=== PATIENT | female | born 1940 | race Caucasian/White ===

== ENCOUNTER → 2016-12-01 | Outpatient (CLI) | payer MEDICARE, BC ==
[~2016-12-01] MED LIST: ALBU8.5H INH; ASCO500T9 PO; ATOR40TA64 PO; BIFI4CAP PO; BUME1TAB17 PO; DIGO-34 PO; ENOX100D SQ; FERR324T4 PO; INSU100V12 SQ; LORA10TA7 PO; MAGN400T6 PO; METF10002 PO; METO-482 PO; MINO100C2 PO; MOME0.244 INH; OMEP40CA52 PO; PROM5SYR PO; SPIR25TA4 PO; SUCR1TAB20 PO; TIOT18CA3 ORAL INH; WARF2.5T73 PO; WARF5TAB6 PO; [UNRECOGNIZED DRUG - CODE] PO
== END ==
LOC: WC.BC 12:43
DX: Z12.31 Encounter for screening mammogram for malignant neoplasm of breast (principal)
CPT/HCPCS: 77063; G0202

== ENCOUNTER 2017-06-18 14:55 | Inpatient (IN) ==
[2017-06-17 09:54] VITALS: BMI 30.3
--- NOTE | 2017-06-17 10:39 | XRay Report ---
Indication: chf PROCEDURE: XR chest 1V: Encounter: Initial Comparison: July 07, 2016 Findings: Slightly increased pulmonary vascular congestion compared to the prior study. No lobar consolidation. No pleural effusion or pneumothorax. Heart size and mediastinal contours are stable. Prior sternotomy and cardiac valve replacements with a left pacemaker defibrillator. In impression: Slight increase in mild congestive failure. .
[2017-06-17] MEDS: BUMETANIDE DRIP 25 MG in RTU-SALINE 100 ML IV SCH ×2 (11:08→19:32)
[2017-06-17] MEDS: INSULIN LISPRO PO SCH ×2 (18:48→20:17)
[2017-06-17] MEDS: INSULIN ASPART 100unit/ml INJECTION SQ SCH (20:21)
[2017-06-17] MEDS: APAP/DIPHENHYDRAMINE 500 MG/25 MG TABLET PO SCH (21:48)
[2017-06-17] MEDS: ATORVASTATIN 40 MG TABLET PO SCH (21:48)
[2017-06-17] MEDS: INSULIN DETEMIR 100unit/ml INJECTION SQ SCH (21:52)
[2017-06-17] MEDS: SUCRALFATE 1 GM TABLET PO SCH (21:55)
[2017-06-18] MEDS: FERROUS SULFATE 324 MG TABLET PO SCH (08:58)
[2017-06-18] MEDS: METFORMIN 1,000 MG TABLET PO SCH (08:59)
[2017-06-18] MEDS: ALLOPURINOL 100 MG TABLET PO SCH (08:59)
[2017-06-18] MEDS: ASPIRIN *EC* 81 MG TABLET PO SCH (09:00)
[2017-06-18] MEDS: CLOPIDOGREL 75 MG TABLET PO SCH (09:02)
[2017-06-18] MEDS: DIGOXIN 125 MCG TABLET PO SCH (09:05)
[2017-06-18] MEDS: FOLIC ACID 1 MG TABLET PO SCH (09:07)
[2017-06-18] MEDS: SUCRALFATE 1 GM TABLET PO SCH ×2 (09:09→22:41)
[2017-06-18] MEDS: INSULIN DETEMIR 100unit/ml INJECTION SQ SCH ×2 (09:12→22:42)
[2017-06-18] MEDS: INSULIN ASPART 100unit/ml INJECTION SQ SCH ×3 (09:37→18:57)
--- NOTE | 2017-06-18 11:59 | Cardiology Progress Note ---
Subjective Principal diagnosis: A/C Heart Failure <Manisha Farr - 06/18/17 11:59> Interval history: Patient was seen in Dr. Henriquez's [place] [facility] yesterday with complaints of increased SOA and swelling. She was placed in the hospital yesterday for aggressive diuretic therapy. Today, patient has been receiving IV Bumex at 1mg/hr since last night and she remains SOA but improved. LE edema also improving - she has tenderness to the LE when touching the skin and she has peripheral neuropathy mostly controlled. Patient has improved EF 55% by recent echo performed 03/17/17. Prior EF 2015 low at 27%. This patient also has co-morbid conditions to include PAD recent Left LE intervention - doing well. Patient denies CP <Manisha Farr - 06/18/17 13:01> Exam Vital signs: Temperature 97.8 F 06/20/17 12:00 Pulse Rate 66 06/20/17 12:00 Respiratory Rate 16 06/20/17 12:00 Blood Pressure 112/51 06/20/17 12:00 Pulse Oximetry 90 06/20/17 12:00 <Dion Henriquez - 06/20/17 12:45> Temperature 97.9 F 06/18/17 16:04 Pulse Rate 95 06/18/17 16:04 Respiratory Rate 18 06/18/17 16:04 Blood Pressure 121/63 06/18/17 16:04 Pulse Oximetry 98 06/18/17 16:04 <Maryam Ch - 06/18/17 17:34> Temperature 98.6 F 06/18/17 11:39 Pulse Rate 89 06/18/17 11:39 Respiratory Rate 16 06/18/17 11:39 Blood Pressure 116/72 06/18/17 11:39 Pulse Oximetry 98 06/18/17 11:39 <Manisha Farr - 06/18/17 13:01> - Constitutional no acute distress <Manisha Farr - 06/18/17 13:01> - Routine HEENT Exam Head: Present: normocephalic, atraumatic <Manisha Farr - 06/18/17 13:01> Eye: Present: EOMI. Absent: periorbital swelling <Manisha Farr - 06/18/17 13:01> ENT: Present: mucous membranes moist <Manisha Farr - 06/18/17 13:01> - Routine Respiratory Exam Present: dyspnea, CTA bilaterally. Absent: accessory muscle use <Manisha Farr - 06/18/17 13:01> - Routine Cardiovascular Exam Present: RRR. Absent: murmur <Manisha Farr - 06/18/17 13:01> - Routine Extremities Exam Present: edema, pulses intact <Manisha Farr - 06/18/17 13:01> - Routine Skin Exam Absent: cyanosis <Manisha Farr - 06/18/17 13:01> - Routine Neurological Exam Present: alert, oriented X3 <Manisha Farr - 06/18/17 13:01> - Routine Psychiatric Exam Present: normal affect, normal thought process, cooperative, good insight, good judgment <Manisha Farr - 06/18/17 13:01> Assessment and Plan - Assessment and Plan (1) Systolic and diastolic CHF, acute on chronic Current visit: Yes Status: Acute (2) Coronary artery disease Current visit: Yes Status: Chronic (3) PAF (paroxysmal atrial fibrillation) Current visit: Yes Status: Chronic (4) HTN (hypertension) Current visit: Yes Status: Chronic (5) DM2 (diabetes mellitus, type 2) Current visit: Yes Status: Chronic (6) HLD (hyperlipidemia) Current visit: Yes Status: Chronic (7) COPD (chronic obstructive pulmonary disease) Current visit: Yes Status: Chronic <Dion Henriquez - 06/20/17 12:45> (1) Systolic and diastolic CHF, acute on chronic Current visit: Yes Status: Acute Bumex Drip 1mg/hr - BNP in AM and CXR to monitor response Consider change to intermittent Bumex dosing if above show improvement Lab in AM to include CMP Liver enzymes elevated likely due to liver congestion as a result of CHF - monitor and caution with medications cleared through liver. Monitor Warfarin level as liver congestion can cause elevated liver enzymes ultimately increasing INR levels Atorvastatin will also increase liver enzymes - will continue to monitor as outpatient once she recovers from exacerbation of CHF (2) Coronary artery disease Current visit: Yes Status: Chronic Will perform 3 Troponin levels to rule out ACS as a cause for exacerbation of CHF Continue Asa and statin Continue Metoprolol Add BRITNI-I and monitor for cough - If patient develops cough on BRITNI-I then will consider ARB (3) PAF (paroxysmal atrial fibrillation) Current visit: Yes Status: Chronic Continue Warfarin and we will consult Pharmacy for dosing Keep INR between 2 and 3 (4) HTN (hypertension) Current visit: Yes Status: Chronic Stable Continue Metoprolol and add Britni-I and monitor vital signs (5) DM2 (diabetes mellitus, type 2) Current visit: Yes Status: Chronic Continue Metformin and monitor Accuchecks (6) HLD (hyperlipidemia) Current visit: Yes Status: Chronic Continue statin (7) COPD (chronic obstructive pulmonary disease) Current visit: Yes Status: Chronic Consult Dr. Mena for COPD management <Manisha Farr - 06/19/17 20:11> (1) Systolic and diastolic CHF, acute on chronic Current visit: Yes Status: Acute Change Bumex drip to Diamox 250mg IV Q8H Cr vera (2) Coronary artery disease Current visit: Yes Status: Chronic Entresto 24/26mg po BID (3) PAF (paroxysmal atrial fibrillation) Current visit: Yes Status: Chronic (4) HTN (hypertension) Current visit: Yes Status: Chronic (5) DM2 (diabetes mellitus, type 2) Current visit: Yes Status: Chronic (6) HLD (hyperlipidemia) Current visit: Yes Status: Chronic (7) COPD (chronic obstructive pulmonary disease) Current visit: Yes Status: Chronic <Maryam Ch - 06/18/17 17:34> - Attestation Attestation Narrative: 06/20/17 12:44 I have seen and evaluated patient and I agree with above. Patient has valvular heart disease 06/20/17 12:44 WE have made an adjustment to her INR level <Dion Henriquez - 06/20/17 12:44> Hospital Course Summary Disclaimer: The visit summary below is not to be considered part of the above Progress Note. <Dion Henriquez - 06/20/17 12:45> The visit summary below is not to be considered part of the above Progress Note. <Maryam Ch - 06/18/17 17:34> The visit summary below is not to be considered part of the above Progress Note. <Manisha Farr - 06/18/17 11:59>
--- NOTE | 2017-06-18 12:51 | XRay Report ---
INDICATION: CHF PROCEDURE: CHEST 2-VIEWS UPRIGHT (PA & LAT) Encounter: Initial COMPARISON: June 17, 2017 FINDINGS: Increased interstitial markings seen in the lower lung peterson bilaterally with Rukhsana B lines in the periphery. No consolidative pneumonia or pneumothorax. Trace pleural fluid. Heart size and mediastinal contours are stable. Prior cardiac valve replacement with left pacemaker defibrillator. Impression: Persistent mild to moderate pulmonary edema. .
--- NOTE | 2017-06-18 13:50 | Pharmacy Consult ---
Pharmacy Consult-Warfarin - Laboratory Information 06/17/17 06/18/17 10:07 04:13 INR 3.41 H 3.75 H - Consult Information We will give 2mg of vitamin k orally today. INR elevated from 06/17/17 (3.41 to 3.75 today). INR is ordered for a.m. and we will make adjustments if needed at that time. Thanks
[~2017-06-18 14:55] MED LIST changes: -ALBU8.5H INH; +ALBUTEROL INH PRN; -ASCO500T9 PO; +ASCORBIC ACID 1000 MG PO SCH; -ATOR40TA64 PO; -BIFI4CAP PO; -BUME1TAB17 PO; +BUMETANIDE 2.5mg/10ml INJECTION IVP ONE; +CYANOCOBALAMIN PO SCH; -DIGO-34 PO; -ENOX100D SQ; -FERR324T4 PO; +INFLUENZA VAC High Dose 2017-18 (Fluzone HD*) (>=65yo) 0.5ml IM ONE; +INFLUENZA VAC. INJ. ADMIN CHARGE INJ ONE; -INSU100V12 SQ; +INSULIN ASPART 100unit/ml INJECTION SQ SCH; -LORA10TA7 PO; -MAGN400T6 PO; -METF10002 PO; -METO-482 PO; -MINO100C2 PO; -MOME0.244 INH; +MOMETASONE FUROATE PO SCH; +NS FLUSH BAG 500ml IV PRN; -OMEP40CA52 PO; +PHYTONADIONE 1 MG/0.5 ML ORAL LIQUID PO ONE; +PNEUMOCOCCAL 23 VACCINE 0.5ml INJECTION IM ONE; +PNEUMOCOCCAL VAC ADMIN CHARGE INJ ONE; +POM TIOTROPIUM 18mcg/cap HANDIHALER ORAL INH SCH; +POM WARFARIN 5 MG TABLET PO SCH; -PROM5SYR PO; -SPIR25TA4 PO; -SUCR1TAB20 PO; -TIOT18CA3 ORAL INH; -WARF2.5T73 PO; -WARF5TAB6 PO; +WARFARIN - PHARMACY CONSULT MC ONE; -[UNRECOGNIZED DRUG - CODE] PO
--- NOTE | 2017-06-18 14:58 | Pulmonology Consult Note ---
History of Present Illness Consult date: 06/18/17 Reason for consult: dyspnea History of present illness: 77 year old lady who smoked until about 1 year ago, 1 ppd. She states she has COPD. She is on O2 at 2-3 lpm, Spiriva once daily, Asmanex daily and Proair when needed. For the past couple of weeks she has been SOB and having coughing with yellow sputum production. She states that Dr Waller ordered antibiotics for her and this cleared up her sputum for a while, but after she stopped those, the sputum darkened again and she developed increased shortness of breath. Dr Henriquez's notes indicate: Patient was seen in Dr. Henriquez's [place] [facility] yesterday with complaints of increased SOA and swelling. She was placed in the hospital yesterday for aggressive diuretic therapy. Today, patient has been receiving IV Bumex at 1mg/hr since last night and she remains SOA but improved. LE edema also improving - she has tenderness to the LE when touching the skin and she has peripheral neuropathy mostly controlled. Patient has improved EF 55% by recent echo performed 03/17/17. Prior EF 2015 low at 27%. This patient also has co-morbid conditions to include PAD recent Left LE intervention - doing well. Patient denies CP Review of Systems All systems: reviewed and no additional remarkable complaints except as stated PFSH Patient Stated Medical History Peripheral Neuropathy Yes: feet Cataracts Yes: both Dental Problems Yes: dentures/full upper/partial bottom Hearing Loss Yes Congestive Heart Failure Yes Coronary Artery Disease Yes Hypertension Yes Valvular Heart Disease Yes Chronic Obstructive Pulmonary Yes Disease (COPD) Pneumonia Yes Diabetes Mellitus Type 2 Yes Hx Incontinence Yes Other Musculoskeletal Yes: arthritis Shingles Yes Blood Transfusions Yes - Social History Smoking status: Former smoker Medications Home Medications Medication Instructions Recorded Confirmed Type Albuterol Sulfate [Proair Hfa] 2 puff INH Q4-6H PRN #0 06/15/14 06/17/17 History Atorvastatin Calcium 40 mg PO HS #0 06/15/14 06/17/17 History Metformin HCl 1,000 mg PO DAILY #180 06/15/14 06/17/17 History Tiotropium [place] [Spiriva] 1 cap ORAL INH DAILY #0 06/16/14 06/17/17 History Digoxin [Digitek] 125 mcg PO DAILY #0 01/09/15 06/17/17 History Warfarin Sodium 2.5 mg PO SUMOWEFRSA #0 tab 04/19/15 06/17/17 History Warfarin Sodium 5 mg PO TUTH #0 tab 04/19/15 06/17/17 History Insulin Detemir [Levemir] 38 units SQ BID #0 vial 12/06/15 06/17/17 History Allopurinol [Zyloprim] 100 mg PO DAILY 04/14/17 06/17/17 History Cholecalciferol (Vitamin D3) 5,000 unit PO DAILY 04/14/17 06/17/17 History [Vitamin D3] Cyanocobalamin (Vitamin B-12) 1,000 mcg PO DAILY 04/14/17 06/17/17 History [Vitamin B-12] Folic Acid [Folate] 1 mg PO DAILY 04/14/17 06/17/17 History Insulin Lispro [HumaLOG] 25 unit SQ TIDWM 04/14/17 06/17/17 History Sucralfate [Carafate] 1 g PO BID 04/14/17 06/17/17 History Bumetanide 2 mg PO TID 05/19/17 06/17/17 History Metoprolol Tartrate [Lopressor] 150 mg PO BID 05/19/17 06/17/17 History Acetaminophen/Diphenhydramine 1 tab PO HS 06/17/17 06/17/17 History [Acetaminophen Pm Caplet] Ascorbic Acid [Vitamin C] 1,000 mg PO WB 06/17/17 06/17/17 History Magnesium Oxide 500 mg PO DAILY 06/17/17 06/17/17 History Mometasone Furoate [Asmanex] 1 puff INH HS 06/17/17 06/17/17 History Omeprazole 40 mg PO ACB 06/17/17 06/17/17 History Allergies Allergy/AdvReac Type Severity Reaction Status Date / Time ciprofloxacin Allergy Unknown ABDOMINAL Verified 06/17/17 15:06 DISCOMFORT Exam Vital signs: Temperature 98.6 F 06/18/17 11:39 Pulse Rate 89 06/18/17 11:39 Respiratory Rate 16 06/18/17 11:39 Blood Pressure 116/72 06/18/17 11:39 Pulse Oximetry 98 06/18/17 11:39 - Constitutional no acute distress, well developed - Routine HEENT Exam Head: Present: normocephalic, atraumatic ENT: Present: mucous membranes moist Throat: normal inspection - Routine Neck Exam Present: supple. Absent: JVD - Routine Respiratory Exam Present: decreased breath sounds, prolonged expiratory phase. Absent: wheezes - Routine Cardiovascular Exam Present: RRR, S1, S2 - Routine Abdominal Exam Present: soft. Absent: guarding - Routine Extremities Exam Present: edema. Absent: cyanosis, clubbing - Routine Skin Exam Present: intact. Absent: cyanosis - Routine Neurological Exam Present: alert, oriented X3 - Routine Psychiatric Exam Present: normal affect Results - Laboratory Findings CBC and BMP: 06/18/17 04:13 06/18/17 04:13 PT/INR, D-dimer INR 3.75 (0.99-1.21) H 06/18/17 04:13 Abnormal lab findings: Abnormal Labs 06/17/17 06/17/17 06/17/17 10:07 10:07 10:07 RBC 3.24 L Hgb 9.6 L Hct 31.6 L MCHC 30.4 L RDW Std Deviation 59.6 H Immature Gran % (Auto) Neut % (Auto) Lymph % (Auto) Lymph # (Auto) Abs Immat Gran (auto) Neutrophils % (Manual) 89.0 H Lymphocytes % (Manual) 5.0 L Lymphocytes # (Manual) 0.4 L INR 3.41 H Sodium Potassium Chloride 95 L Carbon Dioxide 33 H BUN 43.0 H BUN/Creatinine Ratio 36 H Glucose 195 H Calculated Osmolality 285 H AST 43 H ALT 62 H B-Natriuretic Peptide 3130 H 06/18/17 06/18/17 06/18/17 04:13 04:13 04:13 RBC 3.27 L Hgb 9.5 L Hct 32.0 L MCHC 29.7 L RDW Std Deviation 58.7 H Immature Gran % (Auto) 0.8 H Neut % (Auto) 78.6 H Lymph % (Auto) 8.7 L Lymph # (Auto) 0.7 L Abs Immat Gran (auto) 0.07 H Neutrophils % (Manual) Lymphocytes % (Manual) Lymphocytes # (Manual) INR 3.75 H Sodium 145 H Potassium 3.5 L Chloride 94 L Carbon Dioxide 39 H BUN 42.0 H BUN/Creatinine Ratio 35 H Glucose Calculated Osmolality 289 H AST ALT B-Natriuretic Peptide - Diagnostic Findings Chest x-ray: report reviewed, image reviewed Assessment and Plan - Assessment and Plan (1) COPD (chronic obstructive pulmonary disease) Current visit: Yes Status: Chronic At least moderate COPD with hypoxemia and possible chronic hypercapnic respiratory failure. I recommend nebulized budesonide BID, albuterol/ ipratropium QID. Continue O2 to keep sat >90%. Check ABG and if she has significant hypercapnia we can consider NIPPV for home use. Avoid systemic corticosteroids at this time due to her DM. We will follow
[2017-06-18] MEDS: acetaZOLAMIDE 500 MG INJECTION IV SCH (19:02)
[2017-06-18] MEDS: ALBUTEROL/IPRATROPIUM 2.5mg-0.5mg/3ml NEB AEROSOL SCH (19:58)
[2017-06-18] MEDS: BUDESONIDE INH.SOLN 0.5mg/2ml NEB AEROSOL SCH (19:58)
[2017-06-18] MEDS: SACUBITRIL/VALSARTAN 24/26mg TABLET PO SCH (22:41)
[2017-06-18] MEDS: ATORVASTATIN 40 MG TABLET PO SCH (22:42)
[2017-06-18] MEDS: APAP/DIPHENHYDRAMINE 500 MG/25 MG TABLET PO SCH (22:43)
[2017-06-19] MEDS: acetaZOLAMIDE 500 MG INJECTION IV SCH ×3 (01:49→16:34)
[2017-06-19] MEDS: OMEPRAZOLE 20 MG CAPSULE PO SCH (06:42)
--- NOTE | 2017-06-19 08:29 | Pharmacy Consult ---
Pharmacy Consult-Warfarin - Laboratory Information 06/17/17 06/18/17 06/19/17 10:07 04:13 04:18 INR 3.41 H 3.75 H 2.45 H PB, a 77 yo female was seen in Dr[facility]quez[facility] with complaints of increased SOA and swelling. She was placed in the hospital yesterday for aggressive diuretic therapy with a Bumex drip. The patient has diagnosis of atrial fibrillation for which she is currently taking Warfarin 2.5 mg orally SuMoWeFrSA and 5 mg TuTh. Date INR Dose 06/17 3.41 ---- 06/18 3,[address] SCIENTIST (not pharmacy). The pharmacy gave Vit K 2 mg to insure patient did not become supra-therapeutic. 06/19 2.45 Plan 2.5 mg (Patient's home dose) I plan to give the patient's home dose of warfarin today. The Pharmacy will continue to monitor the INR's and adjust the warfarin therapy accordingly. Thanks for the Warfarin Dosing Protocol, Boris Madrigal, Pharmacist.
[2017-06-19] MEDS: BUDESONIDE INH.SOLN 0.5mg/2ml NEB AEROSOL SCH ×2 (08:35→19:09)
[2017-06-19] MEDS: ALBUTEROL/IPRATROPIUM 2.5mg-0.5mg/3ml NEB AEROSOL SCH ×4 (08:35→19:09)
[2017-06-19] MEDS: MAGNESIUM OXIDE 400 MG TABLET PO SCH (08:53)
[2017-06-19] MEDS: FERROUS SULFATE 324 MG TABLET PO SCH (08:53)
[2017-06-19] MEDS: ALLOPURINOL 100 MG TABLET PO SCH (08:54)
[2017-06-19] MEDS: CYANOCOBALAMIN (B-12) 500mcg TABLET PO SCH (08:54)
[2017-06-19] MEDS: METFORMIN 1,000 MG TABLET PO SCH (08:54)
[2017-06-19] MEDS: CLOPIDOGREL 75 MG TABLET PO SCH (08:54)
[2017-06-19] MEDS: ASPIRIN *EC* 81 MG TABLET PO SCH (08:55)
[2017-06-19] MEDS: SACUBITRIL/VALSARTAN 24/26mg TABLET PO SCH ×2 (08:55→22:28)
[2017-06-19] MEDS: SUCRALFATE 1 GM TABLET PO SCH ×2 (08:55→22:27)
[2017-06-19] MEDS: INSULIN ASPART 100unit/ml INJECTION SQ SCH ×3 (08:56→18:55)
[2017-06-19] MEDS: INSULIN DETEMIR 100unit/ml INJECTION SQ SCH ×2 (08:57→22:26)
[2017-06-19] MEDS: DIGOXIN 125 MCG TABLET PO SCH (09:03)
[2017-06-19] MEDS: ASCORBIC ACID 500 MG TABLET PO SCH (09:03)
[2017-06-19] MEDS: FOLIC ACID 1 MG TABLET PO SCH (09:03)
--- NOTE | 2017-06-19 10:24 | Pulmonology Progress Note ---
Subjective Principal diagnosis: A/C Heart Failure Interval history: Pt sitting up in bed, states her breathing is doing ok at rest, still with some SOB with ambulation. Currently on her home O2 at 2L per NC. Exam Vital signs: Temperature 96.8 F 06/19/17 07:57 Pulse Rate 67 06/19/17 09:03 Respiratory Rate 20 06/19/17 08:25 Blood Pressure 122/61 06/19/17 07:57 Pulse Oximetry 98 06/19/17 08:25 - Constitutional no acute distress, well developed - Routine HEENT Exam Head: Present: normocephalic, atraumatic Eye: Present: EOMI, PERRL - Routine Neck Exam Present: supple, full ROM - Routine Respiratory Exam Present: CTA bilaterally - Routine Cardiovascular Exam Present: RRR, no murmur - Routine Abdominal Exam Present: soft, normoactive bowel sounds - Routine Extremities Exam Present: no edema, non tender, full ROM - Routine Back/Spine/Pelvis Exam Back/Spine: Present: full ROM - Routine Skin Exam Present: intact, dry - Routine Neurological Exam Present: alert, oriented X3, CN II-XII intact - Routine Psychiatric Exam Present: normal affect, normal thought process Progress Note-A&P - Time Spent With Patient Total time spent is greater than 50% in coordination of care (as documented) at patient's floor/unit and/or counseling patient: less than 15 minutes (1) Systolic and diastolic CHF, acute on chronic Status: Acute Current Visit: Yes (2) COPD (chronic obstructive pulmonary disease) Status: Chronic Current Visit: Yes (3) DM2 (diabetes mellitus, type 2) Status: Chronic Current Visit: Yes - Assessment and Plan Pt currently on O2 at 2L per NC (home O2). Still with some SOB. Continue on pulmicort BID, spiriva daily and a/a QID. No wheezing noted this am. S/p bumex gtt with improved swelling, coumadin for parox afib. CXR yesterday shows cardiomegaly and vascular congestion. Would continue to follow CXR and I/O closely. Would recommend OP f/u with Dr. Siddiqui in 3-4 weeks in [place] with a PFT. ABG showed Pco2 53, may require home vent to mask in the future, has a Hx of EF 27% in 2014, most recent 55% 03/23.
[2017-06-19] MEDS: TIOTROPIUM 18mcg/cap HANDIHALER ORAL INH SCH (10:40)
[2017-06-19] MEDS ORDERED: WARFARIN 2.5 MG TABLET PO SCH (12:00)
[2017-06-19] MEDS ORDERED: POM WARFARIN 5 MG TABLET PO SCH (12:00)
--- NOTE | 2017-06-19 12:29 | Cardiology Progress Note ---
Subjective Principal diagnosis: A/C Heart Failure <RosalbayinkaManisha Niles - 06/19/17 12:29> Interval history: Pt sitting up in bed, states her breathing is doing ok at rest, still with some SOB with ambulation. Currently on her home O2 at 2L per NC. Patient states that she is breathing better today. Not urinating as much as yesterday since being of intermittent dosing of diuretic states legs are still swollen Had episode of low blood sugars Patient was given Vit K last night for high INR as initially INR range was set between 2 and 3 Patient has mechanical Mitral valve and will need to keep INR between 2.5 and 3.5 Pharmacy aware of the change in INR range We will keep patient on Lovenox therapeutic dosing until INR greater than 2.5 Patient had low blood pressure earlier today - Lisinopril was started yesterday - will DC until blood pressure improves Would like patient to be discharged on MARISOL-I or ARB but she may not be able to tolerate it. <YordanTyraManisha A - 06/19/17 20:10> Exam Vital signs: Temperature 97.8 F 06/20/17 12:00 Pulse Rate 66 06/20/17 12:00 Respiratory Rate 16 06/20/17 12:00 Blood Pressure 112/51 06/20/17 12:00 Pulse Oximetry 90 06/20/17 12:00 <Dion Henriquez - 06/20/17 12:43> Temperature 97.8 F 06/19/17 11:10 Pulse Rate 62 06/19/17 11:10 Respiratory Rate 16 06/19/17 11:48 Blood Pressure 88/61 06/19/17 11:10 Pulse Oximetry 97 06/19/17 11:48 <YordanManisha A - 06/19/17 12:29> - Constitutional no acute distress, well developed <Manisha Farr - 06/19/17 12:29> - Routine HEENT Exam Head: Present: normocephalic, atraumatic <Manisha Farr - 06/19/17 12:29> Eye: Present: EOMI, conjunctivae pink <Manisha Farr - 06/19/17 12:29> ENT: Present: mucous membranes moist <Manisha Farr - 06/19/17 12:29> - Routine Neck Exam Present: JVD. Absent: carotid bruit <Manisha Farr - 06/19/17 12:29> - Routine Respiratory Exam Present: CTA bilaterally. Absent: accessory muscle use <Manisha Farr - 12:29> - Routine Cardiovascular Exam Present: RRR, click <Manisha Farr - 06/19/17 12:29> Comments: mechanical S1 and S2 noted <Manisha Farr - 06/19/17 12:29> - Routine Abdominal Exam Present: soft, normoactive bowel sounds <Manisha Farr - 06/19/17 12:29> - Routine Extremities Exam Present: edema. Absent: cyanosis <Manisha Farr 06/19/17 12:29> - Routine Skin Exam Absent: cyanosis <Manisha Farr - 06/19/17 12:29> - Routine Neurological Exam Present: alert, oriented X3 <Manisha Farr 06/19/17 12:29> - Routine Psychiatric Exam Present: normal affect <Manisha Farr - 06/19/17 12:29> - Additional findings Additional findings: Laboratory Results - last 24 hr 06/18/17 06/19/17 06/19/17 20:04 04:18 04:18 INR 2.45 H Turbidity < 20 Sodium 141 Potassium 3.4 L Chloride 94 L Carbon Dioxide 37 H Anion Gap 10 BUN 39.0 H Creatinine 1.4 H D GFR Calculation 36 BUN/Creatinine Ratio 28 H Glucose 68 Glucometer 145 Calculated Osmolality 278 Calcium 10.0 Total Bilirubin 0.60 Icterus Index < 2 AST 30 ALT 50 Alkaline Phosphatase 75 Troponin I 0.023 B-Natriuretic Peptide 5150 H Total Protein 6.5 Albumin 3.6 Globulin 2.9 Albumin/Globulin Ratio 1.2 Specimen Hemolysis < 15 06/19/17 06/19/17 06/19/17 06:09 11:08 15:10 INR Turbidity Sodium Potassium Chloride Carbon Dioxide Anion Gap BUN Creatinine GFR Calculation BUN/Creatinine Ratio Glucose Glucometer 73 122 58 Calculated Osmolality Calcium Total Bilirubin Icterus Index AST ALT Alkaline Phosphatase Troponin I B-Natriuretic Peptide Total Protein Albumin Globulin Albumin/Globulin Ratio Specimen Hemolysis 06/19/17 06/19/17 16:09 16:40 INR Turbidity Sodium Potassium Chloride Carbon Dioxide Anion Gap BUN Creatinine GFR Calculation BUN/Creatinine Ratio Glucose Glucometer 51 67 Calculated Osmolality Calcium Total Bilirubin Icterus Index AST ALT Alkaline Phosphatase Troponin I B-Natriuretic Peptide Total Protein Albumin Globulin Albumin/Globulin Ratio Specimen Hemolysis Acetaminophen/Diphenhydramine HCl (Tylenol Pm) 1 tab PO HS [facility] Last Admin: 06/18/17 22:43 Dose: 1 tab Acetazolamide Sodium (Diamox Inj) 250 mg IV DAILY [facility] Stop: 06/21/17 09:01 Albuterol Sulfate (Ventolin Hfa) 2 puff INH Q4-6HR PRN PRN Reason: Shortness of air Albuterol/Ipratropium (Duoneb) 3 ml AEROSOL RTQID [facility] Last Admin: 06/19/17 19:09 Dose: 3 ml Allopurinol (Zyloprim) 100 mg PO DAILY [facility] Last Admin: 06/19/17 08:54 Dose: 100 mg Ascorbic Acid (Vitamin C) 1,000 mg PO [facility] Last Admin: 06/19/17 09:03 Dose: 1,000 mg Aspirin (Ecotrin) 81 mg PO DAILY [facility] Last Admin: 06/19/17 08:55 Dose: 81 mg Atorvastatin Calcium (Lipitor) 40 mg PO HS [facility] Last Admin: 06/18/17 22:42 Dose: 40 mg Budesonide (Pulmicort Inhalation) 0.5 mg AEROSOL RTBID [facility] Last Admin: 06/19/17 19:09 Dose: 0.5 mg Cholecalciferol (Vit. D-3) 5,000 unit PO DAILY [facility] Last Admin: 06/19/17 08:55 Dose: 5,000 unit Clopidogrel Bisulfate (Plavix) 75 mg PO DAILY [facility] Last Admin: 06/19/17 08:54 Dose: 75 mg Cyanocobalamin (Vit. B-12) 1,000 mcg PO DAILY [facility] Last Admin: 06/19/17 08:54 Dose: 1,000 mcg Digoxin (Lanoxin) 125 mcg PO DAILY [facility] Last Admin: 06/19/17 09:03 Dose: 125 mcg Enoxaparin Sodium (Lovenox) 64 mg SQ Q12H [facility] Last Admin: 06/19/17 13:12 Dose: 64 mg Ferrous Sulfate (Feosol) 324 mg PO WB [facility] Last Admin: 06/19/17 08:53 Dose: 324 mg Folic Acid (Folate) 1 mg PO DAILY [facility] Last Admin: 06/19/17 09:03 Dose: 1 mg Insulin Aspart (Novolog) 22 unit SQ TIDWM [facility] Insulin Detemir (Levemir) 33 unit SQ BID [facility] Magnesium Oxide (Magox) 400 mg PO DAILY [facility] Last Admin: 06/19/17 08:53 Dose: 400 mg Metformin HCl (Glucophage) 1,000 mg PO WB [facility] Last Admin: 06/19/17 08:54 Dose: 1,000 mg Metoprolol Tartrate (Lopressor) 150 mg PO BID [facility] Last Admin: 06/19/17 09:05 Dose: 150 mg Mometasone Furoate (Asmanex Twisthaler) 1 puff ORAL INH HS [facility] Last Admin: 06/18/17 22:54 Dose: 1 puff Pom - Insulin Lispro ((Humalog) Pen) 25 unit PO TIDWM [facility] Last Admin: 06/17/17 20:17 Dose: Not Given Omeprazole (Prilosec) 40 mg PO ACB [facility] Last Admin: 06/19/17 06:42 Dose: 40 mg Sacubitril/Valsartan (Entresto 24/26mg) 1 tab PO BID [facility] Last Admin: 06/19/17 08:55 Dose: 1 tab Sodium Chloride (Iv Flush) 10 - 80 ml IV PRN PRN PRN Reason: Flushing Sodium Chloride (Normal Saline) 500 ml IV PRN PRN Last Admin: 06/18/17 02:00 Dose: 500 ml Sucralfate (Carafate) 1 gm PO BID [facility] Last Admin: 06/19/17 08:55 Dose: 1 gm Tiotropium [place] (Spiriva) 1 cap ORAL INH DAILY [facility] Last Admin: 06/19/17 10:40 Dose: 1 cap Warfarin Sodium (Coumadin Protocol) 0 MC NOTE [facility] Warfarin Sodium (Coumadin) 2.5 mg PO NOON [facility] Stop: 06/19/17 23:59 Last Admin: 06/19/17 13:07 Dose: 2.5 mg <Manisha Farr - 06/19/17 20:10> Assessment and Plan - Assessment and Plan (1) Systolic and diastolic CHF, acute on chronic Current visit: Yes Status: Acute (2) Coronary artery disease Current visit: Yes Status: Chronic (3) PAF (paroxysmal atrial fibrillation) Current visit: Yes Status: Chronic (4) HTN (hypertension) Current visit: Yes Status: Chronic (5) DM2 (diabetes mellitus, type 2) Current visit: Yes Status: Chronic (6) HLD (hyperlipidemia) Current visit: Yes Status: Chronic (7) COPD (chronic obstructive pulmonary disease) Current visit: Yes Status: Chronic <Dion Henriquez - 06/20/17 12:43> (1) Systolic and diastolic CHF, acute on chronic Current visit: Yes Status: Acute Decrease Diamox to daily for 2 more days then likely can DC Monitor lab and vitals (2) Coronary artery disease Current visit: Yes Status: Chronic Troponin levels negative NO sign of ischemia as a cause for exacerbation of CHF (3) PAF (paroxysmal atrial fibrillation) Current visit: Yes Status: Chronic Continue Warfarin Pharmacy dosing for INR between 2.5 and 3.5 for Mechanical Mitral Valve (4) HTN (hypertension) Current visit: Yes Status: Chronic Had episode of low blood pressure ealier We will decrease diuretic therapy We have started patient on Lisinopril as a new medication for CHF We will hold Lisinopril while having low blood pressure IF blood pressure improves then consider Lisinopril as a discharge medication (5) DM2 (diabetes mellitus, type 2) Current visit: Yes Status: Chronic Blood sugars low/Hypoglycemia - will consult Hospitalist Appreciate Hospitalist christian (6) HLD (hyperlipidemia) Current visit: Yes Status: Chronic (7) COPD (chronic obstructive pulmonary disease) Current visit: Yes Status: Chronic Per Dr. Siddiqui - appreciate recs Patient feeling better with breathing treatments (8) Hx of mitral valve replacement with mechanical valve Current visit: Yes Status: Chronic Patient was given Vit K yesterday for high INR I have discussed with Pharmacy that we need to change her INR target range from between 2 and 3 to between 2.5 and 3.5 due to her mechanical mitral valve. Meanwhile, she is subtherapeutic and therefore, I will give her Lovenox 1mg/kg Sq q 12 hours until she is therapeutic. (9) Status post mechanical aortic valve replacement Current visit: Yes Status: Chronic Continue as above. Lovenox therapeutic dosing until INR between 2.5 and 3.5 Otherwise, by physical exam both aortic and mechanical valves are functioning well. <Manisha Farr - 06/19/17 20:11> - Attestation Attestation Narrative: 06/20/17 12:42 I have evaluated patient on the date of this note and I agree with above. I have determined this plan of care. <Dion Henriquez - 06/20/17 12:43> Hospital Course Summary Disclaimer: The visit summary below is not to be considered part of the above Progress Note. <Dion Henriquez - 06/20/17 12:43> The visit summary below is not to be considered part of the above Progress Note. <Manisha Farr - 06/19/17 12:29>
[2017-06-19] MEDS ORDERED: WARFARIN 5 MG TABLET PO ONE (12:46)
--- NOTE | 2017-06-19 12:52 | Pharmacy Consult ---
Pharmacy Consult-Warfarin - Laboratory Information 06/17/17 06/18/17 06/19/17 10:07 04:13 04:18 INR 3.41 H 3.75 H 2.45 H I was informed that the patient has mechanical mitral and mechanical aortic valves. Need to get the INR between 2.5-3.5. I am ordering an additional warfarin 5 mg now. Thanks, Boris Madrigal, Pharmacist.
[2017-06-19] MEDS: ENOXAPARIN 80 MG/0.8 ML INJECTION SQ SCH (13:12)
--- NOTE | 2017-06-19 16:34 | Consult Note ---
<Marsha Navarrete - Last Filed: 06/19/17 16:25> Consult Information - Data of Consult Consult date: 06/19/17 Requesting Physician: Dion Henriquez MD Primary Care Provider: Vasile Waller MD Family Provider: Vasile Waller MD - Consult Narrative Reason for consult: manage diabetes and other non-cardiac medical issues History of present illness: Susanne is a 77 year old patient of Dr. Henriquez. She was seen in his clinic for increased shortness of breath and swelling. She was hospitalized for aggressive diuretic therapy. She's been receiving IV Bumex and reports the swelling and shortness of breath have both improved. She denies any chest pain at this time. She does continue to feel somewhat short of breath. She is currently feeling quite lethargic due to low blood sugar. She currently takes Glucophage 1000 milligrams with breakfast, Levemir 30 units twice a day and NovoLog 25 units with each meal. She most recently dropped to 51 this afternoon. She is currently eating fabiano crackers with pain better and drinking grape juice. Dr. Henriquez has consulted hospitalist team to manage her blood sugars. PFSH Medical History Diabetes mellitus type 2, requiring insulin Peripheral neuropathy Paroxysmal atrial fibrillation Peripheral arterial disease Systolic and diastolic Congestive heart failure-acute on chronic Coronary artery disease Hyperlipidemia Hypertension Valvular heart disease COPD Osteoarthritis Surgical History: Tonsillectomy, aortic and mitral mechanical heart valve replacement, back surgery, cardiac stent - Social History Smoking status: Former smoker (quit smoking 2 years ago. 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 Waller-PCP Addiction Counselor-Dr. Henriquez Review of Systems All systems PM: 10-point ROS was reviewed, no additional remarkable complaints except - Constitutional Constitutional: Present: lethargy - Respiratory Respiratory: Present: dyspnea - Musculoskeletal Musculoskeletal Comments: Upper Left leg pain earlier, states is now resolved. Medications Home Medications Medication Instructions Recorded Confirmed Type Albuterol Sulfate [Proair Hfa] 2 puff INH Q4-6H PRN #0 06/15/14 06/17/17 History Atorvastatin Calcium 40 mg PO HS #0 06/15/14 06/17/17 History Metformin HCl 1,000 mg PO DAILY #180 06/15/14 06/17/17 History Tiotropium Anthony [Spiriva] 1 cap ORAL INH DAILY #0 06/16/14 06/17/17 History Digoxin [Digitek] 125 mcg PO DAILY #0 01/09/15 06/17/17 History Warfarin Sodium 2.5 mg PO SUMOWEFRSA #0 tab 04/19/15 06/17/17 History Warfarin Sodium 5 mg PO TUTH #0 tab 04/19/15 06/17/17 History Insulin Detemir [Levemir] 38 units SQ BID #0 vial 12/06/15 06/17/17 History Allopurinol [Zyloprim] 100 mg PO DAILY 04/14/17 06/17/17 History Cholecalciferol (Vitamin D3) 5,000 unit PO DAILY 04/14/17 06/17/17 History [Vitamin D3] Cyanocobalamin (Vitamin B-12) 1,000 mcg PO DAILY 04/14/17 06/17/17 History [Vitamin B-12] Folic Acid [Folate] 1 mg PO DAILY 04/14/17 06/17/17 History Insulin Lispro [HumaLOG] 25 unit SQ TIDWM 04/14/17 06/17/17 History Sucralfate [Carafate] 1 g PO BID 04/14/17 06/17/17 History Bumetanide 2 mg PO TID 05/19/17 06/17/17 History Metoprolol Tartrate [Lopressor] 150 mg PO BID 05/19/17 06/17/17 History Acetaminophen/Diphenhydramine 1 tab PO HS 06/17/17 06/17/17 History [Acetaminophen Pm Caplet] Ascorbic Acid [Vitamin C] 1,000 mg PO WB 06/17/17 06/17/17 History Magnesium Oxide 500 mg PO DAILY 06/17/17 06/17/17 History Mometasone Furoate [Asmanex] 1 puff INH HS 06/17/17 06/17/17 History Omeprazole 40 mg PO ACB 06/17/17 06/17/17 History Allergies Allergy/AdvReac Type Severity Reaction Status Date / Time ciprofloxacin Allergy Unknown ABDOMINAL Verified 06/17/17 15:06 DISCOMFORT Exam Vital Signs: Temperature 98.6 F 06/19/17 15:16 Pulse Rate 67 06/19/17 15:16 Respiratory Rate 16 06/19/17 15:16 Blood Pressure 111/51 06/19/17 15:16 Pulse Oximetry 98 06/19/17 15:16 Height/Weight/BMI: Height 1.5 m Weight 63.5 kg Body Mass Index 30.3 - Constitutional Present: no acute distress, well nourished, well developed - Routine HEENT Exam Eye: Present: EOMI ENT: Present: mucous membranes moist - Routine Neck Exam Present: supple. Absent: lymphadenopathy - Routine Respiratory Exam Present: CTA bilaterally, distant breath sounds. Absent: wheezes, crackles - Routine Cardiovascular Exam Present: RRR, murmur (grade 1), click - Routine Abdominal Exam Present: soft, normoactive bowel sounds, non distended. Absent: tenderness - Routine Extremities Exam Present: no edema (1+ pitting pretibial), normal capillary refill - Routine Skin Exam Present: dry, warm - Routine Neurological Exam Present: alert, oriented X3 - Routine Psychiatric Exam Present: normal affect, normal thought process, cooperative Results - Labs CBC & Chem 7: 06/18/17 04:13 06/19/17 04:18 - ABG Interpretation ABG results: 06/18/17 16:48 ABG pH 7.480 H ABG pCO2 53 H ABG pO2 109 H ABG HCO3 40 H ABG Total CO2 41.1 H ABG O2 Saturation 99.0 H ABG Base Excess 13.8 H - Imaging and Cardiology Chest x-ray Additional comments: 06/18/17 Impression: Persistent mild to moderate pulmonary edema. Assessment and Plan (1) DM2 (diabetes mellitus, type 2) Current visit: Yes Status: Chronic (2) Systolic and diastolic CHF, acute on chronic Current visit: Yes Status: Acute (3) COPD (chronic obstructive pulmonary disease) Current visit: Yes Status: Chronic Assessment and Plan: Assessment Diabetes mellitus type 2, requiring insulin Peripheral neuropathy Hypokalemia Paroxysmal atrial fibrillation Peripheral arterial disease Systolic and diastolic congestive heart failure-acute on chronic Coronary artery disease Hyperlipidemia Hypertension Valvular heart disease COPD Osteoarthritis Plan Appreciate the consult from Dr. Henriquez Given her sugars are overall running low, will decrease her Levemir to 33 units twice a day. Continue to check sugars routinely. She will continue to adjust insulin as needed. Potassium slightly low today. Will leave this to cardiology to manage along with diuretic use, etc. Appreciate the consult. Will continue to follow patient along with you throughout her stay. Hospital Course Summary Disclaimer: The visit summary below is not to be considered part of the above Progress Note. Hospital Course: 06/19/17 17:07 Assessment Diabetes mellitus type 2, requiring insulin Peripheral neuropathy Hypokalemia Paroxysmal atrial fibrillation Peripheral arterial disease Systolic and diastolic congestive heart failure-acute on chronic Coronary artery disease Hyperlipidemia Hypertension Valvular heart disease COPD Osteoarthritis Plan Appreciate the consult from Dr. Henriquez Given her sugars are overall running low, will decrease her Levemir to 33 units twice a day. Continue to check sugars routinely. She will continue to adjust insulin as needed. Potassium slightly low today. Will leave this to cardiology to manage along with diuretic use, etc. Appreciate the consult. Will continue to follow patient along with you throughout her stay. <Ann Marie Najera - Last Filed: 06/19/17 21:34> Consult Information - Data of Consult Requesting Physician: Dion Henriquez MD Primary Care Provider: Vasile Waller MD Family Provider: Vasile Waller MD Exam Vital Signs: Temperature 98.6 F 06/19/17 15:16 Pulse Rate 87 06/19/17 20:00 Respiratory Rate 18 06/19/17 20:00 Blood Pressure 123/62 06/19/17 20:00 Pulse Oximetry 96 06/19/17 20:00 Height/Weight/BMI: Height 1.5 m Weight 63.5 kg Body Mass Index 30.3 Results - Labs CBC & Chem 7: 06/18/17 04:13 06/19/17 04:18 - ABG Interpretation ABG results: 06/18/17 16:48 ABG pH 7.480 H ABG pCO2 53 H ABG pO2 109 H ABG HCO3 40 H ABG Total CO2 41.1 H ABG O2 Saturation 99.0 H ABG Base Excess 13.8 H Assessment and Plan (1) Systolic and diastolic CHF, acute on chronic Current visit: Yes Status: Acute (2) DM2 (diabetes mellitus, type 2) Current visit: Yes Status: Chronic (3) COPD (chronic obstructive pulmonary disease) Current visit: Yes Status: Chronic Resuscitation Status: Full Code Assessment and Plan: I have independently evaluated and examined this patient. I reviewed the chart, the patient's history, and the [employer]CH[employer]IC/PA's documented findings as above. We discussed and formulated the assessment and plan as above with additions as below: Mrs. Belle denies current chest pain and reports her breathing is improved significantly. She's had recurrent hypoglycemia over the past 48 hours on home regimen. Note her usual dose of Levemir is 38 units 3 times a day with NovoLog and metformin as previously described. She reports history of diabetic neuropathy but denies known nephropathy or retinopathy but has required laser therapy after developing a film lens implant following cataract surgery. She in fact has diabetic nephropathy with stage III chronic renal disease. NAD, alert Respirations nonlabored, breath sounds clear, no wheezing present S1, S2 click, regular rhythm Abdomen benign Fasting hypoglycemia and postprandial hyperglycemia present by review of Accu- Cheks over the past 48 hours. In addition to reduction in Levemir described above am going to decrease NovoLog from 25 units with each meal to 20 units 3 times a day. Will attempt to clarify if A1c done recently at [facility]. I am concerned that creatinine is up somewhat with current GFR 36. Metformin use can continue at present but will need to be reconsidered if creatinine climbs much further. Continue diabetic diet. Chest x-ray reviewed by myself-cardiomegaly, pacemaker/defibrillator, AVR/MVR, increased vascular markings. Discussed with Dr. Henriquez. Hospital Course Summary Disclaimer: The visit summary below is not to be considered part of the above Progress Note.
[2017-06-19] MEDS ORDERED: INSULIN ASPART 100unit/ml INJECTION SQ SCH (19:41)
[2017-06-19] MEDS: SALINE FLUSH 10ml SYRINGE IV PRN (22:26)
[2017-06-19] MEDS: APAP/DIPHENHYDRAMINE 500 MG/25 MG TABLET PO SCH (22:27)
[2017-06-19] MEDS: ATORVASTATIN 40 MG TABLET PO SCH (22:28)
[2017-06-20] MEDS: ENOXAPARIN 80 MG/0.8 ML INJECTION SQ SCH ×2 (05:00→18:17)
[2017-06-20] MEDS: SALINE FLUSH 10ml SYRINGE IV PRN (05:01)
[2017-06-20] MEDS: OMEPRAZOLE 20 MG CAPSULE PO SCH (06:46)
--- NOTE | 2017-06-20 07:23 | Pharmacy Consult ---
Pharmacy Consult-Warfarin - Laboratory Information 06/17/17 06/18/17 06/19/17 10:07 04:13 04:18 INR 3.41 H 3.75 H 2.45 H 06/20/17 04:29 INR 1.64 H - Consult Information We will give 10mg of warfarin today at noon. INR goal 2.5 - 3.5 because of mechanical mitral valve. Continue to bridge with Lovenox. Thanks
[2017-06-20] MEDS: ALBUTEROL/IPRATROPIUM 2.5mg-0.5mg/3ml NEB AEROSOL SCH ×4 (08:20→19:03)
[2017-06-20] MEDS: BUDESONIDE INH.SOLN 0.5mg/2ml NEB AEROSOL SCH ×2 (08:20→19:04)
[2017-06-20] MEDS: INSULIN DETEMIR 100unit/ml INJECTION SQ SCH ×2 (08:47→21:32)
[2017-06-20] MEDS: INSULIN ASPART 100unit/ml INJECTION SQ SCH ×3 (08:47→18:17)
[2017-06-20] MEDS: CYANOCOBALAMIN (B-12) 500mcg TABLET PO SCH (08:49)
[2017-06-20] MEDS: SACUBITRIL/VALSARTAN 24/26mg TABLET PO SCH ×2 (08:49→21:33)
[2017-06-20] MEDS: ASCORBIC ACID 500 MG TABLET PO SCH (08:49)
[2017-06-20] MEDS: METFORMIN 1,000 MG TABLET PO SCH (08:49)
[2017-06-20] MEDS: FOLIC ACID 1 MG TABLET PO SCH (08:49)
[2017-06-20] MEDS: SUCRALFATE 1 GM TABLET PO SCH ×2 (08:49→21:34)
[2017-06-20] MEDS: MAGNESIUM OXIDE 400 MG TABLET PO SCH (08:49)
[2017-06-20] MEDS: ASPIRIN *EC* 81 MG TABLET PO SCH (08:49)
[2017-06-20] MEDS: CLOPIDOGREL 75 MG TABLET PO SCH (08:49)
[2017-06-20] MEDS: DIGOXIN 125 MCG TABLET PO SCH (08:50)
[2017-06-20] MEDS: FERROUS SULFATE 324 MG TABLET PO SCH (08:50)
[2017-06-20] MEDS: ALLOPURINOL 100 MG TABLET PO SCH (08:50)
[2017-06-20] MEDS: acetaZOLAMIDE 500 MG INJECTION IV SCH (08:50)
[2017-06-20] MEDS: TIOTROPIUM 18mcg/cap HANDIHALER ORAL INH SCH (10:41)
[2017-06-20] MEDS ORDERED: WARFARIN 5 MG TABLET PO SCH (12:00)
--- NOTE | 2017-06-20 15:42 | Progress Note ---
Subjective: Susanne was seated the edge of the bed having lunch when seen. She denied dyspnea , chest pain, nausea, or fever. Her appetite is good. She reports that IV diuretics have been discontinued. Blood sugars were not low this morning or after breakfast. Objective Vital signs: Temperature 97.8 F 06/20/17 12:00 Pulse Rate 66 06/20/17 12:00 Respiratory Rate 16 06/20/17 12:00 Blood Pressure 112/51 06/20/17 12:00 Pulse Oximetry 90 06/20/17 12:00 NAD, alert Respirations nonlabored, good airflow, breath sounds clear except minor crackles at the bases posteriorly Regular cardiac rhythm, S1-S2 Abdomen soft, nontender Extremities without edema MAEW Height/Weight/BMI: Height 1.5 m Weight 63.2 kg Body Mass Index 30.3 Results - Labs CBC & Chem 7: 06/18/17 04:13 06/20/17 04:29 Labs: Accu-Cheks [phone] - ABG Interpretation ABG results: Assessment and Plan (1) Systolic and diastolic CHF, acute on chronic Current visit: Yes Status: Acute (2) DM2 (diabetes mellitus, type 2) Current visit: Yes Status: Chronic (3) COPD (chronic obstructive pulmonary disease) Current visit: Yes Status: Chronic DVT Prophylaxis: Lovenox, Coumadin Resuscitation Status: Full Code Assessment and Plan: Assessment Diabetes mellitus type 2, requiring insulin. A1c 9.0-03/27/17 Peripheral neuropathy Hypokalemia CKD, stage 3 Paroxysmal atrial fibrillation Peripheral arterial disease Systolic and diastolic congestive heart failure-acute on chronic Coronary artery disease Hyperlipidemia Hypertension Valvular heart disease COPD Osteoarthritis Plan No hypoglycemia overnight, no corrective insulin with blood sugars are dropping after lunch although patient appeared to eat well and did have carbohydrates with meal. Continue to monitor with reduced doses. Creatinine has climbed further-today's GFR 29. Use of metformin contraindicated if GFR consistently less then 30. Recheck in a.m. IV diuretics discontinued yesterday, mild residual hypokalemia-20 mEq oral potassium given earlier today. Recheck digoxin level in a.m., slightly elevated yesterday. INR subtherapeutic-remains on therapeutic Lovenox. Hospital Course Summary Disclaimer: The visit summary below is not to be considered part of the above Progress Note. Hospital Course: 06/19/17 17:07 Assessment Diabetes mellitus type 2, requiring insulin Peripheral neuropathy Hypokalemia Paroxysmal atrial fibrillation Peripheral arterial disease Systolic and diastolic congestive heart failure-acute on chronic Coronary artery disease Hyperlipidemia Hypertension Valvular heart disease COPD Osteoarthritis Plan Appreciate the consult from Dr. Henriquez Given her sugars are overall running low, will decrease her Levemir to 33 units twice a day. NovoLog resumed with reduced dose 20 units 3 times a day. Continue to check sugars routinely. We will continue to adjust insulin as needed. Potassium slightly low today. Will leave this to cardiology to manage along with diuretic use, etc. Appreciate the consult. Will continue to follow patient along with you throughout her stay. 06/20/17 No hypoglycemia overnight, no corrective insulin with blood sugars are dropping after lunch although patient appeared to eat well and did have carbohydrates with meal. Continue to monitor with reduced doses. Creatinine has climbed further-today's GFR 29. Use of metformin contraindicated if GFR consistently less then 30. Recheck in a.m. IV diuretics discontinued yesterday, mild residual hypokalemia-20 mEq oral potassium given earlier today. Recheck digoxin level in a.m., slightly elevated yesterday. INR subtherapeutic-remains on therapeutic Lovenox.
--- NOTE | 2017-06-20 16:56 | Cardiology Progress Note ---
Subjective Principal diagnosis: A/C Heart Failure <Veronica Enciso - 06/20/17 16:55> Interval history: Patient was seen in [facility] yesterday with complaints of increased SOA and swelling. She was placed in the hospital yesterday for aggressive diuretic therapy. Today, patient has been receiving IV Bumex at 1mg/hr since last night and she remains SOA but improved. LE edema also improving - she has tenderness to the LE when touching the skin and she has peripheral neuropathy mostly controlled. Patient has improved EF 55% by recent echo performed 03/17/17. Prior EF 2015 low at 27%. This patient also has co-morbid conditions to include PAD recent Left LE intervention - doing well. Patient denies CP <Veronica Enciso - 06/20/17 16:55> Exam Vital signs: Temperature 96.2 F L 06/22/17 15:40 Pulse Rate 63 06/22/17 16:03 Respiratory Rate 18 06/22/17 15:40 Blood Pressure 130/58 06/22/17 15:40 Pulse Oximetry 100 06/22/17 15:40 <Dion Henriquez - 06/23/17 12:47> Temperature 96.7 F L 06/20/17 16:00 Pulse Rate 68 06/20/17 16:00 Respiratory Rate 22 06/20/17 16:10 Blood Pressure 105/53 06/20/17 16:00 Pulse Oximetry 96 06/20/17 16:10 <Veronica Enciso - 06/20/17 16:55> - Constitutional no acute distress <Veronica Enciso - 06/20/17 16:55> - Routine HEENT Exam Eye: Present: EOMI <Veronica Enciso - 06/20/17 16:55> ENT: Present: mucous membranes moist <Veronica Enciso - 06/20/17 16:55> - Routine Neck Exam Absent: JVD <Veronica Enciso - 06/20/17 16:55> - Routine Respiratory Exam Present: diminished air movement <Veronica Enciso - 06/20/17 16:55> - Routine Cardiovascular Exam Present: RRR, murmur <Veronica Enciso - 06/20/17 16:55> - Routine Abdominal Exam Present: soft, non tender <Veronica Enciso - 06/20/17 16:55> - Routine Extremities Exam Absent: edema <Veronica Enciso - 06/20/17 16:55> - Routine Skin Exam Present: intact, dry <Veronica Enciso - 06/20/17 16:55> - Routine Neurological Exam Present: alert, oriented X3 <Veronica Enciso - 06/20/17 16:55> - Routine Psychiatric Exam Present: normal affect <Veronica Enciso 06/20/17 16:55> Assessment and Plan - Assessment and Plan (1) Systolic and diastolic CHF, acute on chronic Status: Acute (2) Coronary artery disease Status: Chronic (3) PAF (paroxysmal atrial fibrillation) Status: Chronic (4) HTN (hypertension) Status: Chronic (5) DM2 (diabetes mellitus, type 2) Status: Chronic (6) HLD (hyperlipidemia) Status: Chronic (7) COPD (chronic obstructive pulmonary disease) Status: Chronic <MartinezDion - 06/23/17 12:47> (1) Systolic and diastolic CHF, acute on chronic Status: Acute (2) Coronary artery disease Status: Chronic (3) PAF (paroxysmal atrial fibrillation) Status: Chronic (4) HTN (hypertension) Status: Chronic (5) DM2 (diabetes mellitus, type 2) Status: Chronic (6) HLD (hyperlipidemia) Status: Chronic (7) COPD (chronic obstructive pulmonary disease) Status: Chronic <Veronica Enciso - 06/20/17 16:53> - Attestation Attestation Narrative: 06/23/17 12:46 Recommendation After examining the patient I agree with the above assessment. I am involved in the formulation of the patient's plan of care. <Dion Henriquez - 06/23/17 12:46> Hospital Course Summary Disclaimer: The visit summary below is not to be considered part of the above Progress Note. <Dion Henriquez - 06/23/17 12:47> The visit summary below is not to be considered part of the above Progress Note. <Veronica Enciso - 06/20/17 16:55> Hospital Course: 06/19/17 17:07 Assessment Diabetes mellitus type 2, requiring insulin Peripheral neuropathy Hypokalemia Paroxysmal atrial fibrillation Peripheral arterial disease Systolic and diastolic congestive heart failure-acute on chronic Coronary artery disease Hyperlipidemia Hypertension Valvular heart disease COPD Osteoarthritis Plan Appreciate the consult from Dr. Henriquez Given her sugars are overall running low, will decrease her Levemir to 33 units twice a day. NovoLog resumed with reduced dose 20 units 3 times a day. Continue to check sugars routinely. We will continue to adjust insulin as needed. Potassium slightly low today. Will leave this to cardiology to manage along with diuretic use, etc. Appreciate the consult. Will continue to follow patient along with you throughout her stay. 06/20/17 No hypoglycemia overnight, no corrective insulin with blood sugars are dropping after lunch although patient appeared to eat well and did have carbohydrates with meal. Continue to monitor with reduced doses. Creatinine has climbed further-today's GFR 29. Use of metformin contraindicated if GFR consistently less then 30. Recheck in a.m. IV diuretics discontinued yesterday, mild residual hypokalemia-20 mEq oral potassium given earlier today. Recheck digoxin level in a.m., slightly elevated yesterday. INR subtherapeutic-remains on therapeutic Lovenox. <Veronica Enciso - 06/20/17 16:55>
[2017-06-20] MEDS: APAP/DIPHENHYDRAMINE 500 MG/25 MG TABLET PO SCH (21:32)
[2017-06-20] MEDS: ATORVASTATIN 40 MG TABLET PO SCH (21:34)
[2017-06-21] MEDS: ENOXAPARIN 80 MG/0.8 ML INJECTION SQ SCH (05:31)
[2017-06-21] MEDS: OMEPRAZOLE 20 MG CAPSULE PO SCH (05:32)
[2017-06-21] MEDS: BUDESONIDE INH.SOLN 0.5mg/2ml NEB AEROSOL SCH ×2 (08:03→19:15)
[2017-06-21] MEDS: ALBUTEROL/IPRATROPIUM 2.5mg-0.5mg/3ml NEB AEROSOL SCH ×4 (08:03→19:15)
[2017-06-21] MEDS: TIOTROPIUM 18mcg/cap HANDIHALER ORAL INH SCH (08:12)
--- NOTE | 2017-06-21 08:14 | Pharmacy Consult ---
Pharmacy Consult-Warfarin - Laboratory Information 06/17/17 06/18/17 06/19/17 10:07 04:13 04:18 INR 3.41 H 3.75 H 2.45 H 06/20/17 06/21/17 04:29 03:51 INR 1.64 H 3.06 H - Consult Information 77 y.o. F with history of mechanical mitral valve and mechanical aortic valve replacement and chronic anticoagulation with Warfarin. Goal INR= 2.5 to 3.5. Home Warfarin dose is 2.5 mg po every day except Thursday and she takes 5 mg. INR= 3.06 and is currently in therapeutic range, however based on the considerable jump from yesterday's level of 1.64. Will order no warfarin dose today. Patient is also on Lovenox 60 mg sq BID bridge dose due to recent subtherapeutic INR level. Pharmacy will monitor and adjust dose as needed. Thank you, Shania Castaneda [facility] date INR dose 06/18 3.75 5 mg (per home dose) and 2 mg of Vitamin K po 06/19 2.45 7.5 mg 06/20 1.64 10 mg 06/21 3.06 plan: no warfarin dose today
[2017-06-21] MEDS: CYANOCOBALAMIN (B-12) 500mcg TABLET PO SCH (08:19)
[2017-06-21] MEDS: METFORMIN 1,000 MG TABLET PO SCH (08:20)
[2017-06-21] MEDS: CLOPIDOGREL 75 MG TABLET PO SCH (08:20)
[2017-06-21] MEDS: FERROUS SULFATE 324 MG TABLET PO SCH (08:20)
[2017-06-21] MEDS: SUCRALFATE 1 GM TABLET PO SCH ×2 (08:20→22:00)
[2017-06-21] MEDS: MAGNESIUM OXIDE 400 MG TABLET PO SCH (08:20)
[2017-06-21] MEDS: ALLOPURINOL 100 MG TABLET PO SCH (08:20)
[2017-06-21] MEDS: DIGOXIN 125 MCG TABLET PO SCH (08:20)
[2017-06-21] MEDS: ASPIRIN *EC* 81 MG TABLET PO SCH (08:21)
[2017-06-21] MEDS: ASCORBIC ACID 500 MG TABLET PO SCH (08:21)
[2017-06-21] MEDS: acetaZOLAMIDE 500 MG INJECTION IV SCH (08:21)
[2017-06-21] MEDS: FOLIC ACID 1 MG TABLET PO SCH (08:21)
[2017-06-21] MEDS: INSULIN ASPART 100unit/ml INJECTION SQ SCH ×3 (08:22→17:56)
[2017-06-21] MEDS: INSULIN DETEMIR 100unit/ml INJECTION SQ SCH ×2 (08:22→22:00)
[2017-06-21] MEDS: SALINE FLUSH 10ml SYRINGE IV PRN (08:31)
[2017-06-21] MEDS: SACUBITRIL/VALSARTAN 24/26mg TABLET PO SCH ×2 (08:33→21:59)
--- NOTE | 2017-06-21 14:05 | Progress Note ---
<Nina Schulz - Last Filed: 06/21/17 14:02> Subjective: Susanne is seen today in follow up. She is up in chair, visiting with family. Reports that she is feeling better. SOA is better. No pain. LE edema is improving. Chart is reviewed. Objective Vital signs: Temperature 96.4 F L 06/21/17 11:46 Pulse Rate 65 06/21/17 11:46 Respiratory Rate 16 06/21/17 11:50 Blood Pressure 153/66 H 06/21/17 11:46 Pulse Oximetry 99 06/21/17 11:50 Height/Weight/BMI: Height 1.5 m Weight 63.4 kg Body Mass Index 30.3 - Constitutional Present: no acute distress, well nourished, well developed, cooperative - Routine HEENT Exam Head: Present: normocephalic, atraumatic Eye: Present: EOMI, PERRL, normal accommodation - Routine Respiratory Exam Present: decreased breath sounds, crackles (Faint in bases. Diminished breath sounds bilaterally. ). Absent: accessory muscle use - Routine Cardiovascular Exam Present: RRR, S1, S2, no murmur - Routine Abdominal Exam Present: soft, normoactive bowel sounds, non distended, non tender - Routine Extremities Exam Present: edema (1-2+ bilaterally), non tender - Routine Musculoskeletal Exam Musculoskeletal: Present: no clubbing or cyanosis, normal strength, moving extremities well - Routine Skin Exam Present: intact, dry, warm - Routine Neurological Exam Present: alert - Routine Psychiatric Exam Present: normal affect, cooperative Results - Labs CBC & Chem 7: 06/18/17 04:13 06/21/17 03:51 Labs: Laboratory Results - last 24 hr 06/21/17 06/21/17 06/21/17 05:25 08:18 10:12 INR Turbidity Sodium Potassium Chloride Carbon Dioxide Anion Gap BUN Creatinine GFR Calculation BUN/Creatinine Ratio Glucose Glucometer 84 128 191 Calculated Osmolality Calcium Phosphorus Magnesium Icterus Index Albumin Specimen Hemolysis Digoxin - ABG Interpretation ABG results: 06/18/17 16:48 ABG pH 7.480 H ABG pCO2 53 H ABG pO2 109 H ABG HCO3 40 H ABG Total CO2 41.1 H ABG O2 Saturation 99.0 H ABG Base Excess 13.8 H Assessment and Plan (1) Systolic and diastolic CHF, acute on chronic Current visit: Yes Status: Acute (2) DM2 (diabetes mellitus, type 2) Current visit: Yes Status: Chronic (3) COPD (chronic obstructive pulmonary disease) Current visit: Yes Status: Chronic DVT Prophylaxis: Coumadin Resuscitation Status: Full Code Assessment and Plan: Assessment Diabetes mellitus type 2, requiring insulin. A1c 9.0-03/27/17 Peripheral neuropathy Hypokalemia CKD, stage 3 Paroxysmal atrial fibrillation Peripheral arterial disease Systolic and diastolic congestive heart failure-acute on chronic Coronary artery disease Hyperlipidemia Hypertension Valvular heart disease COPD Osteoarthritis Plan 06/21/17 One episode of hypoglycemia this AM. Otherwise, Accuchecks are well controlled. She is eating well- suspect lower carb diet here than at home. Continue current and monitor. Potassium is 3.5- will give an extra 20mEQ this afternoon. Repeat labs in AM. Dig level now normalized. INR therapeutic- 3.0 Urine noted to be cloudy and strong per nurses notes- assess UA. weight is fairly stable. Diuresis per CV. Hospital Course Summary Disclaimer: The visit summary below is not to be considered part of the above Progress Note. Hospital Course: 06/19/17 17:07 Assessment Diabetes mellitus type 2, requiring insulin Peripheral neuropathy Hypokalemia Paroxysmal atrial fibrillation Peripheral arterial disease Systolic and diastolic congestive heart failure-acute on chronic Coronary artery disease Hyperlipidemia Hypertension Valvular heart disease COPD Osteoarthritis Plan Appreciate the consult from Dr. Henriquez Given her sugars are overall running low, will decrease her Levemir to 33 units twice a day. NovoLog resumed with reduced dose 20 units 3 times a day. Continue to check sugars routinely. We will continue to adjust insulin as needed. Potassium slightly low today. Will leave this to cardiology to manage along with diuretic use, etc. Appreciate the consult. Will continue to follow patient along with you throughout her stay. 06/20/17 No hypoglycemia overnight, no corrective insulin with blood sugars are dropping after lunch although patient appeared to eat well and did have carbohydrates with meal. Continue to monitor with reduced doses. Creatinine has climbed further-today's GFR 29. Use of metformin contraindicated if GFR consistently less then 30. Recheck in a.m. IV diuretics discontinued yesterday, mild residual hypokalemia-20 mEq oral potassium given earlier today. Recheck digoxin level in a.m., slightly elevated yesterday. INR subtherapeutic-remains on therapeutic Lovenox. 06/21/17 14:10 06/21/17 One episode of hypoglycemia this AM. Otherwise, Accuchecks are well controlled. She is eating well- suspect lower carb diet here than at home. Continue current and monitor. Potassium is 3.5- will give an extra 20mEQ this afternoon. Repeat labs in AM. Dig level now normalized. INR therapeutic- 3.0 Urine noted to be cloudy and strong per nurses notes- assess UA. weight is fairly stable. Diuresis per CV. <Ann Marie Najera - Last Filed: 06/21/17 22:23> Objective Vital signs: Temperature 97.5 F 06/21/17 19:57 Pulse Rate 65 06/21/17 20:43 Respiratory Rate 16 06/21/17 20:51 Blood Pressure 129/54 06/21/17 20:43 Pulse Oximetry 100 06/21/17 19:57 Height/Weight/BMI: Height 1.5 m Weight 63.4 kg Body Mass Index 30.3 Results - Labs CBC & Chem 7: 06/18/17 04:13 06/21/17 03:51 - ABG Interpretation ABG results: 06/18/17 16:48 ABG pH 7.480 H ABG pCO2 53 H ABG pO2 109 H ABG HCO3 40 H ABG Total CO2 41.1 H ABG O2 Saturation 99.0 H ABG Base Excess 13.8 H Assessment and Plan (1) Systolic and diastolic CHF, acute on chronic Current visit: Yes Status: Acute (2) DM2 (diabetes mellitus, type 2) Current visit: Yes Status: Chronic (3) COPD (chronic obstructive pulmonary disease) Current visit: Yes Status: Chronic Assessment and Plan: I have independently evaluated and examined this patient. I reviewed the chart, the patient's history, and the MEDICAL RECEPTIONIST MEDICAL ASSISTANT/PA's documented findings as above. We discussed and formulated the assessment and plan as above with additions as below: Mrs. Belle reports that she didn't eat very well yesterday evening and felt very fatigued this morning. She denies a.m. headaches. NAD, alert Respirations nonlabored Regular rhythm, mechanical S1 and S2 UA unremarkable, creatinine slightly improved today Blood sugars [phone] today Decrease Levemir with lunch and supper to 18 units, continue 20 units with breakfast. Patient advised to add snack at bedtime. Dietary consult Hospital Course Summary Disclaimer: The visit summary below is not to be considered part of the above Progress Note.
--- NOTE | 2017-06-21 16:57 | Cardiology Progress Note ---
Subjective Principal diagnosis: A/C Heart Failure <Veronica Enciso - 06/21/17 16:58> Interval history: Patient was seen in Dr[facility] yesterday with complaints of increased SOA and swelling. She was placed in the hospital yesterday for aggressive diuretic therapy. Today, patient has been receiving IV Bumex at 1mg/hr since last night and she remains SOA but improved. LE edema also improving - she has tenderness to the LE when touching the skin and she has peripheral neuropathy mostly controlled. Patient has improved EF 55% by recent echo performed 03/17/17. Prior EF 2015 low at 27%. This patient also has co-morbid conditions to include PAD recent Left LE intervention - doing well. Patient denies CP <Veronica Enciso - 06/21/17 16:58> Exam Vital signs: Temperature 96.2 F L 06/22/17 15:40 Pulse Rate 63 06/22/17 16:03 Respiratory Rate 18 06/22/17 15:40 Blood Pressure 130/58 06/22/17 15:40 Pulse Oximetry 100 06/22/17 15:40 <Dion Henriquez - 06/23/17 12:51> Temperature 96.6 F L 06/21/17 16:00 Pulse Rate 65 06/21/17 16:00 Respiratory Rate 20 06/21/17 16:00 Blood Pressure 133/60 06/21/17 16:00 Pulse Oximetry 99 06/21/17 16:00 <Veronica Enciso - 06/21/17 16:58> - Constitutional no acute distress <Veronica Enciso - 06/21/17 16:58> - Routine HEENT Exam Eye: Present: EOMI <Veronica Enciso - 06/21/17 16:58> ENT: Present: mucous membranes moist <Veronica Enciso - 06/21/17 16:58> - Routine Neck Exam Absent: JVD <Veronica Enciso - 06/21/17 16:58> - Routine Respiratory Exam Present: CTA bilaterally <Veronica Enciso - 06/21/17 16:58> - Routine Cardiovascular Exam Present: RRR <Veronica Enciso - 06/21/17 16:58> - Routine Abdominal Exam Present: soft <Veronica Enciso 06/21/17 16:58> - Routine Extremities Exam Absent: edema <Veronica Enciso - 06/21/17 16:58> - Routine Skin Exam Present: intact, dry <Veronica Enciso 06/21/17 16:58> - Routine Neurological Exam Present: alert, oriented X3 <Veronica Enciso 06/21/17 16:58> - Routine Psychiatric Exam Present: normal affect, normal thought process <Veronica Enciso 16:58> Assessment and Plan - Assessment and Plan (1) Systolic and diastolic CHF, acute on chronic Status: Acute (2) Coronary artery disease Status: Chronic (3) PAF (paroxysmal atrial fibrillation) Status: Chronic (4) HTN (hypertension) Status: Chronic (5) DM2 (diabetes mellitus, type 2) Status: Chronic (6) HLD (hyperlipidemia) Status: Chronic (7) COPD (chronic obstructive pulmonary disease) Status: Chronic <MartinezDion - 06/23/17 12:51> (1) Systolic and diastolic CHF, acute on chronic Status: Acute (2) Coronary artery disease Status: Chronic (3) PAF (paroxysmal atrial fibrillation) Status: Chronic (4) HTN (hypertension) Status: Chronic (5) DM2 (diabetes mellitus, type 2) Status: Chronic (6) HLD (hyperlipidemia) Status: Chronic (7) COPD (chronic obstructive pulmonary disease) Status: Chronic <Veronica Enciso - 06/21/17 16:54> - Attestation Attestation Narrative: 06/23/17 12:50 Recommendation After examining the patient I agree with the above assessment. I am involved in the formulation of the patient's plan of care. <Dion Henriquez - 06/23/17 12:51> Hospital Course Summary Disclaimer: The visit summary below is not to be considered part of the above Progress Note. <Dion Henriquez - 06/23/17 12:51> The visit summary below is not to be considered part of the above Progress Note. <Veronica Enciso - 06/21/17 16:58> Hospital Course: 06/19/17 17:07 Assessment Diabetes mellitus type 2, requiring insulin Peripheral neuropathy Hypokalemia Paroxysmal atrial fibrillation Peripheral arterial disease Systolic and diastolic congestive heart failure-acute on chronic Coronary artery disease Hyperlipidemia Hypertension Valvular heart disease COPD Osteoarthritis Plan Appreciate the consult from Dr. Henriquez Given her sugars are overall running low, will decrease her Levemir to 33 units twice a day. NovoLog resumed with reduced dose 20 units 3 times a day. Continue to check sugars routinely. We will continue to adjust insulin as needed. Potassium slightly low today. Will leave this to cardiology to manage along with diuretic use, etc. Appreciate the consult. Will continue to follow patient along with you throughout her stay. 06/20/17 No hypoglycemia overnight, no corrective insulin with blood sugars are dropping after lunch although patient appeared to eat well and did have carbohydrates with meal. Continue to monitor with reduced doses. Creatinine has climbed further-today's GFR 29. Use of metformin contraindicated if GFR consistently less then 30. Recheck in a.m. IV diuretics discontinued yesterday, mild residual hypokalemia-20 mEq oral potassium given earlier today. Recheck digoxin level in a.m., slightly elevated yesterday. INR subtherapeutic-remains on therapeutic Lovenox. 06/21/17 14:10 06/21/17 One episode of hypoglycemia this AM. Otherwise, Accuchecks are well controlled. She is eating well- suspect lower carb diet here than at home. Continue current and monitor. Potassium is 3.5- will give an extra 20mEQ this afternoon. Repeat labs in AM. Dig level now normalized. INR therapeutic- 3.0 Urine noted to be cloudy and strong per nurses notes- assess UA. weight is fairly stable. Diuresis per CV. 06/21/17 16:55 Electrolytes holding; Last dose of diuretic today. Down 5kg from admission. Ready to go home. Low sugar in the 40's over night. Meeting with nut roaster tomorrow per attending order Consider discharge tomorrow. INR supra therapeutic today 3.08. Hold Coumadin dose today <Veronica Enciso - 06/21/17 16:58>
[2017-06-21] MEDS ORDERED: INSULIN ASPART 100unit/ml INJECTION SQ SCH (20:40)
[2017-06-21] MEDS: ATORVASTATIN 40 MG TABLET PO SCH (21:59)
[2017-06-21] MEDS: APAP/DIPHENHYDRAMINE 500 MG/25 MG TABLET PO SCH (21:59)
[2017-06-22] MEDS: OMEPRAZOLE 20 MG CAPSULE PO SCH (06:48)
[2017-06-22] MEDS ORDERED: PHYTONADIONE 1 MG/0.5 ML ORAL LIQUID PO ONE (07:33)
[2017-06-22] MEDS: BUDESONIDE INH.SOLN 0.5mg/2ml NEB AEROSOL SCH (07:36)
[2017-06-22] MEDS: ALBUTEROL/IPRATROPIUM 2.5mg-0.5mg/3ml NEB AEROSOL SCH ×3 (07:36→15:02)
[2017-06-22] MEDS: INSULIN DETEMIR 100unit/ml INJECTION SQ SCH (08:11)
[2017-06-22] MEDS: ASPIRIN *EC* 81 MG TABLET PO SCH (08:12)
[2017-06-22] MEDS: ASCORBIC ACID 500 MG TABLET PO SCH (08:12)
[2017-06-22] MEDS: SACUBITRIL/VALSARTAN 24/26mg TABLET PO SCH (08:12)
[2017-06-22] MEDS: DIGOXIN 125 MCG TABLET PO SCH (08:12)
[2017-06-22] MEDS: MAGNESIUM OXIDE 400 MG TABLET PO SCH (08:13)
[2017-06-22] MEDS: METFORMIN 1,000 MG TABLET PO SCH (08:14)
[2017-06-22] MEDS: CYANOCOBALAMIN (B-12) 500mcg TABLET PO SCH (08:14)
[2017-06-22] MEDS: SUCRALFATE 1 GM TABLET PO SCH (08:14)
[2017-06-22] MEDS: FOLIC ACID 1 MG TABLET PO SCH (08:15)
[2017-06-22] MEDS: CLOPIDOGREL 75 MG TABLET PO SCH (08:16)
[2017-06-22] MEDS: FERROUS SULFATE 324 MG TABLET PO SCH (08:16)
[2017-06-22] MEDS: ALLOPURINOL 100 MG TABLET PO SCH (08:17)
[2017-06-22] MEDS: TIOTROPIUM 18mcg/cap HANDIHALER ORAL INH SCH (08:41)
--- NOTE | 2017-06-22 11:22 | Pulmonology Progress Note ---
Subjective Principal diagnosis: A/C Heart Failure Interval history: Pt sitting up in the chair, states her breathing is stable today. Did feel like she had some difficulty last noc but her O2 sats were stable on her 2L. No cough or sputum noted at this time. Exam Vital signs: Temperature 96.0 F L 06/22/17 08:04 Pulse Rate 63 06/22/17 08:12 Respiratory Rate 18 06/22/17 10:23 Blood Pressure 111/63 06/22/17 08:04 Pulse Oximetry 100 06/22/17 10:23 - Constitutional no acute distress, well developed - Routine HEENT Exam Head: Present: normocephalic, atraumatic Eye: Present: EOMI, PERRL - Routine Neck Exam Present: supple, full ROM - Routine Respiratory Exam Present: decreased breath sounds - Routine Cardiovascular Exam Present: RRR, no murmur, click - Routine Abdominal Exam Present: soft, normoactive bowel sounds - Routine Extremities Exam Present: edema, non tender, full ROM - Routine Back/Spine/Pelvis Exam Back/Spine: Present: full ROM - Routine Skin Exam Present: intact, dry - Routine Neurological Exam Present: alert, oriented X3, CN II-XII intact - Routine Psychiatric Exam Present: normal affect, normal thought process Progress Note-A&P - Time Spent With Patient Total time spent is greater than 50% in coordination of care (as documented) at patient's floor/unit and/or counseling patient: less than 15 minutes (1) COPD (chronic obstructive pulmonary disease) Status: Chronic Current Visit: Yes (2) Systolic and diastolic CHF, acute on chronic Status: Acute Current Visit: Yes (3) DM2 (diabetes mellitus, type 2) Status: Chronic Current Visit: Yes - Assessment and Plan Pt on her home O2, keep sats 90-95%. Continue her BT's pulmicort BID and a/a QID , no wheezing noted at this time. S/p diuresis per CV, INR elevated at 4, keeping at 2.5-3.5, holding coumadin. Once dismissed will need to f/u in 2-3 weeks.
[2017-06-22] MEDS: INSULIN ASPART 100unit/ml INJECTION SQ SCH ×2 (12:42→17:52)
--- NOTE | 2017-06-22 12:46 | Progress Note ---
<TatumHerminia negron Michelle - Last Filed: 06/22/17 12:41> Subjective: Susanne is doing well, and is ready for discharge. She denies feeling short of breath. We reviewed hypoglycemic events - she is concerned about having one in the middle of the night at home. During the day she has symptoms of hypoglycemia including "inside jerking" then muscle weakness/shaking and sweating. She does think her nutritional status here is different versus at home. She typically monitors sugars QID, 3 days/week. Objective Vital signs: Temperature 96.8 F 06/22/17 11:50 Pulse Rate 61 06/22/17 11:50 Respiratory Rate 16 06/22/17 11:50 Blood Pressure 118/52 06/22/17 11:50 Pulse Oximetry 97 06/22/17 11:50 Height/Weight/BMI: Height 1.5 m Weight 68 kg Body Mass Index 30.3 - Constitutional Present: no acute distress, well nourished, well developed - Routine HEENT Exam Eye: Absent: conjunctival icterus ENT: Present: oropharynx clear - Routine Respiratory Exam Present: decreased breath sounds - Routine Cardiovascular Exam Present: RRR, S1, S2, click - Routine Abdominal Exam Present: soft, normoactive bowel sounds - Routine Extremities Exam Present: edema (1), calf tenderness (ble) Comments: kristi odom b/l - Routine Skin Exam Present: intact, dry, warm - Routine Neurological Exam Present: alert, oriented X3 - Routine Psychiatric Exam Present: normal affect, normal thought process, cooperative Results - Labs CBC & Chem 7: 06/22/17 04:22 06/22/17 04:22 - ABG Interpretation ABG results: 06/18/17 16:48 ABG pH 7.480 H ABG pCO2 53 H ABG pO2 109 H ABG HCO3 40 H ABG Total CO2 41.1 H ABG O2 Saturation 99.0 H ABG Base Excess 13.8 H Assessment and Plan (1) Systolic and diastolic CHF, acute on chronic Current visit: Yes Status: Acute (2) DM2 (diabetes mellitus, type 2) Current visit: Yes Status: Chronic (3) COPD (chronic obstructive pulmonary disease) Current visit: Yes Status: Chronic Assessment and Plan: Impression Diabetes mellitus type 2, requiring insulin Peripheral neuropathy Hypokalemia Paroxysmal atrial fibrillation Peripheral arterial disease Systolic and diastolic congestive heart failure-acute on chronic Coronary artery disease Hyperlipidemia Hypertension Valvular heart disease COPD Osteoarthritis Plan Recommend to check BGM 4 times/day for the next 4-5 days. Will reduce insulin doses at home to prevent hypoglycemia - pt in agreement. Recommend to f/u with Dr. Waller for ongoing insulin dosing following transition home. Patient advised to add snack at bedtime. INR >4 - received a low dose of vit K this am. Discussed with Maryam Ch APRN & Dr. Najera. Hospital Course Summary Disclaimer: The visit summary below is not to be considered part of the above Progress Note. Hospital Course: 06/19/17 17:07 Assessment Diabetes mellitus type 2, requiring insulin Peripheral neuropathy Hypokalemia Paroxysmal atrial fibrillation Peripheral arterial disease Systolic and diastolic congestive heart failure-acute on chronic Coronary artery disease Hyperlipidemia Hypertension Valvular heart disease COPD Osteoarthritis Plan Appreciate the consult from Dr. Henriquez Given her sugars are overall running low, will decrease her Levemir to 33 units twice a day. NovoLog resumed with reduced dose 20 units 3 times a day. Continue to check sugars routinely. We will continue to adjust insulin as needed. Potassium slightly low today. Will leave this to cardiology to manage along with diuretic use, etc. Appreciate the consult. Will continue to follow patient along with you throughout her stay. 06/20/17 No hypoglycemia overnight, no corrective insulin with blood sugars are dropping after lunch although patient appeared to eat well and did have carbohydrates with meal. Continue to monitor with reduced doses. Creatinine has climbed further-today's GFR 29. Use of metformin contraindicated if GFR consistently less then 30. Recheck in a.m. IV diuretics discontinued yesterday, mild residual hypokalemia-20 mEq oral potassium given earlier today. Recheck digoxin level in a.m., slightly elevated yesterday. INR subtherapeutic-remains on therapeutic Lovenox. 06/21/17 14:10 06/21/17 One episode of hypoglycemia this AM. Otherwise, Accuchecks are well controlled. She is eating well- suspect lower carb diet here than at home. Continue current and monitor. Potassium is 3.5- will give an extra 20mEQ this afternoon. Repeat labs in AM. Dig level now normalized. INR therapeutic- 3.0 Urine noted to be cloudy and strong per nurses notes- assess UA. weight is fairly stable. Diuresis per CV. 06/21/17 16:55 Electrolytes holding; Last dose of diuretic today. Down 5kg from admission. Ready to go home. Low sugar in the 40's over night. Meeting with turbo generator oiler tomorrow per attending order Consider discharge tomorrow. INR supra therapeutic today 3.08. Hold Coumadin dose today <DaniaAnn Marie L - Last Filed: 06/22/17 17:16> Objective Vital signs: Temperature 96.2 F L 06/22/17 15:40 Pulse Rate 63 06/22/17 16:03 Respiratory Rate 18 06/22/17 15:40 Blood Pressure 130/58 06/22/17 15:40 Pulse Oximetry 100 06/22/17 15:40 Height/Weight/BMI: Height 1.5 m Weight 68 kg Body Mass Index 30.3 Results - Labs CBC & Chem 7: 06/22/17 04:22 06/22/17 04:22 - ABG Interpretation ABG results: 06/18/17 16:48 ABG pH 7.480 H ABG pCO2 53 H ABG pO2 109 H ABG HCO3 40 H ABG Total CO2 41.1 H ABG O2 Saturation 99.0 H ABG Base Excess 13.8 H Assessment and Plan (1) Systolic and diastolic CHF, acute on chronic Current visit: Yes Status: Acute (2) DM2 (diabetes mellitus, type 2) Current visit: Yes Status: Chronic (3) COPD (chronic obstructive pulmonary disease) Current visit: Yes Status: Chronic Assessment and Plan: I have independently evaluated and examined this patient. I reviewed the chart, the patient's history, and the AGED OR DISABLED CARER/PA's documented findings as above. We discussed and formulated the assessment and plan as above with additions as below: Susanne reports fatigue today; she is not yet met with the dietitian but hopes to do so before discharge. She denied dyspnea. Blood sugars were higher today after further reduction in NovoLog yesterday. She denied chest pain or palpitations. Respirations are nonlabored with decreased breath sounds throughout, no wheezing present Regular rhythm, trace lower extremity edema Blood sugars reviewed. Need to continue monitoring regularly as she transitions home with dietary changes anticipated discussed with patient; nighttime snack again discussed. Dr. Waller notified of insulin changes. GFR again slightly lower today-borderline for continuation of metformin. Discussed with Susanne. Hospital Course Summary Disclaimer: The visit summary below is not to be considered part of the above Progress Note.
--- NOTE | 2017-06-22 12:56 | Discharge Instructions ---
Discharge Plan - Med Rec/Dispo Referrals/Follow Up: Vasile Waller MD [Family Provider] - 1 Week (F/U on hypoglycemia and insulin dosing; and anemia) Yobany Instructions: [facility] [place] Congestive Heart Failure Additional Instructions: Monitor your sugars 4 times per day for the next 4-5 days. Keep a log of your sugars. We reduced your insulin doses to help prevent hypoglycemia at home. Start eating a healthy snack before bedtime to prevent low blood sugars in the parent trainer hours. Please discuss dosing and monitoring with Dr. Waller later this week. Prescriptions: New Insulin Detemir [Levemir] 33 unit SQ BID vial Continue Metformin HCl 1,000 mg PO DAILY #180 Changed Insulin Lispro [HumaLOG] 15 unit SQ TIDWM #0 Discontinued Insulin Detemir [Levemir] 38 units SQ BID #0 vial No Action Albuterol Sulfate [Proair Hfa] 2 puff INH Q4-6H PRN #0 PRN Reason: SHORTNESS OF AIR Tiotropium [place] [Spiriva] 1 cap ORAL INH DAILY #0 Warfarin Sodium 2.5 mg PO SUMOWEFRSA #0 tab Warfarin Sodium 5 mg PO TUTH #0 tab Ferrous Sulfate 324 mg PO WB #30 tab Cyanocobalamin (Vitamin B-12) [Vitamin B-12] 1,000 mcg PO DAILY Folic Acid [Folate] 1 mg PO DAILY Allopurinol [Zyloprim] 100 mg PO DAILY Metoprolol Tartrate [Lopressor] 150 mg PO BID Clopidogrel [Plavix] 75 mg PO DAILY #30 tab Ascorbic Acid [Vitamin C] 1,000 mg PO WB Magnesium Oxide 500 mg PO DAILY Mometasone Furoate [Asmanex] 1 puff INH HS Acetaminophen/Diphenhydramine [Acetaminophen Pm Caplet] 1 tab PO HS Atorvastatin Calcium 40 mg PO HS #0 Digoxin [Digitek] 125 mcg PO DAILY #0 Cholecalciferol (Vitamin D3) [Vitamin D3] 5,000 unit PO DAILY Sucralfate [Carafate] 1 g PO BID Bumetanide 2 mg PO TID Aspirin *EC* [Ecotrin] 81 mg PO DAILY #30 tab Omeprazole 40 mg PO ACB
[2017-06-22 15:42] VITALS: BP 130/58; PULSE 63; RESP 18; TEMP 96.2; O2SAT 100
--- NOTE | 2017-06-22 18:19 | Discharge Summary ---
<Maryam Ch - Last Filed: 06/22/17 18:14> Discharge Information Date of admission: 06/18/17 14:55 Anticipated date of discharge: 06/22/17 Attending Physician: Dion Henriquez MD Primary care physician: Vasile Waller MD Consults: 06/18/17 13:00 Physician Consult [CONS] Routine Consulting Provider: Reg Siddiqui Reason For Exam: COPD Ordering Provider has Notified Cream Beater: No 06/19/17 17:55 Physician Consult [CONS] Routine Consulting Provider: Ann Marie Najera Reason For Exam: DM2 uncontrolled Ordering Provider has Notified Cream Beater: Yes 06/21/17 22:23 Dietary Consult [CONS] Routine Comment: Reason For Exam: diabetes/hypoglycemia - Discharge Diagnosis (1) Systolic and diastolic CHF, acute on chronic Status: Acute (2) Coronary artery disease Status: Chronic (3) PAF (paroxysmal atrial fibrillation) Status: Chronic (4) HTN (hypertension) Status: Chronic (5) DM2 (diabetes mellitus, type 2) Status: Chronic (6) HLD (hyperlipidemia) Status: Chronic (7) COPD (chronic obstructive pulmonary disease) Status: Chronic - Laboratory Labs: 06/22/17 04:22 06/22/17 04:22 Laboratory Tests 06/17/17 06/17/17 06/17/17 10:07 10:07 10:07 WBC 8.2 RBC 3.24 L Hgb 9.6 L Hct 31.6 L MCV 97.5 MCH 29.6 MCHC 30.4 L RDW Std Deviation 59.6 H Plt Count 197 MPV 9.9 Immature Gran % (Auto) Not performed Neut % (Auto) Not performed Lymph % (Auto) Not performed [place] % (Auto) Not performed Eos % (Auto) Not performed Baso % (Auto) Not performed Neut # (Auto) Not performed Lymph # (Auto) Not performed [place] # (Auto) Not performed Eos # (Auto) Not performed Baso # (Auto) Not performed Abs Immat Gran (auto) Not performed Neutrophils % (Manual) 89.0 H Band Neutrophils % 1.0 Lymphocytes % (Manual) 5.0 L Monocytes % (Manual) 2.0 Eosinophils % (Manual) 1.0 Basophils % (Manual) 2.0 Neutrophils # (Manual) 7.3 Band Neutrophils # 0.1 Lymphocytes # (Manual) 0.4 L Monocytes # (Manual) 0.2 Eosinophils # (Manual) 0.1 Basophils # (Manual) 0.2 Poikilocytosis 1+ Anisocytosis 1+ RBC Morph Comment Abnormal INR 3.41 H ABG pH ABG pCO2 ABG pO2 ABG HCO3 ABG Total CO2 ABG O2 Saturation ABG Base Excess O2 Delivery Method FiO2 (liters per min) Turbidity < 20 Sodium 140 Potassium 4.0 Chloride 95 L Carbon Dioxide 33 H Anion Gap 12 BUN 43.0 H Creatinine 1.2 GFR Calculation 43 BUN/Creatinine Ratio 36 H Glucose 195 H Glucometer Calculated Osmolality 285 H Calcium 9.9 Phosphorus Magnesium 1.7 Total Bilirubin 0.90 Icterus Index < 2 AST 43 H ALT 62 H Alkaline Phosphatase 88 Troponin I 0.023 B-Natriuretic Peptide 3130 H Total Protein 7.3 Albumin 4.1 Globulin 3.2 Albumin/Globulin Ratio 1.3 Specimen Hemolysis 21 Ur Collection Type Urine Color Urine Clarity Urine pH Ur Specific [place] Urine Protein Urine Glucose (UA) Urine Ketones Urine Occult Blood Urine Nitrate Urine Bilirubin Urine Urobilinogen Ur Leukocyte Esterase Urinalysis Comment Digoxin 06/17/17 06/18/17 06/18/17 21:45 04:13 04:13 WBC 8.5 RBC 3.27 L Hgb 9.5 L Hct 32.0 L MCV 97.9 MCH 29.1 MCHC 29.7 L RDW Std Deviation 58.7 H Plt Count 212 MPV 10.5 Immature Gran % (Auto) 0.8 H Neut % (Auto) 78.6 H Lymph % (Auto) 8.7 L [place] % (Auto) 8.2 Eos % (Auto) 3.2 Baso % (Auto) 0.5 Neut # (Auto) 6.7 Lymph # (Auto) 0.7 L [place] # (Auto) 0.7 Eos # (Auto) 0.3 Baso # (Auto) 0.0 Abs Immat Gran (auto) 0.07 H Neutrophils % (Manual) Band Neutrophils % Lymphocytes % (Manual) Monocytes % (Manual) Eosinophils % (Manual) Basophils % (Manual) Neutrophils # (Manual) Band Neutrophils # Lymphocytes # (Manual) Monocytes # (Manual) Eosinophils # (Manual) Basophils # (Manual) Poikilocytosis Anisocytosis RBC Morph Comment INR ABG pH ABG pCO2 ABG pO2 ABG HCO3 ABG Total CO2 ABG O2 Saturation ABG Base Excess O2 Delivery Method FiO2 (liters per min) Turbidity < 20 Sodium 145 H Potassium 3.5 L Chloride 94 L Carbon Dioxide 39 H Anion Gap 12 BUN 42.0 H Creatinine 1.2 GFR Calculation 43 BUN/Creatinine Ratio 35 H Glucose 76 Glucometer 166 Calculated Osmolality 289 H Calcium 10.1 Phosphorus Magnesium 1.8 Total Bilirubin Icterus Index < 2 AST ALT Alkaline Phosphatase Troponin I B-Natriuretic Peptide Total Protein Albumin Globulin Albumin/Globulin Ratio Specimen Hemolysis < 15 Ur Collection Type Urine Color Urine Clarity Urine pH Ur Specific [place] Urine Protein Urine Glucose (UA) Urine Ketones Urine Occult Blood Urine Nitrate Urine Bilirubin Urine Urobilinogen Ur Leukocyte Esterase Urinalysis Comment Digoxin 06/18/17 06/18/17 06/18/17 04:13 04:13 06:26 WBC RBC Hgb Hct MCV MCH MCHC RDW Std Deviation Plt Count MPV Immature Gran % (Auto) Neut % (Auto) Lymph % (Auto) [place] % (Auto) Eos % (Auto) Baso % (Auto) Neut # (Auto) Lymph # (Auto) [place] # (Auto) Eos # (Auto) Baso # (Auto) Abs Immat Gran (auto) Neutrophils % (Manual) Band Neutrophils % Lymphocytes % (Manual) Monocytes % (Manual) Eosinophils % (Manual) Basophils % (Manual) Neutrophils # (Manual) Band Neutrophils # Lymphocytes # (Manual) Monocytes # (Manual) Eosinophils # (Manual) Basophils # (Manual) Poikilocytosis Anisocytosis RBC Morph Comment INR 3.75 H ABG pH ABG pCO2 ABG pO2 ABG HCO3 ABG Total CO2 ABG O2 Saturation ABG Base Excess O2 Delivery Method FiO2 (liters per min) Turbidity Sodium Potassium Chloride Carbon Dioxide Anion Gap BUN Creatinine GFR Calculation BUN/Creatinine Ratio Glucose Glucometer 85 Calculated Osmolality Calcium Phosphorus Magnesium Total Bilirubin Icterus Index AST ALT Alkaline Phosphatase Troponin I 0.016 B-Natriuretic Peptide Total Protein Albumin Globulin Albumin/Globulin Ratio Specimen Hemolysis < 15 Ur Collection Type Urine Color Urine Clarity Urine pH Ur Specific [place] Urine Protein Urine Glucose (UA) Urine Ketones Urine Occult Blood Urine Nitrate Urine Bilirubin Urine Urobilinogen Ur Leukocyte Esterase Urinalysis Comment Digoxin 06/18/17 06/18/17 06/18/17 12:51 15:41 16:48 WBC RBC Hgb Hct MCV MCH MCHC RDW Std Deviation Plt Count MPV Immature Gran % (Auto) Neut % (Auto) Lymph % (Auto) [place] % (Auto) Eos % (Auto) Baso % (Auto) Neut # (Auto) Lymph # (Auto) [place] # (Auto) Eos # (Auto) Baso # (Auto) Abs Immat Gran (auto) Neutrophils % (Manual) Band Neutrophils % Lymphocytes % (Manual) Monocytes % (Manual) Eosinophils % (Manual) Basophils % (Manual) Neutrophils # (Manual) Band Neutrophils # Lymphocytes # (Manual) Monocytes # (Manual) Eosinophils # (Manual) Basophils # (Manual) Poikilocytosis Anisocytosis RBC Morph Comment INR ABG pH 7.480 H ABG pCO2 53 H ABG pO2 109 H ABG HCO3 40 H ABG Total CO2 41.1 H ABG O2 Saturation 99.0 H ABG Base Excess 13.8 H O2 Delivery Method Nasal cannula, liter FiO2 (liters per min) 3 Turbidity Sodium Potassium Chloride Carbon Dioxide Anion Gap BUN Creatinine GFR Calculation BUN/Creatinine Ratio Glucose Glucometer 60 77 Calculated Osmolality Calcium Phosphorus Magnesium Total Bilirubin Icterus Index AST ALT Alkaline Phosphatase Troponin I B-Natriuretic Peptide Total Protein Albumin Globulin Albumin/Globulin Ratio Specimen Hemolysis Ur Collection Type Urine Color Urine Clarity Urine pH Ur Specific [place] Urine Protein Urine Glucose (UA) Urine Ketones Urine Occult Blood Urine Nitrate Urine Bilirubin Urine Urobilinogen Ur Leukocyte Esterase Urinalysis Comment Digoxin 06/18/17 06/19/17 06/19/17 20:04 04:18 04:18 WBC RBC Hgb Hct MCV MCH MCHC RDW Std Deviation Plt Count MPV Immature Gran % (Auto) Neut % (Auto) Lymph % (Auto) [place] % (Auto) Eos % (Auto) Baso % (Auto) Neut # (Auto) Lymph # (Auto) [place] # (Auto) Eos # (Auto) Baso # (Auto) Abs Immat Gran (auto) Neutrophils % (Manual) Band Neutrophils % Lymphocytes % (Manual) Monocytes % (Manual) Eosinophils % (Manual) Basophils % (Manual) Neutrophils # (Manual) Band Neutrophils # Lymphocytes # (Manual) Monocytes # (Manual) Eosinophils # (Manual) Basophils # (Manual) Poikilocytosis Anisocytosis RBC Morph Comment INR 2.45 H ABG pH ABG pCO2 ABG pO2 ABG HCO3 ABG Total CO2 ABG O2 Saturation ABG Base Excess O2 Delivery Method FiO2 (liters per min) Turbidity < 20 Sodium 141 Potassium 3.4 L Chloride 94 L Carbon Dioxide 37 H Anion Gap 10 BUN 39.0 H Creatinine 1.4 H D GFR Calculation 36 BUN/Creatinine Ratio 28 H Glucose 68 Glucometer 145 Calculated Osmolality 278 Calcium 10.0 Phosphorus Magnesium Total Bilirubin 0.60 Icterus Index < 2 AST 30 ALT 50 Alkaline Phosphatase 75 Troponin I 0.023 B-Natriuretic Peptide 5150 H Total Protein 6.5 Albumin 3.6 Globulin 2.9 Albumin/Globulin Ratio 1.2 Specimen Hemolysis < 15 Ur Collection Type Urine Color Urine Clarity Urine pH Ur Specific [place] Urine Protein Urine Glucose (UA) Urine Ketones Urine Occult Blood Urine Nitrate Urine Bilirubin Urine Urobilinogen Ur Leukocyte Esterase Urinalysis Comment Digoxin 06/19/17 06/19/17 06/19/17 06:09 10:05 11:08 WBC RBC Hgb Hct MCV MCH MCHC RDW Std Deviation Plt Count MPV Immature Gran % (Auto) Neut % (Auto) Lymph % (Auto) [place] % (Auto) Eos % (Auto) Baso % (Auto) Neut # (Auto) Lymph # (Auto) [place] # (Auto) Eos # (Auto) Baso # (Auto) Abs Immat Gran (auto) Neutrophils % (Manual) Band Neutrophils % Lymphocytes % (Manual) Monocytes % (Manual) Eosinophils % (Manual) Basophils % (Manual) Neutrophils # (Manual) Band Neutrophils # Lymphocytes # (Manual) Monocytes # (Manual) Eosinophils # (Manual) Basophils # (Manual) Poikilocytosis Anisocytosis RBC Morph Comment INR ABG pH ABG pCO2 ABG pO2 ABG HCO3 ABG Total CO2 ABG O2 Saturation ABG Base Excess O2 Delivery Method FiO2 (liters per min) Turbidity Sodium Potassium Chloride Carbon Dioxide Anion Gap BUN Creatinine GFR Calculation BUN/Creatinine Ratio Glucose Glucometer 73 122 Calculated Osmolality Calcium Phosphorus Magnesium Total Bilirubin Icterus Index AST ALT Alkaline Phosphatase Troponin I B-Natriuretic Peptide Total Protein Albumin Globulin Albumin/Globulin Ratio Specimen Hemolysis Ur Collection Type Urine Color Urine Clarity Urine pH Ur Specific [place] Urine Protein Urine Glucose (UA) Urine Ketones Urine Occult Blood Urine Nitrate Urine Bilirubin Urine Urobilinogen Ur Leukocyte Esterase Urinalysis Comment Digoxin 2.3 H 06/19/17 06/19/17 06/19/17 15:10 16:09 16:40 WBC RBC Hgb Hct MCV MCH MCHC RDW Std Deviation Plt Count MPV Immature Gran % (Auto) Neut % (Auto) Lymph % (Auto) [place] % (Auto) Eos % (Auto) Baso % (Auto) Neut # (Auto) Lymph # (Auto) [place] # (Auto) Eos # (Auto) Baso # (Auto) Abs Immat Gran (auto) Neutrophils % (Manual) Band Neutrophils % Lymphocytes % (Manual) Monocytes % (Manual) Eosinophils % (Manual) Basophils % (Manual) Neutrophils # (Manual) Band Neutrophils # Lymphocytes # (Manual) Monocytes # (Manual) Eosinophils # (Manual) Basophils # (Manual) Poikilocytosis Anisocytosis RBC Morph Comment INR ABG pH ABG pCO2 ABG pO2 ABG HCO3 ABG Total CO2 ABG O2 Saturation ABG Base Excess O2 Delivery Method FiO2 (liters per min) Turbidity Sodium Potassium Chloride Carbon Dioxide Anion Gap BUN Creatinine GFR Calculation BUN/Creatinine Ratio Glucose Glucometer 58 51 67 Calculated Osmolality Calcium Phosphorus Magnesium Total Bilirubin Icterus Index AST ALT Alkaline Phosphatase Troponin I B-Natriuretic Peptide Total Protein Albumin Globulin Albumin/Globulin Ratio Specimen Hemolysis Ur Collection Type Urine Color Urine Clarity Urine pH Ur Specific [place] Urine Protein Urine Glucose (UA) Urine Ketones Urine Occult Blood Urine Nitrate Urine Bilirubin Urine Urobilinogen Ur Leukocyte Esterase Urinalysis Comment Digoxin 06/19/17 06/20/17 06/20/17 20:23 04:29 04:29 WBC RBC Hgb Hct MCV MCH MCHC RDW Std Deviation Plt Count MPV Immature Gran % (Auto) Neut % (Auto) Lymph % (Auto) [place] % (Auto) Eos % (Auto) Baso % (Auto) Neut # (Auto) Lymph # (Auto) [place] # (Auto) Eos # (Auto) Baso # (Auto) Abs Immat Gran (auto) Neutrophils % (Manual) Band Neutrophils % Lymphocytes % (Manual) Monocytes % (Manual) Eosinophils % (Manual) Basophils % (Manual) Neutrophils # (Manual) Band Neutrophils # Lymphocytes # (Manual) Monocytes # (Manual) Eosinophils # (Manual) Basophils # (Manual) Poikilocytosis Anisocytosis RBC Morph Comment INR 1.64 H ABG pH ABG pCO2 ABG pO2 ABG HCO3 ABG Total CO2 ABG O2 Saturation ABG Base Excess O2 Delivery Method FiO2 (liters per min) Turbidity < 20 Sodium 138 Potassium 3.4 L Chloride 94 L Carbon Dioxide 33 H Anion Gap 11 BUN 48.0 H Creatinine 1.7 H D GFR Calculation 29 BUN/Creatinine Ratio 28 H Glucose 161 H Glucometer 221 Calculated Osmolality 282 H Calcium 9.8 Phosphorus Magnesium Total Bilirubin Icterus Index < 2 AST ALT Alkaline Phosphatase Troponin I B-Natriuretic Peptide Total Protein Albumin Globulin Albumin/Globulin Ratio Specimen Hemolysis < 15 Ur Collection Type Urine Color Urine Clarity Urine pH Ur Specific [place] Urine Protein Urine Glucose (UA) Urine Ketones Urine Occult Blood Urine Nitrate Urine Bilirubin Urine Urobilinogen Ur Leukocyte Esterase Urinalysis Comment Digoxin 06/20/17 06/20/17 06/20/17 05:45 10:19 13:42 WBC RBC Hgb Hct MCV MCH MCHC RDW Std Deviation Plt Count MPV Immature Gran % (Auto) Neut % (Auto) Lymph % (Auto) [place] % (Auto) Eos % (Auto) Baso % (Auto) Neut # (Auto) Lymph # (Auto) [place] # (Auto) Eos # (Auto) Baso # (Auto) Abs Immat Gran (auto) Neutrophils % (Manual) Band Neutrophils % Lymphocytes % (Manual) Monocytes % (Manual) Eosinophils % (Manual) Basophils % (Manual) Neutrophils # (Manual) Band Neutrophils # Lymphocytes # (Manual) Monocytes # (Manual) Eosinophils # (Manual) Basophils # (Manual) Poikilocytosis Anisocytosis RBC Morph Comment INR ABG pH ABG pCO2 ABG pO2 ABG HCO3 ABG Total CO2 ABG O2 Saturation ABG Base Excess O2 Delivery Method FiO2 (liters per min) Turbidity Sodium Potassium Chloride Carbon Dioxide Anion Gap BUN Creatinine GFR Calculation BUN/Creatinine Ratio Glucose Glucometer 156 230 103 Calculated Osmolality Calcium Phosphorus Magnesium Total Bilirubin Icterus Index AST ALT Alkaline Phosphatase Troponin I B-Natriuretic Peptide Total Protein Albumin Globulin Albumin/Globulin Ratio Specimen Hemolysis Ur Collection Type Urine Color Urine Clarity Urine pH Ur Specific [place] Urine Protein Urine Glucose (UA) Urine Ketones Urine Occult Blood Urine Nitrate Urine Bilirubin Urine Urobilinogen Ur Leukocyte Esterase Urinalysis Comment Digoxin 06/20/17 06/21/17 06/21/17 21:06 03:51 03:51 WBC RBC Hgb Hct MCV MCH MCHC RDW Std Deviation Plt Count MPV Immature Gran % (Auto) Neut % (Auto) Lymph % (Auto) [place] % (Auto) Eos % (Auto) Baso % (Auto) Neut # (Auto) Lymph # (Auto) [place] # (Auto) Eos # (Auto) Baso # (Auto) Abs Immat Gran (auto) Neutrophils % (Manual) Band Neutrophils % Lymphocytes % (Manual) Monocytes % (Manual) Eosinophils % (Manual) Basophils % (Manual) Neutrophils # (Manual) Band Neutrophils # Lymphocytes # (Manual) Monocytes # (Manual) Eosinophils # (Manual) Basophils # (Manual) Poikilocytosis Anisocytosis RBC Morph Comment INR 3.06 H ABG pH ABG pCO2 ABG pO2 ABG HCO3 ABG Total CO2 ABG O2 Saturation ABG Base Excess O2 Delivery Method FiO2 (liters per min) Turbidity < 20 Sodium 137 Potassium 3.5 L Chloride 97 L Carbon Dioxide 30 Anion Gap 10 BUN 46.0 H Creatinine 1.5 H D GFR Calculation 34 BUN/Creatinine Ratio 31 H Glucose 48 L* Glucometer 97 Calculated Osmolality 273 Calcium 9.9 Phosphorus 4.6 H Magnesium 2.1 Total Bilirubin Icterus Index < 2 AST ALT Alkaline Phosphatase Troponin I B-Natriuretic Peptide Total Protein Albumin 3.5 Globulin Albumin/Globulin Ratio Specimen Hemolysis < 15 Ur Collection Type Urine Color Urine Clarity Urine pH Ur Specific [place] Urine Protein Urine Glucose (UA) Urine Ketones Urine Occult Blood Urine Nitrate Urine Bilirubin Urine Urobilinogen Ur Leukocyte Esterase Urinalysis Comment Digoxin 1.6 06/21/17 06/21/17 06/21/17 05:25 08:18 10:12 WBC RBC Hgb Hct MCV MCH MCHC RDW Std Deviation Plt Count MPV Immature Gran % (Auto) Neut % (Auto) Lymph % (Auto) [place] % (Auto) Eos % (Auto) Baso % (Auto) Neut # (Auto) Lymph # (Auto) [place] # (Auto) Eos # (Auto) Baso # (Auto) Abs Immat Gran (auto) Neutrophils % (Manual) Band Neutrophils % Lymphocytes % (Manual) Monocytes % (Manual) Eosinophils % (Manual) Basophils % (Manual) Neutrophils # (Manual) Band Neutrophils # Lymphocytes # (Manual) Monocytes # (Manual) Eosinophils # (Manual) Basophils # (Manual) Poikilocytosis Anisocytosis RBC Morph Comment INR ABG pH ABG pCO2 ABG pO2 ABG HCO3 ABG Total CO2 ABG O2 Saturation ABG Base Excess O2 Delivery Method FiO2 (liters per min) Turbidity Sodium Potassium Chloride Carbon Dioxide Anion Gap BUN Creatinine GFR Calculation BUN/Creatinine Ratio Glucose Glucometer 84 128 191 Calculated Osmolality Calcium Phosphorus Magnesium Total Bilirubin Icterus Index AST ALT Alkaline Phosphatase Troponin I B-Natriuretic Peptide Total Protein Albumin Globulin Albumin/Globulin Ratio Specimen Hemolysis Ur Collection Type Urine Color Urine Clarity Urine pH Ur Specific [place] Urine Protein Urine Glucose (UA) Urine Ketones Urine Occult Blood Urine Nitrate Urine Bilirubin Urine Urobilinogen Ur Leukocyte Esterase Urinalysis Comment Digoxin 06/21/17 06/21/17 06/21/17 14:08 15:56 19:55 WBC RBC Hgb Hct MCV MCH MCHC RDW Std Deviation Plt Count MPV Immature Gran % (Auto) Neut % (Auto) Lymph % (Auto) [place] % (Auto) Eos % (Auto) Baso % (Auto) Neut # (Auto) Lymph # (Auto) [place] # (Auto) Eos # (Auto) Baso # (Auto) Abs Immat Gran (auto) Neutrophils % (Manual) Band Neutrophils % Lymphocytes % (Manual) Monocytes % (Manual) Eosinophils % (Manual) Basophils % (Manual) Neutrophils # (Manual) Band Neutrophils # Lymphocytes # (Manual) Monocytes # (Manual) Eosinophils # (Manual) Basophils # (Manual) Poikilocytosis Anisocytosis RBC Morph Comment INR ABG pH ABG pCO2 ABG pO2 ABG HCO3 ABG Total CO2 ABG O2 Saturation ABG Base Excess O2 Delivery Method FiO2 (liters per min) Turbidity Sodium Potassium Chloride Carbon Dioxide Anion Gap BUN Creatinine GFR Calculation BUN/Creatinine Ratio Glucose Glucometer 80 74 Calculated Osmolality Calcium Phosphorus Magnesium Total Bilirubin Icterus Index AST ALT Alkaline Phosphatase Troponin I B-Natriuretic Peptide Total Protein Albumin Globulin Albumin/Globulin Ratio Specimen Hemolysis Ur Collection Type Urine, clean catch Urine Color Yellow Urine Clarity Clear Urine pH 7.0 Ur Specific [place] 1.010 L Urine Protein Negative Urine Glucose (UA) Negative Urine Ketones Negative Urine Occult Blood Negative Urine Nitrate Negative Urine Bilirubin Negative Urine Urobilinogen 0.2 Ur Leukocyte Esterase Trace A Urinalysis Comment Microscopic not ind. Digoxin 06/21/17 06/21/17 06/22/17 20:37 21:38 04:22 WBC RBC Hgb Hct MCV MCH MCHC RDW Std Deviation Plt Count MPV Immature Gran % (Auto) Neut % (Auto) Lymph % (Auto) [place] % (Auto) Eos % (Auto) Baso % (Auto) Neut # (Auto) Lymph # (Auto) [place] # (Auto) Eos # (Auto) Baso # (Auto) Abs Immat Gran (auto) Neutrophils % (Manual) Band Neutrophils % Lymphocytes % (Manual) Monocytes % (Manual) Eosinophils % (Manual) Basophils % (Manual) Neutrophils # (Manual) Band Neutrophils # Lymphocytes # (Manual) Monocytes # (Manual) Eosinophils # (Manual) Basophils # (Manual) Poikilocytosis Anisocytosis RBC Morph Comment INR 4.26 H ABG pH ABG pCO2 ABG pO2 ABG HCO3 ABG Total CO2 ABG O2 Saturation ABG Base Excess O2 Delivery Method FiO2 (liters per min) Turbidity Sodium Potassium Chloride Carbon Dioxide Anion Gap BUN Creatinine GFR Calculation BUN/Creatinine Ratio Glucose Glucometer 63 104 Calculated Osmolality Calcium Phosphorus Magnesium Total Bilirubin Icterus Index AST ALT Alkaline Phosphatase Troponin I B-Natriuretic Peptide Total Protein Albumin Globulin Albumin/Globulin Ratio Specimen Hemolysis Ur Collection Type Urine Color Urine Clarity Urine pH Ur Specific [place] Urine Protein Urine Glucose (UA) Urine Ketones Urine Occult Blood Urine Nitrate Urine Bilirubin Urine Urobilinogen Ur Leukocyte Esterase Urinalysis Comment Digoxin 06/22/17 06/22/17 06/22/17 04:22 04:22 06:18 WBC 5.9 RBC 2.99 L Hgb 8.7 L Hct 29.1 L MCV 97.3 MCH 29.1 MCHC 29.9 L RDW Std Deviation 57.6 H Plt Count 172 MPV 10.8 Immature Gran % (Auto) 0.5 Neut % (Auto) 77.7 H Lymph % (Auto) 9.4 L [place] % (Auto) 8.7 Eos % (Auto) 3.2 Baso % (Auto) 0.5 Neut # (Auto) 4.6 Lymph # (Auto) 0.6 L [place] # (Auto) 0.5 Eos # (Auto) 0.2 Baso # (Auto) 0.0 Abs Immat Gran (auto) 0.03 Neutrophils % (Manual) Band Neutrophils % Lymphocytes % (Manual) Monocytes % (Manual) Eosinophils % (Manual) Basophils % (Manual) Neutrophils # (Manual) Band Neutrophils # Lymphocytes # (Manual) Monocytes # (Manual) Eosinophils # (Manual) Basophils # (Manual) Poikilocytosis Anisocytosis RBC Morph Comment INR ABG pH ABG pCO2 ABG pO2 ABG HCO3 ABG Total CO2 ABG O2 Saturation ABG Base Excess O2 Delivery Method FiO2 (liters per min) Turbidity < 20 Sodium 137 Potassium 4.6 D Chloride 100 Carbon Dioxide 30 Anion Gap 7 BUN 46.0 H Creatinine 1.6 H D GFR Calculation 31 BUN/Creatinine Ratio 29 H Glucose 176 H Glucometer 182 Calculated Osmolality 280 Calcium 10.2 Phosphorus Magnesium 2.1 Total Bilirubin Icterus Index < 2 AST ALT Alkaline Phosphatase Troponin I B-Natriuretic Peptide Total Protein Albumin Globulin Albumin/Globulin Ratio Specimen Hemolysis < 15 Ur Collection Type Urine Color Urine Clarity Urine pH Ur Specific [place] Urine Protein Urine Glucose (UA) Urine Ketones Urine Occult Blood Urine Nitrate Urine Bilirubin Urine Urobilinogen Ur Leukocyte Esterase Urinalysis Comment Digoxin 06/22/17 06/22/17 10:20 14:04 WBC RBC Hgb Hct MCV MCH MCHC RDW Std Deviation Plt Count MPV Immature Gran % (Auto) Neut % (Auto) Lymph % (Auto) [place] % (Auto) Eos % (Auto) Baso % (Auto) Neut # (Auto) Lymph # (Auto) [place] # (Auto) Eos # (Auto) Baso # (Auto) Abs Immat Gran (auto) Neutrophils % (Manual) Band Neutrophils % Lymphocytes % (Manual) Monocytes % (Manual) Eosinophils % (Manual) Basophils % (Manual) Neutrophils # (Manual) Band Neutrophils # Lymphocytes # (Manual) Monocytes # (Manual) Eosinophils # (Manual) Basophils # (Manual) Poikilocytosis Anisocytosis RBC Morph Comment INR ABG pH ABG pCO2 ABG pO2 ABG HCO3 ABG Total CO2 ABG O2 Saturation ABG Base Excess O2 Delivery Method FiO2 (liters per min) Turbidity Sodium Potassium Chloride Carbon Dioxide Anion Gap BUN Creatinine GFR Calculation BUN/Creatinine Ratio Glucose Glucometer 259 240 Calculated Osmolality Calcium Phosphorus Magnesium Total Bilirubin Icterus Index AST ALT Alkaline Phosphatase Troponin I B-Natriuretic Peptide Total Protein Albumin Globulin Albumin/Globulin Ratio Specimen Hemolysis Ur Collection Type Urine Color Urine Clarity Urine pH Ur Specific [place] Urine Protein Urine Glucose (UA) Urine Ketones Urine Occult Blood Urine Nitrate Urine Bilirubin Urine Urobilinogen Ur Leukocyte Esterase Urinalysis Comment Digoxin Acetaminophen/Diphenhydramine HCl (Tylenol Pm) 1 tab PO HS [facility] Last Admin: 06/21/17 21:59 Dose: 1 tab Albuterol Sulfate (Ventolin Hfa) 2 puff INH Q4-6HR PRN PRN Reason: Shortness of air Albuterol/Ipratropium (Duoneb) 3 ml AEROSOL RTQID [facility] Last Admin: 06/22/17 15:02 Dose: 3 ml Allopurinol (Zyloprim) 100 mg PO DAILY [facility] Last Admin: 06/22/17 08:17 Dose: 100 mg Ascorbic Acid (Vitamin C) 1,000 mg PO WB [facility] Last Admin: 10/16/17 08:12 Dose: 1,000 mg Aspirin (Ecotrin) 81 mg PO DAILY [facility] Last Admin: 06/22/17 08:12 Dose: 81 mg Atorvastatin Calcium (Lipitor) 40 mg PO HS [facility] Last Admin: 06/21/17 21:59 Dose: 40 mg Budesonide (Pulmicort Inhalation) 0.5 mg AEROSOL RTBID [facility] Last Admin: 06/22/17 07:36 Dose: 0.5 mg Cholecalciferol (Vit. D-3) 5,000 unit PO DAILY [facility] Last Admin: 06/22/17 08:13 Dose: 5,000 unit Clopidogrel Bisulfate (Plavix) 75 mg PO DAILY [facility] Last Admin: 06/22/17 08:16 Dose: 75 mg Cyanocobalamin (Vit. B-12) 1,000 mcg PO DAILY [facility] Last Admin: 06/22/17 08:14 Dose: 1,000 mcg Digoxin (Lanoxin) 125 mcg PO DAILY [facility] Last Admin: 06/22/17 08:12 Dose: 125 mcg Ferrous Sulfate (Feosol) 324 mg PO WB [facility] Last Admin: 06/22/17 08:16 Dose: 324 mg Folic Acid (Folate) 1 mg PO DAILY [facility] Last Admin: 06/22/17 08:15 Dose: 1 mg Insulin Aspart (Novolog) 18 unit SQ BIDLS [facility] Last Admin: 06/22/17 17:52 Dose: 18 unit Insulin Detemir (Levemir) 33 unit SQ BID [facility] Last Admin: 06/22/17 08:11 Dose: 33 unit Magnesium Oxide (Magox) 400 mg PO DAILY [facility] Last Admin: 06/22/17 08:13 Dose: 400 mg Metformin HCl (Glucophage) 1,000 mg PO WB [facility] Last Admin: 06/22/17 08:14 Dose: 1,000 mg Metoprolol Tartrate (Lopressor) 150 mg PO BID [facility] Last Admin: 06/22/17 08:14 Dose: 150 mg Mometasone Furoate (Asmanex Twisthaler) 1 puff ORAL INH HS [facility] Last Admin: 06/21/17 20:50 Dose: 1 puff Omeprazole (Prilosec) 40 mg PO ACB [facility] Last Admin: 06/22/17 06:48 Dose: 40 mg Potassium Chloride (K-Dur) 40 meq PO WB [facility] Last Admin: 06/22/17 08:12 Dose: 40 meq Sacubitril/Valsartan (Entresto 24/26mg) 1 tab PO BID [facility] Last Admin: 06/22/17 08:12 Dose: 1 tab Sodium Chloride (Iv Flush) 10 - 80 ml IV PRN PRN PRN Reason: Flushing Last Admin: 06/21/17 08:31 Dose: 10 ml Sodium Chloride (Normal Saline) 500 ml IV PRN PRN Last Admin: 06/18/17 02:00 Dose: 500 ml Sucralfate (Carafate) 1 gm PO BID [facility] Last Admin: 06/22/17 08:14 Dose: 1 gm Tiotropium Jackson (Spiriva) 1 cap ORAL INH DAILY [facility] Last Admin: 06/22/17 08:41 Dose: 1 cap Warfarin Sodium (Coumadin Protocol) 0 MC NOTE [facility] History of Present Illness HPI: Patient was seen in Dr. Henriquez[facility] yesterday 06/17/17 with complaints of increased SOA and swelling. She was placed in the hospital yesterday for aggressive diuretic therapy. Today, patient has been receiving IV Bumex at 1mg/hr since last night and she remains SOA but improved. LE edema also improving - she has tenderness to the LE when touching the skin and she has peripheral neuropathy mostly controlled. Patient has improved EF 55% by recent echo performed 03/17/17. Prior EF 2015 low at 27%. This patient also has co-morbid conditions to include PAD recent Left LE intervention - doing well. Patient denies CP Hospital Course This is a general summary of the patient's hospital course. For more details refer to the complete medical record. 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 Henriquez Given her sugars are overall running low, will decrease her Levemir to 33 units twice a day. NovoLog resumed with reduced dose 20 units 3 times a day. Continue to check sugars routinely. We will continue to adjust insulin as needed. Potassium slightly low today. Will leave this to cardiology to manage along with diuretic use, etc. Appreciate the consult. Will continue to follow patient along with you throughout her stay. 06/20/17 No hypoglycemia overnight, no corrective insulin with blood sugars are dropping after lunch although patient appeared to eat well and did have carbohydrates with meal. Continue to monitor with reduced doses. Creatinine has climbed further-today's GFR 29. Use of metformin contraindicated if GFR consistently less then 30. Recheck in a.m. IV diuretics discontinued yesterday, mild residual hypokalemia-20 mEq oral potassium given earlier today. Recheck digoxin level in a.m., slightly elevated yesterday. INR subtherapeutic-remains on therapeutic Lovenox. 06/21/17 14:10 06/21/17 One episode of hypoglycemia this AM. Otherwise, Accuchecks are well controlled. She is eating well- suspect lower carb diet here than at home. Continue current and monitor. Potassium is 3.5- will give an extra 20mEQ this afternoon. Repeat labs in AM. Dig level now normalized. INR therapeutic- 3.0 Urine noted to be cloudy and strong per nurses notes- assess UA. weight is fairly stable. Diuresis per CV. 06/21/17 16:55 Electrolytes holding; Last dose of diuretic today. Down 5kg from admission. Ready to go home. Low sugar in the 40's over night. Meeting with lighter captain tomorrow per attending order Consider discharge tomorrow. INR supra therapeutic today 3.08. Hold Coumadin dose today 06/22/17 DC to home today, resume Bumex 2mg po BID starting tomorrow. -Weight self daily and call if weight increasing. -Have repeat lab drawn on to check kidney function. - Follow up with Dr. Henriquez in 2 weeks Time spent with patient: 25 - 35 minutes Exam Vital signs: Temperature 96.2 F L 06/22/17 15:40 Pulse Rate 63 06/22/17 16:03 Respiratory Rate 18 06/22/17 15:40 Blood Pressure 130/58 06/22/17 15:40 Pulse Oximetry 100 06/22/17 15:40 - Constitutional no acute distress, well nourished, cooperative - Routine HEENT Exam Head: Present: normocephalic ENT: Present: mucous membranes moist - Routine Neck Exam Absent: JVD, carotid bruit - Routine Chest/Breast/Axilla Exam Chest wall: Absent: tenderness - Routine Respiratory Exam Present: CTA bilaterally. Absent: rales, wheezes - Routine Cardiovascular Exam Present: irregular rhythm. Absent: JVD - Routine Abdominal Exam Present: soft, normoactive bowel sounds - Routine Extremities Exam Present: edema - Routine Skin Exam Present: intact, dry, warm - Routine Neurological Exam Present: alert, oriented X3 - Routine Psychiatric Exam Present: normal affect, normal thought process Results 06/22/17 04:22 06/22/17 04:22 CBC 06/22/17 Range/Units 04:22 WBC 5.9 (4.5-11.0) T/MM3 RBC 2.99 L (4.00-5.20) M/MM3 Hgb 8.7 L (12-16) GM/DL Hct 29.1 L (36-46) % Plt Count 172 (130-400) T/MM3 Neut # (Auto) 4.6 (1.8-7.7) T/MM3 Lymph # (Auto) 0.6 L (1-4.8) T/MM3 [place] # (Auto) 0.5 (0-0.8) T/MM3 Eos # (Auto) 0.2 (0-0.5) T/MM3 Baso # (Auto) 0.0 (0-0.2) T/MM3 Comprehensive Metabolic Panel 06/22/17 Range/Units 04:22 Sodium 137 (134-144) MEQ/L Potassium 4.6 D (3.6-5) MEQ/L Chloride 100 (98-107) MEQ/L Carbon Dioxide 30 (22-30) MEQ/L BUN 46.0 H (7-17) MG/DL Creatinine 1.6 H D (0.7-1.2) MG/DL Glucose 176 H (65-110) MG/DL Calcium 10.2 (8.4-10.2) MG/DL Intake and Output 06/22/17 06/22/17 06/22/17 06:59 14:59 22:59 Intake Total 250 / 250 800 / 800 Output Total 550 / 550 450 / 450 Balance -300 / -300 350 / 350 Intake: Oral 250 / 250 800 / 800 Output: Urine 550 / 550 450 / 450 Other: Urine Appearance Clear Clear Urine Color Yellow Yellow Urine Odor Normal Weight 149 lb 14.629 oz Patient Weight 06/23/17 06:59 Weight 149 lb 14.629 oz - Imaging and Cardiology Echo: report reviewed EKG results: image reviewed Imaging & Cardiology Narrative: Date of Exam: 06/18/17 Ordering Provider: Manisha Farr Type of Exam(s): XR chest 2V Reason for Exam(s): CHF INDICATION: CHF PROCEDURE: CHEST 2-VIEWS UPRIGHT (PA & LAT) Encounter: Initial COMPARISON: June 17, 2017 FINDINGS: Increased interstitial markings seen in the lower lung peterson bilaterally with Rukhsana B lines in the periphery. No consolidative pneumonia or pneumothorax. Trace pleural fluid. Heart size and mediastinal contours are stable. Prior cardiac valve replacement with left pacemaker defibrillator. Impression: Persistent mild to moderate pulmonary edema. 06/22/17 18:19 Discharge Plan - Med Rec/Dispo Referrals/Follow Up: Vasile Waller MD [Family Provider] - 1 Week (F/U on hypoglycemia and insulin dosing; and anemia) [place] Instructions: [facility] [place] Congestive Heart Failure Additional Instructions: Monitor your sugars 4 times per day for the next 4-5 days. Keep a log of your sugars. We reduced your insulin doses to help prevent hypoglycemia at home. Start eating a healthy snack before bedtime to prevent low blood sugars in the lpn rn hospice hours. Please discuss dosing and monitoring with Dr. Waller later this week. DC to home today, resume Bumex 2mg po BID starting tomorrow. -Weight self daily and call if weight increasing. -Have repeat lab drawn on to check kidney function. - Follow up with Dr. Henriquez in 2 weeks Prescriptions: New Insulin Detemir [Levemir] 33 unit SQ BID vial Bumetanide Tab [Bumex Tab] 2 mg PO BID #60 tab Continue Albuterol Sulfate [Proair Hfa] 2 puff INH Q4-6H PRN #0 PRN Reason: SHORTNESS OF AIR Tiotropium Jackson [Spiriva] 1 cap ORAL INH DAILY #0 Warfarin Sodium 2.5 mg PO SUMOWEFRSA #0 tab Warfarin Sodium 5 mg PO TUTH #0 tab Ferrous Sulfate 324 mg PO WB #30 tab Cyanocobalamin (Vitamin B-12) [Vitamin B-12] 1,000 mcg PO DAILY Folic Acid [Folate] 1 mg PO DAILY Allopurinol [Zyloprim] 100 mg PO DAILY Metoprolol Tartrate [Lopressor] 150 mg PO BID Clopidogrel [Plavix] 75 mg PO DAILY #30 tab Ascorbic Acid [Vitamin C] 1,000 mg PO WB Magnesium Oxide 500 mg PO DAILY Mometasone Furoate [Asmanex] 1 puff INH HS Acetaminophen/Diphenhydramine [Acetaminophen Pm Caplet] 1 tab PO HS Atorvastatin Calcium 40 mg PO HS #0 Metformin HCl 1,000 mg PO DAILY #180 Digoxin [Digitek] 125 mcg PO DAILY #0 Cholecalciferol (Vitamin D3) [Vitamin D3] 5,000 unit PO DAILY Sucralfate [Carafate] 1 g PO BID Aspirin *EC* [Ecotrin] 81 mg PO DAILY #30 tab Omeprazole 40 mg PO ACB Changed Insulin Lispro [HumaLOG] 15 unit SQ TIDWM #0 Discontinued Insulin Detemir [Levemir] 38 units SQ BID #0 vial Bumetanide 2 mg PO TID - Disposition 01 Discharged Home, Self-Care <Dion Henriquez - Last Filed: 06/23/17 12:56> Discharge Information Date of admission: 06/18/17 14:55 Attending Physician: Dion Henriquez MD Primary care physician: Vasile Waller MD Consults: 06/18/17 13:00 Physician Consult [CONS] Routine Consulting Provider: Reg Siddiqui Reason For Exam: COPD Ordering Provider has Notified Cream Beater: No 06/19/17 17:55 Physician Consult [CONS] Routine Consulting Provider: Ann Marie Najera Reason For Exam: DM2 uncontrolled Ordering Provider has Notified Cream Beater: Yes 06/21/17 22:23 Dietary Consult [CONS] Routine Comment: Reason For Exam: diabetes/hypoglycemia - Discharge Diagnosis (1) Systolic and diastolic CHF, acute on chronic Status: Acute (2) Coronary artery disease Status: Chronic (3) PAF (paroxysmal atrial fibrillation) Status: Chronic (4) HTN (hypertension) Status: Chronic (5) DM2 (diabetes mellitus, type 2) Status: Chronic (6) HLD (hyperlipidemia) Status: Chronic (7) COPD (chronic obstructive pulmonary disease) Status: Chronic - Laboratory Labs: 06/22/17 04:22 06/22/17 04:22 Hospital Course This is a general summary of the patient's hospital course. For more details refer to the complete medical record. Exam Vital signs: Temperature 96.2 F L 06/22/17 15:40 Pulse Rate 63 06/22/17 16:03 Respiratory Rate 18 06/22/17 15:40 Blood Pressure 130/58 06/22/17 15:40 Pulse Oximetry 100 06/22/17 15:40 Results 06/22/17 04:22 06/22/17 04:22 Discharge Plan - Med Rec/Dispo - Attestation Attestation Narrative: 06/23/17 12:56 Recommendation After examining the patient I agree with the above assessment. I am involved in the formulation of the patient's plan of care.
== END 2017-06-22 19:10 | disposition home or self-care (01) | DRG 291 ==
LOC: MED
PROVIDERS: ADMIT Internal Medicine Cardiovascular Disease; ATTEND Internal Medicine Cardiovascular Disease

== ENCOUNTER 2018-01-15 14:17 | Inpatient (IN) ==
--- OUTSIDE RECORDS SUMMARY | 2018-01-15 14:32 | External Medical Summary | Clinical Summary ---
:1940 Author Organization [facility] Address [address] [place] [id number] Care Team Providers Name Role Phone Unavailable Primary Care Provider Unavailable Allergies Active Allergy Reactions Severity Noted Date Comments Ciprofloxacin 01/26/2013 Current Medications Prescription Sig. Disp. Refills Start Date End Date Status metformin (GLUCOPHAGE) Take 1,000 mg Active 1000 MG tablet by mouth 2 (two) times daily with meals. digoxin (LANOXIN) 0.125 Take 125 mcg by Active MG tablet mouth daily. metoprolol succinate Take 25 mg by Active (TOPROL-XL) 25 MG 24 hr mouth daily. tablet valsartan-hydrochlorothi Take 1 tablet Active azide (DIOVAN HCT) by mouth daily. 80-12.5 MG per tablet mirtazapine (REMERON) 15 Take 7.5 mg by Active MG tablet mouth nightly. 1/2 tablet=7.5 mg nateglinide (STARLIX) Take 120 mg by Active 120 MG tablet mouth 3 (three) times daily before meals. warfarin (COUMADIN) 4 MG Take 4 mg by Active tablet mouth 4 (four) times a week. Tues, Thur, Sat, Sun Bioflavonoid Products Take 1 tablet Active (MYNOR-C) 1000-50 MG by mouth daily. TABS [place]-3 Fatty Acids Take 1,000 mg Active (FISH OIL) 1000 MG CPDR by mouth 2 (two) times daily. multivitamin Take 1 tablet Active (THERAPEUTIC) TABS by mouth daily. warfarin (COUMADIN) 5 MG Take 5 mg by Active tablet mouth 3 (three) times a week. Mon, Wed, Fri POTASSIUM PO Take by mouth. Active aspirin 81 MG chewable Take 81 mg by Active tablet mouth every evening. atorvastatin (LIPITOR) Take 40 mg by Active 40 MG tablet mouth every evening. Calcium Carbonate Take 1,200 mg Active (CALCIUM-CARB 600 PO) by mouth every evening. 2 [id number] mg Cholecalciferol (VITAMIN Take 2,000 Active D) 1000 UNITS TABS Units by mouth daily. 2 [id number] units mometasone (ASMANEX) 220 Inhale 1 puff Active MCG/INH inhaler into the lungs nightly. tiotropium (SPIRIVA) 18 Inhale 18 mcg Active MCG inhalation capsule into the lungs every evening. torsemide (DEMADEX) 20 Take 3 tablets 90 tablet 11 01/31/2013 Active MG tablet (60 mg total) by mouth daily. enoxaparin (LOVENOX) 60 Inject 0.6 mLs 10 Syringe 0 01/31/2013 Active MG/0.6ML syringe (60 mg total) into the skin 2 (two) times daily. Active Problems Problem Noted Date Acute respiratory failure ([facility]) 01/26/2013 Flash pulmonary edema ([facility]) 01/26/2013 CHF (congestive heart failure) ([facility]) 01/26/2013 Overview: Acute on chronic ? EF COPD (chronic obstructive pulmonary disease) ([facility]) 01/26/2013 ARF (acute renal failure) ([facility]) 01/26/2013 DM (diabetes mellitus) ([facility]) 01/26/2013 HTN (hypertension) 01/26/2013 Dyslipidemia 01/26/2013 Elevated troponin 01/26/2013 S/P AVR (aortic valve replacement) 01/26/2013 Overview: On Warfarin INR target 2.5-3.5 Immunizations Name Dates Previously Given Next Due Influenza IIV3 PFree 06/16/2012 Pneumococcal Polysaccharide (23-valent) 07/15/2008 Family History Medical History Relation Name Comments Coronary art dis Brother Coronary art dis Daughter Coronary art dis Son Coronary art dis Relation Name Status Comments Brother Daughter Son Social History Tobacco Use Types Packs/Day Years Used Date Former Smoker Quit: 10/29/2012 Smokeless Tobacco: Never Used Alcohol Use Drinks/Week oz/Week Comments No Sex Assigned at Date Recorded Not on file Last Filed Vital Signs Vital Sign Reading Time Taken Blood Pressure 118/54 01/31/2013 8:53 AM CDT Pulse 80 01/31/2013 8:53 AM CDT Temperature 36.8 C (98.2 F) 01/31/2013 8:53 AM CDT Respiratory Rate 18 01/31/2013 8:53 AM CDT Oxygen Saturation 95% 01/31/2013 8:53 AM CDT Inhaled Oxygen Concentration - - Weight 63 kg (139 lb) 01/31/2013 5:58 AM CDT Height 162.6 cm (5' 4") 01/29/2013 4:30 AM CDT Body Mass Index 23.86 01/31/2013 5:58 AM CDT Plan of Treatment Health Maintenance Due Date Last Done Comments DTaP,Tdap,and Td Vaccines (1 - Tdap) 1959 Zoster Recombinant Vaccine (RZV,Shingrix) (1 of 2 - 1989 [facility] 2 Dose Standard) Pneumo-Adult (2 of 2 - PCV13) 07/15/2009 07/15/2008 Influenza Vaccine (Season Ended) 2018 06/16/2012 Results Not on filefrom Last 3 Months
--- OUTSIDE RECORDS SUMMARY | 2018-01-15 14:33 | External Medical Summary | Referral Summary ---
:1940 Author Care Team Providers Name Role Phone Andrea Hernandez Primary Care Physician Encounter VC Date(s): 11/14/14 - 11/14/14 [facility], [place], [address] [place] [id number] Discharge Diagnosis: Acute URI Discharge Diagnosis: Aortic stenosis Discharge Diagnosis: COPD (chronic obstructive pulmonary disease) Discharge Diagnosis: Cardiac murmur Discharge Diagnosis: Aortic valve disease Discharge Diagnosis: CHF (congestive heart failure) Discharge Disposition: Home or Self Care Attending Physician: Andrea Hernandez MD Admitting Physician: Andrea Hernandez MD Vital Signs Most recent to oldest [Reference Range]: 1 Peripheral Pulse Rate [60-100 bpm] 74 bpm (11/14/14 10:50 AM) Blood Pressure [90-140/60-90 mmHg] 122/50 mmHg (11/14/14 10:50 AM) Most recent to oldest [Reference Range]: 1 SpO2 98 % (11/14/14 10:50 AM) Problem List Condition Effective Dates Status Health Status Informant Acute pain(Confirmed) Active Allergies(Confirmed) Active Anemia(Confirmed) Active Aortic valve disease(Confirmed) Active Aortic insufficiency Left Ventricular Active Hypertrophy(Confirmed) Aortic stenosis(Confirmed) Active Arthritis(Confirmed) Active At risk for infection(Confirmed)1 Active At risk of pressure sore(Confirmed) Active Atherosclerosis(Confirmed) Active Atrial fibrillation(Confirmed) Active Bladder problem(Confirmed) Active Bronchitis(Confirmed) Active Cardiac murmur(Confirmed) Active Cataracts(Confirmed) Active COPD (chronic obstructive pulmonary Active disease)(Confirmed) CHF (congestive heart Active failure)(Confirmed) Depression(Confirmed) Active Diabetes(Confirmed) Active coumadin use(Confirmed) 06/2008 Active Fluid imbalance(Confirmed)2 Active Heart failure(Confirmed) Active High cholesterol(Confirmed) Active Hyperlipidemia(Confirmed) Active Hypertension(Confirmed) Active Impaired gas exchange(Confirmed)3 Active Knowledge deficit(Confirmed)4 Active Osteoarthritis(Confirmed) Active Osteopenia(Confirmed) Active Osteoporosis(Confirmed) Active Overactive bladder(Confirmed) Active PVD (peripheral vascular Active disease)(Confirmed) Sinus infections(Confirmed) Active 1Problem added automatically by system based on initiation of At Risk for Infection in Nutrition Planof [id number] added automatically by system based on initiation of Fluid Volume Imbalance Plan of [id number] added automatically by system based on initiation of Impaired Gas Exchange Plan of [id number] added automatically by system based on initiation of Knowledge Deficit Plan of Care Allergies, Adverse Reactions, Alerts Substance Reaction Severity Status ciprofloxacin Adverse Reaction Active increased INR Medications albuterol 2.5 mg/3 mL (0.083%) inhalation solution 3 mL, NEB, QID, 0 Refill(s) Start Date: 11/03/14 Status: Orderedalendronate weekly 70 mg, Oral, Thursday, 0 Refill(s) Start Date: 11/03/14 Status: OrderedAlign 4 mg oral capsule 1 caps, Oral, Daily, # 28 caps, 0 Refill(s) Start Date: 11/03/14 Status: Orderedamoxicillin 875 mg oral tablet 1 tabs, Oral, BID, X 10 days, # 20 tabs, 0 Refill(s), Pharmacy: [facility] #[id number], 1 tabs Oral BID,x10 days Start Date: 11/14/14 Stop Date: 11/24/14 Status: OrderedAsmanex Twisthaler 30 Dose 220 mcg/inh inhalation aerosol powder See Instructions, USE 1 INHALATION DAILY AND RINSE MOUTH (DISCARD 45 DAYS AFTER OPENING), # 3 unknown unit, 2 Refill(s), eRx: [facility], USE 1 INHALATION DAILY AND RINSE MOUTH (DISCARD 45 DAYS AFTER OPENING) Special Instructions: USE 1 INHALATION DAILY AND RINSE MOUTH (DISCARD 45 DAYS AFTER OPENING) Start Date: 06/22/14 Status: OrderedAspir 81 81 mg, Oral, Daily, 0 Refill(s) Start Date: 03/30/14 Status: Orderedatorvastatin 40 mg oral tablet See Instructions, TAKE 1 TABLET DAILY, # 90 tabs, 3 Refill(s), eRx: [facility], TAKE 1 TABLET DAILY Special Instructions: TAKE 1 TABLET DAILY Start Date: 03/06/14 Status: Orderedbumetanide 1 mg oral tablet 1 tabs, Oral, BID, 0 Refill(s) Start Date: 03/30/14 Status: Ordereddigoxin 125 mcg, Oral, Daily, 0 Refill(s) Start Date: 11/03/14 Status: Ordereddoxycycline monohydrate 100 mg oral tablet 1 tabs, Oral, BID, # 10 tabs, 0 Refill(s) Start Date: 11/07/14 Status: OrderedLevemir 15 units, SubCutaneous, BID, 0 Refill(s) Start Date: 11/03/14 Status: Orderedloratadine 10 mg, Oral, Daily, 0 Refill(s) Start Date: 11/03/14 Status: Orderedlosartan 50 mg oral tablet 1 tabs, Oral, Daily, # 30 tabs, 0 Refill(s) Start Date: 03/30/14 Status: Orderedmagnesium oxide 400 mg, Oral, Daily, 0 Refill(s) Start Date: 11/03/14 Status: OrderedmetFORMIN 1000 mg oral tablet 1 tabs, Oral, BID, # 180 tabs, 1 Refill(s), Pharmacy: [facility], 1 tabs Oral BID Start Date: 08/07/14 Status: Orderedmetoprolol tartrate 50 mg oral tablet 1 tabs, Oral, TID, 0 Refill(s) Start Date: 11/07/14 Status: OrderedMiscellaneous DME DME Item Accu Check Tess Plus Test Strips Test blood sugars BID DX:250.00, See Instructions, # 200 Each, 3 Refill(s), Pharmacy: [facility], Accu Check Tess Plus Test Strips; Testblood sugars BID; DX:250.00, Supply Special Instructions: Accu Check Tess Plus Test Strips Test blood sugars BID DX:250.00 Start Date: 11/14/14 Status: Orderedmultivitamin 1 tabs, Oral, Daily, 0 Refill(s) Start Date: 11/03/14 Status: OrderedProAir HFA 90 mcg/inh inhalation aerosol 2 puffs, Inhalation, q4hr, as needed for wheezing, # 8.5 g, 0 Refill(s) Start Date: 03/30/14 Status: OrderedSpiriva 18 mcg inhalation capsule See Instructions, INHALE THE CONTENTS OF 1 CAPSULE DAILY, # 1 caps, 2 Refill(s) , eRx: [facility], INHALE THE CONTENTS OF 1 CAPSULE DAILY Special Instructions: INHALE THE CONTENTS OF 1 CAPSULE DAILY Start Date: 08/30/14 Status: OrderedStarlix 120 mg oral tablet 1 tabs, Oral, TIDAC, 0 Refill(s) Start Date: 03/30/14 Status: OrderedStarlix 120 mg oral tablet 1 tabs, Oral, TIDAC, 0 Refill(s) Start Date: 11/07/14 Status: Orderedwarfarin 5 mg, Oral, Thursday, Thursday, , 0 Refill(s) Special Instructions: Thursday, Thursday, Start Date: 11/03/14 Status: Orderedwarfarin 2.5 mg, Oral, Thursday, Thursday, Thursday, Thursday, 0 Refill(s) Special Instructions: Thursday, Thursday, Thursday, Thursday Start Date: 11/03/14 Status: OrderedZithromax Z-Nas 250 mg oral tablet 1 packets, Oral, Daily, as directed on package labeling, X 5 days, # 6 tabs, 0 Refill(s), Pharmacy: [facility] #[id number], 1 packets Oral Daily,x5 days, Instr:as directed on package labeling Special Instructions: as directed on package labeling Start Date: 11/14/14 Stop Date: 11/19/14 Status: Ordered Results Chemistry Most recent to oldest [Reference Range]: 1 Sodium Lvl [135-144 mEq/L] 139 mEq/L (11/14/14 11:25 AM) Potassium Lvl [3.5-5.2 mEq/L] 4.0 mEq/L (11/14/14 11:25 AM) Chloride [99-111 mEq/L] 100 mEq/L (11/14/14 11:25 AM) CO2 [22-31 mEq/L] 26 mEq/L (11/14/14 11:25 AM) AGAP [3-20] 13 (11/14/14 11:25 AM) BUN [10-20 mg/dL] 33 mg/dL *HI* (11/14/14 11:25 AM) Glucose Lvl [70-99 mg/dL] 178 mg/dL *HI* (11/14/14 11:25 AM) Creatinine Lvl [0.57-1.11 mg/dL] 1.33 mg/dL *HI* (11/14/14 11:25 AM) eGFR [>60 mL/min] 39 mL/min 1 *ABN* (11/14/14 11:25 AM) Calcium Lvl [8.9-10.5 mg/dL] 9.5 mg/dL (11/14/14 11:25 AM) Albumin Lvl [3.4-4.8 gm/dL] 3.7 gm/dL (11/14/14 11:25 AM) Total Protein [6.2-8.1 gm/dL] 6.3 gm/dL (11/14/14 11:25 AM) Globulin [1.8-4.0 gm/dL] 2.6 gm/dL (11/14/14 11:25 AM) ALT [0-55 unit/L] 59 unit/L *HI* (11/14/14 11:25 AM) AST [5-34 unit/L] 21 unit/L (11/14/14 11:25 AM) Alk Phos [40-150 unit/L] 84 unit/L (11/14/14 11:25 AM) Bili Total [0.2-1.2 mg/dL] 0.9 mg/dL (11/14/14 11:25 AM) BNP [0-99 pg/mL] 276 pg/mL *HI* (11/14/14 11:25 AM) 1Result Comment: Multiply eGFR results by 1.21 for race. Immunizations Vaccine Date Refusal Reason influenza virus vaccine, inactivated1 06/09/14 influenza virus vaccine, live 05/27/13 pneumococcal 13-valent conjugate vaccine 05/27/13 zoster vaccine live 05/27/13 1Location History: See scanned document Procedures Procedure Date Related Diagnosis Body Site RT L4-S1 Transforaminal 12/24/10 Colonoscopy1 07/18/10 Esophagogastroduodenoscopy2 07/18/10 Heart valve replacement3 06/2008 Left Carotid Endarterectomy 02/21/08 Coronary angiogram 06/18/05 Adenoidectomy Angioplasty with stent Aortic and mitral valves, CS Back4 Back Surgery Carotid endarterectomy Carpal tunnel release Cataract extraction Hand5 Mechanical AVR RCA Stenting Surgery6 Tonsillectomy 1tubular adenoma at hepatic flexure repeat 5 [id number] bx w/chronic inflammation and atypia, duodenal lesion showing tubular adenoma repeat 5 [id number] has had several heart caths w stents placed Social History Social History Type Response Smoking Status Former smoker; Type: Cigarettes Assessment and Plan No data available for this section
--- OUTSIDE RECORDS SUMMARY | 2018-01-15 14:33 | External Medical Summary | Referral Summary ---
:1940 Author Organization [facility] [address] [place] [address] Care Team Providers Name Role Phone Vasile Waller Primary Care Physician Encounter VC Date(s): 04/15/17 - 04/15/17 [facility] [address] [place] [id number] Discharge Diagnosis: Acute bronchitis Discharge Diagnosis: COPD with acute exacerbation Discharge Diagnosis: Diabetes mellitus, type 2 Discharge Diagnosis: CHF (congestive heart failure) Discharge Disposition: 01-Home or Self Care Attending Physician: Vasile Waller MD Admitting Physician: Vasile Waller MD Vital Signs Most recent to oldest [Reference Range]: 1 Temperature Tympanic [36.6-38.1 degC] 36.3 degC *LOW* (04/15/17 1:58 PM) Peripheral Pulse Rate [60-100 bpm] 92 bpm (04/15/17 1:58 PM) Respiratory Rate [14-20 br/min] 22 br/min *HI* (04/15/17 1:58 PM) Blood Pressure [90-140/60-90 mmHg] 136/66 mmHg (04/15/17 1:58 PM) Problem List Condition Effective Dates Status Health Status Informant COPD with acute Active exacerbation(Confirmed) CHF (congestive heart Active failure)(Confirmed) Acute pain(Confirmed) Active Allergies(Confirmed) Active Anemia(Confirmed) Active Aortic valve disease(Confirmed) Active Aortic insufficiency Left Ventricular Active Hypertrophy(Confirmed) Aortic stenosis(Confirmed) Active Arthritis(Confirmed) Active At risk for infection(Confirmed)1 Active At risk of pressure sore(Confirmed) Active Atherosclerosis(Confirmed) Active Bladder problem(Confirmed) Active Bronchitis(Confirmed) Active Cardiac murmur(Confirmed) Active Cataracts(Confirmed) Active Atrial fibrillation(Confirmed) Active CKD (chronic kidney disease) stage 1, Active GFR 90 ml/min or greater(Confirmed) Depression(Confirmed) Active Diabetes(Confirmed) Active Neuropathy in diabetes(Confirmed) Active coumadin use(Confirmed) 06/2008 Active Fluid imbalance(Confirmed)2 Active Acute gout(Confirmed) Active Heart failure(Confirmed) Active High cholesterol(Confirmed) Active Hypertension(Confirmed) Active Impaired gas exchange(Confirmed)3 Active Knowledge deficit(Confirmed)4 Active Lung nodule(Confirmed) Active Hyperlipidemia(Confirmed) Active Osteoarthritis(Confirmed) Active Osteopenia(Confirmed) Active Osteoporosis(Confirmed) Active Overactive bladder(Confirmed) Active COPD (chronic obstructive pulmonary Active disease)(Confirmed) PVD (peripheral vascular Active disease)(Confirmed) Sinus infections(Confirmed) Active Bruit of left carotid Active artery(Confirmed) Diabetes mellitus, type 2(Confirmed) Active 1Problem added automatically by system based on initiation of At Risk for Infection in Nutrition Planof [id number] added automatically by system based on initiation of Fluid Volume Imbalance Plan of [id number] added automatically by system based on initiation of Impaired Gas Exchange Plan of [id number] added automatically by system based on initiation of Knowledge Deficit Plan of Care Allergies, Adverse Reactions, Alerts Substance Reaction Severity Status ciprofloxacin Adverse Reaction Active increased INR Medications allopurinol 100 mg oral tablet 100 mg 1 tabs, Oral, Daily, 90 day supply, # 90 tabs, 0 Refill(s), Pharmacy: [facility] #[id number], 1 tabs Oral Daily,Instr:90 day supply Start Date: 03/13/17 Status: Orderedascorbic acid 1000 mg oral tablet 1,000 mg 1 tabs, Oral, Daily, 0 Refill(s) Start Date: 11/05/16 Status: OrderedAsmanex Twisthaler 30 Dose 220 mcg/inh inhalation aerosol powder See Instructions, USE 1 INHALATION DAILY AND RINSE MOUTH (DISCARD 45 DAYS AFTER OPENING) INVOICE: [id number], # 3 Each, 2 Refill(s), Pharmacy: [facility] Start Date: 03/18/17 Status: Orderedatorvastatin 40 mg oral tablet 40 mg 1 tabs, Oral, Daily, MEMBER # [id number], # 90 tabs, 0 Refill(s), Pharmacy: [facility], 1 tabs Oral Daily,Instr:MEMBER # [id number] Start Date: 03/13/17 Status: Orderedbumetanide 2 mg oral tablet 4 mg 2 tabs, Oral, BID, 0 Refill(s) Start Date: 11/05/16 Status: OrderedCarafate 1 g oral tablet 1 g 1 tabs, Oral, BID, MEMBER # [id number], # 180 tabs, 0 Refill(s), Pharmacy : [facility], 1 tabs Oral BID,Instr:MEMBER # [id number] Start Date: 03/13/17 Status: OrderedCeftin 250 mg oral tablet 250 mg 1 tabs, Oral, BID, X 10 days, # 20 tabs, 0 Refill(s), Pharmacy: [facility] #[id number], 1 tabs Oral BID,x10 days Start Date: 04/15/17 Stop Date: 04/25/17 Status: Ordereddigoxin 125 mcg (0.125 mg) oral tablet 125 mcg 1 tabs, Oral, Daily, MEMBER # [id number], # 90 tabs, 0 Refill(s), Pharmacy: [facility], 1 tabs Oral Daily,Instr:MEMBER # [id number] Start Date: 03/13/17 Status: Orderedferrous sulfate 325 mg (65 mg elemental iron) oral tablet 325 mg 1 tabs, Oral, Daily, 0 Refill(s) Start Date: 12/13/15 Status: Orderedfolic acid 1 mg oral tablet 1 mg 1 tabs, Oral, Daily, # 90 tabs, 0 Refill(s) Start Date: 09/19/16 Status: Orderedgabapentin 100 mg oral capsule 100 mg 1 caps, Oral, BID, MEMBER # [id number], # 60 caps, 0 Refill(s), Pharmacy: [facility], 1 caps Oral BID,Instr:MEMBER # [id number] Start Date: 03/13/17 Status: OrderedLevemir FlexPen 100 units/mL subcutaneous solution 38 units, SubCutaneous, BID, Managed by Dr. Armenta., 0 Refill(s) Start Date: 01/19/17 Status: Orderedmagnesium oxide 400 mg, Oral, Daily, 0 Refill(s) Start Date: 11/03/14 Status: OrderedmetFORMIN 1000 mg oral tablet 1,000 mg 1 tabs, Oral, BID, MEMBER # [id number], # 180 tabs, 0 Refill(s), Pharmacy: [facility], 1 tabs Oral BID,Instr:MEMBER # [id number] Start Date: 03/13/17 Status: OrderedMetoprolol Tartrate 150 mg, Oral, BID, 0 Refill(s) Start Date: 11/05/16 Status: OrderedNorco 5 mg-325 mg oral tablet 1 tabs, Oral, BID, as needed for pain, # 30 tabs, 0 Refill(s) Start Date: 12/16/16 Status: Orderedomeprazole 40 mg oral delayed release capsule 40 mg 1 caps, Oral, Daily, MEMBER # [id number], # 90 caps, 0 Refill(s), Pharmacy: [facility], 1 caps Oral Daily,Instr:MEMBER # [id number] Start Date: 03/13/17 Status: OrderedProAir HFA 90 mcg/inh inhalation aerosol 180 mcg 2 puffs, Inhalation, q4hr, as needed for wheezing, # 3 Each, 3 Refill(s) , Pharmacy: [facility] Start Date: 12/06/15 Status: OrderedProbiotic Formula (Bacillus Coagulans) oral capsule 1 caps, Oral, Daily, # 30 caps, 0 Refill(s) Start Date: 11/05/16 Status: Orderedpromethazine-codeine 6.25 mg-10 mg/5 mL oral syrup 5 mL, Oral, q4hr, as needed for cough, [place], # 120 mL, 0 Refill(s) Start Date: 04/15/17 Status: OrderedSpiriva 18 mcg inhalation capsule See Instructions, INHALE THE CONTENTS OF 1 CAPSULE DAILY MEMBER # [id number] , # 90 Each, 1 Refill(s), Pharmacy: [facility], INHALE THE CONTENTS OF 1 CAPSULE DAILY; MEMBER # [id number] Start Date: 03/13/17 Status: Orderedspironolactone 25 mg oral tablet See Instructions, TAKE 1 TABLET TWICE A DAY MEMBER # [id number], # 180 tabs, 0 Refill(s), Pharmacy: [facility], TAKE 1 TABLET TWICE A DAY ; MEMBER # [id number] Start Date: 03/18/17 Status: OrderedVitamin B12 1,000 mcg, 0 Refill(s) Start Date: 04/29/16 Status: OrderedVitamin D3 5000 intl units oral tablet 5,000 Intl_Units 1 tabs, Oral, Daily, 0 Refill(s) Start Date: 11/05/16 Status: Orderedwarfarin 5 mg, Oral, Thursday, 0 Refill(s) Start Date: 11/03/14 Status: Orderedwarfarin 2.5 mg, Oral, Thursday, Thursday, , Thursday, Thursday, Thursday, 0 Refill(s) Start Date: 11/03/14 Status: Ordered Immunizations Given and Recorded Vaccine Date Status Refusal Reason influenza virus vaccine, inactivated 10/28/16 Given influenza virus vaccine, inactivated 06/29/15 Given influenza virus vaccine, inactivated1 06/09/14 Recorded pneumococcal 13-valent conjugate vaccine 06/29/15 Given pneumococcal 13-valent conjugate vaccine2 05/27/13 Given pneumococcal 23-polyvalent vaccine 05/27/13 Given zoster vaccine live 05/27/13 Given influenza virus vaccine, live 05/27/13 Given 1Location History: See scanned [id number] Comment: [05/08/2015 Uncharted] Uploaded in Error - CC Procedures Procedure Date Related Diagnosis Body Site Colonoscopy normal1 12/10/15 RT L4-S1 Transforaminal 12/24/10 Colonoscopy2 07/18/10 Esophagogastroduodenoscopy3 07/18/10 Heart valve replacement4 06/2008 Left Carotid Endarterectomy 02/21/08 Coronary angiogram 06/18/05 Adenoidectomy Angioplasty with stent Aortic and mitral valves, CS Back5 Back Surgery Carotid endarterectomy Carpal tunnel release Cataract extraction Hand6 Mechanical AVR RCA Stenting Surgery7 Tonsillectomy 1April 2015 normal colonoscopy except for internal hemorrhoids. Likely not need to repeat unless symptoms warrant, due to advanced age.2tubular adenoma at hepatic flexure repeat 5 [id number] bx w/chronic inflammation and atypia, duodenal lesion showing tubular adenoma repeat 5 [id number] has had several heart caths w stents placed Social History Social History Type Response Smoking Status Former smoker; Type: Cigarettes1 1Smoked for apprx. 50 years x one pack Assessment and Plan Extracted from: Title: Office Visit Note Author: Vasile Waller MD Date: 04/15/17 1.Acute bronchitis I recommended cefuroxime 250 mg one by mouth twice a day 10 days if not improving over the next 5-6 days she will let us know. Ordered: Office Visit Level 4 Est 53475 2.CHF (congestive heart failure) This appears to be chronic and stable no change in current treatment. Ordered: Office Visit Level 4 Est 41752 3.COPD with acute exacerbation Continue oxygen therapy and her regular inhalers. She doesn't appear to need prednisone at this time but if she is getting worse with her respiratory difficulties she will let us now. Ordered: Office Visit Level 4 Est 37259 4.Diabetes mellitus, type 2 Increase Humalog to 15 units 3 times daily with meals continuelong-acting insulin as before. Follow up as previously recommended. Ordered: Office Visit Level 4 Est 14558
[2018-01-15] MEDS ORDERED: ALBUTEROL/IPRATROPIUM 2.5mg-0.5mg/3ml NEB AEROSOL PRN (14:43)
[2018-01-15] MEDS ORDERED: METHYLPREDNISOLONE SOD SUCC 125mg/2ml INJECTION IVP SCH (15:00)
[2018-01-15] MEDS: CEFTRIAXONE 1 G in NS 100 ML IV SCH (15:43)
[2018-01-15] MEDS ORDERED: NS 1,000 ML IV SCH (16:00)
[2018-01-15 16:19] VITALS: BMI 27.4
--- NOTE | 2018-01-15 16:23 | XRay Report ---
Indication: Dyspnea PROCEDURE: XR chest 1V: Encounter: Initial Comparison: June 18, 2017 Findings: Prior sternotomy with cardiac valve replacements. Left pacemaker defibrillator. Mild interstitial prominence without lobar consolidative pneumonia. No pneumothorax or pleural effusion. Heart size and mediastinal contours are stable. Impression: Mild pulmonary edema/CHF. .
[2018-01-15] MEDS: ALBUTEROL/IPRATROPIUM 2.5mg-0.5mg/3ml NEB AEROSOL SCH ×2 (16:26→20:24)
--- NOTE | 2018-01-15 16:33 | History & Physical Report ---
History of Present Illness Date: 01/15/18 (PCP: Dr. Waller) Chief complaint: Shortness of breath, Hypoxia HPI: Susanne is a very pleasant 77 yo WF who was seen in the clinic by her PCP, Dr. Waller. She has a known history of COPD, and uses oxygen @ 2L/NC at home. She was found to have an O2 sat of 84% on her normal oxygen in the office. Due to significant hypoxemia, she was admitted for further evaluation and treatment. She and her are both here to provide history today. She reports that she suffered Influenza in Sep/Oct of this year. Since that time , she has progressive dyspnea and reports that her oxygen when checked at home as been 84-85% for several weeks. She does not routinely monitor her oxygen sats at home, so she is unclear on how frequently her sats have been low. She does use a nebulizer, but usually only twice a day or so. She does report a productive cough with clear sputum at times. Not necessarily a worse cough than normal. She saw Dr. Siddiqui during her last hospital stay, but did not establish with him as an outpatient. She reports that her O2 tank is difficult for her to carry given increase in dyspnea. No fever or chills. She does have chronic LE edema, which has been ongoing for some time. She does endorse early satiety over the last few weeks. No intra-abdominal fullness or distention. Bowels are moving normally. No urinary c/o. She has slept in a recliner for several years, so she does not endorse new orthopnea. Does have PND at times. No c/o chest pain. Review of Systems All systems PM: 10-point ROS was reviewed, no additional remarkable complaints except - Constitutional Constitutional: Present: fatigue, malaise, weakness. Absent: chills, fever(s) - Cardiovascular Cardiovascular: Present: dyspnea on exertion, edema, heart murmur. Absent: chest pain Rhythm: Present: abnormal rhythm Vascular: Present: pedal edema - Respiratory Respiratory: Present: cough, dyspnea, dyspnea on exertion. Absent: pain on inspiration, excessive phlegm production - Gastrointestinal Gastrointestinal: Absent: abdominal pain, change in bowel habits, nausea, vomiting - Genitourinary Genitourinary: Absent: urinary frequency, urinary hesitancy, urinary urgency - Musculoskeletal Musculoskeletal: Present: muscle cramps (Chronic peripheral neuropathy), myalgias Past Medical History Medical History Updates: Diabetes mellitus type 2, requiring insulin. Peripheral neuropathy. Paroxysmal atrial fibrillation. Peripheral arterial disease. Systolic and diastolic Congestive heart failure-acute on chronic. Coronary artery disease. Hyperlipidemia. Hypertension. Valvular heart disease. COPD. Osteoarthritis Surgical History: Tonsillectomy, aortic and mitral mechanical heart valve replacement, back surgery, cardiac stent Family History: Multiple family members with cancer Liver, Colon, Renal Family History: As Above - Social History Smoking status: Former smoker (quit smoking 2 years ago. States she smoked for greater than 50 years prior.) Housing: house Household members: spouse Does patient use chewing tobacco?: No Current residence: Apartment/Private Home Social history: No Home Health [facility] [place] provides DME Medications Home Medications Medication Instructions Recorded Confirmed Type Albuterol Sulfate [Proair Hfa] 2 puff INH Q4-6H PRN #0 06/15/14 01/15/18 History Atorvastatin Calcium 40 mg PO HS #0 06/15/14 01/15/18 History Tiotropium [place] [Spiriva] 1 cap ORAL INH DAILY #0 06/16/14 01/15/18 History Digoxin [Digitek] 125 mcg PO DAILY #0 01/09/15 01/15/18 History Warfarin Sodium 2.5 mg PO DAILY #0 tab 04/19/15 01/15/18 History Allopurinol [Zyloprim] 100 mg PO DAILY 04/14/17 01/15/18 History Cyanocobalamin (Vitamin B-12) 1,000 mcg PO DAILY 04/14/17 01/15/18 History [Vitamin B-12] Folic Acid [Folate] 1 mg PO DAILY 04/14/17 01/15/18 History Metoprolol Tartrate [Lopressor] 150 mg PO BID 05/19/17 01/15/18 History Aspirin *EC* [Ecotrin] 81 mg PO DAILY #30 tab 05/20/17 01/15/18 Rx Ascorbic Acid [Vitamin C] 1,000 mg PO WB 06/17/17 01/15/18 History Magnesium Oxide 400 mg PO DAILY 06/17/17 01/15/18 History Mometasone Furoate [Asmanex] 1 puff INH HS 06/17/17 01/15/18 History Insulin Detemir [Levemir] 33 unit SQ BID vial 06/22/17 01/15/18 Rx Bumetanide Tab [Bumex 1 mg Tab] 2 mg PO DAILY 01/15/18 01/15/18 History Dulaglutide [Trulicity] 1.5 mg SQ WEEKLY 01/15/18 01/15/18 History Gabapentin [Neurontin] 100 mg PO BID 01/15/18 01/15/18 History Insulin Lispro [HumaLOG] 25 unit SQ TIDWM 01/15/18 01/15/18 History Spironolactone [Aldactone] 1 tab PO BID 01/15/18 01/15/18 History Allergies Allergy/AdvReac Type Severity Reaction Status Date / Time ciprofloxacin Allergy Unknown ABDOMINAL Verified 06/17/17 15:06 DISCOMFORT Exam Vital Signs: Temperature 96.9 F 01/15/18 16:00 Pulse Rate 67 01/15/18 16:00 Respiratory Rate 18 01/15/18 16:00 Blood Pressure 158/70 H 01/15/18 16:00 Pulse Oximetry 96 01/15/18 16:24 Height/Weight/BMI: Height 1.5 m Weight 61.7 kg Body Mass Index 27.4 - Constitutional Present: no acute distress, well nourished, well developed, average body habitus , cooperative - Routine HEENT Exam Head: Present: normocephalic, atraumatic Eye: Present: EOMI, PERRL ENT: Present: mucous membranes dry - Routine Neck Exam Present: supple, trachea midline. Absent: normal carotid upstroke (Increase carotid upstroke), tenderness, swelling - Routine Chest/Breast/Axilla Exam Chest wall: Present: pacemaker (Left chest wall) - Routine Respiratory Exam Present: decreased breath sounds, diminished air movement (Chronic diminished, but air flow appreciated in all peterson. Not SOA at rest. ). Absent: accessory muscle use, respiratory distress, rhonchi, wheezes, crackles - Routine Cardiovascular Exam Present: S1, S2, murmur, click, irregular rhythm - Routine Abdominal Exam Present: soft, normoactive bowel sounds, non distended, non tender - Routine Extremities Exam Present: edema (2+ LE chronic edema bilaterally), tenderness (Chronic LE peripheral neuropathy). Absent: calf tenderness, Lazaro's sign - Routine Skin Exam Present: intact, dry, warm - Routine Neurological Exam Present: alert, oriented X3, moving all extremities - Routine Psychiatric Exam Present: normal affect, cooperative, good insight, good judgment Results - Labs CBC & Chem 7: 01/15/18 15:16 01/15/18 15:15 - Imaging and Cardiology Chest x-ray Status: image reviewed by me Additional comments: Impression: Mild pulmonary edema/CHF. . Assessment and Plan (1) COPD (chronic obstructive pulmonary disease) Current visit: No Status: Chronic Assessment and Plan: Impression: Acute on Chronic Respiratory Failure Post Viral worsening of COPD? 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 Dr. Johnson *Suspect chronic worsening of COPD, but there may be an underlying infection. Will titrate O2 to keep sats above 90%. She does not appear to be in any acute distress. Will change solumedrol to 80mg IV Q 8 hours given BG. Check viral respiratory failure. Continue Azithro/Ceftriaxone. Will need to watch HR/Rhythm given hx of atrial fib. Hold Dig due to concern for interaction with Azithro. Lactate is a bit high, but she appears otherwise stable. Monitor serial lactate levels. Start Duoneb/Pulmicort. Hold home inhalers. Consider outpatient referral to pulm as she does not appear acutely unstable in regards to current pulmonary status. There was a consideration for possible need to evaluate for overnight BiPAP during her last stay. *CHF/VHD She appears quite dry on her labs. Will hold Bumex and Aldactone right now and give 500ml of fluid. CXR is not c/w exam in regards to fluid status. Replace Mag. Monitor potassium, calcium- elevated due to dehydration. 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 Check BG. BG will likely run high given need for solumedrol. May need to add SSI. Will increase Gabapentin to 100mg PO TID due to main c/o is DPN pain. Could consider supplementing iron upon dismissal. *Excess anticoagulation-hydrate. Pharmacy consult. Goal 2.5-3.5 given known Mechanical valves. DNR status confirmed. Repeat labs in AM. DVT Prophylaxis: Coumadin Resuscitation Status: Do Not Resuscitate - Physician Narrative Physician: Cj Johnson MD Narrative: Date: 01/15/18 Time: 0 Have independently interviewed and examined pt. Chart reviewed. Case discussed with Dr Waller and my CORRUGATOR SUPERVISOR. Care plan developed with my supervision; agree with above. Presents to clinic for evaluation of worsening respiratory status. Had flu over winter and breathing has never seamed to recover since. Note more dyspnea - needing O2 ALL the time (was a while she could be off for short periods of time at home without problems) and even with her supplemental O2 still very winded with activities. Notes cough and chest congestion. Sputum variable from clear to brown to green; most recently clear but very hard to produce. Appetite with significant decrease in last week. Notes intermittent nausea, but without emesis. Stools tending towards slow. Slight increased edema to her legs. Not sleeping well at night-wakes to urinate, then finds it hard to get back to sleep. Evaluated in clinic - sats mid 80's despite her home O2. Lungs very coarse and congested, with labored breathing. Dr Waller contacted Dr Johnson and arrangements made for acute hospitalization due to her worsening respiratory status. Lungs: decreased breath sounds, faint scattered crackle, no wheeze. CV: regular AB: soft nt BS decreased MSE: awake alert appropriate Plan: Inpatient admission due to worsening hypoxia despite supplemental O2 and pulmonary edema on CXR. Rocephin/azithromycin for pulmonary coverage. Initiate Solu-Medrol, breathing treatments and acapella. Will recheck CXR in am secondary to mild pulm edema. Supplemental O2 to maintain saturations. Continue home diabetic medications, adding ISS. Monitor lab. Care to return to Dr Waller at time of discharge from [facility]. Hospital Course Summary Disclaimer: The visit summary below is not to be considered part of the above Progress Note. Hospital Course: 01/15/[address] Johnson *Suspect chronic worsening of COPD, but there may be an underlying infection. Will titrate O2 to keep sats above 90%. She does not appear to be in any acute distress. Will start Solu-Medrol 80mg IV Q 8 hours given BG. Check viral respiratory failure. Initiate Azithro/Ceftriaxone. Will need to watch HR/Rhythm given hx of atrial fib. Hold Dig due to concern for interaction with Azithromycin. Lactate is a bit high, but she appears otherwise stable. Monitor serial lactate levels. Start DuoNeb/Pulmicort. Hold home inhalers. Consider outpatient referral to pulm as she does not appear acutely unstable in regards to current pulmonary status. There was a consideration for possible need to evaluate for overnight BiPAP during her last stay. *CHF/VHD She appears quite dry on her labs. Will hold Bumex and Aldactone right now and give 500ml of fluid. CXR is not c/w exam in regards to fluid status. Replace Mag. Monitor potassium, calcium- elevated due to dehydration. 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 Check BG. BG will likely run high given need for Solu-Medrol. Will add SSI. Will increase Gabapentin to 100mg PO TID due to main c/o is DPN pain. Could consider supplementing iron upon dismissal. *Excess anticoagulation-hydrate. Pharmacy consult. Goal 2.5-3.5 given known Mechanical valves. DNR status confirmed. Repeat labs in AM. Care to return to Dr Waller at time of discharge from [facility].
[2018-01-15] MEDS ORDERED: WARFARIN - PHARMACY CONSULT MC ONE (16:41)
[2018-01-15] MEDS ORDERED: DEXTROSE 50% SYRINGE 50ml (1 AMP) IVP PRN (16:49)
[2018-01-15] MEDS ORDERED: GLUCOSE ORAL GEL 40% 37.5gm PO PRN (16:49)
[2018-01-15] MEDS ORDERED: BISACODYL 10 MG SUPPOSITORY RECTALLY PRN (17:14)
[2018-01-15] MEDS ORDERED: MENTHOL COUGH DROPS (RICOLA) MM PRN (17:14)
[2018-01-15] MEDS ORDERED: ACETAMINOPHEN 325 MG TABLET PO PRN (17:14)
[2018-01-15] MEDS: METHYLPREDNISOLONE SOD SUCC 125mg/2ml INJECTION IVP SCH (17:19)
[2018-01-15] MEDS ORDERED: INSULIN ASPART 100unit/ml INJECTION SQ SCH ×2 (17:30→21:30)
[2018-01-15] MEDS: AZITHROMYCIN IV 500 MG in NS 250ml 250 ML IV SCH (17:56)
[2018-01-15] MEDS: INSULIN ASPART 100unit/ml INJECTION SQ SCH (18:10)
[2018-01-15] MEDS ORDERED: WARFARIN 1 MG TABLET PO ONE (18:30)
[2018-01-15] MEDS: MAGNESIUM SULFATE 1gm PREMIX 1 GM/100 ML BAG IV SCH ×2 (19:33→20:38)
[2018-01-15] MEDS: BUDESONIDE INH.SOLN 0.5mg/2ml NEB AEROSOL SCH (20:23)
[2018-01-15] MEDS: INSULIN DETEMIR 100unit/ml INJECTION SQ SCH (20:37)
[2018-01-15] MEDS: GABAPENTIN 100 MG CAPSULE PO SCH (20:37)
[2018-01-15] MEDS: ATORVASTATIN 40 MG TABLET PO SCH (20:37)
[2018-01-15] MEDS ORDERED: INSULIN DETEMIR 100unit/ml INJECTION SQ SCH (21:00)
[2018-01-16] MEDS: METHYLPREDNISOLONE SOD SUCC 125mg/2ml INJECTION IVP SCH ×3 (00:02→16:45)
[2018-01-16] MEDS: INSULIN ASPART 100unit/ml INJECTION SQ PRN (05:46)
[2018-01-16] MEDS: ALBUTEROL/IPRATROPIUM 2.5mg-0.5mg/3ml NEB AEROSOL SCH ×4 (07:04→20:13)
[2018-01-16] MEDS: BUDESONIDE INH.SOLN 0.5mg/2ml NEB AEROSOL SCH ×2 (07:05→20:13)
--- NOTE | 2018-01-16 08:09 | Pharmacy Consult ---
Pharmacy Consult-Warfarin - Laboratory Information 01/15/18 01/15/18 01/15/18 15:15 15:15 15:16 Hgb 11.3 L Hct 36.5 INR 3.90 H AST 33 ALT 43 H Albumin 4.8 01/16/18 01/16/18 01/16/18 04:13 04:13 04:13 Hgb 10.5 L Hct 33.5 L INR 3.64 H AST ALT Albumin 4.2 - Consult Information COUMADIN CONSULT: 77 yr old female patient admitted for hypoxia and COPD exacerbation This patient is on warfarin for her mechanical mitral and aortic valve. Patient is currently on Ceftriaxone and Azithromycin which can increase the INR. Patient's home dose of warfarin is 2.5 mg daily. Goal for Mitral Mechanical Valve is INR 2.5-3.5. DATE INR DOSE GIVEN 01/15/18 3.9 0.5 mg 01/16/18 3.64 0.5 mg will be given today Thank you. Lynnette Yoo,PharmD
[2018-01-16] MEDS ORDERED: BUMETANIDE 1 MG TABLET PO SCH (09:00)
[2018-01-16] MEDS: ASCORBIC ACID 500 MG TABLET PO SCH (09:08)
[2018-01-16] MEDS: BUMETANIDE 1 MG TABLET PO SCH ×2 (09:08→14:14)
[2018-01-16] MEDS: CYANOCOBALAMIN (B-12) 500mcg TABLET PO SCH (09:09)
[2018-01-16] MEDS: GABAPENTIN 100 MG CAPSULE PO SCH ×3 (09:09→21:45)
[2018-01-16] MEDS: FOLIC ACID 1 MG TABLET PO SCH (09:09)
[2018-01-16] MEDS: MAGNESIUM OXIDE 400 MG TABLET PO SCH (09:10)
[2018-01-16] MEDS: ALLOPURINOL 100 MG TABLET PO SCH (09:10)
[2018-01-16] MEDS: ASPIRIN *EC* 81 MG TABLET PO SCH (09:10)
[2018-01-16] MEDS: INSULIN ASPART 100unit/ml INJECTION SQ SCH ×4 (09:11→18:42)
[2018-01-16] MEDS: INSULIN DETEMIR 100unit/ml INJECTION SQ SCH ×2 (09:12→21:46)
[2018-01-16] MEDS: CEFTRIAXONE 1 G in NS 100 ML IV SCH (09:12)
[2018-01-16] MEDS ORDERED: DULAGLUTIDE 1.5 MG PO SCH (10:00)
[2018-01-16] MEDS ORDERED: INSULIN ASPART 100unit/ml INJECTION SQ ONE ×2 (11:53→18:00)
[2018-01-16] MEDS ORDERED: WARFARIN 1 MG TABLET PO SCH (12:00)
--- NOTE | 2018-01-16 13:35 | Progress Note ---
- Date 01/16/18 Subjective: Feeling okay today but breathing still an issue. Discussed increased diuresis; she notes she has had worsening LE edema recently despite compression stockings. Would like her diet changed from cardiac to diabetic. No fevers, chills, cough. Blood sugars have been very high; discussed resuming trulicity and increased insulin dosing. Objective Vital signs: Temperature 96.9 F 01/16/18 07:34 Pulse Rate 65 01/16/18 07:34 Respiratory Rate 16 01/16/18 11:00 Blood Pressure 145/67 H 01/16/18 07:34 Pulse Oximetry 97 01/16/18 07:34 Rhythm: Normal Sinus Rhythm Height/Weight/BMI: Height 1.5 m Weight 63.8 kg Body Mass Index 27.4 - Constitutional Present: no acute distress, well nourished, well developed, obese - Routine HEENT Exam Head: Present: normocephalic Eye: Present: PERRL ENT: Present: mucous membranes moist, oropharynx clear - Routine Respiratory Exam Present: accessory muscle use, dyspnea (with speech ), decreased breath sounds, rales (l>r). Absent: wheezes - Routine Cardiovascular Exam Present: RRR - Routine Abdominal Exam Present: soft, non distended, non tender - Routine Extremities Exam Present: edema (1+ pitting BLE) - Routine Musculoskeletal Exam Musculoskeletal: Present: no tenderness - Routine Skin Exam Present: dry, warm. Absent: rash - Routine Neurological Exam Present: alert, oriented X3, vision grossly intact, hearing grossly intact, normal speech - Routine Psychiatric Exam Present: normal affect, normal thought process Results - Labs CBC & Chem 7: 01/16/18 04:13 01/16/18 04:13 Assessment and Plan Assessment and Plan: Impression: Acute on Chronic Respiratory Failure Post Viral worsening of COPD? 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 Excess Anticoagulation (POA) Hypomagnesemia (POA) Hyperkalemia (POA), mild and persistent, likely attenuated as she was on aldactone (held) DM2, Insulin dependent, poorly controlled Hypercalcemia; Ca 11.2 at admission, improved to 9.9 today, not on metolazone Chronic peripheral neuropathy Plan: Continue solumedrol at current dosing Resume trulicity (she brought from home) as well as increased correction scale insulin with steroids Double bumex dosing to 2 mg BID and monitor I/O; hold off on metolazone due to hypercalcemia Check PTH, Vit D levels as initial step for hypercalcemia Continue rocephin/azithro due to concern for occult bacterial pneumonia and evaluate repeat CXR Continue Duoneb/Pulmicort. Hold home inhalers. Consider outpatient referral to pulm as she does not appear acutely unstable in regards to current pulmonary status. There was a consideration for possible need to evaluate for overnight BiPAP during her last stay. Check renal panel, CBC, Mg in AM for surveillance Pharmacy consulted for warfarin management, follow INR. Discussed with patient, , bedside RN and case management. Not stable for DC yet, anticipate she will need at least 1-2 days additional hospital stay given multiple medical issues. DVT Prophylaxis: SCD's Resuscitation Status: Do Not Resuscitate - Physician Narrative Narrative: Date: 01/16/18 Time: 1322 Hospital Course Summary Disclaimer: The visit summary below is not to be considered part of the above Progress Note. Hospital Course: 01/15/[address] Johnson *Suspect chronic worsening of COPD, but there may be an underlying infection. Will titrate O2 to keep sats above 90%. She does not appear to be in any acute distress. Will start Solu-Medrol 80mg IV Q 8 hours given BG. Check viral respiratory failure. Initiate Azithro/Ceftriaxone. Will need to watch HR/Rhythm given hx of atrial fib. Hold Dig due to concern for interaction with Azithromycin. Lactate is a bit high, but she appears otherwise stable. Monitor serial lactate levels. Start DuoNeb/Pulmicort. Hold home inhalers. Consider outpatient referral to pulm as she does not appear acutely unstable in regards to current pulmonary status. There was a consideration for possible need to evaluate for overnight BiPAP during her last stay. *CHF/VHD She appears quite dry on her labs. Will hold Bumex and Aldactone right now and give 500ml of fluid. CXR is not c/w exam in regards to fluid status. Replace Mag. Monitor potassium, calcium- elevated due to dehydration. 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 Check BG. BG will likely run high given need for Solu-Medrol. Will add SSI. Will increase Gabapentin to 100mg PO TID due to main c/o is DPN pain. Could consider supplementing iron upon dismissal. *Excess anticoagulation-hydrate. Pharmacy consult. Goal 2.5-3.5 given known Mechanical valves. DNR status confirmed. Repeat labs in AM. Care to return to Dr Waller at time of discharge from [facility]. 01/16/18 Continue solumedrol at current dosing Resume trulicity (she brought from home) as well as increased correction scale insulin with steroids Double bumex dosing to 2 mg BID and monitor I/O; hold off on metolazone due to hypercalcemia Check PTH, Vit D levels as initial step for hypercalcemia Continue rocephin/azithro due to concern for occult bacterial pneumonia and evaluate repeat CXR Continue Duoneb/Pulmicort. Hold home inhalers. Consider outpatient referral to pulm as she does not appear acutely unstable in regards to current pulmonary status. There was a consideration for possible need to evaluate for overnight BiPAP during her last stay. Check renal panel, CBC, Mg in AM for surveillance Pharmacy consulted for warfarin management, follow INR. Discussed with patient, , bedside RN and case management. Not stable for DC yet, anticipate she will need at least 1-2 days additional hospital stay given multiple medical issues.
[2018-01-16] MEDS: AZITHROMYCIN IV 500 MG in NS 250ml 250 ML IV SCH (16:44)
[2018-01-16] MEDS: SALINE FLUSH 10ml SYRINGE IV PRN (16:47)
[2018-01-16] MEDS ORDERED: INSULIN ASPART 100unit/ml INJECTION SQ SCH (21:15)
[2018-01-16] MEDS: ATORVASTATIN 40 MG TABLET PO SCH (21:45)
[2018-01-17] MEDS: METHYLPREDNISOLONE SOD SUCC 125mg/2ml INJECTION IVP SCH ×2 (00:09→13:14)
[2018-01-17] MEDS: SALINE FLUSH 10ml SYRINGE IV PRN ×2 (00:10→11:13)
[2018-01-17] MEDS: INSULIN ASPART 100unit/ml INJECTION SQ PRN ×3 (06:27→21:17)
--- NOTE | 2018-01-17 08:00 | Pharmacy Consult ---
Pharmacy Consult-Warfarin - Laboratory Information 01/15/18 01/15/18 01/15/18 15:15 15:15 15:16 Hgb 11.3 L Hct 36.5 INR 3.90 H AST 33 ALT 43 H Albumin 4.8 01/16/18 01/16/18 01/16/18 04:13 04:13 04:13 Hgb 10.5 L Hct 33.5 L INR 3.64 H AST ALT Albumin 4.2 01/17/18 01/17/18 01/17/18 04:11 04:11 04:11 Hgb 11.3 L Hct 35.9 L INR 3.45 H AST ALT Albumin 4.5 - Consult Information COUMADIN CONSULT (Recurring): 77 yr old female patient admitted for hypoxia and COPD This patient is on warfarin for mechanical mitral valve. Patient is currently on Ceftriaxone and Azithromycin which can increase the INR. Patient's home dose of warfarin is 2.5 mg daily. Goal for Mitral Mechanical Valve is INR 2.5-3.5. DATE INR DOSE GIVEN 01/15/18 3.9 0.5 mg 01/16/18 3.64 0.5 mg 01/17/18 3.45 0.5 mg will be given today INR is now within the proper therapeutic range of 2.5-3.5 Thank you. Lynnette Yoo, AsyaD
--- NOTE | 2018-01-17 09:32 | XRay Report ---
Indication: F/U pulm edema PROCEDURE: XR chest 1V: Encounter: Initial Comparison: January 15, 2018 Findings: Lungs are stable in appearance with increased markings in the right mid to lower lung field. No new or worsening airspace disease. No pneumothorax. Heart size and mediastinal contours are stable. Pulmonary vascularity is unchanged. Impression: Stable appearance of the chest. .
[2018-01-17] MEDS: ALBUTEROL/IPRATROPIUM 2.5mg-0.5mg/3ml NEB AEROSOL SCH ×4 (10:58→18:33)
[2018-01-17] MEDS: BUDESONIDE INH.SOLN 0.5mg/2ml NEB AEROSOL SCH ×2 (10:59→18:33)
[2018-01-17] MEDS: ASCORBIC ACID 500 MG TABLET PO SCH (11:02)
[2018-01-17] MEDS: CYANOCOBALAMIN (B-12) 500mcg TABLET PO SCH (11:04)
[2018-01-17] MEDS: BUMETANIDE 1 MG TABLET PO SCH ×2 (11:04→14:02)
[2018-01-17] MEDS: INSULIN ASPART 100unit/ml INJECTION SQ SCH ×3 (11:05→17:43)
[2018-01-17] MEDS: INSULIN DETEMIR 100unit/ml INJECTION SQ SCH ×2 (11:05→20:45)
[2018-01-17] MEDS: PredniSONE 20 MG TABLET PO SCH (11:05)
[2018-01-17] MEDS: ASPIRIN *EC* 81 MG TABLET PO SCH (11:06)
[2018-01-17] MEDS: CEFTRIAXONE 1 G in NS 100 ML IV SCH (11:06)
[2018-01-17] MEDS: ALLOPURINOL 100 MG TABLET PO SCH (11:06)
[2018-01-17] MEDS: FOLIC ACID 1 MG TABLET PO SCH (11:06)
[2018-01-17] MEDS: MAGNESIUM OXIDE 400 MG TABLET PO SCH (11:06)
[2018-01-17] MEDS: GABAPENTIN 100 MG CAPSULE PO SCH ×3 (11:07→20:45)
[2018-01-17] MEDS ORDERED: WARFARIN 1 MG TABLET PO SCH (12:00)
--- NOTE | 2018-01-17 13:27 | Progress Note ---
- Date 01/17/18 Subjective: Feeling better today after increased diuresis. Still SOA with any exertion. Appetite not great. Blood sugars have been very labile with steroids. She feels her sugars have routinely been 500-600 at home the last few weeks. Objective Vital signs: Temperature 96.9 F 01/17/18 08:00 Pulse Rate 67 01/17/18 08:32 Respiratory Rate 20 01/17/18 10:48 Blood Pressure 144/67 H 01/17/18 08:00 Pulse Oximetry 100 01/17/18 10:48 Rhythm: Normal Sinus Rhythm Height/Weight/BMI: Height 1.5 m Weight 63.9 kg Body Mass Index 27.4 - Constitutional Present: no acute distress, well nourished, well developed - Routine HEENT Exam Head: Present: normocephalic, atraumatic Eye: Present: PERRL. Absent: conjunctival icterus ENT: Present: mucous membranes moist, oropharynx clear - Routine Respiratory Exam Present: decreased breath sounds, wheezes. Absent: rales - Routine Cardiovascular Exam Present: RRR. Absent: rubs - Routine Abdominal Exam Present: soft, non distended, non tender - Routine Extremities Exam Present: edema (trace LE ), normal capillary refill - Routine Musculoskeletal Exam Musculoskeletal: Present: no tenderness, no erythema - Routine Skin Exam Present: dry, warm. Absent: rash - Routine Neurological Exam Present: alert, oriented X3, normal speech - Routine Psychiatric Exam Present: normal affect, normal thought process Results - Labs CBC & Chem 7: 01/17/18 04:11 01/17/18 04:11 - Impressions Date of Exam: 01/16/18 Ordering Provider: Cj Johnson MD Type of Exam(s): XR chest 1V Reason for Exam(s): F/U pulm edema Indication: F/U pulm edema PROCEDURE: XR chest 1V: Encounter: Initial Comparison: January 15, 2018 Findings: Lungs are stable in appearance with increased markings in the right mid to lower lung field. No new or worsening airspace disease. No pneumothorax. Heart size and mediastinal contours are stable. Pulmonary vascularity is unchanged. Impression: Stable appearance of the chest. Assessment and Plan Assessment and Plan: Impression: Acute on Chronic Respiratory Failure Post Viral worsening of COPD? 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 Excess Anticoagulation (POA) Hypomagnesemia (POA) Hyperkalemia (POA), mild and persistent, likely attenuated as she was on aldactone (held) DM2, Insulin dependent, poorly controlled Hypercalcemia; Ca 11.2 at admission, improved to 9.9 today, not on metolazone Chronic peripheral neuropathy Plan: Stop solumedrol and start prednisone 40 mg daily Resumed [place] (she brought from home); will increase insulin dosing approx 10% globally today and monitor blood sugars Continue bumex at BID dosing todayand monitor I/O; hold off on metolazone due to hypercalcemia --> Likely will need to go back to once daily dosing tomorrow PTH elevated inappropriately at 96 given hypercalcemia; await vit D level but hold calcitriol for now --> Ultimately may need sestamibi scan but no urgency to pursue at this time Stop rocephin and finish course of azithromycin for COPD exacerbation Continue Duoneb/Pulmicort. Hold home inhalers. Consider outpatient referral to pulm for f/u at [place]; may need MELANY eval as well Check renal panel, CBC, Mg in AM for surveillance Pharmacy consulted for warfarin management, follow INR, remains supratherapeutic. Discussed with bedside R. Not stable for DC yet, anticipate she will need at least 1-2 days additional hospital stay given multiple medical issues. DVT Prophylaxis: Coumadin Resuscitation Status: Do Not Resuscitate - Physician Narrative Narrative: Date: 01/17/18 Time: 1314 Hospital Course Summary Disclaimer: The visit summary below is not to be considered part of the above Progress Note. Hospital Course: 01/15/[address] Johnson *Suspect chronic worsening of COPD, but there may be an underlying infection. Will titrate O2 to keep sats above 90%. She does not appear to be in any acute distress. Will start Solu-Medrol 80mg IV Q 8 hours given BG. Check viral respiratory failure. Initiate Azithro/Ceftriaxone. Will need to watch HR/Rhythm given hx of atrial fib. Hold Dig due to concern for interaction with Azithromycin. Lactate is a bit high, but she appears otherwise stable. Monitor serial lactate levels. Start DuoNeb/Pulmicort. Hold home inhalers. Consider outpatient referral to pulm as she does not appear acutely unstable in regards to current pulmonary status. There was a consideration for possible need to evaluate for overnight BiPAP during her last stay. *CHF/VHD She appears quite dry on her labs. Will hold Bumex and Aldactone right now and give 500ml of fluid. CXR is not c/w exam in regards to fluid status. Replace Mag. Monitor potassium, calcium- elevated due to dehydration. 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 Check BG. BG will likely run high given need for Solu-Medrol. Will add SSI. Will increase Gabapentin to 100mg PO TID due to main c/o is DPN pain. Could consider supplementing iron upon dismissal. *Excess anticoagulation-hydrate. Pharmacy consult. Goal 2.5-3.5 given known Mechanical valves. DNR status confirmed. Repeat labs in AM. Care to return to Dr Waller at time of discharge from [facility]. 01/16/18 Continue solumedrol at current dosing Resume trulicity (she brought from home) as well as increased correction scale insulin with steroids Double bumex dosing to 2 mg BID and monitor I/O; hold off on metolazone due to hypercalcemia Check PTH, Vit D levels as initial step for hypercalcemia Continue rocephin/azithro due to concern for occult bacterial pneumonia and evaluate repeat CXR Continue Duoneb/Pulmicort. Hold home inhalers. Consider outpatient referral to pulm as she does not appear acutely unstable in regards to current pulmonary status. There was a consideration for possible need to evaluate for overnight BiPAP during her last stay. Check renal panel, CBC, Mg in AM for surveillance Pharmacy consulted for warfarin management, follow INR. 01/17/18 Stop solumedrol and start prednisone 40 mg daily Resumed trulicity (she brought from home); will increase insulin dosing approx 10% globally today and monitor blood sugars Continue bumex at BID dosing todayand monitor I/O; hold off on metolazone due to hypercalcemia --> Likely will need to go back to once daily dosing tomorrow PTH elevated inappropriately at 96 given hypercalcemia; await vit D level but hold calcitriol for now --> Ultimately may need sestamibi scan but no urgency to pursue at this time Stop rocephin and finish course of azithromycin for COPD exacerbation Continue Duoneb/Pulmicort. Hold home inhalers. Consider outpatient referral to pulm for f/u at [place]; may need MELANY eval as well Check renal panel, CBC, Mg in AM for surveillance Pharmacy consulted for warfarin management, follow INR, remains supratherapeutic.
[2018-01-17] MEDS: AZITHROMYCIN IV 500 MG in NS 250ml 250 ML IV SCH (14:01)
[2018-01-17] MEDS: ATORVASTATIN 40 MG TABLET PO SCH (20:45)
[2018-01-18] MEDS: INSULIN ASPART 100unit/ml INJECTION SQ PRN ×4 (05:38→20:00)
[2018-01-18] MEDS: AZITHROMYCIN 250 MG TABLET PO SCH (05:39)
[2018-01-18] MEDS: BUDESONIDE INH.SOLN 0.5mg/2ml NEB AEROSOL SCH ×2 (07:51→20:23)
[2018-01-18] MEDS: ALBUTEROL/IPRATROPIUM 2.5mg-0.5mg/3ml NEB AEROSOL SCH ×4 (07:51→20:23)
[2018-01-18] MEDS: CYANOCOBALAMIN (B-12) 500mcg TABLET PO SCH (08:52)
[2018-01-18] MEDS: ALLOPURINOL 100 MG TABLET PO SCH (08:52)
[2018-01-18] MEDS: PredniSONE 20 MG TABLET PO SCH (08:53)
[2018-01-18] MEDS: MAGNESIUM OXIDE 400 MG TABLET PO SCH (08:53)
[2018-01-18] MEDS: INSULIN DETEMIR 100unit/ml INJECTION SQ SCH ×2 (08:53→20:00)
[2018-01-18] MEDS: GABAPENTIN 100 MG CAPSULE PO SCH ×3 (08:53→20:00)
[2018-01-18] MEDS: FOLIC ACID 1 MG TABLET PO SCH (08:53)
[2018-01-18] MEDS: INSULIN ASPART 100unit/ml INJECTION SQ SCH ×3 (08:53→17:50)
[2018-01-18] MEDS: ASCORBIC ACID 500 MG TABLET PO SCH (08:53)
[2018-01-18] MEDS: ASPIRIN *EC* 81 MG TABLET PO SCH (08:53)
--- NOTE | 2018-01-18 10:44 | Pharmacy Consult ---
Pharmacy Consult-Warfarin - Laboratory Information 01/17/18 01/18/18 01/18/18 09:14 04:10 04:10 Hgb 10.3 L Hct 33.2 L INR 3.28 H AST ALT Albumin 3.7 01/18/18 04:10 Hgb Hct INR 2.65 H AST ALT Albumin - Consult Information COUMADIN CONSULT (Recurring): DAY 4 PB is a 77 yr old female patient admitted for hypoxia and COPD. This patient is on warfarin for mechanical mitral valve. Patient is currently on Azithromycin 259 mg daily, which can increase the INR. The Patient's home dose of warfarin is 2.5 mg daily. The goal for Mitral Mechanical Valve is INR 2.5- 3.5 Date INR Dose 01/15/18 3.9 0.5 mg 01/16/18 3.64 0.5 mg 01/17/18 3.45 0.5 mg 01/18/18 2.65 1.25 mg today INR is now within the appropriate therapeutic range of 2.5-3.5but to lower range. I am going to give her a dose of Warfarin 1.25 mg p.o. today at 1200, which is 1/2 of current home dose. Thank you for the Warfarin Dosing Protocol , Boris Madrigal, Pharmacist.
[2018-01-18] MEDS: SALINE FLUSH 10ml SYRINGE IV PRN (11:20)
[2018-01-18] MEDS ORDERED: WARFARIN 2.5 MG TABLET PO SCH (12:00)
--- NOTE | 2018-01-18 17:00 | Progress Note ---
- Date 01/18/18 Subjective: The patient was seen this afternoon in her room accompanied by her . She states she's feeling okay. She denies feeling short of breath today. She states she uses 2 L of oxygen at home at rest, and usually does not wear oxygen with activity. She states she walked in the halls without oxygen and was not hypoxic. She states overall she is feeling better. She states her blood sugars have been high, usually in the 2-300 range even prior to admission when steroids were initiated. She said blood sugars were up in the 600 range before Trulicity was started. Objective Vital signs: Temperature 97 F 01/18/18 15:00 Pulse Rate 71 01/18/18 15:00 Respiratory Rate 18 01/18/18 15:01 Blood Pressure 157/67 H 01/18/18 15:00 Pulse Oximetry 97 01/18/18 15:00 Rhythm: Normal Sinus Rhythm Height/Weight/BMI: Height 1.5 m Weight 64.2 kg Body Mass Index 27.4 Comments: GEN-alert, oriented, no acute distress HEENT-sclera anicteric, oropharynx is moist NECK-no JVD CV-regular rate and rhythm, positive prosthetic clicks CHEST-clear to auscultation bilaterally ABD-off, nontender with positive bowel sounds -no [place]ing EXT-no edema NEURO-no focal deficits SKIN-warm and dry Results - Labs CBC & Chem 7: 01/18/18 04:10 01/18/18 04:10 Labs: INR 2.65 Assessment and Plan (1) COPD (chronic obstructive pulmonary disease) Current visit: No Status: Chronic Assessment and Plan: Impression: Acute on Chronic Respiratory Failure-on her baseline 2 L of oxygen now Post Viral worsening of COPD? 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 Likely restart her usual Bumex tomorrow. Stop solumedrol and start prednisone 40 mg daily PTH elevated inappropriately at 96 given hypercalcemia; await vit D level but hold calcitriol for now --> Ultimately may need sestamibi scan but no urgency to pursue at this time finish course of azithromycin for COPD exacerbation -Rocephin discontinued Continue Duoneb/Pulmicort. Hold home inhalers. Consider outpatient referral to pulm for f/u at [place]; may need MELANY eval as well Renal panel and CBC in the morning Pharmacy consulted for warfarin management, follow INR, remains supratherapeutic. Possible dismissal tomorrow if she continues to do well. - Physician Narrative Narrative: Date: 01/18/18 Time: 1638 Hospital Course Summary Disclaimer: The visit summary below is not to be considered part of the above Progress Note. Hospital Course: 01/15/[address] Johnson *Suspect chronic worsening of COPD, but there may be an underlying infection. Will titrate O2 to keep sats above 90%. She does not appear to be in any acute distress. Will start Solu-Medrol 80mg IV Q 8 hours given BG. Check viral respiratory failure. Initiate Azithro/Ceftriaxone. Will need to watch HR/Rhythm given hx of atrial fib. Hold Dig due to concern for interaction with Azithromycin. Lactate is a bit high, but she appears otherwise stable. Monitor serial lactate levels. Start DuoNeb/Pulmicort. Hold home inhalers. Consider outpatient referral to pulm as she does not appear acutely unstable in regards to current pulmonary status. There was a consideration for possible need to evaluate for overnight BiPAP during her last stay. *CHF/VHD She appears quite dry on her labs. Will hold Bumex and Aldactone right now and give 500ml of fluid. CXR is not c/w exam in regards to fluid status. Replace Mag. Monitor potassium, calcium- elevated due to dehydration. 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 Check BG. BG will likely run high given need for Solu-Medrol. Will add SSI. Will increase Gabapentin to 100mg PO TID due to main c/o is DPN pain. Could consider supplementing iron upon dismissal. *Excess anticoagulation-hydrate. Pharmacy consult. Goal 2.5-3.5 given known Mechanical valves. DNR status confirmed. Repeat labs in AM. Care to return to Dr Waller at time of discharge from [facility]. 01/16/18 Continue solumedrol at current dosing Resume trulicity (she brought from home) as well as increased correction scale insulin with steroids Double bumex dosing to 2 mg BID and monitor I/O; hold off on metolazone due to hypercalcemia Check PTH, Vit D levels as initial step for hypercalcemia Continue rocephin/azithro due to concern for occult bacterial pneumonia and evaluate repeat CXR Continue Duoneb/Pulmicort. Hold home inhalers. Consider outpatient referral to pulm as she does not appear acutely unstable in regards to current pulmonary status. There was a consideration for possible need to evaluate for overnight BiPAP during her last stay. Check renal panel, CBC, Mg in AM for surveillance Pharmacy consulted for warfarin management, follow INR. 01/17/18 Stop solumedrol and start prednisone 40 mg daily Resumed trulicity (she brought from home); will increase insulin dosing approx 10% globally today and monitor blood sugars Continue bumex at BID dosing todayand monitor I/O; hold off on metolazone due to hypercalcemia --> Likely will need to go back to once daily dosing tomorrow PTH elevated inappropriately at 96 given hypercalcemia; await vit D level but hold calcitriol for now --> Ultimately may need sestamibi scan but no urgency to pursue at this time Stop rocephin and finish course of azithromycin for COPD exacerbation Continue Duoneb/Pulmicort. Hold home inhalers. Consider outpatient referral to pulm for f/u at [place]; may need MELANY eval as well Check renal panel, CBC, Mg in AM for surveillance Pharmacy consulted for warfarin management, follow INR, remains supratherapeutic.
[2018-01-18] MEDS: ATORVASTATIN 40 MG TABLET PO SCH (20:00)
[2018-01-19] MEDS: AZITHROMYCIN 250 MG TABLET PO SCH (05:50)
--- NOTE | 2018-01-19 07:28 | Pharmacy Consult ---
Pharmacy Consult-Warfarin - Laboratory Information 01/15/18 01/15/18 01/15/18 15:15 15:15 15:16 Hgb 11.3 L Hct 36.5 INR 3.90 H AST 33 ALT 43 H Albumin 4.8 01/16/18 01/16/18 01/16/18 04:13 04:13 04:13 Hgb 10.5 L Hct 33.5 L INR 3.64 H AST ALT Albumin 4.2 01/17/18 01/17/18 01/17/18 04:11 04:11 04:11 Hgb 11.3 L Hct 35.9 L INR 3.45 H AST ALT Albumin 4.5 01/17/18 01/18/18 01/18/18 09:14 04:10 04:10 Hgb 10.3 L Hct 33.2 L INR 3.28 H AST ALT Albumin 3.7 01/18/18 01/19/18 01/19/18 04:10 04:41 04:41 Hgb 10.8 L Hct 34.6 L INR 2.65 H 1.93 H AST ALT Albumin 01/19/18 04:41 Hgb Hct INR AST ALT Albumin 3.8 - Consult Information COUMADIN CONSULT (Recurring): DAY 5 77 yr old F with surgical history of mechanical mitral and aortic valve replacement and chronic anticoagulation with Warfarin. The Patient's home dose of warfarin is 2.5 mg daily. The goal for Mitral Mechanical Valve is INR 2.5- 3.5 Date INR Dose 01/15/18 3.9 0.5 mg 01/16/18 3.64 0.5 mg 01/17/18 3.45 0.5 mg 01/18/18 2.65 1.25 mg 01/19/18 1.93 plan: 2.5 mg INR is subtherapeutic. Will give home dose of Warfarin 2.5 mg p.o. today at 1200. This dose is her current home dose. potential drug-drug interaction exists between azithromycin and warfarin and may result in increased INR and risk of bleeding. Pharmacy will monitor and adjust. Thank you, Shania Castaneda [facility]
[2018-01-19] MEDS ORDERED: PredniSONE 20 MG TABLET PO SCH (08:00)
[2018-01-19] MEDS ORDERED: BUMETANIDE 1 MG TABLET PO SCH (09:00)
[2018-01-19 09:05] VITALS: BP 168/84; PULSE 71; TEMP 97
[2018-01-19] MEDS: ALBUTEROL/IPRATROPIUM 2.5mg-0.5mg/3ml NEB AEROSOL SCH ×2 (09:06→13:44)
[2018-01-19] MEDS: BUDESONIDE INH.SOLN 0.5mg/2ml NEB AEROSOL SCH (09:06)
[2018-01-19] MEDS: INSULIN ASPART 100unit/ml INJECTION SQ SCH ×2 (09:53→13:32)
[2018-01-19] MEDS: MAGNESIUM OXIDE 400 MG TABLET PO SCH (09:54)
[2018-01-19] MEDS: INSULIN DETEMIR 100unit/ml INJECTION SQ SCH (09:55)
[2018-01-19] MEDS: ALLOPURINOL 100 MG TABLET PO SCH (09:56)
[2018-01-19] MEDS: GABAPENTIN 100 MG CAPSULE PO SCH ×2 (09:57→16:08)
[2018-01-19] MEDS: FOLIC ACID 1 MG TABLET PO SCH (09:57)
[2018-01-19] MEDS: ASPIRIN *EC* 81 MG TABLET PO SCH (09:57)
[2018-01-19] MEDS: ASCORBIC ACID 500 MG TABLET PO SCH (10:48)
[2018-01-19] MEDS: CYANOCOBALAMIN (B-12) 500mcg TABLET PO SCH (10:52)
[2018-01-19] MEDS: INSULIN ASPART 100unit/ml INJECTION SQ PRN (11:48)
[2018-01-19] MEDS ORDERED: WARFARIN 2.5 MG TABLET PO SCH (12:00)
[2018-01-19 13:58] VITALS: RESP 16; O2SAT 99
[2018-01-19] MEDS ORDERED: ENOXAPARIN 80 MG/0.8 ML INJECTION SQ ONE (15:00)
--- NOTE | 2018-01-19 15:11 | Discharge Summary ---
Discharge Information Date of admission: 01/15/18 14:17 Anticipated date of discharge: 01/19/18 Attending Physician: Trudy Matias MD Primary care physician: Dr Segundo Consults: None - Discharge Diagnosis (1) COPD (chronic obstructive pulmonary disease) Status: Chronic Acute on Chronic Respiratory Failure-on her baseline 2 L of oxygen now Post Viral worsening of COPD? 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 Excess Anticoagulation (POA) Hypomagnesemia (POA) Hyperkalemia (POA), mild and persistent, likely attenuated as she was on aldactone (held during hospitalization) DM2, Insulin dependent, poorly controlled Hypercalcemia; Ca 11.2 at admission, improved to 10.4 today Chronic peripheral neuropathy - Procedures Procedures: None - Laboratory Labs: 01/19/18 04:41 01/19/18 04:41 - Microbiology 01/15/18- Blood cultures - negative - Radiology Radiology: 01/15/18-chest x-ray-mild pulmonary edema/congestive heart failure 01/16/18-chest [id number]-[id number] appearance and chest - Pathology None History of Present Illness HPI: Susanne is a very pleasant 77 yo WF who was seen in the clinic by her PCP, Dr. Segundo. She has a known history of COPD, and uses oxygen @ 2L/NC at home. She was found to have an O2 sat of 84% on her normal oxygen in the office. Due to significant hypoxemia, she was admitted for further evaluation and treatment. She and her are both here to provide history today. She reports that she suffered Influenza in Sep/Oct of this year. Since that time , she has progressive dyspnea and reports that her oxygen when checked at home as been 84-85% for several weeks. She does not routinely monitor her oxygen sats at home, so she is unclear on how frequently her sats have been low. She does use a nebulizer, but usually only twice a day or so. She does report a productive cough with clear sputum at times. Not necessarily a worse cough than normal. She saw Dr. Siddiqui during her last hospital stay, but did not establish with him as an outpatient. She reports that her O2 tank is difficult for her to carry given increase in dyspnea. No fever or chills. She does have chronic LE edema, which has been ongoing for some time. She does endorse early satiety over the last few weeks. No intra-abdominal fullness or distention. Bowels are moving normally. No urinary c/o. She has slept in a recliner for several years, so she does not endorse new orthopnea. Does have PND at times. No c/o chest pain. Objective Vital signs: Temperature 97 F 01/19/18 07:00 Pulse Rate 71 01/19/18 07:00 Respiratory Rate 16 01/19/18 13:45 Blood Pressure 168/84 H 01/19/18 07:00 Pulse Oximetry 99 01/19/18 13:45 Rhythm: Normal Sinus Rhythm Height/Weight/BMI: Height 1.5 m Weight 64.5 kg Body Mass Index 27.4 - Constitutional Present: no acute distress, well nourished, well developed - Routine HEENT Exam Eye: Present: EOMI ENT: Present: mucous membranes moist, dentition normal - Routine Respiratory Exam Present: diminished air movement. Absent: wheezes - Routine Cardiovascular Exam Present: RRR, S1, S2. Absent: murmur - Routine Abdominal Exam Present: soft, normoactive bowel sounds, non distended. Absent: tenderness - Routine Extremities Exam Present: no edema, normal capillary refill - Routine Skin Exam Present: intact, dry, warm - Routine Neurological Exam Present: alert, oriented X3, CN II-XII intact, moving all extremities - Routine Lymphatic Exam Lymphatic: Absent: adenopathy - Routine Psychiatric Exam Present: normal affect, cooperative Hospital Course This is a general summary of the patient's hospital course. For more details refer to the complete medical record. Hospital course: 01/15/[address] Johnson *Suspect chronic worsening of COPD, but there may be an underlying infection. Will titrate O2 to keep sats above 90%. She does not appear to be in any acute distress. Will start Solu-Medrol 80mg IV Q 8 hours given BG. Check viral respiratory failure. Initiate Azithro/Ceftriaxone. Will need to watch HR/Rhythm given hx of atrial fib. Hold Dig due to concern for interaction with Azithromycin. Lactate is a bit high, but she appears otherwise stable. Monitor serial lactate levels. Start DuoNeb/Pulmicort. Hold home inhalers. Consider outpatient referral to pulm as she does not appear acutely unstable in regards to current pulmonary status. There was a consideration for possible need to evaluate for overnight BiPAP during her last stay. *CHF/VHD She appears quite dry on her labs. Will hold Bumex and Aldactone right now and give 500ml of fluid. CXR is not c/w exam in regards to fluid status. Replace Mag. Monitor potassium, calcium- elevated due to dehydration. 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 Check BG. BG will likely run high given need for Solu-Medrol. Will add SSI. Will increase Gabapentin to 100mg PO TID due to main c/o is DPN pain. Could consider supplementing iron upon dismissal. *Excess anticoagulation-hydrate. Pharmacy consult. Goal 2.5-3.5 given known Mechanical valves. DNR status confirmed. Repeat labs in AM. Care to return to Dr Segundo at time of discharge from [facility] [place]. 01/16/18 Continue solumedrol at current dosing Resume trulicity (she brought from home) as well as increased correction scale insulin with steroids Double bumex dosing to 2 mg BID and monitor I/O; hold off on metolazone due to hypercalcemia Check PTH, Vit D levels as initial step for hypercalcemia Continue rocephin/azithro due to concern for occult bacterial pneumonia and evaluate repeat CXR Continue Duoneb/Pulmicort. Hold home inhalers. Consider outpatient referral to pulm as she does not appear acutely unstable in regards to current pulmonary status. There was a consideration for possible need to evaluate for overnight BiPAP during her last stay. Check renal panel, CBC, Mg in AM for surveillance Pharmacy consulted for warfarin management, follow INR. 01/17/18 Stop solumedrol and start prednisone 40 mg daily Resumed trulicity (she brought from home); will increase insulin dosing approx 10% globally today and monitor blood sugars Continue bumex at BID dosing today and monitor I/O; hold off on metolazone due to hypercalcemia --> Likely will need to go back to once daily dosing tomorrow PTH elevated inappropriately at 96 given hypercalcemia; await vit D level but hold calcitriol for now --> Ultimately may need sestamibi scan but no urgency to pursue at this time Stop rocephin and finish course of azithromycin for COPD exacerbation Continue Duoneb/Pulmicort. Hold home inhalers. Consider outpatient referral to pulm for f/u at [place]; may need MELANY eval as well Check renal panel, CBC, Mg in AM for surveillance Pharmacy consulted for warfarin management, follow INR, remains supratherapeutic. 01/18/18 Change prednisone to 20 mg by mouth daily Continue current insulin dose, may need to adjust further if still hyperglycemic with decrease in prednisone Bumex placed on hold today secondary to elevated BUN. Likely restart her usual Bumex tomorrow. Stop solumedrol and start prednisone 40 mg daily PTH elevated inappropriately at 96 given hypercalcemia; await vit D level but hold calcitriol for now --> Ultimately may need sestamibi scan but no urgency to pursue at this time finish course of azithromycin for COPD exacerbation -Rocephin discontinued Continue Duoneb/Pulmicort. Hold home inhalers. Consider outpatient referral to pulm for f/u at [place]; may need MELANY eval as well Renal panel and CBC in the morning Pharmacy consulted for warfarin management, follow INR, remains supratherapeutic. Possible dismissal tomorrow if she continues to do well.. 01/19/18- Discharge Susanne is seen and examined today. Prior to discharge. She is on her baseline oxygen of of 2 liters. Overall she feels good, feels that her respiratory status has improved and feels ready to be discharged home. We did discuss in detail regarding glucose management. Patient states that she was normally taking Humalog 10 units 3 times a day with meals, Levemir 25 units twice a day and Trulicity the weekly. We will increase her mealtime Humalog to 20 units 3 times a day and continue Levemir as previous home dose. She will only take 3 additional days of oral prednisone, suspect her hyperglycemia will improve as prednisone decreases. Patient is to resume home Bumex dose of 2 milligrams daily. Aldactone will be restarted once daily instead of twice daily. Patient is instructed to follow-up with Dr. Segundo in 1 week. She was subtherapeutic on INR today at 1.93. She was given oral warfarin 2.5 milligrams as well as Lovenox 65 milligrams subcutaneous 1 for Bridge. We'll continue patient on home warfarin dose of 2.5 milligrams. She is given a outpatient RX for bmp and INR lab on 01/21- to be called to Dr Segundo. 01/19/2018-4 PM-I examined the patient independently. I reviewed this chart, the patient history, and the [employer]REATH [employer]PECTOR's/PA's documented findings as above. We discussed and formulated the assessment and plan as above with the additions below.-Dr. Matias The patient was seen this afternoon accompanied by her . She is up walking in her room and states she feels good. She denies any shortness of breath. She states her breathing is back to baseline. She is eating and drinking well. She states her neuropathy is much better now that she is back on gabapentin. She states she had run out at home. On exam she is alert and oriented and in no acute distress. Chest reveals some mild coarse breath sounds in the right base. Cardiovascular reveals a regular rate and rhythm with prosthetic clicks. Abdomen is soft and nontender. Extremities are free of edema. Skin is warm and dry. Impression and plan COPD exacerbation appears much improved. She will be discharged with 3 more days of prednisone. Pulmonary edema has resolved. She will resume her usual Bumex. The patient had hyperkalemia on admission. Spironolactone was held during the hospital course. Potassium is borderline low today. We'll have the patient restart spironolactone once daily instead of twice daily. She will need a basic metabolic profile later on 01/21/2018. INR was supratherapeutic on admission and warfarin dose was decreased. Today her INR is subtherapeutic. She was given a bridging dose of Lovenox 1 today and her usual home Coumadin dose was restarted today. She will have an INR on to be called to Dr. Segundo. Regarding diabetes, insulin with meals has been increased. She was notified to check her blood sugar fasting and 2 hours postprandial and record her blood sugars and bring her list to her appointment with Dr. Segundo next week. She was also notified to contact Dr. Segundo if she develops hypoglycemia. We'll dismiss to home today with close follow-up. Time spent with patient: discharge greater than 30 minutes Resuscitation Status: Do Not Resuscitate Discharge Plan - Discharge Disposition Discharge Date: 01/19/18 Disposition: Discharged Home, Self-Care *Condition: Stable Reason For Visit (Visit label in EMR): Hypoxia and COPD Exacerbation - Discharge Medications *Discharge Medications: New Gabapentin [Neurontin] 100 mg PO TID #0 cap Insulin Detemir [Levemir] 25 unit SQ BID vial PredniSONE [Deltasone 20 mg] 20 mg PO WB #3 tab Spironolactone [Aldactone 25 mg] 25 mg PO DAILY #30 tab Continue Albuterol Sulfate [Proair Hfa] 2 puff INH Q4-6H PRN #0 PRN Reason: SHORTNESS OF AIR Tiotropium [place] [Spiriva] 1 cap ORAL INH DAILY #0 Warfarin Sodium 2.5 mg PO DAILY #0 tab Cyanocobalamin (Vitamin B-12) [Vitamin B-12] 1,000 mcg PO DAILY Folic Acid [Folate] 1 mg PO DAILY Allopurinol [Zyloprim] 100 mg PO DAILY Metoprolol Tartrate [Lopressor] 150 mg PO BID Ascorbic Acid [Vitamin C] 1,000 mg PO WB Magnesium Oxide 400 mg PO DAILY Mometasone Furoate [Asmanex] 1 puff INH HS Bumetanide Tab [Bumex 1 mg Tab] 2 mg PO DAILY Dulaglutide [Trulicity] 1.5 mg SQ WEEKLY Atorvastatin Calcium 40 mg PO HS #0 Digoxin [Digitek] 125 mcg PO DAILY #0 Aspirin *EC* [Ecotrin] 81 mg PO DAILY #30 tab Changed Insulin Lispro [HumaLOG] 20 unit SQ TIDWM #0 Discontinued Spironolactone [Aldactone] 1 tab PO BID No Action Gabapentin [Neurontin] 100 mg PO BID Insulin Detemir [Levemir] 33 unit SQ BID vial - Discharge Packet/Instructions *Diet: Carb consistent Diabetic diet *Activity: Activity as tolerated *Pain Management/Treatment: Tylenol as needed for pain *Wound Care: None Additional Instructions: Prednisone 20 mg daily for 3 days. Bumex 1 mg daily. Have outpatinet lab on 01/21- INR and basic metabolic profile. Levemir 25 units twice a day, Humalog 20 units 3 times a day with meals. Please monitor blood sugars often before meals as well as fasting. Insulin may need changing as blood sugars decrease. *Expected Signs/Symptoms: Continued improvement in breathing *Notify Physician if: Fevers, chills, worsening shortness of breath or chest pain *During Business Hours Contact: Contact Dr. Segundo office *After Business Hours Contact: Page on-call physician for Dr. Segundo *Pending Lab/Results: No Pending Lab [facility] Phone Call Appointment: Please schedule follow-up appointment for one week. Check BMP at that time - Referrals/Follow Up *Referrals/Follow Up: Vasile Segundo MD [Physician] - 02/02/18 11:30 am (HOSPITAL FOLLOW UP WITH DR. SEGUNDO) - Patient Handouts Patient Handouts: COPD (Chronic Obstructive Pulmonary Disease) (GEN), Hypoxia ( GEN) - Dismissal Complete Discharge Instructions are:: Complete Physician Narrative - Narrative Attestation Narrative: Date: 01/19/18 Time: [id number]
== END 2018-01-19 16:45 | disposition home or self-care (01) | DRG 190 ==
LOC: SUATTDRO 14:17 → MED 14:17
PROVIDERS: ADMIT Hospitalist; ATTEND Internal Medicine

== ENCOUNTER 2018-03-17 10:06 | Inpatient (IN) ==
--- NOTE | 2018-03-16 18:12 | History & Physical Report ---
History of Present Illness Date: 03/16/18 (PCP - Dr. Waller) Chief complaint: Increasing SOA and wt HPI: Susanne is a very pleasant 77 yo WF who was seen in the clinic by the PA in Dr Poe's office for progressive SOA. She reports 4-5 wk h/o progressive dyspnea and fatigue. Her wt is up to 155 from 138 and she c/o significant swelling in the LE's despite taking 4 diuretics. She has a known history of COPD, and uses oxygen @ 2L/NC at home. She c/o SOA despite using the O2. No significant cough, fever or chills. Doesn't feel this is typical for COPD exacerbation or respiratory infection. Given the progressive nature of her sxs and her cardiopulmonary history, pt is admitted to the hospitalist service for overnight OBS. Review of Systems All systems PM: 10-point ROS was reviewed, no additional remarkable complaints except (increasing shortness of breath, increase in weight, lower extremity edema) Past Medical History Medical History Updates: Diabetes mellitus type 2, requiring insulin. Peripheral neuropathy. Paroxysmal atrial fibrillation. Peripheral arterial disease. Systolic and diastolic Congestive heart failure-acute on chronic. Coronary artery disease. Hyperlipidemia. Hypertension. Valvular heart disease. COPD. Osteoarthritis Surgical History: Tonsillectomy, aortic and mitral mechanical heart valve replacement, back surgery, cardiac stent, pm/defibrillator Family History: Multiple family members with cancer Liver, Colon, Renal Family History: As Above - Social History Smoking status: Former smoker (quit smoking 2 years ago. 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 Waller -PCP Medications Home Medications Medication Instructions Recorded Confirmed Type Albuterol Sulfate [Proair Hfa] 2 puff INH Q4-6H PRN #0 06/15/14 03/16/18 History Atorvastatin Calcium 40 mg PO HS #0 06/15/14 03/16/18 History Tiotropium [place] [Spiriva] 1 cap ORAL INH DAILY #0 06/16/14 03/16/18 History Digoxin [Digitek] 125 mcg PO DAILY #0 01/09/15 03/16/18 History Warfarin Sodium 2.5 mg PO DAILY #0 tab 04/19/15 03/16/18 History Allopurinol [Zyloprim] 100 mg PO DAILY 04/14/17 03/16/18 History Cyanocobalamin (Vitamin B-12) 1,000 mcg PO DAILY 04/14/17 03/16/18 History [Vitamin B-12] Folic Acid [Folate] 1 mg PO DAILY 04/14/17 03/16/18 History Metoprolol Tartrate [Lopressor] 150 mg PO BID 05/19/17 03/16/18 History Aspirin *EC* [Ecotrin] 81 mg PO DAILY #30 tab 05/20/17 03/16/18 Rx Ascorbic Acid [Vitamin C] 1,000 mg PO WB 06/17/17 03/16/18 History Magnesium Oxide 400 mg PO DAILY 06/17/17 03/16/18 History Mometasone Furoate [Asmanex] 1 puff INH HS 06/17/17 03/16/18 History Bumetanide Tab [Bumex 1 mg Tab] 2 mg PO BID 01/15/18 03/16/18 History Dulaglutide [Trulicity] 1.5 mg SQ WEEKLY 01/15/18 03/16/18 History Gabapentin [Neurontin] 100 mg PO TID #0 cap 01/19/18 03/16/18 Rx Spironolactone [Aldactone 25 mg] 25 mg PO DAILY #30 tab 01/19/18 03/16/18 Rx Insulin Detemir [Levemir] 40 unit SQ BID 03/16/18 03/16/18 History Insulin Lispro [HumaLOG] 30 unit SQ TIDWM 03/16/18 03/16/18 History Allergies Allergy/AdvReac Type Severity Reaction Status Date / Time ciprofloxacin Allergy Unknown ABDOMINAL Verified 06/17/17 15:06 DISCOMFORT Exam - Constitutional Present: no acute distress, well nourished, well developed - Routine HEENT Exam Head: Present: normocephalic, atraumatic Eye: Present: EOMI, PERRL ENT: Present: mucous membranes moist, oropharynx clear - Routine Neck Exam Present: supple. Absent: lymphadenopathy, thyromegaly - Routine Chest/Breast/Axilla Exam Chest wall: Present: pacemaker (L upper chest) - Routine Respiratory Exam Present: dyspnea, CTA bilaterally. Absent: wheezes - Routine Cardiovascular Exam Present: RRR, no murmur, click - Routine Abdominal Exam Present: soft, normoactive bowel sounds. Absent: tenderness, distended - Routine Extremities Exam Present: edema (extends into the thighs bilaterally), normal capillary refill - Routine Skin Exam Present: dry, warm - Routine Neurological Exam Present: alert, oriented X3, CN II-XII intact - Routine Psychiatric Exam Present: normal affect, cooperative Results - Labs CBC & Chem 7: 03/16/18 18:30 03/16/18 18:30 Labs: Laboratory Tests 03/16/18 18:30 INR 2.72 H Laboratory Tests 03/16/18 18:30 AST 48 H ALT 48 H Alkaline Phosphatase 147 H Assessment and Plan Assessment and Plan: Assessment Progressive dyspnea with hypercapnia and hypoxia, acute on chronic Lower extremity edema HFrEF, EF 40% (mixed systolic and diastolic) NYHA Class III-IV (Amirani) H/O Mechanical AVR and MVR with Chronic anticoagulation (warfarin) CKD Stage III DM2, Insulin dependent Chronic peripheral neuropathy Normocytic anemia, chronic Mild transaminitis - POA Plan Admit, OBS Check CBC, CMP, Troponin, Dig, Mg, CXR, UA. Plan IV diuresis pending renal function and CXR results. Daily wts, I&O's Telemetry and continuous oximetry. Accuchecks and continue home insulin and adjust as needed. Continue warfarin for mechanical valves- pharmacy to manage. Warfarin for VTE ppx. Dr. Waller - PCP DNR DVT Prophylaxis: Coumadin Resuscitation Status: Do Not Resuscitate - Physician Narrative Physician: Cj Johnson MD Narrative: Date: 03/16/18 Time: 2041 Have independently interviewed and examined pt. Chart reviewed. Case discussed with provider in clinic and my PA. Care plan developed with my supervision; agree with above. Having problems with increasing LE edema-legs more swollen despite elevation, avoidance of sodium, and diuretics. Notes breathing more short-previously could do activities at home without O2, but now needing to wear her O2. Not having increased cough or congestion. No pain with breathing. Denies chest pressure or pain. Appetite stable. Stools stable-constipation at times. No f/c. Lungs: breath sounds, no crackles/wheeze CV: regular AB: soft nt slight distention. EXT: +2 BLE MSE: awake alert appropriate Plan: OBS. Will increase Bumex to 2mg IV BID. Continue home meds. Encourage elevation of LE, sodium avoidance, and wraps. Check on CXR results. Monitor lab. Hospital Course Summary Disclaimer: The visit summary below is not to be considered part of the above Progress Note. Hospital Course: 03/16/18 Admit, OBS Check CBC, CMP, Troponin, Dig, Mg, CXR, UA. Plan IV diuresis pending renal function and CXR results. Daily wts, I&O's Telemetry and continuous oximetry. Accuchecks and continue home insulin and adjust as needed. Continue warfarin for mechanical valves- pharmacy to manage. Warfarin for VTE ppx. Dr. Waller - PCP DN
[2018-03-16 18:44] VITALS: BMI 31.6
[2018-03-16] MEDS: INSULIN DETEMIR 100unit/ml INJECTION SQ SCH (20:55)
[2018-03-16] MEDS: ATORVASTATIN 40 MG TABLET PO SCH (20:56)
[2018-03-16] MEDS: GABAPENTIN 100 MG CAPSULE PO SCH (20:56)
[2018-03-16] MEDS: ALBUTEROL/IPRATROPIUM 2.5mg-0.5mg/3ml NEB AEROSOL SCH (21:54)
[2018-03-17] MEDS: ALBUTEROL/IPRATROPIUM 2.5mg-0.5mg/3ml NEB AEROSOL SCH ×4 (07:35→20:21)
[2018-03-17] MEDS: BUDESONIDE INH.SOLN 0.5mg/2ml NEB AEROSOL SCH ×3 (07:35→20:21)
--- NOTE | 2018-03-17 08:20 | XRay Report ---
Indication: Dyspnea - CHF/COPD PROCEDURE: XR chest 1V: Encounter: Initial Comparison: January 16, 2018 Findings: The lungs are stable in appearance without new focal airspace consolidation. There is no pleural effusion or pneumothorax. The heart size and mediastinal contours are unchanged. Pulmonary vascularity is more prominent. Left pacemaker. Prior sternotomy and cardiac valve replacement. IMPRESSION: Mild pulmonary edema, likely due to CHF. .
[2018-03-17] MEDS: INSULIN ASPART 100unit/ml INJECTION SQ SCH ×3 (08:35→17:13)
[2018-03-17] MEDS: INSULIN DETEMIR 100unit/ml INJECTION SQ SCH ×2 (08:36→21:36)
[2018-03-17] MEDS: ASCORBIC ACID 500 MG TABLET PO SCH (08:36)
[2018-03-17] MEDS: CYANOCOBALAMIN (B-12) 500mcg TABLET PO SCH (08:37)
[2018-03-17] MEDS: FOLIC ACID 1 MG TABLET PO SCH (08:37)
[2018-03-17] MEDS: ASPIRIN *EC* 81 MG TABLET PO SCH (08:37)
[2018-03-17] MEDS: SPIRONOLACTONE 25 MG TABLET PO SCH (08:37)
[2018-03-17] MEDS: GABAPENTIN 100 MG CAPSULE PO SCH ×3 (08:37→21:36)
[2018-03-17] MEDS: MAGNESIUM OXIDE 400 MG TABLET PO SCH (08:37)
[2018-03-17] MEDS: ALLOPURINOL 100 MG TABLET PO SCH (08:37)
--- NOTE | 2018-03-17 10:01 | Pharmacy Consult ---
Pharmacy Consult-Warfarin - Laboratory Information 03/16/18 03/16/18 03/16/18 18:30 18:30 18:30 Hgb 10.5 L Hct 35.3 L INR 2.72 H AST 48 H ALT 48 H Albumin 4.4 03/16/18 03/17/18 03/17/18 23:55 04:36 04:36 Hgb 9.8 L Hct 33.1 L INR 2.49 H 2.36 H AST ALT Albumin - Consult Information Warfarin consult: 77 y.o. Female with history of a. fib and surgical history of aortic and mitral valve replacement with mechanical valve. goal INR range= 2.5 to 3.5. Home Warfarin dose= 2.5 mg po daily. date INR dose 03/16 2.72 2.5 mg 03/17 2.36 plan: 3 mg po x 1 dose INR is slightly sub-therapeutic today at 2.36. Will give Warfarin 3 mg po x 1 dose, this dose is slightly higher than her home dose. Pharmacy will monitor and adjust dose as needed. Thank you, Shania Castaneda [facility]
[~2018-03-17 10:06] MED LIST changes: -ALBUTEROL INH PRN; -ASCORBIC ACID 1000 MG PO SCH; +BISACODYL 10 MG SUPPOSITORY RECTALLY PRN; -BUMETANIDE 2.5mg/10ml INJECTION IVP ONE; -CYANOCOBALAMIN PO SCH; -INFLUENZA VAC High Dose 2017-18 (Fluzone HD*) (>=65yo) 0.5ml IM ONE; -INFLUENZA VAC. INJ. ADMIN CHARGE INJ ONE; -INSULIN ASPART 100unit/ml INJECTION SQ SCH; +INSULIN LISPRO 30 UNIT SQ SCH; +MAGNESIUM OXIDE 400 MG PO SCH; -MOMETASONE FUROATE PO SCH; +NON-FORMULARY MEDICATION 1 EACH EACH (Ascorbic Acid [Vitamin C] 1,000 MG) PO SCH; +NON-FORMULARY MEDICATION 1 EACH EACH (Cyanocobalamin (Vitamin B-12) [Vitamin B-12] 1,000 M PO SCH; -NS FLUSH BAG 500ml IV PRN; -PHYTONADIONE 1 MG/0.5 ML ORAL LIQUID PO ONE; -PNEUMOCOCCAL 23 VACCINE 0.5ml INJECTION IM ONE; -PNEUMOCOCCAL VAC ADMIN CHARGE INJ ONE; -POM TIOTROPIUM 18mcg/cap HANDIHALER ORAL INH SCH; -POM WARFARIN 5 MG TABLET PO SCH; +WARFARIN 2.5 MG TABLET PO ONE; +WARFARIN 2.5 MG TABLET PO SCH
--- NOTE | 2018-03-17 10:31 | Progress Note ---
- Date 03/17/18 Subjective: Susanne is seen today in follow up while sitting up on the edge of the bed. She complains of feeling short of breath and continues on 2 liters, No productive coughing. She complains of having bilateral lower ext edema and noted to have RLE erythema which is new. Appetite good, weight up 1 Kg today. Objective Vital signs: Temperature 98.7 F 03/17/18 07:05 Pulse Rate 60 03/17/18 07:05 Respiratory Rate 16 03/17/18 07:35 Blood Pressure 143/66 H 03/17/18 07:05 Pulse Oximetry 98 03/17/18 07:41 Height/Weight/BMI: Height 1.5 m Weight 72.2 kg Body Mass Index 31.6 - Constitutional Present: no acute distress, well nourished, well developed - Routine HEENT Exam Eye: Present: EOMI ENT: Present: mucous membranes moist, dentition normal - Routine Respiratory Exam Present: CTA bilaterally. Absent: wheezes - Routine Cardiovascular Exam Present: RRR. Absent: murmur - Routine Abdominal Exam Present: soft, normoactive bowel sounds, non distended. Absent: tenderness - Routine Extremities Exam Present: edema (Bilateral lower ext 1-2+) Comments: Mild erythema to RLE - Routine Skin Exam Present: intact, dry, warm - Routine Neurological Exam Present: alert, oriented X3, CN II-XII intact - Routine Lymphatic Exam Lymphatic: Absent: adenopathy - Routine Psychiatric Exam Present: normal affect Results - Labs CBC & Chem 7: 03/17/18 04:36 03/17/18 04:36 Assessment and Plan Assessment and Plan: Assessment Progressive dyspnea with hypercapnia and hypoxia, acute on chronic Lower extremity edema HFrEF, EF 40% (mixed systolic and diastolic) NYHA Class III-IV (Martinez) H/O Mechanical AVR and MVR with Chronic anticoagulation (warfarin) CKD Stage III DM2, Insulin dependent Chronic peripheral neuropathy Normocytic anemia, chronic Mild transaminitis - POA Plan Change patient to inpatient status due to pulmonary edema, peripheral edema Continue with IV Bumex 2 mg IV BID for diuresing Samuel hose to BLE for compression Asked nurse to have legs elevated Consult Dr Henriquez given known CHF Accuchecks and home insulin Coumadin and INR management as per Pharmacy Monitor daily labs DVT Prophylaxis: SAMUEL Hose, Coumadin Resuscitation Status: Do Not Resuscitate - Time spent with patient Time with patient PN: 25 minutes - Physician Narrative Physician: Cj Johnson MD Narrative: Date: 03/17/18 Time: 2014 Have independently interviewed and examined patient. Chart reviewed. Case discussed with Dr Henriquez and my PAIN MANAGEMENT NURSE. Care plan developed with my supervision; agree with above. About the same. Not seen change in LE edema today. Breathing slightly better. Had episode of cough/sputum last night, but not having chest congestion today. Appetite stable. Bowel stable. Lungs: decreased bilaterally, faint crackle, no wheezes. CV: regular AB: soft nt EXT: +3 edema BLE MSE: awake alert Plan: Change to inpatient based on continued symptoms and pulm edema. Continue to work on fluid motivation. Bumex. Elevate LE and SAMUEL hose. Will hold on steroids as really not having wheezing-plus steroids would contribute to sodium and fluid retention. Monitor lab. 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 Hospital Course Summary Disclaimer: The visit summary below is not to be considered part of the above Progress Note. Hospital Course: 03/16/18 Admit, OBS Check CBC, CMP, Troponin, Dig, Mg, CXR, UA. Plan IV diuresis pending renal function and CXR results. Daily wts, I&O's Telemetry and continuous oximetry. Accuchecks and continue home insulin and adjust as needed. Continue warfarin for mechanical valves- pharmacy to manage. Warfarin for VTE ppx. Dr. Waller - PCP DNR 03/17/18 Change patient to inpatient status due to pulmonary edema, peripheral edema Continue with IV Bumex 2 mg IV BID for diuresing Samuel hose to BLE for compression Asked nurse to have legs elevated Consult Dr Henriquez given known CHF Accuchecks and home insulin Coumadin and INR management as per Pharmacy Monitor daily labs
--- NOTE | 2018-03-17 11:15 | Cardiology Consult Note ---
<Maryam Ch - Last Filed: 03/18/18 15:12> History of Present Illness Consult date: 03/17/18 Requesting physician: Cj Johnson Consult reason: congestive heart failure Chief complaint: dyspnea History of present illness: Susanne is a 77 year old female who is known to Dr. Henriquez's practice with a history of CAD, cardiomyopathy with Meditronic ICD, PAD carotid stenosis, PAF, nonrheumatic mitral insufficiency, HTN, HLD, DM type II, CKD who was admitted to the hospitalist service with a 4-5 week history of progressive dyspnea and fatigue. Her weight is up to 155 from 138 and she reports significant swelling in the LE's despite taking 4 diuretics. She has a known history of COPD, and uses oxygen @ 2L/NC at home. She reports SOA despite using the O2. No significant cough, fever or chills. Doesn't feel this is typical for COPD exacerbation or respiratory infection. Dr. Henriquez is consulted for further evaluation and treatment of pulmonary edema and we appreciate the consult. Echo: 02/25/18: EF 55%, LVH, NWMA, LA dilated, RVE, PPM wire in right heart, trace Ao regurgitation, mild MR, increased velocities and gradients through mechanical Ao valve, moderate TR, Review of Systems - Constitutional Constitutional: Present: weight gain. Absent: chills, fever(s) - EENMT Eyes: Absent: change in vision Balance: Absent: vertigo - Cardiovascular Cardiovascular: Present: dyspnea on exertion, orthopnea, edema, heart murmur. Absent: chest pain, palpitations, syncope Vascular: Present: pedal edema - Respiratory Respiratory: Present: dyspnea on exertion - Gastrointestinal Gastrointestinal: Absent: abdominal pain, diarrhea, nausea, vomiting - Genitourinary Genitourinary: Absent: dysuria - Integumentary/Breasts Integumentary: Absent: rash - Neurological Neurological: Present: dizziness - Endocrine Endocrine: Absent: palpitations PFSH Patient Stated Medical History Peripheral Neuropathy Yes: feet Cataracts Yes: both Dental Problems Yes: dentures/full upper/partial bottom Hearing Loss Yes Congestive Heart Failure Yes Coronary Artery Disease Yes Hypertension Yes Valvular Heart Disease Yes Bronchitis Yes Chronic Obstructive Pulmonary Yes Disease (COPD) Pneumonia Yes Diabetes Mellitus Type 2 Yes Gastroesophageal Reflux Yes Disease Hx Incontinence Yes Other Yes: \\SMALL BLADDER Anemia Yes Osteoarthritis Yes: HANDS, KNEES, BACK Other Musculoskeletal Yes: arthritis Shingles Yes Blood Transfusions Yes Depression Yes Post Menopausal Yes Medical History Updates: Diabetes mellitus type 2, requiring insulin. Peripheral neuropathy. Paroxysmal atrial fibrillation. Peripheral arterial disease. Systolic and diastolic Congestive heart failure-acute on chronic. Coronary artery disease. Hyperlipidemia. Hypertension. Valvular heart disease. COPD. Osteoarthritis Surgical History: Tonsillectomy, aortic and mitral mechanical heart valve replacement, back surgery, cardiac stent, pm/defibrillator Family History: Multiple family members with cancer Liver, Colon, Renal - Social History Smoking status: Former smoker (quit smoking 2 years ago. 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") Current occupational status: retired Does patient use chewing tobacco?: No Current residence: Apartment/Private Home Medications Home Medications Medication Instructions Recorded Confirmed Type Albuterol Sulfate [Proair Hfa] 2 puff INH Q4-6H PRN #0 06/15/14 03/16/18 History Atorvastatin Calcium 40 mg PO HS #0 06/15/14 03/16/18 History Tiotropium [place] [Spiriva] 1 cap ORAL INH DAILY #0 06/16/14 03/16/18 History Digoxin [Digitek] 125 mcg PO DAILY #0 01/09/15 03/16/18 History Warfarin Sodium 2.5 mg PO DAILY #0 tab 04/19/15 03/16/18 History Allopurinol [Zyloprim] 100 mg PO DAILY 04/14/17 03/16/18 History Cyanocobalamin (Vitamin B-12) 1,000 mcg PO DAILY 04/14/17 03/16/18 History [Vitamin B-12] Folic Acid [Folate] 1 mg PO DAILY 04/14/17 03/16/18 History Metoprolol Tartrate [Lopressor] 150 mg PO BID 05/19/17 03/16/18 History Aspirin *EC* [Ecotrin] 81 mg PO DAILY #30 tab 05/20/17 03/16/18 Rx Ascorbic Acid [Vitamin C] 1,000 mg PO WB 06/17/17 03/16/18 History Magnesium Oxide 400 mg PO DAILY 06/17/17 03/16/18 History Mometasone Furoate [Asmanex] 1 puff INH HS 06/17/17 03/16/18 History Bumetanide Tab [Bumex 1 mg Tab] 2 mg PO BID 01/15/18 03/16/18 History Dulaglutide [Trulicity] 1.5 mg SQ WEEKLY 01/15/18 03/16/18 History Gabapentin [Neurontin] 100 mg PO TID #0 cap 01/19/18 03/16/18 Rx Spironolactone [Aldactone 25 mg] 25 mg PO DAILY #30 tab 01/19/18 03/16/18 Rx Insulin Detemir [Levemir] 40 unit SQ BID 03/16/18 03/16/18 History Insulin Lispro [HumaLOG] 30 unit SQ TIDWM 03/16/18 03/16/18 History Allergies Allergy/AdvReac Type Severity Reaction Status Date / Time ciprofloxacin Allergy Unknown ABDOMINAL Verified 06/17/17 15:06 DISCOMFORT Exam Vital signs: Temperature 98.7 F 03/17/18 07:05 Pulse Rate 60 03/17/18 07:05 Respiratory Rate 16 03/17/18 07:35 Blood Pressure 143/66 H 03/17/18 07:05 Pulse Oximetry 98 03/17/18 07:41 - Constitutional no acute distress, obese, cooperative - Routine HEENT Exam Head: Present: normocephalic ENT: Present: mucous membranes moist - Routine Neck Exam Present: carotid bruit (right) - Routine Chest/Breast/Axilla Exam Chest wall: Absent: tenderness - Routine Respiratory Exam Present: CTA bilaterally. Absent: dyspnea, rales, wheezes - Routine Cardiovascular Exam Present: RRR, S1, S2, murmur (II/) - Routine Abdominal Exam Present: soft, non tender - Routine Extremities Exam Present: edema (1-2+ LEs) - Routine Skin Exam Present: intact, dry, warm - Routine Neurological Exam Present: alert, oriented X3 - Routine Psychiatric Exam Present: normal affect, normal thought process Results 03/17/18 04:36 03/17/18 04:36 Cardiac Enzymes 03/16/18 Range/Units 18:30 AST 48 H (14-36) U/L Troponin I 0.034 (0-0.12) ng/ml CBC 03/16/18 03/17/18 Range/Units 18:30 04:36 WBC 9.6 8.7 (4.5-11.0) T/MM3 RBC 3.55 L 3.32 L (4.00-5.20) M/MM3 Hgb 10.5 L 9.8 L (12-16) GM/DL Hct 35.3 L 33.1 L (36-46) % Plt Count 204 200 (130-400) T/MM3 Neut # (Auto) Not performed 7.0 Lymph # (Auto) Not performed 0.7 L [place] # (Auto) Not performed 0.8 Eos # (Auto) Not performed 0.2 Baso # (Auto) Not performed 0.0 Comprehensive Metabolic Panel 03/16/18 03/17/18 Range/Units 18:30 04:36 Sodium 146 144 (136-146) MEQ/L Potassium 4.2 4.0 (3.6-5) MEQ/L Chloride 100 100 (98-107) MEQ/L Carbon Dioxide 36 H 35 H (22-30) MEQ/L BUN 33.0 H 34.0 H (7-17) MG/DL Creatinine 1.3 H 1.2 (0.7-1.2) mg/dL Glucose 90 130 H (65-110) MG/DL Calcium 9.7 9.7 (8.4-10.2) MG/DL AST 48 H (14-36) U/L ALT 48 H (1-35) U/L Alkaline Phosphatase 147 H (38-126) U/L Total Protein 7.2 (6.3-8.2) g/dL Albumin 4.4 (3.5-5.0) g/dL Intake and Output 03/16/18 03/17/18 03/17/18 22:59 06:59 14:59 Intake Total 150 / 150 250 / 250 480 / 480 Output Total 200 / 200 Balance -50 / -50 250 / 250 480 / 480 Intake: Oral 150 / 150 250 / 250 480 / 480 Output: Urine 200 / 200 Other: Urine Appearance Clear Urine Color Yellow Stool Color Brown Stool Consistency Soft Size of Bowel Movement Moderate # Voids 3 # Bowel Movements 1 Weight 156 lb 11.979 oz 159 lb 2.78 oz Patient Weight 03/18/18 06:59 Weight 159 lb 2.78 oz - Imaging and Cardiology Imaging & Cardiology Narrative: Date of Exam: 03/16/18 Ordering Provider: Cj Johnson MD Type of Exam(s): XR chest 1V Reason for Exam(s): Dyspnea - CHF/COPD Indication: Dyspnea - CHF/COPD PROCEDURE: XR chest 1V: Encounter: Initial Comparison: January 16, 2018 Findings: The lungs are stable in appearance without new focal airspace consolidation. There is no pleural effusion or pneumothorax. The heart size and mediastinal contours are unchanged. Pulmonary vascularity is more prominent. Left pacemaker. Prior sternotomy and cardiac valve replacement. IMPRESSION: Mild pulmonary edema, likely due to CHF. . Assessment and Plan - Assessment and Plan (1) Systolic and diastolic CHF, acute on chronic Status: Acute CXR: IMPRESSION: Mild pulmonary edema, likely due to CHF. - Some component of heart failure but also has COPD and venous insufficiency - Agree with diuresis with Bumex (2) Coronary artery disease Status: Chronic Continue current therapy with routine monitoring (3) PAF (paroxysmal atrial fibrillation) Status: Chronic Takes Warfarin, INR 2.3 today. - We manage outpatient INRs - Continue current therapy with routine monitoring (4) HTN (hypertension) Status: Chronic Stable. Continue current therapy with routine monitoring (5) DM2 (diabetes mellitus, type 2) Status: Chronic per attending (6) HLD (hyperlipidemia) Status: Chronic Continue Atorvastatin (7) COPD (chronic obstructive pulmonary disease) Status: Chronic (8) Hx of mitral valve replacement with mechanical valve Status: Chronic Chronic anticoagulation on warfarin, pharmacy managing (9) History of mechanical aortic valve replacement Status: Chronic Chronic anticoagulation on warfarin, pharmacy managing - Assessment and Plan Systolic and diastolic CHF, acute on chronic Current visit: No Status: Acute - CXR: IMPRESSION: Mild pulmonary edema, likely due to CHF. - Some component of heart failure but also has COPD and venous insufficiency - Agree with diuresis with Bumex Coronary artery disease Current visit: No Status: Chronic - Continue current therapy with routine monitoring PAF (paroxysmal atrial fibrillation) Current visit: No Status: Chronic - Takes Warfarin, INR 2.3 today. - We manage outpatient INRs - Continue current therapy with routine monitoring HTN (hypertension) Current visit: No Status: Chronic - Stable. Continue current therapy with routine monitoring DM2 (diabetes mellitus, type 2) Current visit: No Status: Chronic -- per attending HLD (hyperlipidemia) Current visit: No Status: Chronic - Continue Atorvastatin COPD (chronic obstructive pulmonary disease) Current visit: No Status: Chronic History of mechanical aortic valve replacement Current visit: Yes Status: Chronic - Chronic anticoagulation on warfarin, pharmacy managing Hx of mitral valve replacement with mechanical valve Current visit: No Status: Chronic - Chronic anticoagulation on warfarin, pharmacy managing Thank you for allowing us to participate in the care of this patient. Hospital Course Summary Disclaimer: The visit summary below is not to be considered part of the above Progress Note. Hospital Course: 03/16/18 Admit, OBS Check CBC, CMP, Troponin, Dig, Mg, CXR, UA. Plan IV diuresis pending renal function and CXR results. Daily wts, I&O's Telemetry and continuous oximetry. Accuchecks and continue home insulin and adjust as needed. Continue warfarin for mechanical valves- pharmacy to manage. Warfarin for VTE ppx. Dr. Waller - PCP DNR 03/17/18 Change patient to inpatient status due to pulmonary edema, peripheral edema Continue with IV Bumex 2 mg IV BID for diuresing Cr hose to BLE for compression Asked nurse to have legs elevated Consult Dr Henriquez given known CHF Accuchecks and home insulin Coumadin and INR management as per Pharmacy Monitor daily labs <Dion Henriquez - Last Filed: 03/26/18 09:45> [facility] Patient Stated Medical History Peripheral Neuropathy Yes: feet Cataracts Yes: both Dental Problems Yes: dentures/full upper/partial bottom Hearing Loss Yes Congestive Heart Failure Yes Coronary Artery Disease Yes Hypertension Yes Valvular Heart Disease Yes Bronchitis Yes Chronic Obstructive Pulmonary Yes Disease (COPD) Pneumonia Yes Diabetes Mellitus Type 2 Yes Gastroesophageal Reflux Yes Disease Hx Incontinence Yes Other Yes: \\SMALL BLADDER Anemia Yes Osteoarthritis Yes: HANDS, KNEES, BACK Other Musculoskeletal Yes: arthritis Shingles Yes Blood Transfusions Yes Depression Yes Post Menopausal Yes Exam Vital signs: Temperature 97.2 F 03/22/18 15:40 Pulse Rate 60 03/22/18 15:40 Respiratory Rate 16 03/22/18 15:40 Blood Pressure 104/50 03/22/18 15:40 Pulse Oximetry 98 03/22/18 15:40 Results 03/22/18 04:10 03/22/18 04:10 Assessment and Plan - Attestation Attestation Narrative: 03/26/18 09:45 Recommendation After examining the patient I agree with the above assessment. I am involved in the formulation of the patient's plan of care. - Assessment and Plan (1) Systolic and diastolic CHF, acute on chronic Status: Resolved (2) Coronary artery disease Status: Chronic (3) PAF (paroxysmal atrial fibrillation) Status: Chronic (4) HTN (hypertension) Status: Chronic (5) DM2 (diabetes mellitus, type 2) Status: Chronic (6) HLD (hyperlipidemia) Status: Chronic (7) COPD (chronic obstructive pulmonary disease) Status: Chronic (8) Hx of mitral valve replacement with mechanical valve Status: Chronic (9) History of mechanical aortic valve replacement Status: Chronic Hospital Course Summary Disclaimer: The visit summary below is not to be considered part of the above Progress Note.
[2018-03-17] MEDS ORDERED: WARFARIN 3 MG TABLET PO SCH (12:00)
[2018-03-17] MEDS: ACETAMINOPHEN 325 MG TABLET PO PRN (17:17)
[2018-03-17] MEDS: ATORVASTATIN 40 MG TABLET PO SCH (21:36)
[2018-03-18] MEDS: ACETAMINOPHEN 325 MG TABLET PO PRN (04:55)
[2018-03-18] MEDS: SALINE FLUSH 10ml SYRINGE IV PRN ×2 (06:19→08:25)
[2018-03-18] MEDS: ALBUTEROL/IPRATROPIUM 2.5mg-0.5mg/3ml NEB AEROSOL SCH ×3 (07:43→10:55)
--- NOTE | 2018-03-18 07:43 | Pharmacy Consult ---
Pharmacy Consult-Warfarin - Laboratory Information 03/16/18 03/16/18 03/16/18 18:30 18:30 18:30 Hgb 10.5 L Hct 35.3 L INR 2.72 H AST 48 H ALT 48 H Albumin 4.4 03/16/18 03/17/18 03/17/18 23:55 04:36 04:36 Hgb 9.8 L Hct 33.1 L INR 2.49 H 2.36 H AST ALT Albumin 03/18/18 03:56 Hgb Hct INR 3.01 H AST ALT Albumin - Consult Information INR came into range after administering a 3mg dose of warfarin yesterday (INR target of 2.5 to 3.5). I will order usual home dose for today that is 2.5mg po at noon. We will continue to monitor. Thanks
[2018-03-18] MEDS: BUDESONIDE INH.SOLN 0.5mg/2ml NEB AEROSOL SCH ×2 (07:44→20:38)
[2018-03-18] MEDS: CYANOCOBALAMIN (B-12) 500mcg TABLET PO SCH (08:21)
[2018-03-18] MEDS: INSULIN ASPART 100unit/ml INJECTION SQ SCH ×3 (08:21→18:13)
[2018-03-18] MEDS: ALLOPURINOL 100 MG TABLET PO SCH (08:21)
[2018-03-18] MEDS: SPIRONOLACTONE 25 MG TABLET PO SCH (08:21)
[2018-03-18] MEDS: ASCORBIC ACID 500 MG TABLET PO SCH (08:22)
[2018-03-18] MEDS: INSULIN DETEMIR 100unit/ml INJECTION SQ SCH ×2 (08:22→20:55)
[2018-03-18] MEDS: ASPIRIN *EC* 81 MG TABLET PO SCH (08:22)
[2018-03-18] MEDS: MAGNESIUM OXIDE 400 MG TABLET PO SCH (08:22)
[2018-03-18] MEDS: GABAPENTIN 100 MG CAPSULE PO SCH ×3 (08:22→20:54)
[2018-03-18] MEDS: FOLIC ACID 1 MG TABLET PO SCH (08:22)
[2018-03-18] MEDS ORDERED: WARFARIN 2.5 MG TABLET PO SCH (12:00)
--- NOTE | 2018-03-18 12:18 | Progress Note ---
- Date 03/18/18 Subjective: Susanne is seen today in follow up. She is up in the chair with legs elevated. She continues to have significant edema/ anasarca up above the knees. She is frustrated as her weight is not down at all today. She feels that he breathing is about the same on 2 liters. She denies having any pain or GI concerns. Significant other states she is up 9 lbs in the past 2 weeks. Objective Vital signs: Temperature 98 F 03/18/18 07:15 Pulse Rate 64 03/18/18 08:10 Respiratory Rate 20 03/18/18 10:56 Blood Pressure 159/67 H 03/18/18 07:15 Pulse Oximetry 92 03/18/18 07:44 Height/Weight/BMI: Height 1.5 m Weight 72.5 kg Body Mass Index 31.6 - Constitutional Present: no acute distress, well nourished, well developed - Routine HEENT Exam Eye: Present: EOMI ENT: Present: mucous membranes moist, dentition normal - Routine Respiratory Exam Present: CTA bilaterally. Absent: wheezes - Routine Cardiovascular Exam Present: RRR, S1, S2. Absent: murmur - Routine Abdominal Exam Present: soft, normoactive bowel sounds, non distended. Absent: tenderness - Routine Extremities Exam Present: edema (3+ bilateral lower ext- anasarca over the knees) - Routine Skin Exam Present: intact, dry, warm - Routine Neurological Exam Present: alert, oriented X3, CN II-XII intact - Routine Lymphatic Exam Lymphatic: Absent: adenopathy - Routine Psychiatric Exam Present: normal affect, cooperative Results - Labs CBC & Chem 7: 03/17/18 04:36 03/18/18 18:47 Assessment and Plan Assessment and Plan: Assessment Progressive dyspnea with hypercapnia and hypoxia, acute on chronic Lower extremity edema HFrEF, EF 40% (mixed systolic and diastolic) NYHA Class III-IV (Amirani) H/O Mechanical AVR and MVR with Chronic anticoagulation (warfarin) CKD Stage III DM2, Insulin dependent Chronic peripheral neuropathy Normocytic anemia, chronic Mild transaminitis - POA Plan Continue with IV Bumex 2 mg IV BID for diuresing. Have to use caution given Diastolic failure with CKD Discussed with pt and SO this a careful slow balance to remove fluid safely Cr hose to BLE for compression and elevation Blood sugars appear to be well controlled. Coumadin and INR management as per Pharmacy- INR 3 today Alex Cardiology changed to Bumex drip to try to help decrease edema. Will place barfield to monitor urine output closely. DVT Prophylaxis: Coumadin Resuscitation Status: Do Not Resuscitate - Time spent with patient Time with patient PN: 25 minutes - Physician Narrative Physician: Cj Johnson MD Narrative: Date: 03/18/18 Time: 2034 Have independently interviewed and examined pt. Chart reviewed. Case discussed with my [employer]. Care plan developed with my supervision; agree with above. Doing about the same. Not seeing decrease in edema. Breathing with slight overall improvement, but still has episodes where she is SOA. No pain with breathing. Lungs: decreased, no crackles or wheezes CV: regular AB: soft nt MSE: awake alert appropriate Plan: Cardiology changed to Bumex drip to try to help decrease edema. Will place barfield to monitor urine output closely. Recheck CXR in am. Would still hold on Steroids for now. Having low sugars. Will decrease am Levemir to 35 units and evening Levemir to 30 units. Hospital Course Summary Disclaimer: The visit summary below is not to be considered part of the above Progress Note. Hospital Course: 03/16/18 Admit, OBS Check CBC, CMP, Troponin, Dig, Mg, CXR, UA. Plan IV diuresis pending renal function and CXR results. Daily wts, I&O's Telemetry and continuous oximetry. Accuchecks and continue home insulin and adjust as needed. Continue warfarin for mechanical valves- pharmacy to manage. Warfarin for VTE ppx. Dr. Waller - PCP DNR 03/17/18 Change patient to inpatient status due to pulmonary edema, peripheral edema Continue with IV Bumex 2 mg IV BID for diuresing Cr hose to BLE for compression Asked nurse to have legs elevated Consult Dr Henriquez given known CHF Accuchecks and home insulin Coumadin and INR management as per Pharmacy Monitor daily labs 03/18/18 Cardiology changed to Bumex drip to try to help decrease edema. Have to use caution given Diastolic failure with CKD. Will place barfield to monitor urine output closely. Discussed with pt and SO this a careful slow balance to remove fluid safely. Cr hose to BLE for compression and elevation. Blood sugars appear to be well controlled. Having low sugars. Will decrease am Levemir to 35 units and evening Levemir to 30 units. Coumadin and INR management as per Pharmacy- INR 3 today
--- NOTE | 2018-03-18 18:05 | Cardiology Progress Note ---
<Maryam Ch - Last Filed: 03/19/18 14:29> Subjective Principal diagnosis: dyspnea Interval history: Susanne is seen in follow up for acute on chronic S&D CHF. She is frustrated with her lack of weight loss and amount of LE edema.She denies chest pain or tightness, and is in no distress on room air. Exam Vital signs: Temperature 98.1 F 03/18/18 14:59 Pulse Rate 65 03/18/18 14:59 Respiratory Rate 20 03/18/18 17:19 Blood Pressure 134/67 03/18/18 14:59 Pulse Oximetry 94 03/18/18 14:59 Inpatient Medications: Generic Name Dose Route Start Last Admin Trade Name Freq PRN Reason Stop Dose Admin Acetaminophen 650 mg 03/16/18 20:14 03/18/18 04:55 Tylenol PO 650 mg Q5H PRN Administration Discomfort Albuterol/Ipratropium 3 ml 03/17/18 20:11 03/18/18 10:55 Duoneb AEROSOL 3 ml RTQID SHUBHAM Administration Albuterol/Ipratropium 3 ml 03/16/18 20:09 Duoneb AEROSOL Q4H PRN Shortness of air Allopurinol 100 mg 03/17/18 09:00 03/18/18 08:21 Zyloprim PO 100 mg DAILY SH[facility] Administration Ascorbic Acid 1,000 mg 03/17/18 09:00 03/18/18 08:22 Vitamin C PO 1,000 mg DAILY [facility] Administration Aspirin 81 mg 03/17/18 09:00 03/18/18 08:22 Ecotrin PO 81 mg DAILY [facility] Administration Atorvastatin Calcium 40 mg 03/16/18 21:00 03/17/18 21:36 Lipitor PO 40 mg HS [facility] Administration Bisacodyl 10 mg 03/16/18 20:14 Dulcolax RECTALLY DAILY PRN Constipation Budesonide 0.5 mg 03/17/18 08:00 03/18/18 07:44 Pulmicort Inhalation AEROSOL 0.5 mg RTBID [facility] Administration Bumetanide 2 mg 03/17/18 09:01 03/18/18 14:36 Bumex 1 Mg/4 Ml Inj. IVP 2 mg 07,15 [facility] Administration Cyanocobalamin 1,000 mcg 03/17/18 09:00 03/18/18 08:21 Vit. B-12 PO 1,000 mcg DAILY [facility] Administration Folic Acid 1 mg 03/17/18 09:00 03/18/18 08:22 Folate PO 1 mg DAILY [facility] Administration Gabapentin 100 mg 03/16/18 21:00 03/18/18 14:35 Neurontin PO 100 mg TID SH[facility]AM Administration Insulin Aspart 30 unit 03/17/18 08:00 03/18/18 12:30 Novolog SQ 30 unit WM [facility]AM Administration Insulin Detemir 40 unit 03/16/18 21:00 03/18/18 08:22 Levemir SQ 40 unit BID [facility] Administration Magnesium Hydroxide 30 ml 03/16/18 20:14 Mom PO DAILY PRN Constipation Magnesium Oxide 400 mg 03/17/18 09:00 03/18/18 08:22 Magox PO 400 mg DAILY [facility] Administration Metoprolol Tartrate 150 mg 03/17/18 08:00 03/18/18 08:23 Lopressor PO 150 mg BIDWM [facility] Administration Sodium Chloride 10 - 80 ml 03/18/18 06:18 03/18/18 08:25 Iv Flush IV 10 ml PRN PRN Administration Flushing Spironolactone 25 mg 03/17/18 09:00 03/18/18 08:21 Aldactone 25 Mg PO 25 mg DAILY [facility] Administration Warfarin Sodium 0 03/17/18 06:30 Coumadin Protocol NOTE SHUBHAM Discontinued Medications Generic Name Dose Route Start Last Admin Trade Name Freq PRN Reason Stop Dose Admin Bumetanide 2 mg 03/17/18 20:12 Bumex 1 Mg/4 Ml Inj. IVP 07,15 [facility] Metoprolol Tartrate 150 mg 03/16/18 21:00 03/16/18 20:56 Lopressor PO 150 mg BID [facility] Administration Non-Formulary Medication 1,000 mcg 03/17/18 09:00 Cyanocobalamin (Vitamin B-12) [Vitamin B-12] PO DAILY [facility] Non-Formulary Medication 30 unit 03/17/18 08:00 Insulin Lispro SQ TIDWM [facility] Non-Formulary Medication 400 mg 03/17/18 09:00 Magnesium Oxide [Magnesium Oxide] PO DAILY [facility] Non-Formulary Medication 1,000 mg 03/17/18 08:00 Ascorbic Acid [Vitamin C] PO WB [facility] Warfarin Sodium 1 each 03/16/18 20:24 03/16/18 23:01 Pharmacy Consult - Warfarin 03/16/18 20:25 1 each O ONE Administration Warfarin Sodium 2.5 mg 03/16/18 21:00 03/16/18 23:55 Coumadin PO 2.5 mg O [facility] Administration Warfarin Sodium 2.5 mg 03/17/18 06:30 03/17/18 06:46 Coumadin PO 03/17/18 06:31 Not Given O ONE Warfarin Sodium 3 mg 03/17/18 12:00 03/17/18 12:50 Coumadin PO 03/17/18 12:01 3 mg NOON [facility] Administration Warfarin Sodium 2.5 mg 03/18/18 12:00 03/18/18 12:31 Coumadin PO 03/18/18 12:30 2.5 mg NOON SH[facility]AM Administration - Constitutional no acute distress, obese, cooperative - Routine HEENT Exam Head: Present: normocephalic ENT: Present: mucous membranes moist - Routine Neck Exam Present: carotid bruit (right). Absent: JVD - Routine Chest/Breast/Axilla Exam Chest wall: Absent: tenderness - Routine Respiratory Exam Present: CTA bilaterally. Absent: dyspnea, rales, wheezes - Routine Cardiovascular Exam Present: RRR, S1, S2, murmur (II/) - Routine Abdominal Exam Present: soft, non tender - Routine Extremities Exam Present: edema (3+ LE) - Routine Skin Exam Present: intact, dry, warm - Routine Neurological Exam Present: alert, oriented X3 - Routine Psychiatric Exam Present: normal affect, normal thought process - Urinary Catheter Management 2-way Urethral Cath placed during this visit: no Results 03/17/18 04:36 03/17/18 04:36 Intake and Output 03/18/18 03/18/18 03/18/18 06:59 14:59 22:59 Intake Total 655 / 655 Output Total 675 / 675 250 / 250 Balance -20 / -20 -250 / -250 Intake: Oral 655 / 655 Output: Urine 675 / 675 250 / 250 Other: Urine Appearance Clear Clear Urine Color Yellow Pale Yellow Urine Odor Normal Normal # Voids 2 1 Weight 159 lb 13.362 oz Patient Weight 03/19/18 06:59 Weight 159 lb 13.362 oz Assessment and Plan - Assessment and Plan (1) Systolic and diastolic CHF, acute on chronic Status: Acute (2) Coronary artery disease Status: Chronic (3) PAF (paroxysmal atrial fibrillation) Status: Chronic (4) HTN (hypertension) Status: Chronic (5) DM2 (diabetes mellitus, type 2) Status: Chronic (6) HLD (hyperlipidemia) Status: Chronic (7) COPD (chronic obstructive pulmonary disease) Status: Chronic (8) Hx of mitral valve replacement with mechanical valve Status: Chronic (9) History of mechanical aortic valve replacement Status: Chronic - Assessment and Plan 03/17/18 Systolic and diastolic CHF, acute on chronic Current visit: No Status: Acute - CXR: IMPRESSION: Mild pulmonary edema, likely due to CHF. - Some component of heart failure but also has COPD and venous insufficiency - Agree with diuresis with Bumex Coronary artery disease Current visit: No Status: Chronic - Continue current therapy with routine monitoring PAF (paroxysmal atrial fibrillation) Current visit: No Status: Chronic - Takes Warfarin, INR 2.3 today. - We manage outpatient INRs - Continue current therapy with routine monitoring HTN (hypertension) Current visit: No Status: Chronic - Stable. Continue current therapy with routine monitoring DM2 (diabetes mellitus, type 2) Current visit: No Status: Chronic -- per attending HLD (hyperlipidemia) Current visit: No Status: Chronic - Continue Atorvastatin COPD (chronic obstructive pulmonary disease) Current visit: No Status: Chronic History of mechanical aortic valve replacement Current visit: Yes Status: Chronic - Chronic anticoagulation on warfarin, pharmacy managing Hx of mitral valve replacement with mechanical valve Current visit: No Status: Chronic - Chronic anticoagulation on warfarin, pharmacy managing Thank you for allowing us to participate in the care of this patient. 03/18/18 Stop Bumex IVP, start Bumex drip 1mg/hr - monitor renal and electrolytes INR 3.1 today Hospital Course Summary Disclaimer: The visit summary below is not to be considered part of the above Progress Note. Hospital Course: 03/16/18 Admit, OBS Check CBC, CMP, Troponin, Dig, Mg, CXR, UA. Plan IV diuresis pending renal function and CXR results. Daily wts, I&O's Telemetry and continuous oximetry. Accuchecks and continue home insulin and adjust as needed. Continue warfarin for mechanical valves- pharmacy to manage. Warfarin for VTE ppx. Dr. Waller - PCP DNR 03/17/18 Change patient to inpatient status due to pulmonary edema, peripheral edema Continue with IV Bumex 2 mg IV BID for diuresing Cr odom to BLE for compression Asked nurse to have legs elevated Consult Dr Henriquez given known CHF Accuchecks and home insulin Coumadin and INR management as per Pharmacy Monitor daily labs <Dion Henriquez - Last Filed: 03/26/18 10:01> Exam Vital signs: Temperature 97.2 F 03/22/18 15:40 Pulse Rate 60 03/22/18 15:40 Respiratory Rate 16 03/22/18 15:40 Blood Pressure 104/50 03/22/18 15:40 Pulse Oximetry 98 03/22/18 15:40 Inpatient Medications: Discontinued Medications Generic Name Dose Route Start Last Admin Trade Name Freq PRN Reason Stop Dose Admin Acetaminophen 650 mg 03/16/18 20:14 03/20/18 03:03 Tylenol PO 650 mg Q5H PRN Administration Discomfort Acetazolamide 500 mg 03/19/18 09:47 03/19/18 11:42 Diamox 250 Mg PO 03/19/18 09:48 500 mg O ONE Administration Albuterol/Ipratropium 3 ml 03/17/18 20:11 03/22/18 11:30 Duoneb AEROSOL 3 ml RTQID SHUBHAM Administration Albuterol/Ipratropium 3 ml 03/16/18 20:09 03/21/18 00:41 Duoneb AEROSOL 3 ml Q4H PRN Administration Shortness of air Allopurinol 100 mg 03/17/18 09:00 03/22/18 08:50 Zyloprim PO 100 mg DAILY [facility] Administration Ascorbic Acid 1,000 mg 03/17/18 09:00 03/22/18 08:49 Vitamin C PO 1,000 mg DAILY [facility] Administration Aspirin 81 mg 03/17/18 09:00 03/22/18 08:50 Ecotrin PO 81 mg DAILY [facility] Administration Atorvastatin Calcium 40 mg 03/16/18 21:00 03/21/18 20:37 Lipitor PO 40 mg HS [facility] Administration Bisacodyl 10 mg 03/16/18 20:14 Dulcolax RECTALLY DAILY PRN Constipation Budesonide 0.5 mg 03/17/18 08:00 03/22/18 07:10 Pulmicort Inhalation AEROSOL 0.5 mg RTBID [facility] Administration Bumetanide 2 mg 03/17/18 20:12 Bumex 1 Mg/4 Ml Inj. IVP ,15 [facility] Bumetanide 2 mg 03/17/18 09:01 03/18/18 14:36 Bumex 1 Mg/4 Ml Inj. IVP 2 mg 15 [facility] Administration Bumetanide 2 mg 03/20/18 17:17 03/21/18 15:08 Bumex 1 Mg Tab PO 2 mg [id number] [facility] Administration Cyanocobalamin 1,000 mcg 03/17/18 09:00 03/22/18 08:50 Vit. B-12 PO 1,000 mcg DAILY [facility] Administration Dextrose 20 ml 03/22/18 10:30 D50%W IVP PRN PRN Hypoglycemia Folic Acid 1 mg 03/17/18 09:00 03/22/18 08:50 Folate PO 1 mg DAILY [facility] Administration Gabapentin 100 mg 03/16/18 21:00 03/22/18 08:49 Neurontin PO 100 mg TID [facility] Administration Glucose 37.5 gm 03/22/18 10:30 Glutose 15 PO PRN PRN Hypoglycemia Bumetanide 25 mg/ IV Solution 100 mls @ 4 mls/hr 03/18/18 18:15 03/20/18 09: 50 IV 0 mg/hr .Q24H SHUBHAM 0 mls/hr Infusion 1 MG/HR Insulin Aspart 30 unit 03/17/18 08:00 03/19/18 08:31 Novolog SQ 15 unit WM [facility] Administration Insulin Aspart 25 unit 03/19/18 12:00 03/20/18 12:59 Novolog SQ 25 unit WM [facility] Administration Insulin Aspart 30 unit 03/20/18 17:30 03/22/18 12:53 Novolog SQ 30 unit WM [facility] Administration Insulin Aspart 1 - 5 unit 03/22/18 10:30 03/22/18 15:48 Novolog SQ 1 unit SS PRN Administration Hyperglycemia Protocol Insulin Detemir 40 unit 03/16/18 21:00 03/18/18 08:22 Levemir SQ 40 unit BID [facility] Administration Insulin Detemir 35 unit 03/19/18 09:00 03/20/18 08:51 Levemir SQ 35 unit DAILY [facility] Administration Insulin Detemir 30 unit 03/18/18 21:00 03/20/18 21:00 Levemir SQ 30 unit HS [facility] Administration Insulin Detemir 35 unit 03/21/18 07:30 03/21/18 20:38 Levemir SQ 35 unit HS [facility] Administration Insulin Detemir 40 unit 03/21/18 09:00 03/22/18 08:48 Levemir SQ 40 unit DAILY [facility] Administration Magnesium Hydroxide 30 ml 03/16/18 20:14 Mom PO DAILY PRN Constipation Magnesium Oxide 400 mg 03/17/18 09:00 03/21/18 09:33 Magox PO 400 mg DAILY [facility] Administration Metoprolol Tartrate 150 mg 03/16/18 21:00 03/16/18 20:56 Lopressor PO 150 mg BID [facility] Administration Metoprolol Tartrate 150 mg 03/17/18 08:00 03/22/18 08:49 Lopressor PO 150 mg BIDWM [facility] Administration Non-Formulary Medication 1,000 mcg 03/17/18 09:00 Cyanocobalamin (Vitamin B-12) [Vitamin B-12] PO DAILY [facility] Non-Formulary Medication 30 unit 03/17/18 08:00 Insulin Lispro SQ TIDWM [facility] Non-Formulary Medication 400 mg 03/17/18 09:00 Magnesium Oxide [Magnesium Oxide] PO DAILY [facility] Non-Formulary Medication 1,000 mg 03/17/18 08:00 Ascorbic Acid [Vitamin C] PO WB [facility] Polyethylene Glycol 17 gm 03/21/18 17:15 03/22/18 08:51 Miralax PO Not Given DAILY [facility] Potassium Chloride 40 meq 03/20/18 12:33 03/20/18 13:00 K-Dur 20 Meq Tablet PO 03/20/18 12:34 40 meq O ONE Administration Sodium Chloride 10 - 80 ml 03/18/18 06:18 03/21/18 15:08 Iv Flush IV 10 ml PRN PRN Administration Flushing Spironolactone 25 mg 03/17/18 09:00 03/21/18 09:33 Aldactone 25 Mg PO 25 mg DAILY [facility] Administration Warfarin Sodium 1 each 03/16/18 20:24 03/16/18 23:01 Pharmacy Consult - Warfarin 03/16/18 20:25 1 each O ONE Administration Warfarin Sodium 2.5 mg 03/16/18 21:00 03/16/18 23:55 Coumadin PO 2.5 mg O [facility] Administration Warfarin Sodium 0 03/17/18 06:30 Coumadin Protocol NOTE [facility] Warfarin Sodium 2.5 mg 03/17/18 06:30 03/17/18 06:46 Coumadin PO 03/17/18 06:31 Not Given O ONE Warfarin Sodium 3 mg 03/17/18 12:00 03/17/18 12:50 Coumadin PO 03/17/18 12:01 3 mg NOON [facility] Administration Warfarin Sodium 2.5 mg 03/18/18 12:00 03/18/18 12:31 Coumadin PO 03/18/18 12:30 2.5 mg NOON [facility] Administration Warfarin Sodium 2.5 mg 03/20/18 12:00 03/20/18 13:01 Coumadin PO 03/20/18 13:00 2.5 mg NOON [facility] Administration Warfarin Sodium 3 mg 03/21/18 12:00 03/21/18 12:49 Coumadin PO 03/21/18 13:00 3 mg NOON [facility] Administration Warfarin Sodium 3 mg 03/22/18 12:00 03/22/18 12:52 Coumadin PO 03/22/18 12:30 3 mg NOON [facility] Administration Zolpidem Tartrate 5 mg 03/21/18 01:22 03/21/18 02:08 Ambien PO 5 mg HS PRN Administration Insomnia - Urinary Catheter Management 2-way Urethral Cath placed during this visit: no Results 03/22/18 04:10 03/22/18 04:10 Assessment and Plan - Assessment and Plan (1) Systolic and diastolic CHF, acute on chronic Status: Resolved (2) Coronary artery disease Status: Chronic (3) PAF (paroxysmal atrial fibrillation) Status: Chronic (4) HTN (hypertension) Status: Chronic (5) DM2 (diabetes mellitus, type 2) Status: Chronic (6) HLD (hyperlipidemia) Status: Chronic (7) COPD (chronic obstructive pulmonary disease) Status: Chronic (8) Hx of mitral valve replacement with mechanical valve Status: Chronic (9) History of mechanical aortic valve replacement Status: Chronic - Attestation Attestation Narrative: 03/26/18 10:01Recommendation After examining the patient I agree with the above assessment. I am involved in the formulation of the patient's plan of care. Hospital Course Summary Disclaimer: The visit summary below is not to be considered part of the above Progress Note.
[2018-03-18] MEDS: CONTAINER EMPTY IV SCH (19:31)
[2018-03-18] MEDS: BUMETANIDE IV SCH (19:31)
[2018-03-18] MEDS: ALBUTEROL/IPRATROPIUM 2.5mg-0.5mg/3ml NEB AEROSOL PRN (20:39)
[2018-03-18] MEDS: ATORVASTATIN 40 MG TABLET PO SCH (20:54)
[2018-03-19] MEDS: BUDESONIDE INH.SOLN 0.5mg/2ml NEB AEROSOL SCH ×2 (06:38→19:11)
[2018-03-19] MEDS: ALBUTEROL/IPRATROPIUM 2.5mg-0.5mg/3ml NEB AEROSOL SCH ×4 (06:38→19:11)
--- NOTE | 2018-03-19 07:50 | Pharmacy Consult ---
Pharmacy Consult-Warfarin - Laboratory Information 03/16/18 03/16/18 03/16/18 18:30 18:30 18:30 Hgb 10.5 L Hct 35.3 L INR 2.72 H AST 48 H ALT 48 H Albumin 4.4 03/16/18 03/17/18 03/17/18 23:55 04:36 04:36 Hgb 9.8 L Hct 33.1 L INR 2.49 H 2.36 H AST ALT Albumin 03/18/18 03/19/18 03:56 04:16 Hgb Hct INR 3.01 H 3.53 H AST ALT Albumin - Consult Information INR above target range. No warfarin will be ordered today. Thank you.
[2018-03-19] MEDS: INSULIN ASPART 100unit/ml INJECTION SQ SCH ×3 (08:31→17:56)
[2018-03-19] MEDS: INSULIN DETEMIR 100unit/ml INJECTION SQ SCH ×2 (08:31→20:58)
--- NOTE | 2018-03-19 08:36 | XRay Report ---
INDICATION: F/U pulmonary edema PROCEDURE: CHEST 2-VIEWS UPRIGHT (PA & LAT) Encounter: Initial COMPARISON: March 16, 2018 FINDINGS: Continued findings of mild pulmonary edema without significant change. Trace right pleural effusion. No pneumothorax. No lobar consolidative process. Hyperinflation and findings of COPD. Cardiac silhouette and mediastinal contours are stable. Prior sternotomy with left pacemaker and cardiac valve replacements. Impression: Stable chest with mild edema. .
[2018-03-19] MEDS: CYANOCOBALAMIN (B-12) 500mcg TABLET PO SCH (08:39)
[2018-03-19] MEDS: ASCORBIC ACID 500 MG TABLET PO SCH (08:39)
[2018-03-19] MEDS: MAGNESIUM OXIDE 400 MG TABLET PO SCH (08:39)
[2018-03-19] MEDS: ASPIRIN *EC* 81 MG TABLET PO SCH (08:39)
[2018-03-19] MEDS: GABAPENTIN 100 MG CAPSULE PO SCH ×3 (08:39→20:58)
[2018-03-19] MEDS: SPIRONOLACTONE 25 MG TABLET PO SCH (08:40)
[2018-03-19] MEDS: ALLOPURINOL 100 MG TABLET PO SCH (08:40)
[2018-03-19] MEDS: FOLIC ACID 1 MG TABLET PO SCH (08:40)
[2018-03-19] MEDS ORDERED: acetaZOLAMIDE 250 MG TABLET PO ONE (09:47)
--- NOTE | 2018-03-19 10:11 | Progress Note ---
- Date 03/19/18 Subjective: Susanne is seen this morning in follow up. She reports that she is feeling better overnight and was able to get more sleep. Bumex drip was started last night and and barfield cath was placed. She has had improved urinary output overnight 4125ml total. Lower ext edema improved and weight is down approx 2 lbs. Objective Vital signs: Temperature 98.1 F 03/18/18 14:59 Pulse Rate 70 03/19/18 08:00 Respiratory Rate 16 03/19/18 06:38 Blood Pressure 129/57 03/19/18 07:00 Pulse Oximetry 95 03/19/18 07:00 Height/Weight/BMI: Height 1.5 m Weight 71.7 kg Body Mass Index 31.6 - Constitutional Present: no acute distress, well nourished, well developed - Routine HEENT Exam Eye: Present: EOMI ENT: Present: mucous membranes moist, dentition normal - Routine Respiratory Exam Present: CTA bilaterally. Absent: wheezes - Routine Cardiovascular Exam Present: RRR. Absent: murmur - Routine Abdominal Exam Present: soft, normoactive bowel sounds, non distended. Absent: tenderness - Routine Extremities Exam Present: edema (1+ BLE), normal capillary refill - Routine Skin Exam Present: intact, dry, warm - Routine Neurological Exam Present: alert, oriented X3, CN II-XII intact - Routine Lymphatic Exam Lymphatic: Absent: adenopathy - Routine Psychiatric Exam Present: normal affect, cooperative Results - Labs CBC & Chem 7: 03/17/18 04:36 03/19/18 04:16 Assessment and Plan Assessment and Plan: Assessment Progressive dyspnea with hypercapnia and hypoxia, acute on chronic Lower extremity edema HFrEF, EF 40% (mixed systolic and diastolic) NYHA Class III-IV (Amirani) H/O Mechanical AVR and MVR with Chronic anticoagulation (warfarin) CKD Stage III DM2, Insulin dependent Chronic peripheral neuropathy Normocytic anemia, chronic Mild transaminitis - POA Plan On Bumex drip 1mg/hr. Improved diuresing today Weight starting to trend down, Lower ext edema better Samuel hose to BLE for compression and elevation Blood sugars low at times. Levemir decreased last night Will decrease Novolog to 25 units with meals Coumadin and INR management as per Pharmacy Monitor renal function on increased Bumex DVT Prophylaxis: Coumadin Resuscitation Status: Do Not Resuscitate - Time spent with patient Time with patient PN: 25 minutes - Physician Narrative Physician: Cj Johnson MD Narrative: Date: 03/19/18 Time: 1645 Have independently interviewed and examined pt. Chart reviewed. Case discussed with my [employer]. Care plan developed with my supervision; agree with above. Doing okay today. Breathing about the same. Despite increase urine output, still with swelling to legs. Not feeling dizzy or unsteady when up. Eating well. Stools slow. Tolerating Barfield. Lungs: decreased, no wheezes CV: regular AB: soft slight distention BS decreased EXT: +2 BLE MSE: awake alert appropriate Plan: Diuresing well with Bumex drip-Creatinine stable but CO2 increase to 38. Did give Diamox 500mg this morning. Continue elevation of legs. SAMUEL hose would be helpful but not on. Encourage activities. Will need to monitor renal status due to Bumex drip. Hospital Course Summary Disclaimer: The visit summary below is not to be considered part of the above Progress Note. Hospital Course: 03/16/18 Admit, OBS Check CBC, CMP, Troponin, Dig, Mg, CXR, UA. Plan IV diuresis pending renal function and CXR results. Daily wts, I&O's Telemetry and continuous oximetry. Accuchecks and continue home insulin and adjust as needed. Continue warfarin for mechanical valves- pharmacy to manage. Warfarin for VTE ppx. Dr. Waller - PCP DNR 03/17/18 Change patient to inpatient status due to pulmonary edema, peripheral edema Continue with IV Bumex 2 mg IV BID for diuresing Samuel hose to BLE for compression Asked nurse to have legs elevated Consult Dr Henriquez given known CHF Accuchecks and home insulin Coumadin and INR management as per Pharmacy Monitor daily labs 03/18/18 Cardiology changed to Bumex drip to try to help decrease edema. Have to use caution given Diastolic failure with CKD. Will place barfield to monitor urine output closely. Discussed with pt and SO this a careful slow balance to remove fluid safely. Samuel hose to BLE for compression and elevation. Blood sugars appear to be well controlled. Having low sugars. Will decrease am Levemir to 35 units and evening Levemir to 30 units. Coumadin and INR management as per Pharmacy- INR 3 today. 03/19/18 On Bumex drip 1mg/hr. Improved diuresing today. Creatinine stable at 1.3. CO2 with increase - 500mg Diamox given. Weight starting to trend down, Lower ext edema better. Samuel hose to BLE for compression and elevation. Blood sugars low at times. Levemir decreased last night. Will decrease Novolog to 25 units with meals. Monitor renal function on increased Bumex.
[2018-03-19] MEDS: CONTAINER EMPTY IV SCH ×2 (14:18→19:05)
[2018-03-19] MEDS: BUMETANIDE IV SCH ×2 (14:18→19:05)
--- NOTE | 2018-03-19 14:32 | Cardiology Progress Note ---
<Maryam Ch M - Last Filed: 03/22/18 10:51> Subjective Principal diagnosis: dyspnea Interval history: Susanne is seen in follow up for acute on chronic S&D CHF. She is frustrated with her lack of weight loss and amount of LE edema.She denies chest pain or tightness, and is in no distress on room air. Exam Vital signs: Temperature 98.1 F 03/18/18 14:59 Pulse Rate 70 03/19/18 08:00 Respiratory Rate 14 03/19/18 10:40 Blood Pressure 129/57 03/19/18 07:00 Pulse Oximetry 96 03/19/18 10:40 Inpatient Medications: Generic Name Dose Route Start Last Admin Trade Name Freq PRN Reason Stop Dose Admin Acetaminophen 650 mg 03/16/18 20:14 03/18/18 04:55 Tylenol PO 650 mg Q5H PRN Administration Discomfort Albuterol/Ipratropium 3 ml 03/17/18 20:11 03/19/18 10:39 Duoneb AEROSOL 3 ml RTQID SHUBHAM Administration Albuterol/Ipratropium 3 ml 03/16/18 20:09 03/18/18 20:39 Duoneb AEROSOL 3 ml Q4H PRN Administration Shortness of air Allopurinol 100 mg 03/17/18 09:00 03/19/18 08:40 Zyloprim PO 100 mg DAILY SHUBHAM Administration Ascorbic Acid 1,000 mg 03/17/18 09:00 03/19/18 08:39 Vitamin C PO 1,000 mg DAILY SHUBHAM Administration Aspirin 81 mg 03/17/18 09:00 03/19/18 08:39 Ecotrin PO 81 mg DAILY SHUBHAM Administration Atorvastatin Calcium 40 mg 03/16/18 21:00 03/18/18 20:54 Lipitor PO 40 mg HS SHUBHAM Administration Bisacodyl 10 mg 03/16/18 20:14 Dulcolax RECTALLY DAILY PRN Constipation Budesonide 0.5 mg 03/17/18 08:00 03/19/18 06:38 Pulmicort Inhalation AEROSOL 0.5 mg RTBID SHUBHAM Administration Cyanocobalamin 1,000 mcg 03/17/18 09:00 03/19/18 08:39 Vit. B-12 PO 1,000 mcg DAILY SHUBHAM Administration Folic Acid 1 mg 03/17/18 09:00 03/19/18 08:40 Folate PO 1 mg DAILY SHUBHAM Administration Gabapentin 100 mg 03/16/18 21:00 03/19/18 08:39 Neurontin PO 100 mg TID SHUBHAM Administration Bumetanide 25 mg/ IV Solution 100 mls @ 4 mls/hr 03/18/18 18:15 03/19/18 14: 18 IV 1 mg/hr .Q24H SHUBHAM 4 mls/hr Administration 1 MG/HR Insulin Aspart 25 unit 03/19/18 12:00 03/19/18 12:36 Novolog SQ 25 unit WM SHUBHAM Administration Insulin Detemir 35 unit 03/19/18 09:00 03/19/18 08:31 Levemir SQ 35 unit DAILY SHUBHAM Administration Insulin Detemir 30 unit 03/18/18 21:00 03/18/18 20:55 Levemir SQ 30 unit HS [facility] Administration Magnesium Hydroxide 30 ml 03/16/18 20:14 Mom PO DAILY PRN Constipation Magnesium Oxide 400 mg 03/17/18 09:00 03/19/18 08:39 Magox PO 400 mg DAILY SHUBHAM Administration Metoprolol Tartrate 150 mg 03/17/18 08:00 03/19/18 09:15 Lopressor PO 150 mg BIDWM [facility] Administration Sodium Chloride 10 - 80 ml 03/18/18 06:18 03/18/18 08:25 Iv Flush IV 10 ml PRN PRN Administration Flushing Spironolactone 25 mg 03/17/18 09:00 03/19/18 08:40 Aldactone 25 Mg PO 25 mg DAILY SHUBHAM Administration Warfarin Sodium 0 03/17/18 06:30 Coumadin Protocol NOTE SHUBHAM Discontinued Medications Generic Name Dose Route Start Last Admin Trade Name Freq PRN Reason Stop Dose Admin Acetazolamide 500 mg 03/19/18 09:47 03/19/18 11:42 Diamox 250 Mg PO 03/19/18 09:48 500 mg O ONE Administration Bumetanide 2 mg 03/17/18 20:12 Bumex 1 Mg/4 Ml Inj. IVP 07,15 SHUBHAM Bumetanide 2 mg 03/17/18 09:01 03/18/18 14:36 Bumex 1 Mg/4 Ml Inj. IVP 2 mg 07,15 SHUBHAM Administration Insulin Aspart 30 unit 03/17/18 08:00 03/19/18 08:31 Novolog SQ 15 unit WM SHUBHAM Administration Insulin Detemir 40 unit 03/16/18 21:00 03/18/18 08:22 Levemir SQ 40 unit BID [facility] Administration Metoprolol Tartrate 150 mg 03/16/18 21:00 03/16/18 20:56 Lopressor PO 150 mg BID [facility] Administration Non-Formulary Medication 1,000 mcg 03/17/18 09:00 Cyanocobalamin (Vitamin B-12) [Vitamin B-12] PO DAILY [facility] Non-Formulary Medication 30 unit 03/17/18 08:00 Insulin Lispro SQ TIDWM [facility] Non-Formulary Medication 400 mg 03/17/18 09:00 Magnesium Oxide [Magnesium Oxide] PO DAILY [facility] Non-Formulary Medication 1,000 mg 03/17/18 08:00 Ascorbic Acid [Vitamin C] PO WB [facility] Warfarin Sodium 1 each 03/16/18 20:24 03/16/18 23:01 Pharmacy Consult - Warfarin 03/16/18 20:25 1 each O ONE Administration Warfarin Sodium 2.5 mg 03/16/18 21:00 03/16/18 23:55 Coumadin PO 2.5 mg O SHUBHAM Administration Warfarin Sodium 2.5 mg 03/17/18 06:30 03/17/18 06:46 Coumadin PO 03/17/18 06:31 Not Given O ONE Warfarin Sodium 3 mg 03/17/18 12:00 03/17/18 12:50 Coumadin PO 03/17/18 12:01 3 mg NOON [facility] Administration Warfarin Sodium 2.5 mg 03/18/18 12:00 03/18/18 12:31 Coumadin PO 03/18/18 12:30 2.5 mg NOON SHUBHAM Administration - Constitutional no acute distress, well nourished, cooperative - Routine HEENT Exam Head: Present: normocephalic ENT: Present: mucous membranes moist - Routine Neck Exam Present: carotid bruit (right). Absent: JVD - Routine Chest/Breast/Axilla Exam Chest wall: Absent: tenderness - Routine Respiratory Exam Present: CTA bilaterally. Absent: dyspnea, rales, wheezes - Routine Cardiovascular Exam Present: RRR, murmur (II/) - Routine Abdominal Exam Present: soft, non tender - Routine Extremities Exam Present: edema - Routine Skin Exam Present: intact, dry, warm - Routine Neurological Exam Present: alert, oriented X3 - Routine Psychiatric Exam Present: normal affect, normal thought process - Urinary Catheter Management 2-way Urethral Cath placed during this visit: yes Insertion date: 03/18/18 Insertion time: 21:15 Results 03/17/18 04:36 03/19/18 04:16 Comprehensive Metabolic Panel 03/18/18 03/19/18 Range/Units 18:47 04:16 Sodium 140 143 (136-146) MEQ/L Potassium 4.2 3.9 (3.6-5) MEQ/L Chloride 93 L D 94 L (98-107) MEQ/L Carbon Dioxide 35 H 38 H (22-30) MEQ/L BUN 38.0 H 42.0 H (7-17) MG/DL Creatinine 1.3 H D 1.3 H (0.7-1.2) mg/dL Glucose 80 69 (65-110) MG/DL Calcium 10.0 10.1 (8.4-10.2) MG/DL Intake and Output 03/18/18 03/19/18 03/19/18 22:59 06:59 14:59 Intake Total 570 / 570 290 / 290 315.133 / 315.133 Output Total 900 / 900 2550 / 2550 Balance -330 / -330 -2260 / -2260 315.133 / 315.133 Intake: IV 75.133 / 75.133 Bumetanide Inj 25 mg In 75.133 / 75.133 Container,Empty 100 ml @ 1 MG/ HR 4 mls/hr IV .Q24H [facility] Rx#: [id number] Oral 570 / 570 290 / 290 240 / 240 Output: Urine 325 / 325 Urine Amount (Catheter) 575 / 575 2550 / 2550 Other: Urine Appearance Clear Clear Urine Color Yellow Yellow Urine Odor Normal Normal # Voids 1 Weight 158 lb 1.143 oz Assessment and Plan - Assessment and Plan (1) Systolic and diastolic CHF, acute on chronic Status: Acute (2) Coronary artery disease Status: Chronic (3) PAF (paroxysmal atrial fibrillation) Status: Chronic (4) HTN (hypertension) Status: Chronic (5) DM2 (diabetes mellitus, type 2) Status: Chronic (6) HLD (hyperlipidemia) Status: Chronic (7) COPD (chronic obstructive pulmonary disease) Status: Chronic (8) Hx of mitral valve replacement with mechanical valve Status: Chronic (9) History of mechanical aortic valve replacement Status: Chronic - Assessment and Plan 03/17/18 Systolic and diastolic CHF, acute on chronic Current visit: No Status: Acute - CXR: IMPRESSION: Mild pulmonary edema, likely due to CHF. - Some component of heart failure but also has COPD and venous insufficiency - Agree with diuresis with Bumex Coronary artery disease Current visit: No Status: Chronic - Continue current therapy with routine monitoring PAF (paroxysmal atrial fibrillation) Current visit: No Status: Chronic - Takes Warfarin, INR 2.3 today. - We manage outpatient INRs - Continue current therapy with routine monitoring HTN (hypertension) Current visit: No Status: Chronic - Stable. Continue current therapy with routine monitoring DM2 (diabetes mellitus, type 2) Current visit: No Status: Chronic -- per attending HLD (hyperlipidemia) Current visit: No Status: Chronic - Continue Atorvastatin COPD (chronic obstructive pulmonary disease) Current visit: No Status: Chronic History of mechanical aortic valve replacement Current visit: Yes Status: Chronic - Chronic anticoagulation on warfarin, pharmacy managing Hx of mitral valve replacement with mechanical valve Current visit: No Status: Chronic - Chronic anticoagulation on warfarin, pharmacy managing Thank you for allowing us to participate in the care of this patient. 03/18/18 Stop Bumex IVP, start Bumex drip 1mg/hr - monitor renal and electrolytes INR 3.1 today 03/19/18 Down about 2 pounds since Bumex drip began - Renal function and electrolytes remains stable - INR 3.5 today Hospital Course Summary Disclaimer: The visit summary below is not to be considered part of the above Progress Note. Hospital Course: 03/16/18 Admit, OBS Check CBC, CMP, Troponin, Dig, Mg, CXR, UA. Plan IV diuresis pending renal function and CXR results. Daily wts, I&O's Telemetry and continuous oximetry. Accuchecks and continue home insulin and adjust as needed. Continue warfarin for mechanical valves- pharmacy to manage. Warfarin for VTE ppx. Dr. Waller - PCP DNR 03/17/18 Change patient to inpatient status due to pulmonary edema, peripheral edema Continue with IV Bumex 2 mg IV BID for diuresing Cr hose to BLE for compression Asked nurse to have legs elevated Consult Dr Henriquez given known CHF Accuchecks and home insulin Coumadin and INR management as per Pharmacy Monitor daily labs <Dion Henriquez - Last Filed: 03/26/18 10:08> Exam Vital signs: Temperature 97.2 F 03/22/18 15:40 Pulse Rate 60 03/22/18 15:40 Respiratory Rate 16 03/22/18 15:40 Blood Pressure 104/50 03/22/18 15:40 Pulse Oximetry 98 03/22/18 15:40 Inpatient Medications: Discontinued Medications Generic Name Dose Route Start Last Admin Trade Name Frelukasz PRN Reason Stop Dose Admin Acetaminophen 650 mg 03/16/18 20:14 03/20/18 03:03 Tylenol PO 650 mg Q5H PRN Administration Discomfort Acetazolamide 500 mg 03/19/18 09:47 03/19/18 11:42 Diamox 250 Mg PO 03/19/18 09:48 500 mg O ONE Administration Albuterol/Ipratropium 3 ml 03/17/18 20:11 03/22/18 11:30 Duoneb AEROSOL 3 ml RTQID SHUBHAM Administration Albuterol/Ipratropium 3 ml 03/16/18 20:09 03/21/18 00:41 Duoneb AEROSOL 3 ml Q4H PRN Administration Shortness of air Allopurinol 100 mg 03/17/18 09:00 03/22/18 08:50 Zyloprim PO 100 mg DAILY SHUBHAM Administration Ascorbic Acid 1,000 mg 03/17/18 09:00 03/22/18 08:49 Vitamin C PO 1,000 mg DAILY SHUBHAM Administration Aspirin 81 mg 03/17/18 09:00 03/22/18 08:50 Ecotrin PO 81 mg DAILY SHUBHAM Administration Atorvastatin Calcium 40 mg 03/16/18 21:00 03/21/18 20:37 Lipitor PO 40 mg HS SHUBHAM Administration Bisacodyl 10 mg 03/16/18 20:14 Dulcolax RECTALLY DAILY PRN Constipation Budesonide 0.5 mg 03/17/18 08:00 03/22/18 07:10 Pulmicort Inhalation AEROSOL 0.5 mg RTBID SHUBHAM Administration Bumetanide 2 mg 03/17/18 20:12 Bumex 1 Mg/4 Ml Inj. IVP 07,15 SHUBHAM Bumetanide 2 mg 03/17/18 09:01 03/18/18 14:36 Bumex 1 Mg/4 Ml Inj. IVP 2 mg 07,15 SHUBHAM Administration Bumetanide 2 mg 03/20/18 17:17 03/21/18 15:08 Bumex 1 Mg Tab PO 2 mg [id number] SHUBHAM Administration Cyanocobalamin 1,000 mcg 03/17/18 09:00 03/22/18 08:50 Vit. B-12 PO 1,000 mcg DAILY SHUBHAM Administration Dextrose 20 ml 03/22/18 10:30 D50%W IVP PRN PRN Hypoglycemia Folic Acid 1 mg 03/17/18 09:00 03/22/18 08:50 Folate PO 1 mg DAILY SHUBHAM Administration Gabapentin 100 mg 03/16/18 21:00 03/22/18 08:49 Neurontin PO 100 mg TID SHUBHAM Administration Glucose 37.5 gm 03/22/18 10:30 Glutose 15 PO PRN PRN Hypoglycemia Bumetanide 25 mg/ IV Solution 100 mls @ 4 mls/hr 03/18/18 18:15 03/20/18 09: 50 IV 0 mg/hr .Q24H SHUBHAM 0 mls/hr Infusion 1 MG/HR Insulin Aspart 30 unit 03/17/18 08:00 03/19/18 08:31 Novolog SQ 15 unit WM SHUBHAM Administration Insulin Aspart 25 unit 03/19/18 12:00 03/20/18 12:59 Novolog SQ 25 unit WM SHUBHAM Administration Insulin Aspart 30 unit 03/20/18 17:30 03/22/18 12:53 Novolog SQ 30 unit WM SHUBHAM Administration Insulin Aspart 1 - 5 unit 03/22/18 10:30 03/22/18 15:48 Novolog SQ 1 unit SS PRN Administration Hyperglycemia Protocol Insulin Detemir 40 unit 03/16/18 21:00 03/18/18 08:22 Levemir SQ 40 unit BID SHUBHAM Administration Insulin Detemir 35 unit 03/19/18 09:00 03/20/18 08:51 Levemir SQ 35 unit DAILY SHUBHAM Administration Insulin Detemir 30 unit 03/18/18 21:00 03/20/18 21:00 Levemir SQ 30 unit HS SHUBHAM Administration Insulin Detemir 35 unit 03/21/18 07:30 03/21/18 20:38 Levemir SQ 35 unit HS SHUBHAM Administration Insulin Detemir 40 unit 03/21/18 09:00 03/22/18 08:48 Levemir SQ 40 unit DAILY SHUBHAM Administration Magnesium Hydroxide 30 ml 03/16/18 20:14 Mom PO DAILY PRN Constipation Magnesium Oxide 400 mg 03/17/18 09:00 03/21/18 09:33 Magox PO 400 mg DAILY [facility] Administration Metoprolol Tartrate 150 mg 03/16/18 21:00 03/16/18 20:56 Lopressor PO 150 mg BID [facility] Administration Metoprolol Tartrate 150 mg 03/17/18 08:00 03/22/18 08:49 Lopressor PO 150 mg BIDWM [facility] Administration Non-Formulary Medication 1,000 mcg 03/17/18 09:00 Cyanocobalamin (Vitamin B-12) [Vitamin B-12] PO DAILY [facility] Non-Formulary Medication 30 unit 03/17/18 08:00 Insulin Lispro SQ TIDWM [facility] Non-Formulary Medication 400 mg 03/17/18 09:00 Magnesium Oxide [Magnesium Oxide] PO DAILY [facility] Non-Formulary Medication 1,000 mg 03/17/18 08:00 Ascorbic Acid [Vitamin C] PO WB [facility] Polyethylene Glycol 17 gm 03/21/18 17:15 03/22/18 08:51 Miralax PO Not Given DAILY [facility] Potassium Chloride 40 meq 03/20/18 12:33 03/20/18 13:00 K-Dur 20 Meq Tablet PO 03/20/18 12:34 40 meq O ONE Administration Sodium Chloride 10 - 80 ml 03/18/18 06:18 03/21/18 15:08 Iv Flush IV 10 ml PRN PRN Administration Flushing Spironolactone 25 mg 03/17/18 09:00 03/21/18 09:33 Aldactone 25 Mg PO 25 mg DAILY [facility] Administration Warfarin Sodium 1 each 03/16/18 20:24 03/16/18 23:01 Pharmacy Consult - Warfarin 03/16/18 20:25 1 each O ONE Administration Warfarin Sodium 2.5 mg 03/16/18 21:00 03/16/18 23:55 Coumadin PO 2.5 mg O [facility] Administration Warfarin Sodium 0 03/17/18 06:30 Coumadin Protocol NOTE [facility] Warfarin Sodium 2.5 mg 03/17/18 06:30 03/17/18 06:46 Coumadin PO 03/17/18 06:31 Not Given O ONE Warfarin Sodium 3 mg 03/17/18 12:00 03/17/18 12:50 Coumadin PO 03/17/18 12:01 3 mg NOON SHUBHAM Administration Warfarin Sodium 2.5 mg 03/18/18 12:00 03/18/18 12:31 Coumadin PO 03/18/18 12:30 2.5 mg NOON SHUBHAM Administration Warfarin Sodium 2.5 mg 03/20/18 12:00 03/20/18 13:01 Coumadin PO 03/20/18 13:00 2.5 mg NOON SHUBHAM Administration Warfarin Sodium 3 mg 03/21/18 12:00 03/21/18 12:49 Coumadin PO 03/21/18 13:00 3 mg NOON SHUBHAM Administration Warfarin Sodium 3 mg 03/22/18 12:00 03/22/18 12:52 Coumadin PO 03/22/18 12:30 3 mg NOON SHUBHAM Administration Zolpidem Tartrate 5 mg 03/21/18 01:22 03/21/18 02:08 Ambien PO 5 mg HS PRN Administration Insomnia - Urinary Catheter Management 2-way Urethral Cath placed during this visit: no Results 03/22/18 04:10 03/22/18 04:10 Assessment and Plan - Assessment and Plan (1) Systolic and diastolic CHF, acute on chronic Status: Resolved (2) Coronary artery disease Status: Chronic (3) PAF (paroxysmal atrial fibrillation) Status: Chronic (4) HTN (hypertension) Status: Chronic (5) DM2 (diabetes mellitus, type 2) Status: Chronic (6) HLD (hyperlipidemia) Status: Chronic (7) COPD (chronic obstructive pulmonary disease) Status: Chronic (8) Hx of mitral valve replacement with mechanical valve Status: Chronic (9) History of mechanical aortic valve replacement Status: Chronic - Attestation Attestation Narrative: 03/26/18 10:08 Recommendation After examining the patient I agree with the above assessment. I am involved in the formulation of the patient's plan of care. Hospital Course Summary Disclaimer: The visit summary below is not to be considered part of the above Progress Note.
[2018-03-19] MEDS: ATORVASTATIN 40 MG TABLET PO SCH (20:58)
[2018-03-20] MEDS: ALBUTEROL/IPRATROPIUM 2.5mg-0.5mg/3ml NEB AEROSOL PRN (00:56)
[2018-03-20] MEDS: ACETAMINOPHEN 325 MG TABLET PO PRN (03:03)
[2018-03-20] MEDS: ALBUTEROL/IPRATROPIUM 2.5mg-0.5mg/3ml NEB AEROSOL SCH ×4 (07:08→19:33)
[2018-03-20] MEDS: BUDESONIDE INH.SOLN 0.5mg/2ml NEB AEROSOL SCH ×2 (07:08→19:34)
[2018-03-20] MEDS: INSULIN ASPART 100unit/ml INJECTION SQ SCH ×3 (08:51→18:03)
[2018-03-20] MEDS: INSULIN DETEMIR 100unit/ml INJECTION SQ SCH ×2 (08:51→21:00)
[2018-03-20] MEDS: ASCORBIC ACID 500 MG TABLET PO SCH (08:52)
[2018-03-20] MEDS: SPIRONOLACTONE 25 MG TABLET PO SCH (08:53)
[2018-03-20] MEDS: MAGNESIUM OXIDE 400 MG TABLET PO SCH (08:53)
[2018-03-20] MEDS: ALLOPURINOL 100 MG TABLET PO SCH (08:53)
[2018-03-20] MEDS: GABAPENTIN 100 MG CAPSULE PO SCH ×3 (08:53→20:58)
[2018-03-20] MEDS: FOLIC ACID 1 MG TABLET PO SCH (08:53)
[2018-03-20] MEDS: CYANOCOBALAMIN (B-12) 500mcg TABLET PO SCH (08:53)
[2018-03-20] MEDS: ASPIRIN *EC* 81 MG TABLET PO SCH (08:54)
[2018-03-20] MEDS ORDERED: WARFARIN 2.5 MG TABLET PO SCH (12:00)
--- NOTE | 2018-03-20 13:06 | Progress Note ---
- Date 03/20/18 Subjective: Susanne is seen this morning in follow up. She is currently on her baseline oxygen. States overall she is feeling good. Lateral lower extremity edema has improved, although she does still have some mild tenderness to both ankles. Erythema continues to improve. She denies feeling short of breath or having chest pain. Weight continues to trend down. Objective Vital signs: Temperature 98.3 F 03/20/18 08:00 Pulse Rate 70 03/20/18 08:48 Respiratory Rate 14 03/20/18 10:34 Blood Pressure 120/54 03/20/18 08:00 Pulse Oximetry 97 03/20/18 10:34 Height/Weight/BMI: Height 1.5 m Weight 71.3 kg Body Mass Index 31.6 - Constitutional Present: no acute distress, well nourished, well developed - Routine HEENT Exam Eye: Present: EOMI ENT: Present: mucous membranes moist, dentition normal - Routine Respiratory Exam Present: CTA bilaterally. Absent: wheezes - Routine Cardiovascular Exam Present: RRR, S1, S2. Absent: murmur - Routine Abdominal Exam Present: soft, normoactive bowel sounds, non distended. Absent: tenderness - Routine Extremities Exam Present: edema (Trace to BLE), normal capillary refill - Routine Skin Exam Present: intact, dry, warm - Routine Neurological Exam Present: alert, oriented X3, CN II-XII intact, moving all extremities - Routine Lymphatic Exam Lymphatic: Absent: adenopathy - Routine Psychiatric Exam Present: normal affect, normal thought process, cooperative Results - Labs CBC & Chem 7: 03/20/18 04:37 03/20/18 04:37 Assessment and Plan Assessment and Plan: Assessment Progressive dyspnea with hypercapnia and hypoxia, acute on chronic Lower extremity edema HFrEF, EF 40% (mixed systolic and diastolic) NYHA Class III-IV (Amirani) H/O Mechanical AVR and MVR with Chronic anticoagulation (warfarin) CKD Stage III DM2, Insulin dependent Chronic peripheral neuropathy Normocytic anemia, chronic Mild transaminitis - POA Plan Bumex drip is stopped at this time. Will discuss with attending regarding resuming Bumex doses. Creatinine is slightly up today at 1.5, BUN, 49. Continue with CR hose for compression Barfield catheter remains in place for accurate I/O Increase home insulin to 30 units with meals or this is her normal dose She is somewhat eager for discharge home. We discussed the importance of monitoring renal function carefully. Will discuss further with attending, Dr. Matias 03/20/2018-5:30 PM-I examined the patient independently. I reviewed this chart, the patient history, and the COMM[employer] OFFICER's/PA's documented findings as above. We discussed and formulated the assessment and plan as above with the additions below.-Dr. Matias The patient was seen this afternoon in her room. He states she is feeling better. She has some leg swelling currently, but it is better than it was. Output yesterday was 3.8 L and so far today is 3.3 L. Weight is slowly trending down. She feels like she is breathing well and is currently on 2 L of oxygen which she states she uses chronically at home. Lab was reviewed and BUN and creatinine were climbing. IV Bumex was discontinued. Impression and plan Lower extremity edema with mixed systolic and diastolic heart failure-improved on Bumex drip-change to oral Bumex today. The patient does need to use her CR hose and have them placed in the morning and removed in the evening area did at a 1.8 L fluid restriction. She is on a low-sodium diet. Chronic hypoxic respiratory failure, likely secondary to COPD-currently on her chronic 2 L of oxygen Type 2 diabetes mellitus. She had hyperglycemia today after a decrease in her insulin dose yesterday. We will increase her insulin with meals to her usual home dose. Watch renal status closely with history of chronic kidney disease Possible discharge in the next 1-2 days if she continues to improve - Physician Narrative Narrative: Date: 03/20/18 Time: 1301 Hospital Course Summary Disclaimer: The visit summary below is not to be considered part of the above Progress Note. Hospital Course: 03/16/18 Admit, OBS Check CBC, CMP, Troponin, Dig, Mg, CXR, UA. Plan IV diuresis pending renal function and CXR results. Daily wts, I&O's Telemetry and continuous oximetry. Accuchecks and continue home insulin and adjust as needed. Continue warfarin for mechanical valves- pharmacy to manage. Warfarin for VTE ppx. Dr. Waller - PCP DNR 03/17/18 Change patient to inpatient status due to pulmonary edema, peripheral edema Continue with IV Bumex 2 mg IV BID for diuresing Cr hose to BLE for compression Asked nurse to have legs elevated Consult Dr Henriquez given known CHF Accuchecks and home insulin Coumadin and INR management as per Pharmacy Monitor daily labs 03/18/18 Cardiology changed to Bumex drip to try to help decrease edema. Have to use caution given Diastolic failure with CKD. Will place barfield to monitor urine output closely. Discussed with pt and SO this a careful slow balance to remove fluid safely. Cr hose to BLE for compression and elevation. Blood sugars appear to be well controlled. Having low sugars. Will decrease am Levemir to 35 units and evening Levemir to 30 units. Coumadin and INR management as per Pharmacy- INR 3 today. 03/19/18 On Bumex drip 1mg/hr. Improved diuresing today. Creatinine stable at 1.3. CO2 with increase - 500mg Diamox given. Weight starting to trend down, Lower ext edema better. Cr hose to BLE for compression and elevation. Blood sugars low at times. Levemir decreased last night. Will decrease Novolog to 25 units with meals. Monitor renal function on increased Bumex. 03/20/18 Bumex drip is stopped at this time. Will discuss with attending regarding resuming Bumex doses. Creatinine is slightly up today at 1.5, BUN, 49. Continue with CR hose for compression Barfield catheter remains in place for accurate I/O Crease home insulin to 30 units with meals or this is her normal dose She is somewhat eager for discharge home. We discussed the importance of monitoring renal function carefully. Will discuss further with attending, Dr. Matias
--- NOTE | 2018-03-20 13:30 | Pharmacy Consult ---
Pharmacy Consult-Warfarin - Laboratory Information 03/16/18 03/16/18 03/16/18 18:30 18:30 18:30 Hgb 10.5 L Hct 35.3 L INR 2.72 H AST 48 H ALT 48 H Albumin 4.4 03/16/18 03/17/18 03/17/18 23:55 04:36 04:36 Hgb 9.8 L Hct 33.1 L INR 2.49 H 2.36 H AST ALT Albumin 03/18/18 03/19/18 03/20/18 03:56 04:16 04:37 Hgb Hct INR 3.01 H 3.53 H AST 38 H ALT 36 H Albumin 3.8 03/20/18 03/20/18 04:37 04:37 Hgb 9.6 L Hct 32.8 L INR 2.76 H AST ALT Albumin - Consult Information COUMADIN CONSULT (Recurring): 77 yr old female patient admitted for increased dsypnea. The patient takes warfarin 2.5 mg daily at home for a mechanical valve replacement. Therapeutic Range for Mechanical Valve Replacement is INR 2.5-3.5 DATE INR DOSE 03/17 2.36 3 MG 03/18 3.01 2.5 MG 03/19 3.53 DOSE HELD 03/20 2.76 Will give 2.5 mg (home dose) Warfarin today Pharmacy will continue to monitor the INR and adjust the warfarin dose accordingly. Thank you. Lynnette Yoo, PharmD
[2018-03-20] MEDS: BUMETANIDE 1 MG TABLET PO SCH (18:23)
[2018-03-20] MEDS: ATORVASTATIN 40 MG TABLET PO SCH (20:58)
[2018-03-21] MEDS: ALBUTEROL/IPRATROPIUM 2.5mg-0.5mg/3ml NEB AEROSOL PRN (00:41)
[2018-03-21] MEDS ORDERED: ZOLPIDEM 5 MG TABLET PO PRN (01:22)
[2018-03-21] MEDS: BUDESONIDE INH.SOLN 0.5mg/2ml NEB AEROSOL SCH ×2 (06:28→19:06)
[2018-03-21] MEDS: ALBUTEROL/IPRATROPIUM 2.5mg-0.5mg/3ml NEB AEROSOL SCH ×4 (06:29→19:07)
--- NOTE | 2018-03-21 08:34 | Pharmacy Consult ---
Pharmacy Consult-Warfarin - Laboratory Information 03/16/18 03/16/18 03/16/18 18:30 18:30 18:30 Hgb 10.5 L Hct 35.3 L INR 2.72 H AST 48 H ALT 48 H Albumin 4.4 03/16/18 03/17/18 03/17/18 23:55 04:36 04:36 Hgb 9.8 L Hct 33.1 L INR 2.49 H 2.36 H AST ALT Albumin 03/18/18 03/19/18 03/20/18 03:56 04:16 04:37 Hgb Hct INR 3.01 H 3.53 H AST 38 H ALT 36 H Albumin 3.8 03/20/18 03/20/18 03/21/18 04:37 04:37 03:58 Hgb 9.6 L 10.2 L Hct 32.8 L 33.5 L INR 2.76 H AST ALT Albumin 03/21/18 03:58 Hgb Hct INR 2.16 H AST ALT Albumin - Consult Information COUMADIN CONSULT (Recurring): 77 yr old female patient admitted for increased dsypnea. The patient takes warfarin 2.5 mg daily at home for a mechanical valve replacement. Therapeutic Range for Mechanical Valve Replacement is INR 2.5-3.5 DATE INR DOSE 03/17 2.36 3 MG 03/18 3.01 2.5 MG 03/19 3.53 DOSE HELD 03/20 2.76 2.5 MG 03/21 2.16 Will give 3 MG Warfarin today Pharmacy will continue to monitor the INR and adjust the warfarin dose accordingly. Thank you. Lynnette Yoo, PharmD
[2018-03-21] MEDS: CYANOCOBALAMIN (B-12) 500mcg TABLET PO SCH (09:32)
[2018-03-21] MEDS: FOLIC ACID 1 MG TABLET PO SCH (09:32)
[2018-03-21] MEDS: GABAPENTIN 100 MG CAPSULE PO SCH ×3 (09:32→20:37)
[2018-03-21] MEDS: ALLOPURINOL 100 MG TABLET PO SCH (09:32)
[2018-03-21] MEDS: BUMETANIDE 1 MG TABLET PO SCH ×2 (09:32→15:08)
[2018-03-21] MEDS: SPIRONOLACTONE 25 MG TABLET PO SCH (09:33)
[2018-03-21] MEDS: ASPIRIN *EC* 81 MG TABLET PO SCH (09:33)
[2018-03-21] MEDS: INSULIN ASPART 100unit/ml INJECTION SQ SCH ×3 (09:33→17:39)
[2018-03-21] MEDS: ASCORBIC ACID 500 MG TABLET PO SCH (09:33)
[2018-03-21] MEDS: MAGNESIUM OXIDE 400 MG TABLET PO SCH (09:33)
[2018-03-21] MEDS: INSULIN DETEMIR 100unit/ml INJECTION SQ SCH ×3 (09:34→20:38)
[2018-03-21] MEDS ORDERED: WARFARIN 3 MG TABLET PO SCH (12:00)
[2018-03-21] MEDS: SALINE FLUSH 10ml SYRINGE IV PRN (15:08)
--- NOTE | 2018-03-21 16:23 | Progress Note ---
- Date 03/21/18 Subjective: Susanne feels much better and inquires about going home. She denies SOA or chest pain. She denies abdominal pain but is a bit bloated and feels constipated. She denies nausea. She denies feeling dizzy. She is ready to get the catheter out and is ok with it now that she's not on IV diuretics any longer. Leg swelling is improving but some redness persists to RLE. Objective Vital signs: Temperature 97.5 F 03/21/18 16:18 Pulse Rate 61 03/21/18 16:18 Respiratory Rate 18 03/21/18 16:18 Blood Pressure 113/58 03/21/18 16:18 Pulse Oximetry 96 03/21/18 16:18 Height/Weight/BMI: Height 1.5 m Weight 67 kg Body Mass Index 31.6 - Constitutional Present: no acute distress, well nourished, well developed - Routine HEENT Exam Head: Present: normocephalic Eye: Present: PERRL. Absent: conjunctival icterus, scleral injection - Routine Respiratory Exam Present: CTA bilaterally - Routine Cardiovascular Exam Present: RRR, S1, S2, murmur (3/6) - Routine Abdominal Exam Present: soft, normoactive bowel sounds, non tender, distended (mild) - Routine Extremities Exam Present: edema (BLE; cr hose in place) - Routine Skin Exam Present: intact, erythema (right mckeon), dry, warm - Routine Neurological Exam Present: alert, oriented X3, CN II-XII intact, moving all extremities, vision grossly intact, hearing grossly intact, normal speech. Absent: sensory deficit , motor deficit, altered mental status, facial asymmetry - Routine Psychiatric Exam Present: normal affect, normal thought process, cooperative Results - Labs CBC & Chem 7: 03/21/18 03:58 03/21/18 03:58 Assessment and Plan Assessment and Plan: Assessment Progressive dyspnea with hypercapnia and hypoxia, acute on chronic Lower extremity edema HFrEF, EF 40% (mixed systolic and diastolic) NYHA Class III-IV (Amirani) H/O Mechanical AVR and MVR with Chronic anticoagulation (warfarin) CKD Stage III DM2, Insulin dependent Chronic peripheral neuropathy Normocytic anemia, chronic Mild transaminitis - POA Plan Currently on oral bumex -- BUN increased to 58; creatine 1.5, which has increased from admission on 03/16 @ 1.3 Bladder retraining tonight; DC Barfield in am. Accuchecks are still elevated; insulin was increased yesterday Possible dc soon, if renal status remains stable. Will discuss with cardiology tomorrow. 03/21/2018-5:45 PM-I examined the patient independently. I reviewed this chart, the patient history, and the POWER BUILDER DEVELOPER's/PA's documented findings as above. We discussed and formulated the assessment and plan as above with the additions below.-Dr. Matias The patient states she's feeling better today. Breathing is improved. Lower extremity edema is better. She is eating and drinking okay. On exam she is alert and in no acute distress. Chest is clear to auscultation. Cardiovascular reveals a regular rate and rhythm. Abdomen is soft and nontender. Extremities reveal trace edema. CR hose are on. Laboratory reveals BUN of 58, creatinine 1.5, calcium 10.5 Impression and plan Overall, the patient is improving. Increase activity as tolerated. Monitor blood sugars and likely resume her usual dose of insulin tomorrow. DC Barfield tomorrow. Possible dismissal to home tomorrow. DVT Prophylaxis: Coumadin Resuscitation Status: Do Not Resuscitate - Physician Narrative Narrative: Date: 03/21/18 Time: 1620 Hospital Course Summary Disclaimer: The visit summary below is not to be considered part of the above Progress Note. Hospital Course: 03/16/18 Admit, OBS Check CBC, CMP, Troponin, Dig, Mg, CXR, UA. Plan IV diuresis pending renal function and CXR results. Daily wts, I&O's Telemetry and continuous oximetry. Accuchecks and continue home insulin and adjust as needed. Continue warfarin for mechanical valves- pharmacy to manage. Warfarin for VTE ppx. Dr. Waller - PCP DNR 03/17/18 Change patient to inpatient status due to pulmonary edema, peripheral edema Continue with IV Bumex 2 mg IV BID for diuresing Cr hose to BLE for compression Asked nurse to have legs elevated Consult Dr Henriquez given known CHF Accuchecks and home insulin Coumadin and INR management as per Pharmacy Monitor daily labs 03/18/18 Cardiology changed to Bumex drip to try to help decrease edema. Have to use caution given Diastolic failure with CKD. Will place barfield to monitor urine output closely. Discussed with pt and SO this a careful slow balance to remove fluid safely. Cr hose to BLE for compression and elevation. Blood sugars appear to be well controlled. Having low sugars. Will decrease am Levemir to 35 units and evening Levemir to 30 units. Coumadin and INR management as per Pharmacy- INR 3 today. 03/19/18 On Bumex drip 1mg/hr. Improved diuresing today. Creatinine stable at 1.3. CO2 with increase - 500mg Diamox given. Weight starting to trend down, Lower ext edema better. Cr hose to BLE for compression and elevation. Blood sugars low at times. Levemir decreased last night. Will decrease Novolog to 25 units with meals. Monitor renal function on increased Bumex. 03/20/18 Bumex drip is stopped at this time. Creatinine is slightly up today at 1.5, BUN, 49. Continue with CR hose for compression Barfield catheter remains in place for accurate I/O Crease home insulin to 30 units with meals or this is her normal dose 03/21/18 Currently on oral bumex -- BUN increased to 58; creatine 1.5, which has increased from admission on 03/16 @ 1.3 Bladder retraining tonight; DC Barfield in am. Accuchecks are still elevated; insulin was increased yesterday
[2018-03-21] MEDS: POLYETHYL GLYCOL 3350 17gm PACKET PO SCH (17:39)
[2018-03-21] MEDS: ATORVASTATIN 40 MG TABLET PO SCH (20:37)
[2018-03-22] MEDS: BUDESONIDE INH.SOLN 0.5mg/2ml NEB AEROSOL SCH (07:10)
[2018-03-22] MEDS: ALBUTEROL/IPRATROPIUM 2.5mg-0.5mg/3ml NEB AEROSOL SCH ×2 (07:10→11:30)
[2018-03-22 07:32] VITALS: RESP 16
[2018-03-22] MEDS: INSULIN ASPART 100unit/ml INJECTION SQ SCH ×2 (08:48→12:53)
[2018-03-22] MEDS: INSULIN DETEMIR 100unit/ml INJECTION SQ SCH (08:48)
[2018-03-22] MEDS: ASCORBIC ACID 500 MG TABLET PO SCH (08:49)
[2018-03-22] MEDS: GABAPENTIN 100 MG CAPSULE PO SCH (08:49)
[2018-03-22] MEDS: CYANOCOBALAMIN (B-12) 500mcg TABLET PO SCH (08:50)
[2018-03-22] MEDS: ALLOPURINOL 100 MG TABLET PO SCH (08:50)
[2018-03-22] MEDS: ASPIRIN *EC* 81 MG TABLET PO SCH (08:50)
[2018-03-22] MEDS: FOLIC ACID 1 MG TABLET PO SCH (08:50)
[2018-03-22] MEDS: POLYETHYL GLYCOL 3350 17gm PACKET PO SCH (08:51)
[2018-03-22] MEDS ORDERED: DEXTROSE 50% SYRINGE 50ml (1 AMP) IVP PRN (10:30)
[2018-03-22] MEDS ORDERED: GLUCOSE ORAL GEL 40% 37.5gm PO PRN (10:30)
[2018-03-22] MEDS: INSULIN ASPART 100unit/ml INJECTION SQ PRN ×2 (11:07→15:48)
--- NOTE | 2018-03-22 11:10 | Pharmacy Consult ---
Pharmacy Consult-Warfarin - Laboratory Information 03/16/18 03/16/18 03/16/18 18:30 18:30 18:30 Hgb 10.5 L Hct 35.3 L INR 2.72 H AST 48 H ALT 48 H Albumin 4.4 03/16/18 03/17/18 03/17/18 23:55 04:36 04:36 Hgb 9.8 L Hct 33.1 L INR 2.49 H 2.36 H AST ALT Albumin 03/18/18 03/19/18 03/20/18 03:56 04:16 04:37 Hgb Hct INR 3.01 H 3.53 H AST 38 H ALT 36 H Albumin 3.8 03/20/18 03/20/18 03/21/18 04:37 04:37 03:58 Hgb 9.6 L 10.2 L Hct 32.8 L 33.5 L INR 2.76 H AST ALT Albumin 03/21/18 03/22/18 03/22/18 03:58 04:10 04:10 Hgb 10.2 L Hct 34.0 L INR 2.16 H AST ALT Albumin 4.2 03/22/18 04:10 Hgb Hct INR 1.82 H AST ALT Albumin - Consult Information INR below target range. Warfarin 3mg ordered for noon today. Thank you.
[2018-03-22] MEDS ORDERED: WARFARIN 3 MG TABLET PO SCH (12:00)
--- NOTE | 2018-03-22 14:10 | Discharge Summary ---
Discharge Information Date of admission: 03/17/18 10:06 Attending Physician: Trudy Matias MD Primary care physician: Vasile Waller MD Consults: Consulting Provider: Dion Henriquez Reason For Exam: pulmonary edema - Laboratory Labs: 03/22/18 04:10 03/22/18 04:10 - Radiology Radiology: = = = = = = = = = = = = = = = = = = = = = = = = = = = = = = = = = = = = = = = = = = = = = = = = = = = = = = = = = = = Date of Exam: 03/16/18 PROCEDURE: XR chest 1V: Findings: The lungs are stable in appearance without new focal airspace consolidation. There is no pleural effusion or pneumothorax. The heart size and mediastinal contours are unchanged. Pulmonary vascularity is more prominent. Left pacemaker. Prior sternotomy and cardiac valve replacement. IMPRESSION: Mild pulmonary edema, likely due to CHF. = = = = = = = = = = = = = = = = = = = = = = = = = = = = = = = = = = = = = = = = = = = = = = = = = = = = = = = = = = = Date of Exam: 03/19/18 PROCEDURE: CHEST 2-VIEWS UPRIGHT (PA & LAT) FINDINGS: Continued findings of mild pulmonary edema without significant change. Trace right pleural effusion. No pneumothorax. No lobar consolidative process. Hyperinflation and findings of COPD. Cardiac silhouette and mediastinal contours are stable. Prior sternotomy with left pacemaker and cardiac valve replacements. Impression: Stable chest with mild edema. History of Present Illness HPI: Susanne is a very pleasant 77 yo WF who was seen in the clinic by the ISAIAH in Dr Poe's office for progressive SOA. She reports 4-5 wk h/o progressive dyspnea and fatigue. Her wt is up to 155 from 138 and she c/o significant swelling in the LE's despite taking 4 diuretics. She has a known history of COPD, and uses oxygen @ 2L/NC at home. She c/o SOA despite using the O2. No significant cough, fever or chills. Doesn't feel this is typical for COPD exacerbation or respiratory infection. Given the progressive nature of her sxs and her cardiopulmonary history, pt is admitted to the hospitalist service for overnight OBS. Objective Vital signs: Temperature 97.3 F 03/22/18 08:00 Pulse Rate 61 03/22/18 08:00 Respiratory Rate 16 03/22/18 11:30 Blood Pressure 125/60 03/22/18 08:00 Pulse Oximetry 96 03/22/18 11:30 Height/Weight/BMI: Height 1.5 m Weight 66.8 kg Body Mass Index 31.6 - Constitutional Present: no acute distress, well nourished, well developed - Routine HEENT Exam Head: Present: normocephalic Eye: Present: PERRL. Absent: conjunctival icterus, scleral injection - Routine Respiratory Exam Present: crackles (minimal crackles b/l bases) - Routine Cardiovascular Exam Present: RRR, S1, S2, murmur (2-3/6 systolic), click - Routine Abdominal Exam Present: soft, normoactive bowel sounds, non tender, distended (mild) - Routine Extremities Exam Present: edema (BLE; samuel hose on) - Routine Musculoskeletal Exam Musculoskeletal: Present: moving extremities well - Routine Skin Exam Present: dry, warm - Routine Neurological Exam Present: alert, oriented X3, CN II-XII intact, moving all extremities, vision grossly intact, hearing grossly intact, normal speech. Absent: sensory deficit , motor deficit, altered mental status, facial asymmetry - Routine Psychiatric Exam Present: normal affect, normal thought process, cooperative Hospital Course This is a general summary of the patient's hospital course. For more details refer to the complete medical record. Hospital course: 03/16/18: Admit, observation IV Bumex ordered; Daily wts, I&O's, Telemetry and continuous oximetry. Monitor Accuchecks and continue home insulin and adjust as needed. Continue warfarin for mechanical valve - pharmacy to manage. 03/17/18: Change to inpatient Consult Dr Henriquez given known CHF Labs stable; Samuel hose to BLE 03/18/18 Cardiology changed to Bumex drip Donal Downing to monitor urine output closely. Having low sugars. Will decrease am Levemir to 35 units and evening Levemir to 30 units. 03/19/18 On Bumex drip 1mg/hr. Improved diuresis today. Creatinine stable at 1.3. CO2 with increase - 500mg Diamox given. Weight starting to trend down, Lower ext edema better. Decrease Novolog to 25 units with meals. 03/20/18 Bumex drip stopped. Creatinine is slightly up today at 1.5, BUN, 49. Increase home insulin to 30 units with meals 03/21/18 On oral bumex -- BUN increased to 58; creatine 1.5, which has increased from admission on 03/16 @ 1.3 03/22/18: Discharged home BUN 63, creatinine 1.4. On home O2 -- 2L. Cont Samuel hose. Per cardiology: continue routine diuretics/meds. F/U in 2 weeks. Recheck BMP on 03/24/18. F/U with Dr. Waller within the week if possible. Pt declined home health. Time spent with patient: greater than 35 minutes Resuscitation Status: Do Not Resuscitate Discharge Plan - Discharge Disposition Discharge Date: 03/22/18 Disposition: 01 Discharged Home, Self-Care *Condition: Stable Reason For Visit (Visit label in EMR): Increased Dyspnea - Discharge Medications *Discharge Medications: Continue Albuterol Sulfate [Proair Hfa] 2 puff INH Q4-6H PRN #0 PRN Reason: SHORTNESS OF AIR Tiotropium Trufant [Spiriva] 1 cap ORAL INH DAILY #0 Warfarin Sodium 2.5 mg PO DAILY #0 tab Cyanocobalamin (Vitamin B-12) [Vitamin B-12] 1,000 mcg PO DAILY Folic Acid [Folate] 1 mg PO DAILY Allopurinol [Zyloprim] 100 mg PO DAILY Metoprolol Tartrate [Lopressor] 150 mg PO BID Ascorbic Acid [Vitamin C] 1,000 mg PO WB Magnesium Oxide 400 mg PO DAILY Mometasone Furoate [Asmanex] 1 puff INH HS Bumetanide Tab [Bumex 1 mg Tab] 2 mg PO BID Dulaglutide [Trulicity] 1.5 mg SQ WEEKLY Gabapentin [Neurontin] 100 mg PO TID #0 cap Insulin Detemir [Levemir] 40 unit SQ BID Insulin Lispro [HumaLOG] 30 unit SQ TIDWM Atorvastatin Calcium 40 mg PO HS #0 Digoxin [Digitek] 125 mcg PO DAILY #0 Aspirin *EC* [Ecotrin] 81 mg PO DAILY #30 tab Spironolactone [Aldactone 25 mg] 25 mg PO DAILY #30 tab - Discharge Packet/Instructions *Diet: Carbohydrate consistent. Low fat, low sodium. 2L fluid restriction *Activity: Put on SAMUEL hose in the morning and take off at bedtime. As tolerated *Pain Management/Treatment: Tylenol if needed *Wound Care: N/A Additional Instructions: Have labs rechecked in 2 days and again in 1 week to follow kidney tests. F/U with Dr. Waller within the week if possible. *Expected Signs/Symptoms: Leg swelling, fatigue; perhaps occasional shortness of breath *Notify Physician if: Difficulty breathing, chest pain, passing out, weight gain or symptoms per CHF zone instructions *During Business Hours Contact: Dr. Henriquez's office or Dr. Waller' office *After Business Hours Contact: The on-call provider for Dr. Henriquez or Dr. Waller *Pending Lab/Results: No Pending Lab Outpatient Orders: BMP - Basic Metabolic - [facility] Time Frame: 2 Days, Location: None Selected BMP - Basic Metabolic - [facility] Time Frame: 1 Week, Location: None Selected - Referrals/Follow Up *Referrals/Follow Up: Maryam Ch APRN [Advanced Practice Nurse] - 2 Weeks Vasile Waller MD [Primary Care Provider] - 3 Days - Patient Handouts Patient Handouts: [facility] Congestive Heart Failure, Type 2 Diabetes in Adults (DC) , Meal Planning with Diabetes Exchanges (DC), Dyspnea (DC), Fluid Restriction ( DC) - Dismissal Complete Discharge Instructions are:: Complete Physician Narrative - Narrative Physician: Trudy Matias MD Attestation Narrative: Date: 03/22/18 Time: 3:50 PM I examined the patient independently. I reviewed this chart, the patient history , and the PERIODICALS CLERK's/PA's documented findings as above. We discussed and formulated the assessment and plan as above with the additions below.-Dr. Matias The patient was seen this afternoon in her room. She is dressed and feels ready for discharge. She states she is breathing better. She is urinating without difficulties after Downing catheter was removed. She states she has been up walking in the room without difficulty. She asks about fluid restriction and I did recommend that she continue on a 2 L fluid restriction and monitor her weight daily. On exam she is alert and in no acute distress. Chest reveals decreased breath sounds in the bases. Cardiovascular reveals a regular rate and rhythm. Extremities reveal SAMUEL hose are on. She has +1 pretibial edema. Lab today reveals BUN of 63 and creatinine of 1.4. Calcium is mildly elevated at 10.8. Impression and plan Congestive heart failure-symptomatically improved after diuresis of 4.3 kg. She' s continues to have some +1 lower extremity edema. We did not attempt further diuresis secondary to an increase in BUN and creatinine. She has been receiving IV Bumex. Discussed with cardiology today, and they recommend resuming her usual oral Bumex and are okay with dismissal today. The patient will need lab work in 2 days and follow-up with Dr. Waller hopefully later this week. The patient will need to continue using SAMUEL hose and I did recommend that she stay on the 2 L fluid restriction and monitor her weight daily and notify Dr. Waller or Dr. Henriquez's office if her weight is increasing. We'll discuss hospital findings and discharge plans with Dr. Waller.
[2018-03-22 15:41] VITALS: BP 104/50; PULSE 60; TEMP 97.2; O2SAT 98
== END 2018-03-22 15:58 | disposition home or self-care (01) | DRG 291 ==
LOC: SRG → SUATTDRO 10:06
PROVIDERS: ADMIT Hospitalist; ATTEND Internal Medicine

== ENCOUNTER 2018-04-13 17:00 | Inpatient (IN) ==
--- OUTSIDE RECORDS SUMMARY | 2018-04-13 17:07 | External Medical Summary | Referral Summary ---
:1939 Author Organization [facility] [address] [place] [address] Care Team Providers Name Role Phone Hernandez Andrea Jennifer Primary Care Physician Encounter VC Date(s): 01/19/17 - 01/19/17 [facility] [address] [place] [phone] [place] Discharge Diagnosis: Diabetes Discharge Diagnosis: Chronic gout Discharge Diagnosis: Anemia Discharge Diagnosis: COPD (chronic obstructive pulmonary disease) Discharge Disposition: 01-Home or Self Care Attending Physician: Elodia Sotelo PA-C Admitting Physician: Elodia Sotelo PA-C Vital Signs Most recent to oldest [Reference Range]: 1 Temperature Tympanic [36.6-38.1 degC] 36.5 degC *LOW* (01/19/17 1:34 PM) Peripheral Pulse Rate [60-100 bpm] 92 bpm (01/19/17 1:34 PM) Blood Pressure [90-140/60-90 mmHg] 128/66 mmHg (01/19/17 1:34 PM) SpO2 98 % (01/19/17 1:34 PM) Problem List Condition Effective Dates Status [...] Bronchitis(Confirmed) Active Cardiac murmur(Confirmed) Active Cataracts(Confirmed) Active CKD (chronic kidney disease) stage 1, Active GFR 90 ml/min or greater(Confirmed) Depression(Confirmed) Active Diabetes(Confirmed) Active Neuropathy in diabetes(Confirmed) Active coumadin use(Confirmed) 06/2008 Active Fluid imbalance(Confirmed)2 Active Acute gout(Confirmed) Active Heart failure(Confirmed) Active High cholesterol(Confirmed) Active Hyperlipidemia(Confirmed) Active Hypertension(Confirmed) Active Impaired gas exchange(Confirmed)3 Active Knowledge deficit(Confirmed)4 Active Lung nodule(Confirmed) Active Osteoarthritis(Confirmed) Active Osteopenia(Confirmed) Active Osteoporosis(Confirmed) Active Overactive bladder(Confirmed) Active COPD (chronic obstructive pulmonary Active disease)(Confirmed) PVD (peripheral vascular Active disease)(Confirmed) Sinus infections(Confirmed) Active Bruit of left carotid Active artery(Confirmed) 1Problem added automatically by system based on initiation of At Risk for Infection in Nutrition Planof [id number] added automatically by system based on initiation of Fluid Volume Imbalance Plan of [id number] added automatically by system based on initiation of Impaired Gas Exchange Plan of [id number] added automatically by system based on initiation of Knowledge Deficit Plan of Care Allergies, Adverse Reactions, Alerts Substance Reaction Severity Status ciprofloxacin Adverse Reaction Active increased INR Medications allopurinol 100 mg oral tablet 100 mg 1 tabs, Oral, Daily, # 90 tabs, 0 Refill(s), Pharmacy: [facility] # [id number], 1 tabs Oral Daily Start Date: 12/30/16 Status: Orderedascorbic acid 1000 mg oral tablet 1,000 mg 1 tabs, Oral, Daily, 0 Refill(s) Start Date: 11/05/16 Status: OrderedAsmanex Twisthaler 30 Dose 220 mcg/inh inhalation aerosol powder See Instructions, USE 1 INHALATION DAILY AND RINSE MOUTH (DISCARD 45 DAYS AFTER OPENING), # 3 Each, 2 Refill(s), eRx: [facility], USE 1 INHALATION DAILY AND RINSE MOUTH (DISCARD 45 DAYS AFTER OPENING) Start Date: 11/11/16 Status: Orderedatorvastatin 40 mg oral tablet See Instructions, TAKE 1 TABLET DAILY, # 90 tabs, 2 Refill(s), eRx: [facility], TAKE 1 TABLET DAILY Start Date: 04/28/16 Status: Orderedbumetanide 2 mg oral tablet 4 mg 2 tabs, Oral, BID, 0 Refill(s) Start Date: 11/05/16 Status: OrderedCarafate 1 g oral tablet 1 g 1 tabs, Oral, BID, # 180 tabs, 2 Refill(s), [facility]acy: [facility], 1 tabs OralBID Start Date: 12/27/15 Status: Ordereddigoxin 125 mcg (0.125 mg) oral tablet See Instructions, TAKE 1 TABLET DAILY, # 90 tabs, 1 Refill(s), eRx: [facility] Start Date: 11/17/16 Status: Orderedferrous sulfate 325 mg (65 mg elemental iron) oral tablet 325 mg 1 tabs, Oral, Daily, 0 Refill(s) Start Date: 12/13/15 Status: Orderedfolic acid 1 mg oral tablet 1 mg 1 tabs, Oral, Daily, # 90 tabs, 0 Refill(s) Start Date: 09/19/16 Status: Orderedgabapentin 100 mg oral capsule 100 mg 1 caps, Oral, BID, 0 Refill(s) Start Date: 11/05/16 Status: OrderedInvokana 100 mg oral tablet 100 mg 1 tabs, Oral, Daily, # 90 tabs, 0 Refill(s), Pharmacy: [facility] # [id number], 1 tabs Oral Daily Start Date: 01/16/17 Status: OrderedLevemir FlexPen 100 units/mL subcutaneous solution 38 units, SubCutaneous, BID, Managed by Dr. Armenta., 0 Refill(s) Start Date: 01/19/17 Status: Orderedmagnesium oxide 400 mg, Oral, Daily, 0 Refill(s) Start Date: 11/03/14 Status: OrderedmetFORMIN 1000 mg oral tablet 1,000 mg 1 tabs, Oral, BID, # 180 tabs, 1 Refill(s), Pharmacy: [facility], 1 tabsOral BID Start Date: 12/19/16 Status: OrderedMetoprolol Tartrate 150 mg, Oral, BID, 0 Refill(s) Start Date: 11/05/16 Status: OrderedNorco 5 mg-325 mg oral tablet 1 tabs, Oral, BID, as needed for pain, # 30 tabs, 0 Refill(s) Start Date: 12/16/16 Status: Orderedomeprazole 40 mg oral delayed release capsule See Instructions, TAKE 1 CAPSULE DAILY, # 90 caps, 1 Refill(s), eRx: [facility], TAKE 1 CAPSULE DAILY Start Date: 09/15/16 Status: OrderedpredniSONE 10 mg oral tablet See Instructions, Take 4 tabs PO QD x 4 days, 3 tabs PO QD x 3 days, 2 tabs PO QD x 2 days, and 1 tab PO x 1, # 30 tabs, 0 Refill(s), Pharmacy: [facility] #[id number], Take 4 tabs PO QD x 4 days, 3 tabs PO QD x 3 days, 2 tabs PO QD x 2 days, and 1 t... Start Date: 12/16/16 Status: OrderedProAir HFA 90 mcg/inh inhalation aerosol 180 mcg 2 puffs, Inhalation, q4hr, as needed for wheezing, # 3 Each, 3 Refill(s) , Pharmacy: [facility] Start Date: 12/06/15 Status: OrderedProbiotic Formula (Bacillus Coagulans) oral capsule 1 caps, Oral, Daily, # 30 caps, 0 Refill(s) Start Date: 11/05/16 Status: OrderedSpiriva 18 mcg inhalation capsule See Instructions, INHALE THE CONTENTS OF 1 CAPSULE DAILY, # 90 Each, 1 Refill(s) , eRx: [facility] Start Date: 09/26/16 Status: Orderedspironolactone 25 mg oral tablet 50 mg 2 tabs, Oral, Daily, # 30 tabs, 0 Refill(s) Start Date: 09/11/15 Status: OrderedStarlix 120 mg oral tablet 120 mg 1 tabs, Oral, TIDAC, # 270 tabs, 3 Refill(s), Pharmacy: [facility], 1 tabsOral TIDAC Start Date: 03/18/16 Status: OrderedVitamin B12 1,000 mcg, 0 Refill(s) Start Date: 04/29/16 Status: OrderedVitamin D3 5000 intl units oral tablet 5,000 Intl_Units 1 tabs, Oral, Daily, 0 Refill(s) Start Date: 11/05/16 Status: Orderedwarfarin 5 mg, Oral, Thursday, 0 Refill(s) Start Date: 11/03/14 Status: Orderedwarfarin 2.5 mg, Oral, Thursday, Thursday, , Thursday, Thursday, Thursday, 0 Refill(s) Start Date: 11/03/14 Status: OrderedZithromax Z-Nas See Instructions, Oral, 0 Refill(s) Start Date: 12/16/16 Status: Ordered Results No data available for this section Immunizations Given and Recorded Vaccine Date Status Refusal Reason influenza virus vaccine, inactivated 10/28/16 Given influenza virus vaccine, inactivated 06/29/15 Given influenza virus vaccine, inactivated1 06/09/14 Recorded influenza virus vaccine, live 05/27/13 Given pneumococcal 13-valent conjugate vaccine 06/29/15 Given pneumococcal 13-valent conjugate vaccine2 05/27/13 Given pneumococcal 23-polyvalent vaccine 05/27/13 Given zoster vaccine live 05/27/13 Given 1Location History: See scanned [id number] Comment: [05/08/2015 Uncharted] Uploaded in Error - [...] age.2tubular adenoma at hepatic flexure repeat 5 [id number] bx w/chronic inflammation and atypia, duodenal lesion showing tubular adenoma repeat 5 [id number] [id number] has had several heart caths w stents placed Social History Social History Type Response Smoking Status Former smoker; Type: Cigarettes1 1Smoked for apprx. 50 years x one pack Assessment and Plan Extracted from: Title: Office Visit Note- Recheck DM, Author: Elodia Sotelo PA-C Date : 01/19/17 gout, anemia Assessment/Plan Anemia Hemoccults were negative and recheck CBC showed improvement. No bleeding issues currently. Will monitor. I would advise rechecking CBC in 3 months. Ordered: Office Visit Level 4 Est 15867 Chronic gout Recheck uric acid was <6, so she is to continue on the same dose of Allopurinol at this time. Ordered: Office Visit Level 4 Est 59784 COPD (chronic obstructive pulmonary disease) Thickmucus could be from her COPD.She shonda fluidrestriction d/t her heart failure. Could restart on Mucinex if she would like, or could try anti- histamine to dry up congestion. RTC if worsening. Ordered: Office Visit Level 4 Est 43280 Diabetes D/w pt that she may need to talk to Dr. Armenta about medication changes if she has not noticed a change with the Invokana. We also talked about issues of too low BG levels, and I think that an A1C o f 7.4% is okay for her as she is fairly high risk with her other co-morbid conditions. May also need to change the Starlix. Ordered: Office Visit Level 4 Est 70796
--- OUTSIDE RECORDS SUMMARY | 2018-04-13 17:07 | External Medical Summary | Referral Summary ---
:1939 Author Organization [facility] [address] [place] [address] Care Team Providers Name Role Phone Vasile Waller Primary Care Physician Encounter VC Date(s): 02/27/17 - 02/27/17 [facility] [address] [place] [phone] [place] Discharge Diagnosis: CHF (congestive heart failure) Discharge Diagnosis: COPD with acute exacerbation Discharge Diagnosis: Aortic insufficiency Left Ventricular Hypertrophy Discharge Diagnosis: Diabetes Discharge Diagnosis: Hypertension Discharge Diagnosis: Chronic atrial fibrillation Discharge Diagnosis: Mixed hyperlipidemia Discharge Diagnosis: Atrial fibrillation Discharge Diagnosis: Hyperlipidemia Discharge Disposition: 01-Home or Self Care Attending Physician: Vasile Waller MD Admitting Physician: Vasile Waller MD Vital Signs Most recent to oldest [Reference Range]: 1 Temperature Tympanic [36.6-38.1 degC] 36.1 degC *LOW* (02/27/17 4:04 PM) Peripheral Pulse Rate [60-100 bpm] 96 bpm (02/27/17 4:04 PM) Respiratory Rate [14-20 br/min] 26 br/min *HI* (02/27/17 4:04 PM) Blood Pressure [90-140/60-90 mmHg] 134/64 mmHg (02/27/17 4:04 PM) SpO2 96 % (02/27/17 4:04 PM) Problem List Condition Effective Dates Status [...] At Risk for Infection in Nutrition Planof [id number] added automatically by system based on initiation of Fluid Volume Imbalance Plan of [id number] added automatically by system based on initiation of Impaired Gas Exchange Plan of Bgko6Hakktgq added automatically by system based on initiation of Knowledge Deficit Plan of Care Allergies, Adverse Reactions, Alerts Substance Reaction Severity Status ciprofloxacin Adverse Reaction Active increased INR Medications allopurinol 100 mg oral tablet 100 mg 1 tabs, Oral, Daily, # 90 tabs, 0 Refill(s), Pharmacy: [facility] # [id number], 1 tabs Oral Daily Start Date: 12/30/16 [...] BID, # 180 tabs, 2 Refill(s), Pharmacy: [facility], 1 tabs OralBID Start Date: 12/27/15 Status: Ordereddigoxin 125 mcg (0.125 mg) oral tablet 125 mcg 1 tabs, Oral, Daily, # 90 tabs, 0 Refill(s), Pharmacy: [facility], 1 tabsOral Daily Start Date: 02/26/17 Status: Orderedferrous sulfate 325 mg (65 mg [...] Daily, # 90 tabs, 0 Refill(s), Pharmacy: [facility] # [id number], 1 tabs Oral Daily Start Date: 01/16/17 Status: OrderedLevemir FlexPen 100 units/mL subcutaneous solution 38 units, SubCutaneous, BID, Managed by Dr. Armenta., 0 Refill(s) Start Date: 01/19/17 Status: Orderedmagnesium oxide 400 mg, Oral, Daily, 0 Refill(s) Start Date: 11/03/14 Status: OrderedmetFORMIN 1000 mg oral tablet 1,000 mg 1 tabs, Oral, BID, # 180 tabs, 1 Refill(s), Pharmacy: [facility], 1 tabsOral BID Start Date: [...] # 90 caps, 1 Refill(s), eRx: [facility], TAKE 1 CAPSULE DAILY Start Date: 09/15/16 Status: OrderedpredniSONE 10 mg oral tablet See Instructions, Take 4 tabs PO QD x 4 days, 3 tabs PO QD x 3 days, 2 tabs PO QD x 2 days, and 1 tab PO x 1, # 30 tabs, 0 Refill(s), Pharmacy: [facility] #[id number], Take 4 tabs PO QD x 4 days, 3 tabs PO QD x 3 days, 2 tabs PO QD x 2 days, and 1 t... Start Date: 12/16/16 Status: OrderedProAir HFA 90 mcg/inh inhalation aerosol 180 mcg 2 puffs, Inhalation, q4hr, as needed for wheezing, # 3 Each, 3 Refill(s) , Pharmacy: [facility] Start Date: 12/06/15 Status: OrderedProbiotic Formula (Bacillus Coagulans) oral capsule 1 caps, Oral, Daily, # 30 caps, 0 Refill(s) Start Date: 11/05/16 Status: OrderedSpiriva 18 mcg inhalation capsule See Instructions, INHALE THE CONTENTS OF 1 CAPSULE DAILY, # 90 Each, 1 Refill(s) , eRx: [facility] Start Date: 09/26/16 Status: Orderedspironolactone 25 mg oral tablet See Instructions, TAKE 1 TABLET TWICE A DAY, # 180 tabs, [facility]Rx: [facility], TAKE 1 TABLET TWICE A DAY Start Date: 01/29/17 Status: OrderedStarlix 120 mg oral tablet 120 mg 1 tabs, Oral, TIDAC, # 270 tabs, 0 Refill(s), Pharmacy: [facility], 1 tabsOral TIDAC Start Date: 02/26/17 Status: OrderedVitamin B12 1,000 mcg, 0 Refill(s) [...] live 05/27/13 Given 1Location History: See scanned [id number] Comment: [05/08/2015 Uncharted] Uploaded in Error - [...] age.2tubular adenoma at hepatic flexure repeat 5 [id number] bx w/chronic inflammation and atypia, duodenal lesion showing tubular adenoma repeat 5 [id number] [id number] has had several heart caths w stents placed Social History Social History Type Response Smoking Status Former smoker; Type: Cigarettes1 1Smoked for apprx. 50 years x one pack Assessment and Plan Extracted from: Title: Office Visit Note Author: Vasile Waller MD Date: 02/27/17 Assessment/Plan 1.Aortic insufficiency Left Ventricular Hypertrophy Chronic relatively stablefollowed by Dr. Scherer no change in current treatment. 2.Atrial fibrillation Chronic and stable rate controlled on anticoagulation. INRs are done at home and followed Dr. Scherer's office. 3.CHF (congestive heart failure) She appears euvolemic today. Change in current treatment. 4.COPD with acute exacerbation Chronic relatively stableno change in current treatment continue 30/03 02in current inhalers. 5.Diabetes I've recommended she continue her current medications. We had a fairly long discussion aboutphysiology of diabetes asthe years go bythe fact that she is insulin resistant and likely produci ng less insulin. Ultimatelywith no improvement with the Invokana I think that's an indication that we'll likely have to add a short acting insulin to her Levemir and discontinue Invokana and Starlix . I will see her back at the end of next month with some lab prior to that appointmentwith anticipatingaddinga short acting insulin at that time. 6.Hyperlipidemia Currently on treatmentlaboratory studies ordered for next month. 7.Hypertension Blood pressure appears to be reasonably well-controlled no change in current treatment.
--- OUTSIDE RECORDS SUMMARY | 2018-04-13 17:07 | External Medical Summary | Referral Summary ---
:1939 Author Organization [facility] [address] [place] [address] Care Team Providers Name Role Phone Vasile Waller Primary Care Physician Encounter VC Date(s): 06/29/17 - 06/29/17 [facility] [address] [place] [phone] [place] Discharge Diagnosis: CHF (congestive heart failure) Discharge Diagnosis: COPD with acute exacerbation Discharge Diagnosis: CKD (chronic kidney disease) stage 1, GFR 90 ml/min or greater Discharge Diagnosis: Hyperlipidemia Discharge Diagnosis: Diabetes mellitus, type 2 Discharge Disposition: 01-Home or Self Care Attending Physician: Vasile Waller MD Admitting Physician: Vasile Waller MD Vital Signs Most recent to oldest [Reference Range]: 1 Temperature Oral [35.8-37.3 degC] 36.8 degC (06/29/17 1:54 PM) Peripheral Pulse Rate [60-100 bpm] 88 bpm (06/29/17 1:54 PM) Blood Pressure [90-140/60-90 mmHg] 162/64 mmHg *HI* (06/29/17 1:54 PM) SpO2 94 % (06/29/17 1:54 PM) Problem List Condition Effective Dates Status [...] At Risk for Infection in Nutrition Planof [id number] added automatically by system based on initiation of Fluid Volume Imbalance Plan of [id number] added automatically by system based on initiation of Impaired Gas Exchange Plan of Fynq4Thshfbe added automatically by system based on initiation of Knowledge Deficit Plan of Care Allergies, Adverse Reactions, Alerts Substance Reaction Severity Status ciprofloxacin increased INR Active Adverse Reaction Medications albuterol 2.5 mg/3 mL (0.083%) inhalation solution 1 vials, NEB, QID, # 1 boxes, 3 Refill(s), Pharmacy: [facility], 1 vials NEB QID Start Date: 06/29/17 Status: Orderedallopurinol 100 mg oral tablet See Instructions, TAKE ONE TABLET BY MOUTH DAILY, # 90 tabs, 1 Refill(s), Pharmacy: [facility], TAKE ONE TABLET BY MOUTH DAILY Start Date: 06/24/17 Status: Orderedascorbic acid 1000 mg oral tablet 1,000 mg 1 tabs, Oral, Daily, 0 Refill(s) Start Date: 11/05/16 Status: OrderedAsmanex Twisthaler 30 Dose 220 mcg/inh inhalation aerosol powder See Instructions, USE 1 INHALATION DAILY AND RINSE MOUTH (DISCARD 45 DAYS AFTER OPENING) INVOICE: [id number], # 3 Each, 2 Refill(s), Pharmacy: [facility] Start Date: 03/18/17 Status: Orderedaspirin 81 mg, Oral, Daily, 0 Refill(s) Start Date: 06/29/17 Status: Orderedatorvastatin 40 mg oral tablet See Instructions, TAKE 1 TABLET DAILY, # 90 tabs, 1 Refill(s), eRx: [facility] Start Date: 06/18/17 Status: Orderedbumetanide 2 mg oral tablet 2 mg 1 tabs, Oral, BID, 0 Refill(s) Start Date: 11/05/16 Status: Ordereddigoxin 125 mcg (0.125 mg) oral tablet 125 mcg 1 tabs, Oral, Daily, [facility] # [id number], # 90 tabs, 0 Refill(s), Pharmacy: [facility], 1 tabs Oral Daily,Instr:[facility] # [id number] Start Date: 03/13/17 Status: Orderedferrous sulfate 325 mg (65 mg elemental iron) oral tablet 325 mg 1 tabs, Oral, Daily, 0 Refill(s) Start Date: 12/13/15 Status: Orderedfolic acid 1 mg oral tablet 1 mg 1 tabs, Oral, Daily, # 90 tabs, 0 Refill(s) Start Date: 09/19/16 Status: Orderedgabapentin 100 mg oral capsule 100 mg 1 caps, Oral, BID, [facility] # [id number], # 180 caps, 1 Refill(s), Pharmacy: [facility], 1 caps Oral BID,Instr:[facility] # [id number] Start Date: 06/24/17 Status: OrderedGlucometer strips (DME) DME Item truplex test strips test BS TID DX: E11.9, See Instructions, # 3 boxes, 2 Refill(s), Pharmacy: [facility], truplex test strips ; test BS TID ; DX: E11.9, Supply Start Date: 06/29/17 Status: OrderedHumaLOG KwikPen 100 units/mL subcutaneous solution 20 units, SubCutaneous, TIDAC, 15 minutes before or immediately after a meal DX E11.65, # 9 cartridges, 3 Refill(s) Start Date: 05/01/17 Status: OrderedLevemir FlexPen 100 units/mL subcutaneous solution 33 units, SubCutaneous, BID, Managed by Dr. Armenta., 0 Refill(s) Start Date: 01/19/17 Status: Orderedmagnesium oxide 400 mg, Oral, Daily, 0 Refill(s) Start Date: 11/03/14 Status: OrderedmetFORMIN 1000 mg oral tablet 1,000 mg 1 tabs, Oral, BID, [facility] # [id number], # 180 tabs, 0 Refill(s), Pharmacy: [facility], 1 tabs Oral BID,Instr:[facility]BER # [id number] Start Date: 03/13/17 Status: Orderedmetolazone 5 mg oral tablet 5 mg 1 tabs, Oral, Daily, # 10 tabs, 0 Refill(s), Pharmacy: [facility] # [id number], 1 tabs Oral Daily Start Date: 06/29/17 Status: OrderedMetoprolol Tartrate 150 mg, Oral, BID, 0 Refill(s) Start Date: 11/05/16 Status: OrderedNorco 5 mg-325 mg oral tablet 1 tabs, Oral, BID, as needed for pain, # 30 tabs, 0 Refill(s) Start Date: 12/16/16 Status: Orderedomeprazole 40 mg oral delayed release capsule See Instructions, TAKE 1 CAPSULE DAILY, # 90 caps, 3 Refill(s), eRx: [facility] Start Date: 06/01/17 Status: OrderedPlavix 75 mg oral tablet 75 mg 1 tabs, Oral, Daily, # 90 tabs, 0 Refill(s) Start Date: 06/29/17 Status: OrderedProAir HFA 90 mcg/inh inhalation aerosol 180 mcg 2 puffs, Inhalation, q4hr, as needed for wheezing, # 3 Each, 3 Refill(s) , Pharmacy: [facility] Start Date: 12/06/15 Status: OrderedProbiotic Formula (Bacillus Coagulans) oral capsule 1 caps, Oral, Daily, # 30 caps, 0 Refill(s) Start Date: 11/05/16 Status: OrderedSpiriva 18 mcg inhalation capsule See Instructions, INHALE THE CONTENTS OF 1 CAPSULE DAILY [facility] # [id number] , # 90 Each, 1 Refill(s), Pharmacy: [facility], INHALE THE CONTENTS OF 1 CAPSULE DAILY; MEMBER # [id number] Start Date: 03/13/17 Status: Orderedspironolactone 25 mg oral tablet See Instructions, TAKE 1 TABLET TWICE A DAY [facility] # [id number], # 180 tabs, 0 Refill(s), Pharmacy: [facility], TAKE 1 TABLET TWICE A DAY ; MEMBER # [id number] Start Date: 06/25/17 Status: Orderedsucralfate 1 g oral tablet See Instructions, TAKE 1 TABLET TWICE A DAY, # 180 tabs, 3 Refill(s), eRx: [facility] Start Date: 06/01/17 Status: OrderedVitamin B12 1,000 mcg, 0 Refill(s) [...] live 05/27/13 Given 1Location History: See scanned [id number] Comment: [05/08/2015 Uncharted] Uploaded in Error - [...] age.2tubular adenoma at hepatic flexure repeat 5 [id number] bx w/chronic inflammation and atypia, duodenal lesion showing tubular adenoma repeat 5 [id number] [id number] qzbinsc1Ht has had several heart caths w stents placed Social History Social History Type Response Smoking Status Former smoker; Type: Cigarettes1 entered on: 10/28/16 1Smoked for apprx. 50 years x one pack Assessment and Plan Extracted from: Title: Office Visit Note Author: Vasile Waller MD Date: 06/29/17 1.CHF (congestive heart failure) She still appears to be in congestive heart failureexacerbation to me. I've recommended adding metolazone 5 mg by mouth daily for the next week. Want her to weigh daily and keep me posted on h ow she's doing and recheck in 1 week as recommended. She'll need a BMP at that time. Ordered: Office Visit Level 4 Est 98060 2.COPD with acute exacerbation This appears to be relatively chronic and stable. She is oxygen dependent and needs to continue her oxygen therapy. She does have a mild cough that starts worsening or she has further problems she'll let us now. Ordered: Office Visit Level 4 Est 53462 3.CKD (chronic kidney disease) stage 1, GFR 90 ml/min or greater We are going to push her diuretics a little harder and will seehow she does. We'll need to keep a close eye on her BUN and creatinine. She'll keep me posted on her weight. Ordered: Office Visit Level 4 Est 47262 4.Hyperlipidemia Chronic stable no change in current treatment. Ordered: Office Visit Level 4 Est 47598 5.Diabetes mellitus, type 2 Or cutting back on her insulin dosage some so thatdona is not having lows. I've recommended 25 units ofLevemir twice dailyand 12 units of Humalogbefore meals. She'll continue to monitor her glucometers carefully. Ordered: Office Visit Level 4 Est 59674
--- OUTSIDE RECORDS SUMMARY | 2018-04-13 17:07 | External Medical Summary | Referral Summary ---
:1940 Author Organization [facility] [address] [place] [id number] Care Team Providers Name Role Phone Andrea Hernandez Primary Care Physician Encounter VC Date(s): 12/30/16 - 12/30/16 [facility] [address] [place] [phone] [place] Discharge Diagnosis: Aortic stenosis Discharge Diagnosis: COPD (chronic obstructive pulmonary disease) Discharge Diagnosis: Anemia Discharge Diagnosis: Acute gout Discharge Diagnosis: Anemia Discharge Diagnosis: Diabetes Discharge Disposition: 01-Home or Self Care Attending Physician: Andrea Hernandez MD Admitting Physician: Andrea Hernandez MD Vital Signs Most recent to oldest [Reference Range]: 1 Temperature Tympanic [36.6-38.1 degC] 36.7 degC (12/30/16 10:05 AM) Blood Pressure [90-140/60-90 mmHg] 136/66 mmHg (12/30/16 10:05 AM) Problem List Condition Effective Dates Status [...] At Risk for Infection in Nutrition Planof [id number] added automatically by system based on initiation of Fluid Volume Imbalance Plan of [id number] added automatically by system based on initiation of Impaired Gas Exchange Plan of [id number] added automatically by system based on initiation of Knowledge Deficit Plan of Care Allergies, Adverse Reactions, Alerts Substance Reaction Severity Status ciprofloxacin Adverse Reaction Active increased INR Medications allopurinol 100 mg oral tablet 100 mg 1 tabs, Oral, Daily, # 90 tabs, 0 Refill(s), Pharmacy: [facility] # [id number], 1 tabs Oral Daily Start Date: 12/30/16 Status: Orderedascorbic acid 1000 mg oral tablet 1,000 mg 1 tabs, Oral, Daily, 0 Refill(s) Start Date: 11/05/16 Status: OrderedAsmanex Twisthaler 30 Dose 220 mcg/inh inhalation aerosol powder See Instructions, USE 1 INHALATION DAILY AND RINSE MOUTH (DISCARD 45 DAYS AFTER OPENING), # 3 Each, 2 Refill(s), eRx: [facility], USE 1 INHALATION DAILY AND [...] BID, # 180 tabs, 2 Refill(s), Pharmacy: [facility], 1 tabs OralBID Start Date: 12/27/15 Status: Ordereddigoxin 125 mcg (0.125 mg) oral tablet See Instructions, TAKE 1 TABLET DAILY, # 90 tabs, 1 Refill(s), eRx: [facility] Start Date: 11/17/16 Status: Orderedferrous [...] 100 mg 1 tabs, Oral, Daily, # 30 tabs, 0 Refill(s) Start Date: 12/30/16 Status: OrderedLevemir FlexPen 100 units/mL subcutaneous solution 35 units, SubCutaneous, BID, # 21 Each, 1 Refill(s), Pharmacy: [facility], 35 units SubCutaneous BID Start Date: 12/19/16 Status: Orderedmagnesium oxide 400 mg, Oral, Daily, 0 Refill(s) Start Date: 11/03/14 Status: OrderedmetFORMIN 1000 mg oral tablet 1,000 mg 1 tabs, Oral, BID, # 180 tabs, 1 Refill(s), Pharmacy: [facility], 1 tabsOral BID Start Date: 12/19/16 Status: OrderedMetoprolol Tartrate 150 mg, Oral, BID, 0 Refill(s) Start Date: 11/05/16 Status: OrderedMiscellaneous DME DME Item Accu Check Tess Plus Test Strips Test blood sugars BID DX:250.00, See Instructions, # 200 Each, 3 Refill(s), Pharmacy: [facility], Accu Check Tess Plus Test Strips; Testblood sugars BID; DX:250.00, Supply Start Date: 11/14/14 Status: OrderedNorco 5 mg-325 mg oral tablet 1 tabs, Oral, BID, as needed for pain, # 30 tabs, 0 Refill(s) Start Date: 12/16/16 Status: Orderedomeprazole 40 mg oral delayed release capsule See Instructions, TAKE 1 CAPSULE DAILY, # 90 caps, 1 Refill(s), eRx: [facility], TAKE 1 CAPSULE DAILY Start Date: 09/15/16 Status: OrderedpredniSONE 10 mg oral tablet See Instructions, Take 4 tabs PO QD x 4 days, 3 tabs PO QD x 3 days, 2 tabs PO QD x 2 days, and 1 tab PO x 1, # 30 tabs, 0 Refill(s), Pharmacy: [facility] #[id number], Take 4 tabs PO QD x 4 days, 3 tabs PO QD x 3 days, 2 tabs PO QD x 2 days, and 1 t... Start Date: 12/16/16 Status: OrderedProAir HFA 90 mcg/inh inhalation aerosol 180 mcg 2 puffs, Inhalation, q4hr, as needed for wheezing, # 3 Each, 3 Refill(s) , Pharmacy: [facility] Start Date: 12/06/15 Status: OrderedProbiotic Formula (Bacillus Coagulans) oral capsule 1 caps, Oral, Daily, # 30 caps, 0 Refill(s) Start Date: 11/05/16 Status: OrderedSpiriva 18 mcg inhalation capsule See Instructions, INHALE THE CONTENTS OF 1 CAPSULE DAILY, # 90 Each, 1 Refill(s) , eRx: [facility] Start Date: 09/26/16 Status: Orderedspironolactone 25 mg oral tablet 50 mg 2 tabs, Oral, Daily, # 30 tabs, 0 Refill(s) Start Date: 09/11/15 Status: OrderedStarlix 120 mg oral tablet 120 mg 1 tabs, Oral, TIDAC, # 270 tabs, 3 Refill(s), Pharmacy: [facility], 1 tabsOral TIDAC Start Date: [...] Refill(s) Start Date: 12/16/16 Status: Ordered Results Hematology Most recent to oldest [Reference Range]: 1 WBC [4.8-10.8 10*3/uL] 11.0 10*3/uL *HI* (12/30/16 10:54 AM) RBC [4.00-5.20] 4.10 (12/30/16 10:54 AM) Hgb [12.0-16.0 gm/dL] 12.2 gm/dL (12/30/16 10:54 AM) Hct [37.0-47.0 %] 38.9 % (12/30/16 10:54 AM) MCV [82.0-99.0 fL] 94.9 fL (12/30/16 10:54 AM) MCH [27.0-32.0 pg] 29.8 pg (12/30/16 10:54 AM) MCHC [32.0-36.0 gm/dL] 31.4 gm/dL *LOW* (12/30/16 10:54 AM) RDW [11.5-14.5 %] 14.6 % *HI* (12/30/16 10:54 AM) Platelet [150-400 10*3/uL] 226 10*3/uL (12/30/16 10:54 AM) MPV [8.8-14.8 fL] 11.4 fL (12/30/16 10:54 AM) Immature Granulocytes [0.0-1.0 %] 0.9 % (12/30/16 10:54 AM) Neutrophils [51-75 %] 78 % *HI* (12/30/16 10:54 AM) Lymphocytes [20-46 %] 9 % *LOW* (12/30/16 10:54 AM) Monocytes [4-11 %] 9 % (12/30/16 10:54 AM) Eosinophils [0-4 %] 2 % (12/30/16 10:54 AM) Basophils [0-2 %] 1 % (12/30/16 10:54 AM) Neutro Absolute [1.90-7.00] 8.63 *HI* (12/30/16 10:54 AM) Lymph Absolute [0.80-3.30] 1.02 (12/30/16 10:54 AM) Mcculloch Absolute [0.30-1.00] 0.97 (12/30/16 10:54 AM) Eos Absolute [0.00-0.50] 0.24 (12/30/16 10:54 AM) Baso Absolute [0.00-0.20] 0.07 (12/30/16 10:54 AM) Differential Scanned Slide (12/30/16 10:54 AM) Immunizations Given and Recorded Vaccine Date Status Refusal Reason influenza virus vaccine, inactivated 10/28/16 Given influenza virus vaccine, inactivated 06/29/15 Given influenza virus vaccine, inactivated1 06/09/14 Recorded influenza virus vaccine, live 05/27/13 Given pneumococcal 13-valent conjugate vaccine 06/29/15 Given pneumococcal 13-valent conjugate vaccine2 05/27/13 Given pneumococcal 23-polyvalent vaccine 05/27/13 Given zoster vaccine live 05/27/13 Given 1Location History: See scanned [id number] Comment: [05/08/2015 Uncharted] Uploaded in Error - [...] age.2tubular adenoma at hepatic flexure repeat 5 [id number] bx w/chronic inflammation and atypia, duodenal lesion showing tubular adenoma repeat 5 [id number] has had several heart caths w stents placed Social History Social History Type Response Smoking Status Former smoker; Type: Cigarettes1 1Smoked for apprx. 50 years x one pack Assessment and Plan Extracted from: Title: Ambulatory Patient Education Author: Andrea Hernandez MD Date: Obstetrics and Gynecology Anemia, Nonspecific Anemia is a condition in which the concentration of red blood cells or hemoglobin in the blood is below normal. Hemoglobin is a substance in red blood cells that carries oxygen to the tissues of the bod y. Anemia results in not enough oxygen reaching these tissues. CAUSES Common causes of anemia include: Excessive bleeding. Bleeding may be internal or external. This includes excessive bleeding from periods (in women) or from the intestine. Poor nutrition. Chronic kidney, thyroid, and liver disease. Bone marrow disorders that decrease red blood cell production. Cancer and treatments for cancer. HIV, AIDS, and their treatments. Spleen problems that increase red blood cell destruction. Blood disorders. Excess destruction of red blood cells due to infection, medicines, and autoimmune disorders. SIGNS AND SYMPTOMS Minor weakness. Dizziness. Headache. Palpitations. Shortness of breath, especially with exercise. Paleness. Cold sensitivity. Indigestion. Nausea. Difficulty sleeping. Difficulty concentrating. Symptoms may occur suddenly or they may develop slowly. DIAGNOSIS Additional blood tests are often needed. These help your health care provider determine the best treatment. Your health care provider will check your stool for blood and look for other causes of blood loss. TREATMENT Treatment varies depending on the cause of the anemia. Treatment can include: Supplements of iron, vitamin B12, or folic acid. Hormone medicines. A blood transfusion. This may be needed if blood loss is severe. Hospitalization. This may be needed if there is significant continual blood loss. Dietary changes. Spleen removal. HOME CARE INSTRUCTIONS Keep all follow-up appointments. It often takes many weeks to correct anemia, and having your health care provider check on your condition and your response to treatment is very important. SEEK IMMEDIATE MEDICAL CARE IF: You develop extreme weakness, shortness of breath, or chest pain. You become dizzy or have trouble concentrating. You develop heavy vaginal bleeding. You develop a rash. You have bloody or black, tarry stools. You faint. You vomit up blood. You vomit repeatedly. You have abdominal pain. You have a fever or persistent symptoms for more than 2 3 days. You have a fever and your symptoms suddenly get worse. You are dehydrated. MAKE SURE YOU: Understand these instructions. Will watch your condition. Will get help right away if you are not doing well or get worse. This information is not intended to replace advice given to you by your health care provider. Make sure you discuss any questions you have with your health care provider. Document Released: 10/01/2005 Document Revised: 2014 Document Reviewed: 02/17/2014 [employer] Patient Education 2016 [employer] Rheumatology Gout Gout is an inflammatory arthritis caused by a buildup of uric acid crystals in the joints. Uric acid is a chemical that is normally present in the blood. When the level of uric acid in the blood is too high it can form crystals that deposit in your joints and tissues. This causes joint redness, soreness, and swelling (inflammation). Repeat attacks are common. Over time, uric acid crystals can form int o masses (tophi) near a joint, destroying bone and causing disfigurement. Gout is treatable and often preventable. CAUSES The disease begins with elevated levels of uric acid in the blood. Uric acid is produced by your body when it breaks down a naturally found substance called purines. Certain foods you eat, such as meats and fish, contain high amounts of purines. Causes of an elevated uric acid level include: Being passed down from parent to child (heredity). Diseases that cause increased uric acid production (such as obesity, psoriasis , and certain cancers). Excessive alcohol use. Diet, especially diets rich in meat and seafood. Medicines, including certain cancer-fighting medicines (chemotherapy), water pills (diuretics), and aspirin. Chronic kidney disease. The kidneys are no longer able to remove uric acid well. Problems with metabolism. Conditions strongly associated with gout include: Obesity. High blood pressure. High cholesterol. Diabetes. Not everyone with elevated uric acid levels gets gout. It is not understood why some people get gout and others do not. Surgery, joint injury, and eating too much of certain foods are some of the factors that can lead to gout attacks. SYMPTOMS An attack of gout comes on quickly. It causes intense pain with redness, swelling, and warmth in a joint. Fever can occur. Often, only one joint is involved. Certain joints are more commonly involved: Base of the big toe. Knee. Ankle. Wrist. Finger. Without treatment, an attack usually goes away in a few days to weeks. Between attacks, you usually will not have symptoms, which is different from many other forms of arthritis. DIAGNOSIS Your caregiver will suspect gout based on your symptoms and exam. In some cases , tests may be recommended. The tests may include: Blood tests. Urine tests. X-rays. Joint fluid exam. This exam requires a needle to remove fluid from the joint ( arthrocentesis). Using a microscope, gout is confirmed when uric acid crystals are seen in the joint fluid. TREATMENT There are two phases to gout treatment: treating the sudden onset (acute) attack and preventing attacks (prophylaxis). Treatment of an Acute Attack. Medicines are used. These include anti-inflammatory medicines or steroid medicines. An injection of steroid medicine into the affected joint is sometimes necessary. The painful joint is rested. Movement can worsen the arthritis. You may use warm or cold treatments on painful joints, depending which works best for you. Treatment to Prevent Attacks. If you suffer from frequent gout attacks, your caregiver may advise preventive medicine. These medicines are started after the acute attack subsides. These medicines either help your kidneys elimina te uric acid from your body or decrease your uric acid production. You may need to stay on these medicines for a very long time. The early phase of treatment with preventive medicine can be associated with an increase in acute gout attacks. For this reason, during the first few months of treatment, your caregiver may also adv ise you to take medicines usually used for acute gout treatment. Be sure you understand your caregiver's directions. Your caregiver may make several adjustments to your medicine dose before these medicines are effective. Discuss dietary treatment with your caregiver or dietitian. Alcohol and drinks high in sugar and fructose and foods such as meat, poultry, and seafood can increase uric acid levels. Your caregiver o r dietitian can advise you on drinks and foods that should be limited. HOME CARE INSTRUCTIONS Do not take aspirin to relieve pain. This raises uric acid levels. Only take [id number] or prescription medicines for pain, discomfort, or fever as directed by your caregiver. Rest the joint as much as possible. When in bed, keep sheets and blankets off painful areas. Keep the affected joint raised (elevated). Apply warm or cold treatments to painful joints. Use of warm or cold treatments depends on which works best for you. Use crutches if the painful joint is in your leg. Drink enough fluids to keep your urine clear or pale yellow. This helps your body get rid of uric acid. Limit alcohol, sugary drinks, and fructose drinks. Follow your dietary instructions. Pay careful attention to the amount of protein you eat. Your daily diet should emphasize fruits, vegetables, whole grains, and fat-free or low-fat milk products. Di scuss the use of coffee, vitamin C, and cherries with your caregiver or dietitian. These may be helpful in lowering uric acid levels. Maintain a healthy body weight. SEEK MEDICAL CARE IF: You develop diarrhea, vomiting, or any side effects from medicines. You do not feel better in 24 hours, or you are getting worse. SEEK IMMEDIATE MEDICAL CARE IF: Your joint becomes suddenly more tender, and you have chills or a fever. MAKE SURE YOU: Understand these instructions. Will watch your condition. Will get help right away if you are not doing well or get worse. This information is not intended to replace advice given to you by your health care provider. Make sure you discuss any questions you have with your health care provider. Document Released: 08/21/2001 Document Revised: 09/14/2015 Document Reviewed: 06/05/2016 [employer] Patient Education 2016 [employer] Gout Gout is an inflammatory arthritis caused by a buildup of uric acid crystals in the joints. Uric acid is a chemical that is normally present in the blood. When the level of uric acid in the blood is too high it can form crystals that deposit in your joints and tissues. This causes joint redness, soreness, and swelling (inflammation). Repeat attacks are common. Over time, uric acid crystals can form int o masses (tophi) near a joint, destroying bone and causing disfigurement. Gout is treatable and often preventable. CAUSES The disease begins with elevated levels of uric acid in the blood. Uric acid is produced by your body when it breaks down a naturally found substance called purines. Certain foods you eat, such as meats and fish, contain high amounts of purines. Causes of an elevated uric acid level include: Being passed down from parent to child (heredity). Diseases that cause increased uric acid production (such as obesity, psoriasis , and certain cancers). Excessive alcohol use. Diet, especially diets rich in meat and seafood. Medicines, including certain cancer-fighting medicines (chemotherapy), water pills (diuretics), and aspirin. Chronic kidney disease. The kidneys are no longer able to remove uric acid well. Problems with metabolism. Conditions strongly associated with gout include: Obesity. High blood pressure. High cholesterol. Diabetes. Not everyone with elevated uric acid levels gets gout. It is not understood why some people get gout and others do not. Surgery, joint injury, and eating too much of certain foods are some of the factors that can lead to gout attacks. SYMPTOMS An attack of gout comes on quickly. It causes intense pain with redness, swelling, and warmth in a joint. Fever can occur. Often, only one joint is involved. Certain joints are more commonly involved: Base of the big toe. Knee. Ankle. Wrist. Finger. Without treatment, an attack usually goes away in a few days to weeks. Between attacks, you usually will not have symptoms, which is different from many other forms of arthritis. DIAGNOSIS Your caregiver will suspect gout based on your symptoms and exam. In some cases , tests may be recommended. The tests may include: Blood tests. Urine tests. X-rays. Joint fluid exam. This exam requires a needle to remove fluid from the joint ( arthrocentesis). Using a microscope, gout is confirmed when uric acid crystals are seen in the joint fluid. TREATMENT There are two phases to gout treatment: treating the sudden onset (acute) attack and preventing attacks (prophylaxis). Treatment of an Acute Attack. Medicines are used. These include anti-inflammatory medicines or steroid medicines. An injection of steroid medicine into the affected joint is sometimes necessary. The painful joint is rested. Movement can worsen the arthritis. You may use warm or cold treatments on painful joints, depending which works best for you. Treatment to Prevent Attacks. If you suffer from frequent gout attacks, your caregiver may advise preventive medicine. These medicines are started after the acute attack subsides. These medicines either help your kidneys elimina te uric acid from your body or decrease your uric acid production. You may need to stay on these medicines for a very long time. The early phase of treatment with preventive medicine can be associated with an increase in acute gout attacks. For this reason, during the first few months of treatment, your caregiver may also adv ise you to take medicines usually used for acute gout treatment. Be sure you understand your caregiver's directions. Your caregiver may make several adjustments to your medicine dose before these medicines are effective. Discuss dietary treatment with your caregiver or dietitian. Alcohol and drinks high in sugar and fructose and foods such as meat, poultry, and seafood can increase uric acid levels. Your caregiver o r dietitian can advise you on drinks and foods that should be limited. HOME CARE INSTRUCTIONS Do not take aspirin to relieve pain. This raises uric acid levels. Only take [id number] or prescription medicines for pain, discomfort, or fever as directed by your caregiver. Rest the joint as much as possible. When in bed, keep sheets and blankets off painful areas. Keep the affected joint raised (elevated). Apply warm or cold treatments to painful joints. Use of warm or cold treatments depends on which works best for you. Use crutches if the painful joint is in your leg. Drink enough fluids to keep your urine clear or pale yellow. This helps your body get rid of uric acid. Limit alcohol, sugary drinks, and fructose drinks. Follow your dietary instructions. Pay careful attention to the amount of protein you eat. Your daily diet should emphasize fruits, vegetables, whole grains, and fat-free or low-fat milk products. Di scuss the use of coffee, vitamin C, and cherries with your caregiver or dietitian. These may be helpful in lowering uric acid levels. Maintain a healthy body weight. SEEK MEDICAL CARE IF: You develop diarrhea, vomiting, or any side effects from medicines. You do not feel better in 24 hours, or you are getting worse. SEEK IMMEDIATE MEDICAL CARE IF: Your joint becomes suddenly more tender, and you have chills or a fever. MAKE SURE YOU: Understand these instructions. Will watch your condition. Will get help right away if you are not doing well or get worse. This information is not intended to replace advice given to you by your health care provider. Make sure you discuss any questions you have with your health care provider. Document Released: 08/21/2001 Document Revised: 09/14/2015 Document Reviewed: 06/05/2016 [employer] Patient Education 2016 [employer] No follow up information was provided. Extracted from: Title: Office Visit Note Author: Andrea Hernandez MD Date: 12/30/16 Assessment/Plan Acute gout Rx for Allopurinol 100mg daily. Information given on what to avoid in the diet. Ordered: Office Visit Level 4 Est 34621 Uric Acid Anemia,Anemia Ordered: CBC w/ Differential Occult Blood X 3, Stool Office Visit Level 4 Est 75093 Aortic stenosis Valve replacement. Ordered: Office Visit Level 4 Est 20996 COPD (chronic obstructive pulmonary disease) Onoxygen therapy. Ordered: Office Visit Level 4 Est 98947 Diabetes Blood sugars running high around 200-300. Though [id number] was 7.4%. Repeat in 3 months with lab. Ordered: Office Visit Level 4 Est 46582
--- OUTSIDE RECORDS SUMMARY | 2018-04-13 17:07 | External Medical Summary | Referral Summary ---
:1940 Author Organization [facility] [address] [place] [address] Care Team Providers Name Role Phone Hernandez Andrea Jennifer Primary Care Physician Encounter VC Date(s): 12/16/16 - 12/16/16 [facility] [address] [place] [phone] [place] Discharge Diagnosis: Diabetes Discharge Diagnosis: Pain of right great toe Discharge Diagnosis: Atrial fibrillation Discharge Diagnosis: CKD (chronic kidney disease) stage 1, GFR 90 ml/min or greater Discharge Diagnosis: Osteoarthritis Discharge Disposition: 01-Home or Self Care Attending Physician: Elodia Sotelo PA-C Vital Signs Most recent to oldest [Reference Range]: 1 Temperature Tympanic [36.6-38.1 degC] 36.3 degC *LOW* (12/16/16 1:02 PM) Peripheral Pulse Rate [60-100 bpm] 68 bpm (12/16/16 1:02 PM) Blood Pressure [90-140/60-90 mmHg] 138/60 mmHg (12/16/16 1:02 PM) SpO2 98 % (12/16/16 1:02 PM) Problem List Condition Effective Dates Status [...] At Risk for Infection in Nutrition Planof [id number] added automatically by system based on initiation of Fluid Volume Imbalance Plan of [id number] added automatically by system based on initiation of Impaired Gas Exchange Plan of [id number] added automatically by system based on initiation of Knowledge Deficit Plan of Care Allergies, Adverse Reactions, Alerts Substance Reaction Severity Status ciprofloxacin Adverse Reaction Active increased INR Medications ascorbic acid 1000 mg oral tablet 1,000 mg 1 tabs, Oral, Daily, 0 Refill(s) Start Date: 11/05/16 Status: OrderedAsmanex Twisthaler 30 Dose 220 mcg/inh inhalation aerosol powder See Instructions, USE 1 INHALATION DAILY AND RINSE MOUTH (DISCARD 45 DAYS AFTER OPENING), # 3 Each, 2 Refill(s), eRx: [facility], USE 1 INHALATION DAILY AND [...] BID, # 180 tabs, 2 Refill(s), Pharmacy: [facility], 1 tabs OralBID Start Date: 12/27/15 Status: Ordereddigoxin 125 mcg (0.125 mg) oral tablet See Instructions, TAKE 1 TABLET DAILY, # 90 tabs, 1 Refill(s), [facility]Rx: [facility] Start Date: 11/17/16 Status: Orderedferrous [...] BID, 0 Refill(s) Start Date: 11/05/16 Status: OrderedLevemir FlexPen 100 units/mL subcutaneous solution See Instructions, inject 30 UNITS SQ BID. Managed by Dr. Armenta., # 11 Each, 3 Refill(s), Pharmacy:[facility] Start Date: 02/29/16 Status: Orderedmagnesium oxide 400 mg, Oral, Daily, 0 Refill(s) Start Date: 11/03/14 Status: OrderedmetFORMIN 1000 mg oral tablet See Instructions, TAKE 1 TABLET DAILY, # 180 tabs, 1 Refill(s), [facility]Rx: [facility] Start Date: 12/02/16 Status: OrderedMetoprolol Tartrate 150 mg, Oral, BID, 0 Refill(s) Start Date: 11/05/16 Status: OrderedMiscellaneous DME DME Item Accu Check Tess Plus Test Strips Test blood sugars BID DX:250.00, See Instructions, # 200 Each, 3 Refill(s), Pharmacy: [facility], Accu Check Tess Plus Test Strips; Testblood sugars BID; DX:250.00, Supply Start Date: 11/14/14 Status: OrderedNorco 5 mg-325 mg oral tablet 1 tabs, Oral, BID, as needed for pain, # 30 tabs, 0 Refill(s) Start Date: 12/16/16 Status: Orderedomeprazole 40 mg oral delayed release capsule See Instructions, TAKE 1 CAPSULE DAILY, # 90 caps, 1 Refill(s), eRx: [facility], TAKE 1 CAPSULE DAILY Start Date: 09/15/16 Status: OrderedPortable oxygen concentrator with a shoulder bag Portable oxygen concentrator with a shoulder bag, See Instructions, DX:J44.9, # 1 Each, 0 Refill(s) Start Date: 12/12/16 Status: OrderedpredniSONE 10 mg oral tablet See Instructions, Take 4 tabs PO QD x 4 days, 3 tabs PO QD x 3 days, 2 tabs PO QD x 2 days, and 1 tab PO x 1, # 30 tabs, 0 Refill(s), Pharmacy: [facility] #[id number], Take 4 tabs PO QD x 4 days, 3 tabs PO QD x 3 days, 2 tabs PO QD x 2 days, and 1 t... Start Date: 12/16/16 Status: OrderedProAir HFA 90 mcg/inh inhalation aerosol 180 mcg 2 puffs, Inhalation, q4hr, as needed for wheezing, # 3 Each, 3 Refill(s) , Pharmacy: [facility] Start Date: 12/06/15 Status: OrderedProbiotic Formula (Bacillus Coagulans) oral capsule 1 caps, Oral, Daily, # 30 caps, 0 Refill(s) Start Date: 11/05/16 Status: Orderedpromethazine-codeine 6.25 mg-10 mg/5 mL oral syrup 5 mL, Oral, q4hr, as needed for cough, # 240 mL, 0 Refill(s) Start Date: 12/12/16 Stop Date: 12/23/16 Status: OrderedSpiriva 18 mcg inhalation capsule See Instructions, INHALE THE CONTENTS OF 1 CAPSULE DAILY, # 90 Each, 1 Refill(s) , eRx: [facility] Start Date: 09/26/16 Status: Orderedspironolactone 25 mg oral tablet 50 mg 2 tabs, Oral, Daily, # 30 tabs, 0 Refill(s) Start Date: 09/11/15 Status: OrderedStarlix 120 mg oral tablet 120 mg 1 tabs, Oral, TIDAC, # 270 tabs, 3 Refill(s), Pharmacy: [facility], 1 tabsOral TIDAC Start Date: [...] Refill(s) Start Date: 12/16/16 Status: Ordered Results Chemistry Most recent to oldest [Reference Range]: 1 Uric Acid [2.6-6.0 mg/dL] 11.3 mg/dL *HI* (12/16/16 1:45 PM) Immunizations Given and Recorded Vaccine Date Status Refusal Reason influenza virus vaccine, inactivated 10/28/16 Given influenza virus vaccine, inactivated 06/29/15 Given influenza virus vaccine, inactivated1 06/09/14 Recorded influenza virus vaccine, live 05/27/13 Given pneumococcal 13-valent conjugate vaccine 06/29/15 Given pneumococcal 13-valent conjugate vaccine2 05/27/13 Given pneumococcal 23-polyvalent vaccine 05/27/13 Given zoster vaccine live 05/27/13 Given 1Location History: See scanned [id number] Comment: [05/08/2015 Uncharted] Uploaded in Error - [...] age.2tubular adenoma at hepatic flexure repeat 5 [id number] bx w/chronic inflammation and atypia, duodenal lesion showing tubular adenoma repeat 5 [id number] has had several heart caths w stents placed Social History Social History Type Response Smoking Status Former smoker; Type: Cigarettes1 1Smoked for apprx. 50 years x one pack Assessment and Plan Extracted from: Title: Office Visit Note- R Great Toe Author: Elodia Sotelo PA-C Date : 12/16/16 Pain Assessment/Plan Atrial fibrillation On Warfarin. Cannot take NSAID's. See below. Ordered: Office Visit Level 4 Est 67384 CKD (chronic kidney disease) stage 1, GFR 90 ml/min or greater No NSAID's. See below. Ordered: Office Visit Level 4 Est 86027 Diabetes Prednisone will elevate BG levels. Monitor. [place]. Ordered: Office Visit Level 4 Est 01577 Osteoarthritis Has diffuse OA. Will check x-ray of the foot today as well as below plan. Ordered: Office Visit Level 4 Est 63521 Pain of right great toe Concerning for gout. Will obtain Uric Acid level today. Also will get x-ray as well to look for any fx or OA. She is not able to take any NSAID's d/t her CKD and Warfarin use. I did provide her with a script for [place] to use if needed for severe pain. Warned about drowsiness and constipation. I would like to wait to start her on any gout medication until level returns as she is already on several m edications. Will try prednisone at this time for the inflammation. Did warn pt that it will cause elevation in BG levels. May continue to ice the foot as well. Ordered: HYDROcodone-acetaminophen, 1 tabs, Oral, BID, as needed for pain, # 30 tabs , 0 Refill(s) predniSONE, See Instructions, Take 4 tabs PO QD x 4 days, 3 tabs PO QD x 3 days, 2 tabs PO QD x 2 days, and 1 tab PO x 1, # 30 tabs, 0 Refill(s), Pharmacy : [facility] #[id number], Take 4 tabs PO QD x 4 days, 3 tabs PO QD x 3 days, 2 tabs PO QD x 2 days, and 1 t... Office Visit Level 4 Est 32967 Uric Acid XR Toes Great Right Extracted from: Title: Ambulatory Patient Education Author: Elodia Sotelo PA-C Date: Preventive Health Low-Purine Diet Purines are compounds that affect the level of uric acid in your body. A low- purine diet is a diet that is low in purines. Eating a low-purine diet can prevent the level of uric acid in your body from g etting too high and causing gout or kidney stones or both. WHAT DO I NEED TO KNOW ABOUT THIS DIET? Choose low-purine foods. Examples of low-purine foods are listed in the next section. Drink plenty of fluids, especially water. Fluids can help remove uric acid from your body. Try to drink 8 16 cups (1.9 3.8 L) a day. Limit foods high in fat, especially saturated fat, as fat makes it harder for the body to get rid of uric acid. Foods high in saturated fat include pizza, cheese, ice cream, whole milk, fried foods, and gravies. Choose foods that are lower in fat and lean sources of protein. Use olive oil when cooking as it contains healthy fats that are not high in saturated fat. Limit alcohol. Alcohol interferes with the elimination of uric acid from your body. If you are having a gout attack, avoid all alcohol. Keep in mind that different people's bodies react differently to different foods. You will probably learn over time which foods do or do not affect you. If you discover that a food tends to cause yo ur gout to flare up, avoid eating that food. You can more freely enjoy foods that do not cause problems. If you have any questions about a food item, talk to your dietitian or health care provider. WHICH FOODS ARE LOW, MODERATE, AND HIGH IN PURINES? The following is a list of foods that are low, moderate, and high in purines. You can eat any amount of the foods that are low in purines. You may be able to have small amounts of foods that are moderat e in purines. Ask your health care provider how much of a food moderate in purines you can have. Avoid foods high in purines. Grains Foods low in purines: Enriched white bread, pasta, rice, cake, cornbread, popcorn. Foods moderate in purines: Whole-grain breads and cereals, wheat germ, bran, oatmeal. Uncooked oatmeal. Dry wheat bran or wheat germ. Foods high in purines: Pancakes, Czech toast, biscuits, muffins. Vegetables Foods low in purines: All vegetables, except those that are moderate in purines. Foods moderate in purines: Asparagus, cauliflower, spinach, mushrooms, green peas. Fruits All fruits are low in purines. Meats and other Protein Foods Foods low in purines: Eggs, nuts, peanut butter. Foods moderate in purines: 80 90% lean beef, rome, veal, pork, poultry, fish, eggs, peanut butter, nuts. Crab , lobster, oysters, and shrimp. Cooked dried beans, peas, and lentils. Foods high in purines: Anchovies, sardines, joseph, mussels, tuna, codfish, scallops, trout, and alyx. Tompkins. Organ meats (such as liver or kidney). Tripe. Game meat. Goose. Sweetbreads. Dairy All dairy foods are low in purines. Low-fat and fat-free dairy products are best because they are low in saturated fat. Beverages Drinks low in purines: Water, carbonated beverages, tea, coffee, cocoa. Drinks moderate in purines: Soft drinks and other drinks sweetened with high- fructose corn syrup. Juices. To find whether a food or drink is sweetened with high-fructose corn syrup, look at the ingredients list. Drinks high in purines: Alcoholic beverages (such as beer). Condiments Foods low in purines: Salt, herbs, olives, pickles, relishes, vinegar. Foods moderate in purines: Butter, margarine, oils, mayonnaise. Fats and Oils Foods low in purines: All types, except gravies and sauces made with meat. Foods high in purines: Gravies and sauces made with meat. Other Foods Foods low in purines: Sugars, sweets, gelatin. Cake. Soups made without meat. Foods moderate in purines: Meat-based or fish-based soups, broths, or bouillons. Foods and drinks sweetened with high-fructose corn syrup. Foods high in purines: High-fat desserts (such as ice cream, cookies, cakes, pies, doughnuts, and chocolate). Contact your dietitian for more information on foods that are not listed here. This information is not intended to replace advice given to you by your health care provider. Make sure you discuss any questions you have with your health care provider. Document Released: 12/19/2011 Document Revised: 08/29/2014 Document Reviewed: 07/31/2014 [employer] Patient Education 2016 [employer] Rheumatology Gout Gout is an inflammatory [...] This raises uric acid levels. Only take poar-yua-coftulk or prescription medicines for pain, discomfort, or [...] 08/21/2001 Document Revised: 09/14/2015 Document Reviewed: 06/05/2016 [employer] Interactive Patient Education 2016 [employer] No follow up information was provided.
--- OUTSIDE RECORDS SUMMARY | 2018-04-13 17:07 | External Medical Summary | Clinical Summary ---
:1940 Author Organization [facility] Address [address] [place] [id number] Care Team Providers Name Role Phone Unavailable [...] (MYNOR-C) 1000-50 MG by mouth daily. TABS [place]-3 Fatty Acids Take 1,000 mg Active (FISH [...] 600 PO) by mouth every evening. 2 [id number] mg Cholecalciferol (VITAMIN Take 2,000 Active D) 1000 UNITS TABS Units by mouth daily. 2 [id number] units mometasone (ASMANEX) 220 Inhale 1 puff [...] Problems Problem Noted Date Acute respiratory failure ([facility]) 01/26/2013 Flash pulmonary edema ([facility]) 01/26/2013 CHF (congestive heart failure) ([facility]) 01/26/2013 Overview: Acute on chronic ? EF COPD (chronic obstructive pulmonary disease) ([facility]) 01/26/2013 ARF (acute renal failure) ([facility]) 01/26/2013 DM (diabetes mellitus) ([facility]) 01/26/2013 HTN (hypertension) 01/26/2013 Dyslipidemia 01/26/2013 Elevated [...] Vaccine (RZV,Shingrix) (1 of 2 - 1989 [facility] 2 Dose Standard) Pneumo-Adult (2 of 2 - PCV13) 07/15/2009 07/15/2008 Results Not on filefrom Last 3 Months
--- OUTSIDE RECORDS SUMMARY | 2018-04-13 17:08 | External Medical Summary | Referral Summary ---
:1940 Author Organization [facility] [address] [place] [address] Care Team Providers Name Role Phone Andrea Hernandez Primary Care Physician Encounter VC Date(s): 12/12/16 - 12/12/16 [facility] [address] [place] [phone] [place] Discharge Diagnosis: COPD with acute exacerbation Discharge Diagnosis: Cough Discharge Diagnosis: Diabetes Discharge Disposition: 01-Home or Self Care Attending Physician: Andrea Hernandez MD Vital Signs Most recent to oldest [Reference Range]: 1 Temperature Tympanic [36.6-38.1 degC] 36.7 degC (12/12/16 11:27 AM) Blood Pressure [90-140/60-90 mmHg] 146/60 mmHg *HI* (12/12/16 11:27 AM) Problem List Condition Effective Dates Status [...] At Risk for Infection in Nutrition Planof [id number] added automatically by system based on initiation of Fluid Volume Imbalance Plan of [id number] added automatically by system based on initiation of Impaired Gas Exchange Plan of [id number] added automatically by system based on initiation [...] # 180 tabs, 2 Refill(s), [facility]acy: [facility], 1 tabs OralBID Start Date: [...] 100 units/mL subcutaneous solution See Instructions, inject 25u SQ BID. Managed by Dr. Armenta., # 11 Each, 3 Refill(s), [facility]acy: [facility] Start Date: 02/29/16 Status: Orderedmagnesium oxide 400 mg, Oral, Daily, 0 Refill(s) Start Date: 11/03/14 Status: OrderedmetFORMIN 1000 mg oral tablet See Instructions, TAKE 1 TABLET TWICE A DAY, # 180 tabs, 1 Refill(s), eRx: [facility], TAKE 1 TABLET TWICE A DAY Start Date: 12/02/16 Status: OrderedMetoprolol Tartrate 150 mg, Oral, BID, 0 Refill(s) Start Date: 11/05/16 Status: OrderedMiscellaneous DME DME Item Accu Check Tess Plus Test Strips Test blood sugars BID DX:250.00, See Instructions, # 200 Each, 3 Refill(s), Pharmacy: [facility], Accu Check Tess Plus Test Strips; Testblood sugars BID; DX:250.00, Supply Start Date: 11/14/14 Status: Orderedomeprazole 40 mg oral delayed release capsule See Instructions, TAKE 1 CAPSULE DAILY, # 90 caps, 1 Refill(s), eRx: [facility], TAKE 1 CAPSULE DAILY Start Date: 09/15/16 Status: OrderedPortable oxygen concentrator with a shoulder bag Portable oxygen concentrator with a shoulder bag, See Instructions, DX:J44.9, # 1 Each, 0 Refill(s) Start Date: 12/12/16 Status: OrderedProAir HFA 90 mcg/inh inhalation aerosol See Instructions, USE 2 INHALATIONS EVERY 4 HOURS NEEDED FOR WHEEZING, # 25.5 g, 2 Refill(s), eRx: [facility], USE 2 INHALATIONS EVERY 4 HOURS NEEDED FOR WHEEZING Start Date: 11/11/16 Status: OrderedProAir HFA 90 mcg/inh inhalation aerosol 180 mcg 2 puffs, Inhalation, q4hr, as needed for wheezing, # 3 Each, 3 Refill(s) , Pharmacy: [facility] Start Date: 12/06/15 Status: OrderedProbiotic [...] # 90 Each, 1 Refill(s) , eRx: [facility] Start Date: 09/26/16 Status: Orderedspironolactone 25 mg oral tablet 50 mg 2 tabs, Oral, Daily, # 30 tabs, 0 Refill(s) Start Date: 09/11/15 Status: OrderedStarlix 120 mg oral tablet 120 mg 1 tabs, Oral, TIDAC, # 270 tabs, 3 Refill(s), Pharmacy: [facility], 1 tabsOral TIDAC Start Date: [...] 0 Refill(s) Start Date: 11/03/14 Status: Ordered Results Hematology Most recent to oldest [Reference Range]: 1 WBC [4.8-10.8 10*3/uL] 9.6 10*3/uL (12/12/16 11:58 AM) RBC [4.00-5.20] 3.65 *LOW* (4/7/17 11:58 AM) Hgb [12.0-16.0 gm/dL] 10.8 gm/dL *LOW* (12/12/16 11:58 AM) Hct [37.0-47.0 %] 34.3 % *LOW* (12/12/16 11:58 AM) MCV [82.0-99.0 fL] 94.0 fL (12/12/16:58 AM) MCH [27.0-32.0 pg] 29.6 pg (12/12/16 11:58 AM) MCHC [32.0-36.0 gm/dL] 31.5 gm/dL *LOW* (12/12/16 11:58 AM) RDW [11.5-14.5 %] 14.5 % (12/12/16 11:58 AM) Platelet [150-400 10*3/uL] 230 10*3/uL (12/12/16 11:58 AM) MPV [8.8-14.8 fL] 11.1 fL (12/12/16 11:58 AM) Immature Granulocytes [0.0-1.0 %] 0.8 % (12/12/16 11:58 AM) Neutrophils [51-75 %] 77 % *HI* (12/12/16 11:58 AM) Lymphocytes [20-46 %] 10 % *LOW* (12/12/16 11:58 AM) Monocytes [4-11 %] 10 % (12/12/16 11:58 AM) Eosinophils [0-4 %] 2 % (12/12/16 11:58 AM) Basophils [0-2 %] 1 % (12/12/16 11:58 AM) Neutro Absolute [1.90-7.00] 7.40 *HI* (12/12/16 11:58 AM) Lymph Absolute [0.80-3.30] 0.91 (12/12/16 11:58 AM) [place] Absolute [0.30-1.00] 0.94 (12/12/16 11:58 AM) Eos Absolute [0.00-0.50] 0.23 (12/12/16 11:58 AM) Baso Absolute [0.00-0.20] 0.06 (12/12/16 11:58 AM) Chemistry Most recent to oldest [Reference Range]: 1 Hgb A1c [4.1-5.6 %] 7.4 % *HI* (12/12/16 11:58 AM) eAvg Glucose 165.7 mg/dL (12/12/16 11:58 AM) Immunizations Given and Recorded Vaccine Date Status Refusal Reason influenza virus vaccine, inactivated 10/28/16 Given influenza virus vaccine, inactivated 06/29/15 Given influenza virus vaccine, inactivated1 06/09/14 Recorded influenza virus vaccine, live 05/27/13 Given pneumococcal 13-valent conjugate vaccine 06/29/15 Given pneumococcal 13-valent conjugate vaccine2 05/27/13 Given pneumococcal 23-polyvalent vaccine 05/27/13 Given zoster vaccine live 05/27/13 Given 1Location History: See scanned [id number] Comment: [05/08/2015 Uncharted] Uploaded in Error - [...] age.2tubular adenoma at hepatic flexure repeat 5 [id number] bx w/chronic inflammation and atypia, duodenal lesion showing tubular adenoma repeat 5 [id number] has had several heart caths w stents placed Social History Social History Type Response Smoking Status Former smoker; Type: Cigarettes1 1Smoked for apprx. 50 years x one pack Assessment and Plan Extracted from: Title: Ambulatory Patient Education Author: Andrea Hernandez MD Date: 12/12/16 Home Health Care Chronic Obstructive Pulmonary Disease Exacerbation Chronic obstructive pulmonary disease (COPD) is a common lung condition in which airflow from the lungs is limited. COPD is a general term that can be used to describe many different lung problems that limit airflow, including chronic bronchitis and emphysema. COPD exacerbations are episodes when breathing symptoms become much worse and require extra treatment. Without treatment, COPD exacerbations ca n be life threatening, and frequent COPD exacerbations can cause further damage to your lungs. CAUSES Respiratory infections. Exposure to smoke. Exposure to air pollution, chemical fumes, or dust. Sometimes there is no apparent cause or trigger. RISK FACTORS Smoking cigarettes. Older age. Frequent prior COPD exacerbations. SIGNS AND SYMPTOMS Increased coughing. Increased thick spit (sputum) production. Increased wheezing. Increased shortness of breath. Rapid breathing. Chest tightness. DIAGNOSIS Your medical history, a physical exam, and tests will help your health care provider make a diagnosis. Tests may include: A chest X-ray. Basic lab tests. Sputum testing. An arterial blood gas test. TREATMENT Depending on the severity of your COPD exacerbation, you may need to be admitted to a hospital for treatment. Some of the treatments commonly used to treat COPD exacerbations are: Antibiotic medicines. Bronchodilators. These are drugs that expand the air passages. They may be given with an inhaler or nebulizer. Spacer devices may be needed to help improve drug delivery. Corticosteroid medicines. Supplemental oxygen therapy. Airway clearing techniques, such as noninvasive ventilation (NIV) and positive expiratory pressure (PEP). These provide respiratory support through a mask or other noninvasive device. HOME CARE INSTRUCTIONS Do not smoke. Quitting smoking is very important to prevent COPD from getting worse and exacerbations from happening as often. Avoid exposure to all substances that irritate the airway, especially to tobacco smoke. If you were prescribed an antibiotic medicine, finish it all even if you start to feel better. Take all medicines as directed by your health care provider.It is important to use correct technique with inhaled medicines. Drink enough fluids to keep your urine clear or pale yellow (unless you have a medical condition that requires fluid restriction). Use a cool mist vaporizer. This makes it easier to clear your chest when you cough. If you have a home nebulizer and oxygen, continue to use them as directed. Maintain all necessary vaccinations to prevent infections. Exercise regularly. Eat a healthy diet. Keep all follow-up appointments as directed by your health care provider. SEEK IMMEDIATE MEDICAL CARE IF: You have worsening shortness of breath. You have trouble talking. You have severe chest pain. You have blood in your sputum. You have a fever. You have weakness, vomit repeatedly, or faint. You feel confused. You continue to get worse. MAKE SURE YOU: Understand these instructions. Will watch your condition. Will get help right away if you are not doing well or get worse. This information is not intended to replace advice given to you by your health care provider. Make sure you discuss any questions you have with your health care provider. Document Released: 06/20/2008 Document Revised: 09/14/2015 Document Reviewed: 04/28/2014 [employer] Interactive Patient Education 2016 [employer] No follow up information was provided. Extracted from: Title: Office Visit Note Author: Andrea Hernandez MD Date: 12/12/16 Assessment/Plan 1.COPD with acute exacerbation Z-pack and Phenergan with codeine. Fluid and rest. Ordered: Office Visit Level 4 Est 88538 Cough,Cough as above Ordered: CBC w/ Differential Office Visit Level 4 Est 33742 Diabetes,Diabetes Increase the Levemir to 30units bid and call report in one week. Ordered: Hemoglobin A1c Office Visit Level 4 Est 28938
--- OUTSIDE RECORDS SUMMARY | 2018-04-13 17:08 | External Medical Summary | Referral Summary ---
:1940 Author Organization [facility] [place] [place] [phone] Care Team Providers Name Role Phone Vasile Waller Primary Care Physician Encounter VC Date(s): 04/29/17 - 04/29/17 [facility] [place] [phone] Discharge Diagnosis: CHF (congestive heart failure) Discharge Diagnosis: CKD (chronic kidney disease) stage 1, GFR 90 ml/min or greater Discharge Diagnosis: Diabetes mellitus, type 2 Discharge Diagnosis: COPD (chronic obstructive pulmonary disease) Discharge Disposition: 01-Home or Self Care Attending Physician: Vasile Waller MD Admitting Physician: Vasile Waller MD Vital Signs Most recent to oldest [Reference Range]: 1 Temperature Tympanic [36.6-38.1 degC] 36.4 degC *LOW* (04/29/17 11:04 AM) Peripheral Pulse Rate [60-100 bpm] 88 bpm (04/29/17 11:04 AM) Respiratory Rate [14-20 br/min] 28 br/min *HI* (04/29/17 11:04 AM) Blood Pressure [90-140/60-90 mmHg] 142/74 mmHg *HI* (04/29/17 11:04 AM) SpO2 98 % (04/29/17 11:04 AM) Problem List Condition Effective Dates Status [...] At Risk for Infection in Nutrition Planof [id number] added automatically by system based on initiation of Fluid Volume Imbalance Plan of [id number] added automatically by system based on initiation of Impaired Gas Exchange Plan of [id number] added automatically by system based on initiation of Knowledge Deficit Plan of Care Allergies, Adverse Reactions, Alerts Substance Reaction Severity Status ciprofloxacin Adverse Reaction Active increased INR Medications allopurinol 100 mg oral tablet 100 mg 1 tabs, Oral, Daily, 90 day supply, # 90 tabs, 0 Refill(s), Pharmacy: [facility] #[id number], 1 tabs Oral Daily,Instr:90 day supply Start Date: 03/13/17 Status: Orderedascorbic acid 1000 mg oral tablet 1,000 mg 1 tabs, Oral, Daily, 0 Refill(s) Start Date: 11/05/16 Status: OrderedAsmanex Twisthaler 30 Dose 220 mcg/inh inhalation aerosol powder See Instructions, USE 1 INHALATION DAILY AND RINSE MOUTH (DISCARD 45 DAYS AFTER OPENING) INVOICE: [id number], # 3 Each, 2 Refill(s), Pharmacy: [facility] Start Date: 03/18/17 Status: Orderedatorvastatin 40 mg oral tablet 40 mg 1 tabs, Oral, Daily, MEMBER # [id number], # 90 tabs, 0 Refill(s), Pharmacy: [facility], 1 tabs Oral Daily,Instr:MEMBER # [id number] Start Date: 03/13/17 Status: Orderedbumetanide 2 mg oral tablet 4 mg 2 tabs, Oral, BID, 0 Refill(s) Start Date: 11/05/16 Status: OrderedCarafate 1 g oral tablet 1 g 1 tabs, Oral, BID, MEMBER # [id number], # 180 tabs, 0 Refill(s), Pharmacy : [facility], 1 tabs Oral BID,Instr:MEMBER # [id number] Start Date: 03/13/17 Status: Ordereddigoxin 125 mcg (0.125 mg) oral tablet 125 mcg 1 tabs, Oral, Daily, MEMBER # [id number], # 90 tabs, 0 Refill(s), Pharmacy: [facility], 1 tabs Oral Daily,Instr:MEMBER # [id number] Start Date: 03/13/17 Status: Orderedferrous sulfate 325 mg (65 mg elemental iron) oral tablet 325 mg 1 tabs, Oral, Daily, 0 Refill(s) Start Date: 12/13/15 Status: Orderedfolic acid 1 mg oral tablet 1 mg 1 tabs, Oral, Daily, # 90 tabs, 0 Refill(s) Start Date: 09/19/16 Status: Orderedgabapentin 100 mg oral capsule 100 mg 1 caps, Oral, BID, MEMBER # [id number], # 60 caps, 0 Refill(s), Pharmacy: [facility], 1 caps Oral BID,Instr:MEMBER # [id number] Start Date: 03/13/17 Status: OrderedHumaLOG KwikPen 100 units/mL subcutaneous solution 20 units, SubCutaneous, TIDAC, SAMPLES GIVEN 15 minutes before or immediately after a meal, # 9 cartridges, 3 Refill(s), Pharmacy: [facility], 20 units SubCutaneous TIDAC,Instr:SAMPLES GIVEN; 15 minutes before or immediately after... Start Date: 04/29/17 Status: OrderedLevemir FlexPen 100 units/mL subcutaneous solution 38 units, SubCutaneous, BID, Managed by Dr. Armenta., 0 Refill(s) Start Date: 01/19/17 Status: Orderedmagnesium oxide 400 mg, Oral, Daily, 0 Refill(s) Start Date: 11/03/14 Status: OrderedmetFORMIN 1000 mg oral tablet 1,000 mg 1 tabs, Oral, BID, MEMBER # [id number], # 180 tabs, 0 Refill(s), Pharmacy: [facility], 1 tabs Oral BID,Instr:MEMBER # [id number] Start Date: 03/13/17 Status: OrderedMetoprolol Tartrate 150 mg, Oral, BID, 0 Refill(s) Start Date: 11/05/16 Status: OrderedNorco 5 mg-325 mg oral tablet 1 tabs, Oral, BID, as needed for pain, # 30 tabs, 0 Refill(s) Start Date: 12/16/16 Status: Orderedomeprazole 40 mg oral delayed release capsule 40 mg 1 caps, Oral, Daily, MEMBER # [id number], # 90 caps, 0 Refill(s), Pharmacy: [facility], 1 caps Oral Daily,Instr:MEMBER # [id number] Start Date: 03/13/17 Status: OrderedProAir HFA 90 mcg/inh inhalation aerosol 180 mcg 2 puffs, Inhalation, q4hr, as needed for wheezing, # 3 Each, 3 Refill(s) , Pharmacy: [facility] Start Date: 12/06/15 Status: OrderedProbiotic [...] CONTENTS OF 1 CAPSULE DAILY MEMBER # [id number] , # 90 Each, 1 Refill(s), Pharmacy: [facility], INHALE THE CONTENTS OF 1 CAPSULE DAILY; MEMBER # [id number] Start Date: 03/13/17 Status: Orderedspironolactone 25 mg oral tablet See Instructions, TAKE 1 TABLET TWICE A DAY MEMBER # [id number], # 180 tabs, 0 Refill(s), Pharmacy: [facility], TAKE 1 TABLET TWICE A DAY ; MEMBER # [id number] Start Date: 03/18/17 Status: OrderedVitamin B12 1,000 mcg, 0 Refill(s) Start Date: 04/29/16 Status: OrderedVitamin D3 5000 intl units oral tablet 5,000 Intl_Units 1 tabs, Oral, Daily, 0 Refill(s) Start Date: 11/05/16 Status: Orderedwarfarin 5 mg, Oral, Thursday, 0 Refill(s) Start Date: 11/03/14 Status: Orderedwarfarin 2.5 mg, Oral, Thursday, Thursday, , Thursday, Thursday, Thursday, 0 Refill(s) Start Date: 11/03/14 Status: Ordered Results Chemistry Most recent to oldest [Reference Range]: 1 Sodium Lvl [135-144 mEq/L] 135 mEq/L (04/29/17 11:52 AM) Potassium Lvl [3.5-5.2 mEq/L] 4.9 mEq/L (04/29/17 11:52 AM) Chloride [99-111 mEq/L] 91 mEq/L *LOW* (04/29/17 11:52 AM) CO2 [22-31 mEq/L] 32 mEq/L *HI* (04/29/17 11:52 AM) AGAP [3-20 mEq/L] 12 mEq/L (04/29/17 11:52 AM) BUN [10-20 mg/dL] 40 mg/dL *HI* (04/29/17 11:52 AM) Glucose Lvl [70-99 mg/dL] 238 mg/dL *HI* (04/29/17 11:52 AM) Creatinine Lvl [0.57-1.11 mg/dL] 1.67 mg/dL *HI* (04/29/17 11:52 AM) eGFR [>60 mL/min] 30 mL/min 1 *ABN* (04/29/17 11:52 AM) Calcium Lvl [8.4-10.2 mg/dL] 10.4 mg/dL *HI* (04/29/17 11:52 AM) 1Result Comment: Multiply eGFR results by 1.21 for race. Immunizations Given and Recorded Vaccine Date Status Refusal Reason influenza virus vaccine, inactivated 10/28/16 Given influenza virus vaccine, inactivated 06/29/15 Given influenza virus vaccine, inactivated1 06/09/14 Recorded pneumococcal 13-valent conjugate vaccine 06/29/15 Given pneumococcal 13-valent conjugate vaccine2 05/27/13 Given pneumococcal 23-polyvalent vaccine 05/27/13 Given zoster vaccine live 05/27/13 Given influenza virus vaccine, live 05/27/13 Given 1Location History: See scanned [id number] Comment: [05/08/2015 Uncharted] Uploaded in Error - [...] age.2tubular adenoma at hepatic flexure repeat 5 [id number] bx w/chronic inflammation and atypia, duodenal lesion showing tubular adenoma repeat 5 [id number] has had several heart caths w stents placed Social History Social History Type Response Smoking Status Former smoker; Type: Cigarettes1 1Smoked for apprx. 50 years x one pack Assessment and Plan Extracted from: Title: Ambulatory Patient Education Author: Vasile Waller MD Date: 04/29 Syib-mv-[id number] Chronic Kidney Disease Chronic kidney disease happens when the kidneys are damaged over a long period. The kidneys are two organs that do many important jobs in the body. These jobs include: Removing wastes and extra fluids from the blood. Making hormones that help to keep the body healthy. Making sure that the body has the right amount of fluids and chemicals. Chronic kidney disease may be caused by many things. The kidney damage occurs slowly. If too much damage occurs, the kidneys may stop working the way that they should. This is dangerous. Treatment can h elp to slow down the damage and keep it from getting worse. HOME CARE Follow your diet as told by your doctor. You may need to limit the amount of salt (sodium) and protein that you eat each day. Take medicines only as told by your doctor. Do not take any new medicines unless your doctor approves it. Quit smoking if you smoke. Talk to your doctor about programs that may help you quit smoking. Have your blood pressure checked regularly and keep track of the results. Start or keep doing an exercise plan. Get shots (immunizations) as told by your doctor. Take vitamins and minerals as told by your doctor. Keep all follow-up visits as told by your doctor. This is important. GET HELP RIGHT AWAY IF: Your symptoms get worse. You have new symptoms. You have symptoms of end-stage kidney disease. These include: Headaches. Skin that is darker or belt knife feeder than normal. Numbness in the hands or feet. Easy bruising. Frequent hiccups. Stopping of menstrual periods in women. You have a fever. You are making very little pee (urine). You have pain or bleeding when you pee. This information is not intended to replace advice given to you by your health care provider. Make sure you discuss any questions you have with your health care provider. Document Released: 11/18/2010 Document Revised: 05/14/2016 Document Reviewed: 04/22/2013 [employer] Interactive Patient Education 2016 [employer] No follow up information was provided. Extracted from: Title: Office Visit Note Author: Vasile Waller MD Date: 04/29/17 1.CHF (congestive heart failure) Overall this appears stable, no signs of increased congestion. She is euvolemic. No change in current treatment. Ordered: Basic Metabolic Panel Office Visit Level 4 Est 29052 2.CKD (chronic kidney disease) stage 1, GFR 90 ml/min or greater We will check BMP today and see where her BUN and creatinine areintact. She'll continue her currentmedications. Ordered: Basic Metabolic Panel Office Visit Level 4 Est 66274 3.Diabetes mellitus, type 2 Increase Humalog to 20 units 3 times a day with mealsif no improvement in the next weekincrease to 25 units 3 times a day. We discussed insulin resistance and the importance ofgetting the sugars down with a need to be. Ordered: Basic Metabolic Panel Office Visit Level 4 Est 57728 4.COPD (chronic obstructive pulmonary disease) Chronic and stable she seems to be doingwell with the recent upper respiratory infection she's had no change in current treatment. Ordered: Office Visit Level 4 Est 50557
--- OUTSIDE RECORDS SUMMARY | 2018-04-13 17:08 | External Medical Summary | Referral Summary ---
:1940 Author Organization [facility] [place] [place] [address] Care Team Providers Name Role Phone Vasile Waller Primary Care Physician Encounter VC Date(s): 06/01/17 - 06/01/17 [facility] [place] [place] [phone] [place] Discharge Diagnosis: Atrial fibrillation Discharge Diagnosis: PVD (peripheral vascular disease) Discharge Diagnosis: CHF (congestive heart failure) Discharge Diagnosis: Diabetes mellitus, type 2 Discharge Diagnosis: COPD (chronic obstructive pulmonary disease) Discharge Diagnosis: CKD (chronic kidney disease) stage 1, GFR 90 ml/min or greater Discharge Diagnosis: Acute bronchitis Discharge Disposition: 01-Home or Self Care Attending Physician: Vasile Waller MD Admitting Physician: Vasile Waller MD Vital Signs Most recent to oldest [Reference Range]: 1 Temperature Tympanic [36.6-38.1 degC] 36.6 degC (06/01/17 11:09 AM) Peripheral Pulse Rate [60-100 bpm] 92 bpm (06/01/17 11:09 AM) Respiratory Rate [14-20 br/min] 18 br/min (06/01/17 11:09 AM) Blood Pressure [90-140/60-90 mmHg] 130/64 mmHg (06/01/17 11:09 AM) SpO2 94 % (06/01/17 11:09 AM) Problem List Condition Effective Dates Status [...] At Risk for Infection in Nutrition Planof [id number] added automatically by system based on initiation of Fluid Volume Imbalance Plan of [id number] added automatically by system based on initiation of Impaired Gas Exchange Plan of [id number] added automatically by system based on initiation of Knowledge Deficit Plan of Care Allergies, Adverse Reactions, Alerts Substance Reaction Severity Status ciprofloxacin increased INR Active Adverse Reaction Medications allopurinol 100 mg oral tablet 100 mg 1 tabs, Oral, Daily, 90 day supply, # 90 tabs, 0 Refill(s), Pharmacy: [facility] #[id number], 1 tabs Oral Daily,Instr:90 day supply Start Date: 03/13/17 Status: Orderedascorbic acid 1000 mg oral tablet 1,000 mg 1 tabs, Oral, Daily, 0 Refill(s) Start Date: 11/05/16 Status: OrderedAsmanex Twisthaler 30 Dose 220 mcg/inh inhalation aerosol powder See Instructions, USE 1 INHALATION DAILY AND RINSE MOUTH (DISCARD 45 DAYS AFTER OPENING) INVOICE: [id number], # 3 Each, 2 Refill(s), Pharmacy: [facility] Start Date: 03/18/17 Status: Orderedatorvastatin 40 mg oral tablet 40 mg 1 tabs, Oral, Daily, MEMBER # [id number], # 90 tabs, 0 Refill(s), Pharmacy: [facility], 1 tabs Oral Daily,Instr:MEMBER # [id number] Start Date: 03/13/17 Status: Orderedbumetanide 2 mg oral tablet 4 mg 2 tabs, Oral, BID, 0 Refill(s) Start Date: 11/05/16 Status: OrderedCeftin 500 mg oral tablet 500 mg 1 tabs, Oral, BID, X 10 days, # 20 tabs, 0 Refill(s), Pharmacy: [facility] #[id number], 1 tabs Oral BID,x10 days Start Date: 06/01/17 Stop Date: 06/11/17 Status: Ordereddigoxin 125 mcg (0.125 mg) oral tablet 125 mcg 1 tabs, Oral, Daily, MEMBER # [id number], # 90 tabs, 0 Refill(s), Pharmacy: [facility], 1 tabs Oral Daily,Instr:MEMBER # [id number] Start Date: 03/13/17 Status: Orderedferrous sulfate 325 mg (65 mg elemental iron) oral tablet 325 mg 1 tabs, Oral, Daily, 0 Refill(s) Start Date: 12/13/15 Status: Orderedfolic acid 1 mg oral tablet 1 mg 1 tabs, Oral, Daily, # 90 tabs, 0 Refill(s) Start Date: 09/19/16 Status: Orderedgabapentin 100 mg oral capsule 100 mg 1 caps, Oral, BID, MEMBER # [id number], # 60 caps, 0 Refill(s), Pharmacy: [facility], 1 caps Oral BID,Instr:MEMBER # [id number] Start Date: 05/08/17 Status: OrderedHumaLOG KwikPen 100 units/mL subcutaneous solution [...] mg 1 tabs, Oral, BID, MEMBER # [id number], # 180 tabs, 0 Refill(s), Pharmacy: [facility], 1 tabs Oral BID,Instr:MEMBER # [id number] Start Date: 03/13/17 Status: OrderedMetoprolol Tartrate 150 mg, Oral, BID, 0 Refill(s) Start Date: 11/05/16 Status: OrderedNorco 5 mg-325 mg oral tablet 1 tabs, Oral, BID, as needed for pain, # 30 tabs, 0 Refill(s) Start Date: 12/16/16 Status: Orderedomeprazole 40 mg oral delayed release capsule See Instructions, TAKE 1 CAPSULE DAILY, # 90 caps, 3 Refill(s), eRx: [facility] Start Date: 06/01/17 Status: OrderedProAir HFA 90 mcg/inh inhalation aerosol 180 mcg 2 puffs, Inhalation, q4hr, as needed for wheezing, # 3 Each, 3 Refill(s) , Pharmacy: [facility] Start Date: 12/06/15 Status: OrderedProbiotic Formula (Bacillus Coagulans) oral capsule 1 caps, Oral, Daily, # 30 caps, 0 Refill(s) Start Date: 11/05/16 Status: OrderedSpiriva 18 mcg inhalation capsule See Instructions, INHALE THE CONTENTS OF 1 CAPSULE DAILY MEMBER # [id number] , # 90 Each, 1 Refill(s), Pharmacy: [facility], INHALE THE CONTENTS OF 1 CAPSULE DAILY; MEMBER # [id number] Start Date: 03/13/17 Status: Orderedspironolactone 25 mg oral tablet See Instructions, TAKE 1 TABLET TWICE A DAY MEMBER # [id number], # 180 tabs, 0 Refill(s), Pharmacy: [facility], TAKE 1 TABLET TWICE A DAY ; MEMBER # [id number] Start Date: 03/18/17 Status: Orderedsucralfate 1 g oral tablet See Instructions, TAKE 1 TABLET TWICE A DAY, # 180 tabs, 3 Refill(s), [facility]Rx: [facility] Start Date: 06/01/17 Status: OrderedVitamin [...] live 05/27/13 Given 1Location History: See scanned [id number] Comment: [05/08/2015 Uncharted] Uploaded in Error - [...] age.2tubular adenoma at hepatic flexure repeat 5 [id number] bx w/chronic inflammation and atypia, duodenal lesion showing tubular adenoma repeat 5 [id number] has had several heart caths w stents placed Social History Social History Type Response Smoking Status Former smoker; Type: Cigarettes1 entered on: 10/28/16 1Smoked for apprx. 50 years x one pack Assessment and Plan Extracted from: Title: Office Visit Note Author: Vasile Waller MD Date: 06/01/17 1.Atrial fibrillation Chronic and stableno change in current treatment recommended at this time. She is on anticoagulation therapyrate is controlled. 2.CHF (congestive heart failure) Chronic relatively stableshe appears euvolemic. 1+ edema is noted no change in current treatment is recommended continue to follow-up with Dr. Scherer. 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 She does appear to have a mild bronchitis but I don'tthink she has an exacerbation of her COPD at this time. We'll treat her with antibiotics and see how she does. 4.CKD (chronic kidney disease) stage 1, GFR 90 ml/min or greater Chronic relatively stable no change in current treatment. 5.Diabetes mellitus, type 2 I asked her to go ahead and increase her Humalog to 25 units with each injectionif she starts to run low she'll let us now she is to report in a couple weeks as to what her blood sugars are doing. Follow-up in 3 months otherwise. 6.Acute bronchitis I think she probably has an acute bronchitis. I've recommended some cefuroxime 500 mg twice a day for the next 10 days. If not improving or symptoms progress or worsen follow-up. 7.PVD (peripheral vascular disease) Stable with recentballooning of the artery and theleft leg. No change in current treatment.
[2018-04-13 17:25] VITALS: BMI 30.7
--- NOTE | 2018-04-13 17:42 | Cardiology History & Physical ---
History of Present Illness Chief complaint: hypoxia HPI: Pt is well known to Dr. Martinez wilson. She has chronic combined systolic and diastolic heart failure, PAF and severe COPD. She was seen in clinic today by myself with complaints of worsened LE edema and dyspnea. Her PCP placed her on metolazone 2.5mg daily in addition to her 4mg bumex bid one week ago, without symptom improvement. She was found to be hypoxic upon initial eval at OV 83% on 2L/O2. She was admitted for further work up of hypoxia and diuresis. Review of Systems All systems PM: 10-point ROS was reviewed, no additional remarkable complaints except - Constitutional Constitutional: Present: fatigue - EENMT Eyes: Absent: loss of vision - Cardiovascular Cardiovascular: Present: dyspnea on exertion, orthopnea, edema. Absent: chest pain, palpitations, syncope Vascular: Present: pedal edema, varicosities - Respiratory Respiratory: Present: dyspnea, dyspnea on exertion. Absent: cough - Gastrointestinal Gastrointestinal: Absent: abdominal pain - Musculoskeletal Musculoskeletal: Present: abnormal gait - Integumentary/Breasts Integumentary: Absent: erythema - Neurological Neurological: Absent: dizziness - Psychiatric Psychiatric: Absent: depression PFSH Patient Stated Medical History Peripheral Neuropathy Yes: feet Cataracts Yes: both Dental Problems Yes: dentures/full upper/partial bottom Hearing Loss Yes Congestive Heart Failure Yes Coronary Artery Disease Yes Hypertension Yes Valvular Heart Disease Yes Bronchitis Yes Chronic Obstructive Pulmonary Yes Disease (COPD) Pneumonia Yes Diabetes Mellitus Type 2 Yes Gastroesophageal Reflux Yes Disease Hx Incontinence Yes Other Yes: \\SMALL BLADDER Anemia Yes Osteoarthritis Yes: HANDS, KNEES, BACK Other Musculoskeletal Yes: arthritis Shingles Yes Blood Transfusions Yes Depression Yes Post Menopausal Yes Medical History Updates: Diabetes mellitus type 2, requiring insulin. Peripheral neuropathy. Paroxysmal atrial fibrillation. Peripheral arterial disease. Systolic and diastolic Congestive heart failure-acute on chronic. Coronary artery disease. Hyperlipidemia. Hypertension. Valvular heart disease. COPD. Osteoarthritis Surgical History: Tonsillectomy, aortic and mitral mechanical heart valve replacement, back surgery, cardiac stent, pm/defibrillator - Social History Smoking status: Former smoker (quit smoking 2 years ago. 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") Current occupational status: retired Does patient use chewing tobacco?: No Current residence: Apartment/Private Home Medications Home Medications Medication Instructions Recorded Confirmed Type Albuterol Sulfate [Proair Hfa] 2 puff INH Q4-6H PRN #0 06/15/14 04/13/18 History Atorvastatin Calcium 40 mg PO HS #0 06/15/14 04/13/18 History Tiotropium [place] [Spiriva] 1 cap ORAL INH DAILY #0 06/16/14 04/13/18 History Digoxin [Digitek] 125 mcg PO DAILY #0 01/09/15 04/13/18 History Warfarin Sodium 2.5 mg PO DAILY #0 tab 04/19/15 04/13/18 History Allopurinol [Zyloprim] 100 mg PO DAILY 04/14/17 04/13/18 History Cyanocobalamin (Vitamin B-12) 1,000 mcg PO DAILY 04/14/17 04/13/18 History [Vitamin B-12] Folic Acid [Folate] 1 mg PO DAILY 04/14/17 04/13/18 History Metoprolol Tartrate [Lopressor] 150 mg PO BID 05/19/17 04/13/18 History Aspirin *EC* [Ecotrin] 81 mg PO DAILY #30 tab 05/20/17 04/13/18 Rx Ascorbic Acid [Vitamin C] 1,000 mg PO WB 06/17/17 04/13/18 History Magnesium Oxide 400 mg PO DAILY 06/17/17 04/13/18 History Mometasone Furoate [Asmanex] 1 puff INH HS 06/17/17 04/13/18 History Bumetanide Tab [Bumex 1 mg Tab] 2 mg PO BID 01/15/18 04/13/18 History Dulaglutide [Trulicity] 1.5 mg SQ WEEKLY 01/15/18 04/13/18 History Spironolactone [Aldactone 25 mg] 25 mg PO DAILY #30 tab 01/19/18 04/13/18 Rx Insulin Detemir [Levemir] 50 unit SQ BID 03/16/18 04/13/18 History Insulin Lispro [HumaLOG] 40 unit SQ TIDWM 03/16/18 04/13/18 History Gabapentin [Neurontin] 300 mg PO TID 04/13/18 04/13/18 History Atorvastatin [Lipitor] 40 mg PO HS tab 04/15/18 Rx Folic Acid [Folate] 1 mg PO DAILY tab 04/15/18 Rx Potassium Chloride [K-DUR 20 mEq 20 meq PO BIDWM #60 tab 04/15/18 Rx Tablet] Warfarin [Coumadin] 4 mg PO NOON tab 04/15/18 Rx Allergies Allergy/AdvReac Type Severity Reaction Status Date / Time ciprofloxacin Allergy Unknown ABDOMINAL Verified 04/13/18 17:32 DISCOMFORT Exam - Constitutional no acute distress, cooperative - Routine HEENT Exam Head: Present: normocephalic, atraumatic Eye: Present: PERRL, normal accommodation ENT: Present: mucous membranes moist Nose: moist mucous membranes - Routine Neck Exam Absent: JVD, carotid bruit - Routine Respiratory Exam Present: dyspnea, decreased breath sounds - Routine Cardiovascular Exam Present: murmur - Routine Abdominal Exam Present: distended, firm - Routine Extremities Exam Present: edema (2+ BLE) - Routine Skin Exam Present: intact - Routine Neurological Exam Present: alert, oriented X3 - Routine Psychiatric Exam Present: normal affect, normal thought process Results 04/15/18 04:35 04/15/18 04:35 Intake and Output 04/13/18 04/13/18 04/13/18 06:59 14:59 22:59 Other: Weight 68.9 kg Patient Weight 04/14/18 06:59 Weight 68.9 kg Hospital Course This is a general summary of the patient's hospital course. For more details refer to the complete medical record. Assessment and Plan - Attestation Attestation Narrative: 04/22/18 13:45 Recommendation After examining the patient I agree with the above assessment. I am involved in the formulation of the patient's plan of care. - Assessment and Plan (1) Systolic and diastolic CHF, acute on chronic Status: Resolved (2) PAF (paroxysmal atrial fibrillation) Status: Chronic (3) COPD (chronic obstructive pulmonary disease) Status: Chronic (4) DM2 (diabetes mellitus, type 2) Status: Chronic (5) HLD (hyperlipidemia) Status: Chronic (6) HTN (hypertension) Status: Chronic (7) Hx of mitral valve replacement with mechanical valve Status: Chronic - Assessment and Plan Obtain ABG's Consult RT CXR Lab: CBC, CMP, BNP, Mag Plan to diurese with Bumex 2mg IV push now, then bumex gtt 1mg/hr. Accurate I&O's, barfield.
[2018-04-13] MEDS ORDERED: CONTAINER EMPTY IV SCH (19:00)
[2018-04-13] MEDS ORDERED: BUMETANIDE IV SCH (19:00)
[2018-04-13] MEDS: NS FLUSH BAG 500ml IV PRN (20:58)
[2018-04-13] MEDS ORDERED: ATORVASTATIN 40 MG TABLET PO SCH (21:00)
[2018-04-13] MEDS ORDERED: GABAPENTIN 100 MG CAPSULE PO SCH (21:00)
[2018-04-13] MEDS: INSULIN DETEMIR 100unit/ml INJECTION SQ SCH (21:24)
[2018-04-13] MEDS ORDERED: ALBUTEROL 2.5mg/3ml (0.083%) NEB AEROSOL PRN (22:15)
[2018-04-13] MEDS: INSULIN ASPART 100unit/ml INJECTION SQ PRN (22:21)
[2018-04-13] MEDS: Ipratropium Inh NEB 0.02% (0.5mg/2.5ml) AEROSOL PRN (23:06)
[2018-04-14] MEDS: Ipratropium Inh NEB 0.02% (0.5mg/2.5ml) AEROSOL PRN (04:15)
[2018-04-14] MEDS ORDERED: Ipratropium Inh NEB 0.02% (0.5mg/2.5ml) AEROSOL SCH (07:00)
[2018-04-14] MEDS ORDERED: INSULIN ASPART 100unit/ml INJECTION SQ SCH (08:00)
--- NOTE | 2018-04-14 08:55 | XRay Report ---
INDICATION: dyspnea PROCEDURE: CHEST 2-VIEWS UPRIGHT (PA & LAT) Encounter: Initial COMPARISON: March 19, 2018 FINDINGS: Continued increased interstitial markings and a similar pattern to the prior exam. No new or worsening airspace disease appreciated. No pneumothorax or effusion. Cardiac silhouette remains enlarged. Postoperative changes of prior cardiac valve replacements are noted along with a left pacemaker defibrillator. Mediastinal contours and pulmonary vascularity are stable. Impression: Stable appearance of the chest with findings of mild pulmonary edema. .
[2018-04-14] MEDS ORDERED: TIOTROPIUM 18mcg/cap HANDIHALER ORAL INH SCH (09:00)
[2018-04-14] MEDS: MAGNESIUM OXIDE 400 MG TABLET PO SCH (09:11)
[2018-04-14] MEDS: GABAPENTIN 300 MG CAPSULE PO SCH ×3 (09:11→21:09)
[2018-04-14] MEDS: ASCORBIC ACID 500 MG TABLET PO SCH (09:11)
[2018-04-14] MEDS: ASPIRIN *EC* 81 MG TABLET PO SCH (09:11)
[2018-04-14] MEDS: INSULIN DETEMIR 100unit/ml INJECTION SQ SCH ×2 (09:12→21:13)
[2018-04-14] MEDS: INSULIN ASPART 100unit/ml INJECTION SQ SCH ×4 (09:13→18:43)
[2018-04-14] MEDS: CYANOCOBALAMIN (B-12) 500mcg TABLET PO SCH (09:14)
[2018-04-14] MEDS: FOLIC ACID 1 MG TABLET PO SCH (09:14)
[2018-04-14] MEDS: DIGOXIN 125 MCG TABLET PO SCH (09:14)
[2018-04-14] MEDS: ALLOPURINOL 100 MG TABLET PO SCH (09:16)
[2018-04-14] MEDS: SPIRONOLACTONE 25 MG TABLET PO SCH (09:31)
[2018-04-14] MEDS ORDERED: ACETAMINOPHEN 325 MG TABLET PO ONE (09:52)
[2018-04-14] MEDS ORDERED: ALBUTEROL/IPRATROPIUM 2.5mg-0.5mg/3ml NEB AEROSOL PRN (10:18)
[2018-04-14] MEDS ORDERED: ACETAMINOPHEN 325 MG TABLET PO PRN (10:36)
--- NOTE | 2018-04-14 10:40 | Cardiology Progress Note ---
<Mariposa Loza K - Last Filed: 04/14/18 20:04> Subjective Principal diagnosis: Hypoxia Interval history: Pt is awake, alert and oriented x 3, sitting up in recliner with legs elevated. at bedside. Pt denies CP, palpitations, n/v, diaphoresis, increased soa or dizziness. Exam Vital signs: Temperature 98.4 F 04/14/18 07:49 Pulse Rate 68 04/14/18 09:14 Respiratory Rate 18 04/14/18 07:49 Blood Pressure 133/57 04/14/18 07:49 Pulse Oximetry 96 04/14/18 07:49 Inpatient Medications: Generic Name Dose Route Start Last Admin Trade Name Freq PRN Reason Stop Dose Admin Acetaminophen 650 mg 04/14/18 10:36 Tylenol PO Q5H PRN Discomfort Albuterol/Ipratropium 3 ml 04/14/18 21:00 Duoneb AEROSOL BID SHUBHAM Albuterol/Ipratropium 3 ml 04/14/18 10:18 04/14/18 10:10 Duoneb AEROSOL 3 ml RTQID PRN Administration Allopurinol 100 mg 04/14/18 09:00 04/14/18 09:16 Zyloprim PO 100 mg DAILY SHUBHAM Administration Ascorbic Acid 1,000 mg 04/14/18 08:00 04/14/18 09:11 Vitamin C PO 1,000 mg WB SHUBHAM Administration Aspirin 81 mg 04/14/18 09:00 04/14/18 09:11 Ecotrin PO 81 mg DAILY SHUBHAM Administration Atorvastatin Calcium 40 mg 04/13/18 21:00 04/13/18 21:05 Lipitor PO 40 mg HS SHUBHAM Administration Cyanocobalamin 1,000 mcg 04/14/18 09:00 04/14/18 09:14 Vit. B-12 PO 1,000 mcg DAILY SHUBHAM Administration Digoxin 125 mcg 04/14/18 09:00 04/14/18 09:14 Lanoxin PO 125 mcg DAILY SHUBHAM Administration Folic Acid 1 mg 04/14/18 09:00 04/14/18 09:14 Folate PO 1 mg DAILY SHUBHAM Administration Gabapentin 300 mg 04/14/18 09:00 04/14/18 09:11 Neurontin PO 300 mg TID SHUBHAM Administration Bumetanide 25 mg/ IV Solution 100 mls @ 4 mls/hr 04/13/18 19:00 04/13/18 20: 59 IV 1 mg/hr .Q24H SHUBHAM 4 mls/hr Administration 1 MG/HR Insulin Aspart 40 unit 04/14/18 08:00 04/14/18 09:13 Novolog SQ 40 unit TIDWM SHUBHAM Administration Insulin Aspart 40 unit 04/14/18 08:00 04/14/18 09:53 Novolog SQ Not Given TIDWM SHUBHAM Insulin Aspart 2 - 8 unit 04/13/18 22:10 04/13/18 22:21 Novolog SQ 3 unit SS PRN Administration Protocol Insulin Detemir 50 unit 04/13/18 21:00 04/14/18 09:12 Levemir SQ 50 unit BID SHUBHAM Administration Magnesium Oxide 400 mg 04/14/18 09:00 04/14/18 09:11 Magox PO 400 mg DAILY SHUBHAM Administration Metoprolol Tartrate 150 mg 04/13/18 21:00 04/14/18 09:16 Lopressor PO 150 mg BID SHUBHAM Administration Mometasone Furoate 1 puff 04/13/18 21:00 04/14/18 07:48 Asmanex Twisthaler ORAL INH Not Given HS SHUBHAM Pom (Dulaglutide [ 1.5 mg 04/17/18 12:00 Trulicity] 1.5 Mg) PO WEEKLY SHUBHAM Potassium Chloride 40 meq 04/14/18 08:00 04/14/18 09:11 K-Dur 20 Meq Tablet PO 40 meq TIDWM SHUBHAM Administration Sodium Chloride 500 ml 04/13/18 20:53 04/13/18 20:58 Normal Saline IV 500 ml PRN PRN Administration Spironolactone 25 mg 04/14/18 09:00 04/14/18 09:31 Aldactone 25 Mg PO 25 mg DAILY SHUBHAM Administration Warfarin Sodium 2.5 mg 04/14/18 12:00 Coumadin PO NOON SHUBHAM Warfarin Sodium 5 mg 04/14/18 12:00 Coumadin PO 04/14/18 12:01 NOON SHUBHAM Discontinued Medications Generic Name Dose Route Start Last Admin Trade Name Freq PRN Reason Stop Dose Admin Acetaminophen 650 mg 04/14/18 09:52 04/14/18 10:22 Tylenol PO 04/14/18 09:53 650 mg O ONE Administration Albuterol Sulfate 2.5 mg 04/13/18 22:15 04/14/18 04:15 Proventil Neb (0.083%) AEROSOL 2.5 mg RTQID PRN Administration Bumetanide 2 mg 04/13/18 19:45 04/13/18 20:11 Bumex 1 Mg/4 Ml Inj. IVP 04/13/18 19:46 2 mg O ONE Administration Gabapentin 300 mg 04/13/18 21:00 04/13/18 21:06 Neurontin PO 300 mg TID SHUBHAM Administration Ipratropium [place] 0.5 mg 04/14/18 07:00 04/13/18 22:49 Atrovent (0.02%) AEROSOL 0.5 mg RTQID SHUBHAM Administration Ipratropium [place] 0.5 mg 04/13/18 23:00 04/14/18 04:15 Atrovent (0.02%) AEROSOL 0.5 mg RTQID PRN Administration - Constitutional no acute distress, well nourished, well developed, cooperative - Routine HEENT Exam Head: Present: normocephalic, atraumatic Eye: Present: EOMI, PERRL ENT: Present: mucous membranes moist - Routine Neck Exam Present: supple, normal carotid upstroke, trachea midline. Absent: JVD, carotid bruit - Routine Chest/Breast/Axilla Exam Chest wall: Present: pacemaker. Absent: tenderness - Routine Respiratory Exam Present: decreased breath sounds, crackles. Absent: dyspnea, rhonchi, stridor, wheezes - Routine Cardiovascular Exam Present: RRR, murmur. Absent: gallop, rubs, JVD - Routine Abdominal Exam Present: normoactive bowel sounds, non tender, distended, firm - Routine Extremities Exam Present: edema, pulses intact, normal capillary refill. Absent: cyanosis, clubbing - Routine Skin Exam Present: intact, dry, warm. Absent: wounds, rash - Routine Neurological Exam Present: alert, oriented X3, CN II-XII intact - Routine Psychiatric Exam Present: normal affect, cooperative - Urinary Catheter Management Urethral Cath placed during this visit: yes Urethral indwelling: No Insertion date: 04/13/18 Insertion time: 20:35 Results 04/14/18 12:04 04/14/18 12:04 Cardiac Enzymes 04/13/18 Range/Units 17:40 AST 63 H (14-36) U/L CBC 04/13/18 Range/Units 17:40 WBC 10.3 (4.5-11.0) T/MM3 RBC 3.68 L (4.00-5.20) M/MM3 Hgb 10.7 L (12-16) GM/DL Hct 35.2 L (36-46) % Plt Count 192 (130-400) T/MM3 Neut # (Auto) Not performed Lymph # (Auto) Not performed [place] # (Auto) Not performed Eos # (Auto) Not performed Baso # (Auto) Not performed Comprehensive Metabolic Panel 04/13/18 Range/Units 17:40 Sodium 140 (136-146) MEQ/L Potassium 3.3 L (3.6-5) MEQ/L Chloride 93 L (98-107) MEQ/L Carbon Dioxide 33 H (22-30) MEQ/L BUN 53.0 H* (7-17) MG/DL Creatinine 1.5 H (0.7-1.2) mg/dL Glucose 113 H (65-110) MG/DL Calcium 9.4 (8.4-10.2) MG/DL AST 63 H (14-36) U/L ALT 61 H (1-35) U/L Alkaline Phosphatase 187 H (38-126) U/L Total Protein 7.1 (6.3-8.2) g/dL Albumin 4.1 (3.5-5.0) g/dL Intake and Output 04/13/18 04/14/18 04/14/18 22:59 06:59 14:59 Intake Total 200 / 200 440 / 440 Output Total 600 / 600 2400 / 2400 Balance -400 / -400 -1960 / -1960 Intake: Oral 200 / 200 440 / 440 Output: Urine 2400 / 2400 Urine Amount (Catheter) 600 / 600 Other: Urine Appearance Clear Clear Urine Color Yellow Pale Urine Odor Normal Weight 68.9 kg 66.6 kg Patient Weight 04/15/18 06:59 Weight 66.6 kg - Imaging and Cardiology Echo: report reviewed EKG results: report reviewed - EKG Interpretation EKG: no acute changes EKG shows: sinus rhythm Assessment and Plan - Assessment and Plan (1) Systolic and diastolic CHF, acute on chronic Status: Resolved (2) PAF (paroxysmal atrial fibrillation) Status: Chronic (3) HTN (hypertension) Status: Chronic (4) DM2 (diabetes mellitus, type 2) Status: Chronic (5) HLD (hyperlipidemia) Status: Chronic (6) COPD (chronic obstructive pulmonary disease) Status: Chronic (7) Hx of mitral valve replacement with mechanical valve Status: Chronic - Assessment and Plan Acute on Chronic Systolic and Diastolic Heart Failure -BNP [id number] -Will discontinue Bumex gtt and resume home Bumex 2 mg PO BID -Continue BB and aldactone -Monitor weights, I&Os, aand lytes -2000 mL fluid restriction -02/24/18 Echo: EF 50%, NWMA, Mild LVH, Severe LAE, Mech AVR, Mech MV, Mod TR -Presence of [employer] Bi-V ICD, monitored monthly with [employer], last interrogated in the offce on 08/14/2017 Paroxysmal Atrial Fibrillation -Continue BB and Coumadin -Continue Digoxin -Dig level 1.6 -INR 2.25 -Goal INR 2.5-3.5 d/t mechanical valves Hypertension -Well controled on current therapy -Continue BB, Bumex and Aldactone Hyperlipidemia -Will resume atorvastatin 40 mg PO q HS -Lipids pending -Follow labs as outpatient Mitral Valve Replacement with Mechanical Valve -02/2018 Echo: MVR 1.87m/s 14/4.9 mm Hg Grad -Continue Coumadin therapy DM2 -Continue home meds -Fasting and 2 hour pc accuchecks COPD -O2 2L per NC (baseline) -Continue home meds Hospital Course Summary Disclaimer: The visit summary below is not to be considered part of the above Progress Note. <Dion Henriquez - Last Filed: 04/23/18 15:58> Exam Vital signs: Temperature 97.0 F 04/15/18 07:32 Pulse Rate 62 04/15/18 09:12 Respiratory Rate 15 04/15/18 08:54 Blood Pressure 137/66 04/15/18 07:32 Pulse Oximetry 94 04/15/18 08:59 Inpatient Medications: Discontinued Medications Generic Name Dose Route Start Last Admin Trade Name Freq PRN Reason Stop Dose Admin Acetaminophen 650 mg 04/14/18 09:52 04/14/18 10:22 Tylenol PO 04/14/18 09:53 650 mg O ONE Administration Acetaminophen 650 mg 04/14/18 10:36 04/14/18 22:00 Tylenol PO 650 mg Q5H PRN Administration Discomfort Albuterol Sulfate 2.5 mg 04/13/18 22:15 04/14/18 04:15 Proventil Neb (0.083%) AEROSOL 2.5 mg RTQID PRN Administration Albuterol/Ipratropium 3 ml 04/14/18 21:00 04/15/18 08:53 Duoneb AEROSOL 3 ml BID SHUBHAM Administration Albuterol/Ipratropium 3 ml 04/14/18 10:18 04/14/18 10:10 Duoneb AEROSOL 3 ml RTQID PRN Administration Allopurinol 100 mg 04/14/18 09:00 04/15/18 09:13 Zyloprim PO 100 mg DAILY SHUBHAM Administration Ascorbic Acid 1,000 mg 04/14/18 08:00 04/15/18 09:11 Vitamin C PO 1,000 mg WB SHUBHAM Administration Aspirin 81 mg 04/14/18 09:00 04/15/18 09:11 Ecotrin PO 81 mg DAILY SHUBHAM Administration Atorvastatin Calcium 40 mg 04/13/18 21:00 04/13/18 21:05 Lipitor PO 40 mg HS SHUBHAM Administration Atorvastatin Calcium 40 mg 04/14/18 21:00 04/14/18 21:10 Lipitor PO 40 mg HS SHUBHAM Administration Bumetanide 2 mg 04/13/18 19:45 04/13/18 20:11 Bumex 1 Mg/4 Ml Inj. IVP 04/13/18 19:46 2 mg O ONE Administration Bumetanide 1 mg 04/15/18 08:00 04/15/18 09:11 Bumex 1 Mg Tab PO 1 mg BIDBS SHUBHAM Administration Bumetanide 2 mg 04/15/18 09:15 04/15/18 11:22 Bumex 1 Mg Tab PO 1 mg BIDBS SHUBHAM Administration Cyanocobalamin 1,000 mcg 04/14/18 09:00 04/15/18 09:12 Vit. B-12 PO 1,000 mcg DAILY SHUBHAM Administration Digoxin 125 mcg 04/14/18 09:00 04/15/18 09:12 Lanoxin PO 125 mcg DAILY SHUBHAM Administration Folic Acid 1 mg 04/14/18 09:00 04/15/18 09:12 Folate PO 1 mg DAILY SHUBHAM Administration Gabapentin 300 mg 04/13/18 21:00 04/13/18 21:06 Neurontin PO 300 mg TID SHUBHAM Administration Gabapentin 300 mg 04/14/18 09:00 04/15/18 09:11 Neurontin PO 300 mg TID SHUBHAM Administration Bumetanide 25 mg/ IV Solution 100 mls @ 4 mls/hr 04/13/18 19:00 04/14/18 18: 27 IV Infused .Q24H SHUBHAM Infusion 1 MG/HR Potassium Chloride 20 meq/ 111 mls @ 111 mls/hr 04/14/18 16:15 Lidocaine HCl 1 ml/ Sodium IV 04/14/18 20:14 Chloride Q1H SHUBHAM Potassium Chloride 10 meq/ 106 mls @ 106 mls/hr 04/14/18 16:15 04/14/18 23:11 Lidocaine HCl 1 ml/ Sodium IV 04/14/18 20:14 Infused Chloride Q1H SHUBHAM Infusion Insulin Aspart 40 unit 04/14/18 08:00 04/15/18 09:14 Novolog SQ 40 unit TIDWM SHUBHAM Administration Insulin Aspart 40 unit 04/14/18 08:00 04/14/18 09:53 Novolog SQ Not Given TIDWM SHUBHAM Insulin Aspart 2 - 8 unit 04/13/18 22:10 04/14/18 12:40 Novolog SQ 3 unit SS PRN Administration Protocol Insulin Detemir 50 unit 04/13/18 21:00 04/15/18 09:14 Levemir SQ 50 unit BID SHUBHAM Administration Ipratropium [place] 0.5 mg 04/14/18 07:00 04/13/18 22:49 Atrovent (0.02%) AEROSOL 0.5 mg RTQID SHUBHAM Administration Ipratropium [place] 0.5 mg 04/13/18 23:00 04/14/18 04:15 Atrovent (0.02%) AEROSOL 0.5 mg RTQID PRN Administration Magnesium Oxide 400 mg 04/14/18 09:00 04/15/18 09:11 Magox PO 400 mg DAILY SHUBHAM Administration Magnesium Oxide 400 mg 04/14/18 14:30 04/14/18 15:49 Magox PO 400 mg O SHUBHAM Administration Metoprolol Tartrate 150 mg 04/13/18 21:00 04/14/18 09:16 Lopressor PO 150 mg BID SHUBHAM Administration Metoprolol Tartrate 150 mg 04/14/18 17:30 04/15/18 09:13 Lopressor PO 150 mg BIDWM SHUBHAM Administration Mometasone Furoate 1 puff 04/13/18 21:00 04/15/18 01:15 Asmanex Twisthal[place] ORAL INH 1 puff HS SHUBHAM Administration Pom (Dulaglutide [ 1.5 mg 04/17/18 12:00 Trulicity] 1.5 Mg) PO WEEKLY SHUBHAM Potassium Chloride 40 meq 04/14/18 08:00 04/14/18 18:28 K-Dur 20 Meq Tablet PO 40 meq TIDWM SHUBHAM Administration Potassium Chloride 20 meq 04/15/18 08:00 04/15/18 09:11 K-Dur 20 Meq Tablet PO 20 meq BIDWM SHUBHAM Administration Sodium Chloride 500 ml 04/13/18 20:53 04/14/18 15:35 Normal Saline IV 500 ml PRN PRN Administration Spironolactone 25 mg 04/14/18 09:00 04/15/18 09:12 Aldactone 25 Mg PO 25 mg DAILY SHUBHAM Administration Warfarin Sodium 2.5 mg 04/14/18 12:00 04/14/18 12:32 Coumadin PO 2.5 mg NOON SHUBHAM Administration Warfarin Sodium 1 each 04/14/18 11:32 04/14/18 12:35 Pharmacy Consult - Warfarin 04/14/18 11:33 1 each O ONE Administration Warfarin Sodium 0 04/14/18 11:45 Coumadin Protocol NOTE SHUBHAM Warfarin Sodium 0.5 mg 04/14/18 13:58 04/14/18 15:07 Coumadin PO 04/14/18 13:59 0.5 mg O ONE Administration Warfarin Sodium 4 mg 04/15/18 12:00 04/15/18 11:23 Coumadin PO 04/15/18 13:00 4 mg NOON SHUBHAM Administration - Urinary Catheter Management Urethral Cath placed during this visit: no Results 04/15/18 04:35 04/15/18 04:35 Assessment and Plan - Assessment and Plan (1) Systolic and diastolic CHF, acute on chronic Status: Resolved (2) PAF (paroxysmal atrial fibrillation) Status: Chronic (3) COPD (chronic obstructive pulmonary disease) Status: Chronic (4) DM2 (diabetes mellitus, type 2) Status: Chronic (5) HLD (hyperlipidemia) Status: Chronic (6) HTN (hypertension) Status: Chronic (7) Hx of mitral valve replacement with mechanical valve Status: Chronic - Attestation Attestation Narrative: 08/17/18 15:58 Recommendation After examining the patient I agree with the above assessment. I am involved in the formulation of the patient's plan of care. Hospital Course Summary Disclaimer: The visit summary below is not to be considered part of the above Progress Note.
[2018-04-14] MEDS ORDERED: WARFARIN - PHARMACY CONSULT MC ONE (11:32)
[2018-04-14] MEDS ORDERED: WARFARIN 2.5 MG TABLET PO SCH (12:00)
[2018-04-14] MEDS ORDERED: WARFARIN 5 MG TABLET PO SCH (12:00)
[2018-04-14] MEDS: INSULIN ASPART 100unit/ml INJECTION SQ PRN (12:40)
[2018-04-14] MEDS ORDERED: WARFARIN 1 MG TABLET PO ONE (13:58)
--- NOTE | 2018-04-14 14:19 | Pharmacy Consult ---
Pharmacy Consult-Warfarin - Laboratory Information 04/13/18 04/13/18 04/14/18 17:40 17:40 12:04 Hgb 10.7 L 10.4 L Hct 35.2 L 34.1 L INR AST 63 H ALT 61 H Albumin 4.1 04/14/18 12:04 Hgb Hct INR 2.25 H AST ALT Albumin - Consult Information 77 y.o. female with history of a. fib, and surgical history of mitral and aortic valve replacement with mechanical valve. History of chronic anticoagulation with warfarin. goal INR range= 2.5 to 3.5. Home warfarin dose= 2.5 mg po daily. Today's INR is slightly subtherapeutic. Home dose of warfarin 2.5 mg po daily given today at noon. Additional order for Warfarin 0.5 mg po x 1 dose entered due to sub-therapeutic INR. Pharmacy will monitor and adjust as needed. Thank you for the warfarin dosing protocol, Shania Castaneda RPh
[2018-04-14] MEDS ORDERED: MAGNESIUM OXIDE 400 MG TABLET PO SCH (14:30)
[2018-04-14] MEDS ORDERED: POTASSIUM CHLORIDE PREMIX 10 MEQ/100 ML BAG IV SCH (14:30)
[2018-04-14] MEDS: NS FLUSH BAG 500ml IV PRN (15:35)
[2018-04-14] MEDS ORDERED: NS IV SCH (16:15)
[2018-04-14] MEDS ORDERED: POTASSIUM CHLORIDE IV SCH (16:15)
[2018-04-14] MEDS ORDERED: LIDOCAINE 1% IV SCH (16:15)
[2018-04-14] MEDS: POTASSIUM CHLORIDE IV SCH ×4 (17:00→22:11)
[2018-04-14] MEDS: LIDOCAINE 1% IV SCH ×4 (17:00→22:11)
[2018-04-14] MEDS: NS IV SCH ×4 (17:00→22:11)
[2018-04-14] MEDS: ALBUTEROL/IPRATROPIUM 2.5mg-0.5mg/3ml NEB AEROSOL SCH (19:30)
[2018-04-14] MEDS ORDERED: ATORVASTATIN 40 MG TABLET PO SCH (21:00)
[2018-04-15 07:35] VITALS: BP 137/66; PULSE 62; RESP 15; TEMP 97
[2018-04-15] MEDS ORDERED: BUMETANIDE 1 MG TABLET PO SCH ×2 (08:00→09:15)
--- NOTE | 2018-04-15 08:20 | Pharmacy Consult ---
Pharmacy Consult-Warfarin - Laboratory Information 04/13/18 04/13/18 04/14/18 17:40 17:40 12:04 Hgb 10.7 L 10.4 L Hct 35.2 L 34.1 L INR AST 63 H ALT 61 H Albumin 4.1 04/14/18 04/15/18 04/15/18 12:04 04:35 04:35 Hgb 10.4 L Hct 35.1 L INR 2.25 H 2.21 H AST ALT Albumin WARFARIN THERAPY: 77yo F with presence of MECHANICAL Mitral Valve: CHEST guidelines recommend Target INR = 2.5 - 3.5 Multiple comorbidities of acute on chronic systolic/diastolic HF, PAF, COPD, T2DM, HLD, HTN Warfarin home dose reported as 2.5mg daily. Warfarin recent dosing history: 04/13 INR not known. appears warfarin dose was missed prior to admission 04/14 INR 2.25 Gave 3mg dose 04/15 INR 2.21 Will give 4mg dose today. Will continue to monitor and adjust regimen to target rante of 2.5-3.5 Thank you.
[2018-04-15] MEDS: ALBUTEROL/IPRATROPIUM 2.5mg-0.5mg/3ml NEB AEROSOL SCH (08:53)
[2018-04-15 08:59] VITALS: O2SAT 94
[2018-04-15] MEDS: ASPIRIN *EC* 81 MG TABLET PO SCH (09:11)
[2018-04-15] MEDS: GABAPENTIN 300 MG CAPSULE PO SCH (09:11)
[2018-04-15] MEDS: ASCORBIC ACID 500 MG TABLET PO SCH (09:11)
[2018-04-15] MEDS: MAGNESIUM OXIDE 400 MG TABLET PO SCH (09:11)
[2018-04-15] MEDS: FOLIC ACID 1 MG TABLET PO SCH (09:12)
[2018-04-15] MEDS: DIGOXIN 125 MCG TABLET PO SCH (09:12)
[2018-04-15] MEDS: SPIRONOLACTONE 25 MG TABLET PO SCH (09:12)
[2018-04-15] MEDS: CYANOCOBALAMIN (B-12) 500mcg TABLET PO SCH (09:12)
[2018-04-15] MEDS: ALLOPURINOL 100 MG TABLET PO SCH (09:13)
[2018-04-15] MEDS: INSULIN ASPART 100unit/ml INJECTION SQ SCH (09:14)
[2018-04-15] MEDS: INSULIN DETEMIR 100unit/ml INJECTION SQ SCH (09:14)
--- NOTE | 2018-04-15 09:19 | Discharge Summary ---
<Mariposa Loza - Last Filed: 04/15/18 10:01> Discharge Information Date of admission: 04/13/18 17:00 Anticipated date of discharge: 04/15/18 (Stable) Attending Physician: Dion Henriquez MD Primary care physician: Vasile Waller MD - Discharge Diagnosis (1) Systolic and diastolic CHF, acute on chronic Status: Resolved (2) PAF (paroxysmal atrial fibrillation) Status: Chronic (3) HTN (hypertension) Status: Chronic (4) DM2 (diabetes mellitus, type 2) Status: Chronic (5) HLD (hyperlipidemia) Status: Chronic (6) COPD (chronic obstructive pulmonary disease) Status: Chronic (7) Hx of mitral valve replacement with mechanical valve Status: Chronic Problems Reviewed?: Yes (Stable) - Laboratory Labs: 04/15/18 04:35 04/15/18 04:35 - Radiology Radiology: XRay Report Signed Patient: Susanne Belle MR#: [id number] : 1940 Age/Sex: 77 / F ADM Date: 04/13/18 Loc: MED 158-P DIS Date: = = = = = = = = = = = = = = = = = = = = = = = = = = = = = = = = = = = = = = = = = = = = = = = = = = = = = = = = = = = Date of Exam: 04/13/18 Ordering Provider: Rossy Barnett APRN Type of Exam(s): XR chest 2V Reason for Exam(s): dyspnea INDICATION: dyspnea PROCEDURE: CHEST 2-VIEWS UPRIGHT (PA & LAT) Encounter: Initial COMPARISON: March 19, 2018 FINDINGS: Continued increased interstitial markings and a similar pattern to the prior exam. No new or worsening airspace disease appreciated. No pneumothorax or effusion. Cardiac silhouette remains enlarged. Postoperative changes of prior cardiac valve replacements are noted along with a left pacemaker defibrillator. Mediastinal contours and pulmonary vascularity are stable. Impression: Stable appearance of the chest with findings of mild pulmonary edema. . History of Present Illness HPI: Pt is well known to Dr. Henriquez service. She has chronic combined systolic and diastolic heart failure, PAF and severe COPD. She was seen in clinic today by myself with complaints of worsened LE edema and dyspnea. Her PCP placed her on metolazone 2.5mg daily in addition to her 4mg bumex bid one week ago, without symptom improvement. She was found to be hypoxic upon initial eval at OV 83% on 2L/O2. She was admitted for further work up of hypoxia and diuresis. Hospital Course - Assessment and Plan Acute on Chronic Systolic and Diastolic Heart Failure -BNP 5120 -Continue home Bumex 2 mg PO BID -Continue BB and aldactone -Monitor weights, I&Os, and lytes -Patient has appointment with PCP next week and will have labs drawn. -2000 mL fluid restriction -02/24/18 Echo: EF 50%, NWMA, Mild LVH, Severe LAE, Mech AVR, Mech MV, Mod TR -Presence of [employer] Bi-V ICD, monitored monthly with [employer], last interrogated in the offce on 08/14/2017 -Echocardiogram scheduled in office on 05/31/2018 Paroxysmal Atrial Fibrillation -Continue BB and Coumadin -Continue Digoxin -Dig level 1.6 -INR 2.21 -Goal INR 2.5-3.5 d/t mechanical valves -Patient to continue with weekly INR checks at home. Pt to check on and call results to the office. Hypertension -Well controled on current therapy -Continue BB, Bumex and Aldactone Hyperlipidemia -Continue atorvastatin 40 mg PO q HS -LDL 35.2 -Follow labs as outpatient -Outpatient carotid ultrasound and bilateral LEAD studies scheduled on 2017 Mitral Valve Replacement with Mechanical Valve -02/2018 Echo: MVR 1.87m/s 14/4.9 mm Hg Grad -Outpatient Echo scheduled on 05/31/2018 -Continue Coumadin therapy -INR 2.21 today -Patient to continue checking INR at home on . Calls results to office DM2 -Continue home meds -Fasting and 2 hour pc accuchecks COPD -O2 2L per NC (baseline) -Continue home meds Time spent with patient: less than 15 minutes Resuscitation Status: Full Code Exam Vital signs: Temperature 97.0 F 04/15/18 07:32 Pulse Rate 62 04/15/18 09:12 Respiratory Rate 15 04/15/18 08:54 Blood Pressure 137/66 04/15/18 07:32 Pulse Oximetry 94 04/15/18 08:59 - Constitutional no acute distress, well nourished, well developed, cooperative - Routine HEENT Exam Head: Present: normocephalic, atraumatic Eye: Present: EOMI, PERRL ENT: Present: mucous membranes moist - Routine Neck Exam Present: supple, normal carotid upstroke, trachea midline. Absent: JVD, carotid bruit - Routine Chest/Breast/Axilla Exam Chest wall: Absent: tenderness - Routine Respiratory Exam Present: decreased breath sounds. Absent: accessory muscle use, dyspnea - Routine Cardiovascular Exam Present: RRR, S1, S2. Absent: no murmur, gallop, rubs, JVD - Routine Abdominal Exam Present: soft, non distended, non tender. Absent: wound - Routine Extremities Exam Present: edema. Absent: cyanosis, clubbing Comments: Trace edema to BLE - Routine Skin Exam Present: intact, dry, warm. Absent: wounds, rash - Routine Neurological Exam Present: alert, oriented X3, CN II-XII intact, moving all extremities, normal speech - Routine Psychiatric Exam Present: normal affect, cooperative Results 04/15/18 04:35 04/15/18 04:35 Lipids 04/15/18 Range/Units 04:35 Triglycerides 189 H (35-135) mg/dL Cholesterol 87 L (132-199) mg/dL HDL Cholesterol 14 L (40-60) mg/dL Cholesterol/HDL Ratio 6.2 H (0-4.0) RATIO CBC 04/14/18 04/15/18 Range/Units 12:04 04:35 WBC 9.4 7.3 (4.5-11.0) T/MM3 RBC 3.62 L 3.66 L (4.00-5.20) M/MM3 Hgb 10.4 L 10.4 L (12-16) GM/DL Hct 34.1 L 35.1 L (36-46) % Plt Count 184 193 (130-400) T/MM3 Comprehensive Metabolic Panel 04/14/18 04/15/18 Range/Units 12:04 04:35 Sodium 142 141 (136-146) MEQ/L Potassium 2.8 L* 4.1 D (3.6-5) MEQ/L Chloride 88 L 90 L (98-107) MEQ/L Carbon Dioxide 40 H 40 H (22-30) MEQ/L BUN 56.0 H* 61.0 H* (7-17) MG/DL Creatinine 1.6 H D 1.6 H (0.7-1.2) mg/dL Glucose 132 H 144 H (65-110) MG/DL Calcium 10.3 H D 10.0 (8.4-10.2) MG/DL Intake and Output 04/14/18 04/15/18 04/15/18 22:59 06:59 14:59 Intake Total 818 / 818 106 / 106 Output Total 1200 / 1200 1000 / 1000 Balance -382 / -382 -894 / -894 Intake: IV 418 / 418 106 / 106 Bumetanide Inj 25 mg In 100 / 100 Container,Empty 100 ml @ 1 MG/ HR 4 mls/hr IV .Q24H [facility] Rx#: [id number] Potassium Chloride Inj 10 meq 318 / 318 106 / 106 LIDOCAINE 1% 30ml INJ 1 ml In Ns 100 ml @ 106 mls/hr IV Q1H [facility] Rx#:[id number] Oral 400 / 400 0 / 0 Output: Urine 750 / 750 Urine Amount (Catheter) 450 / 450 1000 / 1000 Other: Urine Appearance Clear Clear Urine Color Pale Yellow Urine Odor Normal Normal # Voids 1 Weight 66 kg Patient Weight 04/16/18 06:59 Weight 66 kg - Imaging and Cardiology Echo: report reviewed EKG results: report reviewed - EKG Interpretation EKG: WNL, sinus rhythm EKG shows: sinus rhythm Discharge Plan - Med Rec/Dispo Referrals/Follow Up: Dion Henriquez MD [Physician] - 2 Weeks (APPOINTMENT 04/29 AT 10:40.) Prescriptions: New Atorvastatin [Lipitor] 40 mg PO HS tab Folic Acid [Folate] 1 mg PO DAILY tab Potassium Chloride [K-DUR 20 mEq Tablet] 20 meq PO BIDWM #60 tab Warfarin [Coumadin] 4 mg PO NOON tab Continue Albuterol Sulfate [Proair Hfa] 2 puff INH Q4-6H PRN #0 PRN Reason: SHORTNESS OF AIR Tiotropium [place] [Spiriva] 1 cap ORAL INH DAILY #0 Cyanocobalamin (Vitamin B-12) [Vitamin B-12] 1,000 mcg PO DAILY Folic Acid [Folate] 1 mg PO DAILY Allopurinol [Zyloprim] 100 mg PO DAILY Metoprolol Tartrate [Lopressor] 150 mg PO BID Ascorbic Acid [Vitamin C] 1,000 mg PO WB Magnesium Oxide 400 mg PO DAILY Mometasone Furoate [Asmanex] 1 puff INH HS Bumetanide Tab [Bumex 1 mg Tab] 2 mg PO BID Dulaglutide [Trulicity] 1.5 mg SQ WEEKLY Insulin Detemir [Levemir] 50 unit SQ BID Insulin Lispro [HumaLOG] 40 unit SQ TIDWM Gabapentin [Neurontin] 300 mg PO TID Atorvastatin Calcium 40 mg PO HS #0 Digoxin [Digitek] 125 mcg PO DAILY #0 Aspirin *EC* [Ecotrin] 81 mg PO DAILY #30 tab Spironolactone [Aldactone 25 mg] 25 mg PO DAILY #30 tab No Action Warfarin Sodium 2.5 mg PO DAILY #0 tab - Disposition 01 Discharged Home, Self-Care - Dismissal Complete Discharge Instructions are:: Complete <Dion Henriquez - Last Filed: 04/23/18 16:00> Discharge Information Date of admission: 04/13/18 17:00 Attending Physician: Dion Henriquez MD Primary care physician: Vasile Waller MD - Discharge Diagnosis (1) Systolic and diastolic CHF, acute on chronic Status: Resolved (2) PAF (paroxysmal atrial fibrillation) Status: Chronic (3) COPD (chronic obstructive pulmonary disease) Status: Chronic (4) DM2 (diabetes mellitus, type 2) Status: Chronic (5) HLD (hyperlipidemia) Status: Chronic (6) HTN (hypertension) Status: Chronic (7) Hx of mitral valve replacement with mechanical valve Status: Chronic - Laboratory Labs: 04/15/18 04:35 04/15/18 04:35 Hospital Course This is a general summary of the patient's hospital course. For more details refer to the complete medical record. Exam Vital signs: Temperature 97.0 F 04/15/18 07:32 Pulse Rate 62 04/15/18 09:12 Respiratory Rate 15 04/15/18 08:54 Blood Pressure 137/66 04/15/18 07:32 Pulse Oximetry 94 04/15/18 08:59 Results 04/15/18 04:35 04/15/18 04:35 Attestation Narriative - Attestation Attestation Narrative: 04/23/18 16:00 Recommendation After examining the patient I agree with the above assessment. I am involved in the formulation of the patient's plan of care.
[2018-04-15] MEDS ORDERED: WARFARIN 4 MG TABLET PO SCH (12:00)
[2018-04-17] MEDS ORDERED: DULAGLUTIDE 1.5 MG PO SCH (12:00)
== END 2018-04-15 11:50 | disposition home or self-care (01) | DRG 293 ==
LOC: MED → OBSVTOIN 17:00
PROVIDERS: ADMIT Internal Medicine Cardiovascular Disease; ATTEND Internal Medicine Cardiovascular Disease